=== PATIENT | female | born 1935 | race Caucasian/White ===

== ENCOUNTER 2017-11-27 12:08 | Inpatient (IN) | payer OTHER ==
[2017-11-27 12:41] LABS: Absolute Monocytes 0.9 K/uL (0.1-1.3); Absolute Neutrophil 6.1 K/uL (1.8-8.0); Basophils % 0.9 % (0-1.3); Eosinophils % 2.5 % (0-4.4); Hematocrit 40.1 % (36.0-45.0); Lymphocytes % 21.8 % (15.3-44.8); MCH 29.5 pg (27.0-35.0); MCV 88.3 fL (80-100); MPV 7.7 fL (7.6-11.3); Monocytes % 9.7 % (3.3-12.3); RBC Red Blood Cell Count 4.54 M/uL (3.86-4.86)
[2017-11-27] MEDS ORDERED: ONDANSETRON 4 MG/2 ML VIAL ONE (12:46)
[2017-11-27] MEDS ORDERED: FENTANYL CITR 100 MCG/2 ML ONE (12:46)
[2017-11-27] MEDS ORDERED: NA CHLORIDE 0.9% 1,000 ML ONE (12:46)
[2017-11-27 12:54] LABS: Potassium 5.1 mEq/L (3.6-5.0)
[2017-11-27] MEDS ORDERED: ONDANSETRON 4 MG/2 ML VIAL IV PRN (13:20)
[2017-11-27] MEDS ORDERED: MORPHINE 4 MG/ML SYR IV PRN (13:23)
--- NOTE | 2017-11-27 13:25 | ER ---
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 Reports aj right hip pain with outward deformity to leg. Care prior to arrival: None. Mechanism of Injury: Fall from standing position. Trauma event details: Injury occurred in the [facility], Injury occurred: at home. Injury occurred: November 27, 2017 Injury occurred at: 11:30. 12:08 Acuity: AMOR 3 aj 12:08 Method Of Arrival: EMS: [facility] aj 14:43 Transition of care: patient was not received from another setting of care. Onset of aj symptoms was November 27, 2017. Trauma Activation: Not Applicable Physician: ED Physician; Name: ; Notified At: ; Arrived At: Physician: General Surgeon; Name: ; Notified At: ; Arrived At: Physician: Radiology; Name: ; Notified At: ; Arrived At: Physician: Respiratory; Name: ; Notified At: ; Arrived At: Physician: Lab; Name: ; Notified At: ; Arrived At: Historical: - Allergies: 12:17 No Known Allergies; aj - Home Meds: 12:17 Metoprolol Tartrate Oral [Active]; aj - PMHx: 12:17 Hypertension; aj - PSHx: 12:17 Left Hip; aj - Immunization history: Last tetanus immunization: - up to date. - Social history:: Smoking status: Patient/guardian denies using tobacco. Screenin:08 Abuse screen: Denies threats or abuse. Denies injuries from another. Tuberculosis aj screening: No symptoms or risk factors identified. 14:43 Nutritional screening: No deficits noted. Fall Risk Fall in past 12 months (25 points). aj Primary Survey: 12:08 A: Airway: patent. Breathing/Chest: Respiratory pattern: regular, Respiratory effort: aj spontaneous, unlabored. Circulation: Skin color: pink, Skin temperature: warm, dry. Disability Alert. 13:05 Reassessment Airway Airway Breathing/Chest Respiratory pattern Regular Respiratory aj effort Spontaneous Unlabored Circulation Color [place] Temperature Warm Dry Disability Alert. Assessment: 12:08 General: Appears in no apparent distress. comfortable, Behavior is calm, cooperative, aj appropriate for age. Pain: Complains of pain in right hip. Neuro: Level of Consciousness is awake, alert, obeys commands, Oriented to person, place, time, situation. Respiratory: Airway is patent Respiratory effort is even, unlabored, Respiratory pattern is regular, symmetrical. Derm: Skin is intact, is healthy with good turgor, Skin is pink, warm \T\ dry. normal. Vital Signs: 12:08 BP 190 / 110; Pulse 84; Resp 20; Temp 98.6; Pulse Ox 98% on R/A; Weight 63.5 kg; Height aj 5 ft. 4 in. (162.56 cm); Pain 7/10; 14:10 BP 232 / 74; Pulse 82; Resp 20; Pulse Ox 99% on R/A; aj 12:08 Body Mass Index 24.03 (63.50 kg, 162.56 cm) aj 14:10 Provider notified of vitals aj Louise Coma Score: 12:08 Eye Response: spontaneous(4). Verbal Response: oriented(5). Motor Response: obeys aj commands(6). Total: 15. Trauma Score (Adult): 12:08 Eye Response: spontaneous(1); Verbal Response: oriented(1); Motor Response: obeys aj commands(2); Systolic BP: > 89 mm Hg(4); Respiratory Rate: 10 to 29 per min(4); Louise Score: 15; Trauma Score: 12 ED Course: 12:08 Patient arrived in ED. aj 12:08 [facility] jr8 12:08 Jhony Gutierrez MD is Attending Physician. jr8 12:08 Patient has correct armband on for positive identification. aj 12:08 Patient maintains SpO2 saturation greater than 95% on room air. aj 12:11 Triage completed. aj 12:17 Arm band placed on right wrist. Patient placed in an exam room, on a stretcher. aj 12:23 Leila Wallace, RN is Primary Nurse. aj 12:24 Inserted saline lock: 22 gauge in left antecubital area, using aseptic technique. Blood aj collected. 12:43 X-ray completed. Portable x-ray completed in exam room. Patient tolerated procedure jw2 well. 13:22 Laurie Olivier MD is Hospitalizing Provider. jr8 13:50 Jovel cath inserted, using sterile technique, 16 Fr., by md, balloon inflated, to aj gravity drainage, urine specimen collected. 14:15 EKG done, reviewed by Celio BECERRA. cc2 14:43 No provider procedures requiring assistance completed. Patient admitted, IV remains in aj place. Administered Medications: 12:31 Drug: fentaNYL (PF) 50 mcg Route: IVP; Site: left antecubital; aj 12:31 Drug: Zofran 4 mg Route: IVP; Site: left antecubital; aj 12:31 Drug: NS 0.9% 1000 ml Route: IV; Rate: 75 ml/hr; Site: left antecubital; aj 13:56 Drug: fentaNYL (PF) 25 mcg Route: IVP; Site: left antecubital; aj 15:11 Follow up: Response: Pain is decreased aj 14:19 Drug: Metoprolol 25 mg Route: PO; aj 15:10 Follow up: Response: No adverse reaction aj 14:19 Drug: hydrALAZINE 10 mg Route: PO; aj 15:09 Follow up: Response: Blood pressure is lowered aj Intake: 12:08 PO: 0ml; Total: 0ml. aj Outcome: 13:24 Decision to Hospitalize by Provider. jr8 14:44 Admitted to Med/surg accompanied by [facility], via stretcher, room 212, with chart, Report aj called to Esther IVEY 14:44 Condition: good 14:44 Patient's length of stay was not longer than 2 hours. 15:21 Patient left the ED. aj Signatures: Leila Wallace, RN Celio Chapman PA PA jr8 Lilo Burden jw2 [place], Esteban cc2
--- NOTE | 2017-11-27 13:25 | EDPHYS ---
Physician Documentation [facility] Name: Yadira Contreras Age: 82 yrs Sex: Female : 1935 Arrival Date: 11/27/2017 Time: 12:08 Bed 8 Private MD: ED Physician Jhony Gutierrez HPI: 11/27 13:00 This 82 yrs old Female presents to ER via EMS with complaints of Fall Injury, jr8 Hip Pain. 13:00 Details of fall: The patient fell from an upright position, while standing. Onset: The jr8 symptoms/episode began/occurred acutely, today. Associated injuries: The patient sustained right hip, decreased range of motion, deformity, painful injury. Severity of symptoms: At their worst the symptoms were moderate, in the emergency department the symptoms are unchanged. The patient has experienced a previous episode. The patient has not recently seen a physician. Patient stated that she tripped in grass and fell. Obvious deformity to right hip. Fall accidental per patient. Denies hitting head or neck. No LOC . Historical: - Allergies: 12:17 No Known Allergies; aj - Home Meds: 12:17 Metoprolol Tartrate Oral [Active]; aj - PMHx: 12:17 Hypertension; aj - PSHx: 12:17 Left Hip; aj - Immunization history: Last tetanus immunization: - up to date. - Social history:: Smoking status: Patient/guardian denies using tobacco. ROS: 13:00 Eyes: Negative for injury, pain, redness, and discharge, ENT: Negative for injury, jr8 pain, and discharge, Neck: Negative for injury, pain, and swelling, Cardiovascular: Negative for chest pain, palpitations, and edema, Respiratory: Negative for shortness of breath, cough, wheezing, and pleuritic chest pain, Abdomen/GI: Negative for abdominal pain, nausea, vomiting, diarrhea, and constipation, Back: Negative for injury and pain, Skin: Negative for injury, rash, and discoloration, Neuro: Negative for headache, weakness, numbness, tingling, and seizure. 13:00 MS/extremity: Positive for decreased range of motion, deformity, pain, tenderness, of the right hip. Exam: 13:19 Head/Face: Normocephalic, atraumatic. Eyes: Pupils equal round and reactive to light, jr8 extra-ocular motions intact. Lids and lashes normal. Conjunctiva and sclera are non-icteric and not injected. Cornea within normal limits. Periorbital areas with no swelling, redness, or edema. ENT: Nares patent. No nasal discharge, no septal abnormalities noted. Tympanic membranes are normal and external auditory canals are clear. Oropharynx with no redness, swelling, or masses, exudates, or evidence of obstruction, uvula midline. Mucous membranes moist. Neck: Trachea midline, no thyromegaly or masses palpated, and no cervical lymphadenopathy. Supple, full range of motion without nuchal rigidity, or vertebral point tenderness. No Meningismus. Chest/axilla: Normal chest wall appearance and motion. Nontender with no deformity. No lesions are appreciated. Cardiovascular: Regular rate and rhythm with a normal S1 and S2. No gallops, murmurs, or rubs. Normal PMI, no JVD. No pulse deficits. Respiratory: Lungs have equal breath sounds bilaterally, clear to auscultation and percussion. No rales, rhonchi or wheezes noted. No increased work of breathing, no retractions or nasal flaring. Abdomen/GI: Soft, non-tender, with normal bowel sounds. No distension or tympany. No guarding or rebound. No evidence of tenderness throughout. Back: No spinal tenderness. No costovertebral tenderness. Full range of motion. Skin: Warm, dry with normal turgor. Normal color with no rashes, no lesions, and no evidence of cellulitis. Neuro: Awake and alert, GCS 15, oriented to person, place, time, and situation. Cranial nerves II-XII grossly intact. Motor strength 5/5 in all extremities. Sensory grossly intact. Cerebellar exam normal. Normal gait. 13:19 Musculoskeletal/extremity: Extremities: grossly normal except: noted in the right hip: decreased ROM, deformity, pain, ROM: limited active range of motion, limited passive range of motion, limited active range of motion due to pain, limited passive range of motion due to pain, Circulation is intact in all extremities. Sensation intact. Vital Signs: 12:08 BP 190 / 110; Pulse 84; Resp 20; Temp 98.6; Pulse Ox 98% on R/A; Weight 63.5 kg; Height aj 5 ft. 4 in. (162.56 cm); Pain 7/10; 14:10 BP 232 / 74; Pulse 82; Resp 20; Pulse Ox 99% on R/A; aj 12:08 Body Mass Index 24.03 (63.50 kg, 162.56 cm) aj 14:10 Provider notified of vitals aj [place] Coma Score: 12:08 Eye Response: spontaneous(4). Verbal Response: oriented(5). Motor Response: obeys aj commands(6). Total: 15. Trauma Score (Adult): 12:08 Eye Response: spontaneous(1); Verbal Response: oriented(1); Motor Response: obeys aj commands(2); Systolic BP: > 89 mm Hg(4); Respiratory Rate: 10 to 29 per min(4); Louise Score: 15; Trauma Score: 12 MDM: 12:08 Patient medically screened. [facility] [place] 13:19 Data reviewed: vital signs, nurses notes, lab test result(s), EKG, radiologic studies, [facility] [place] plain films, and as a result, I will discharge patient. Data interpreted: Pulse oximetry: on room air is 98 %. Interpretation: normal. Counseling: I had a detailed discussion with the patient and/or guardian regarding: the historical points, exam findings, and any diagnostic results supporting the discharge/admit diagnosis, lab results, radiology results, the need for further work-up and treatment in the hospital. Physician consultation: Laurie Olivier MD was called at 13:20, was contacted at 13:20, regarding admission, to the medical/surgical unit. consult, patient's condition, and will see patient. 11/27 12:21 Order name: CBC with Diff [facility] [place] 11/27 12:21 Order name: Basic Metabolic Panel [facility] [place] 11/27 12:21 Order name: Protime (+inr) [facility] [place] 11/27 12:21 Order name: Ptt, Activated [facility] [place] 11/27 12:21 Order name: T\T\S [facility] [place] 11/27 12:54 Order name: Basic Metabolic Panel; Complete Time: 13:21 EDMS 11/27 12:21 Order name: XRAY Hip RIGHT 2 view [facility] [place] 11/27 12:57 Order name: Protime (+INR); Complete Time: 13:00 EDMS 11/27 12:57 Order name: PTT, Activated Partial Thromb; Complete Time: 13:00 EDMS 11/27 12:57 Order name: CBC with Automated Diff; Complete Time: 13:00 EDMS 11/27 13:21 Order name: XRAY Chest (1 view) [facility] [place] 11/27 13:22 Order name: CK [facility] [place] 11/27 13:28 Order name: Pelvis XRAY [facility] [place] 11/27 13:28 Order name: XRAY Femur RIGHT [facility] [place] 11/27 12:21 Order name: IV; Complete Time: 12:32 [facility] [place] 11/27 12:21 Order name: Jovel; Complete Time: 13:50 [facility] [place] 11/27 12:53 Order name: Labs - recollect needed 11/27 13:21 Order name: EKG - Nurse/Tech [facility] [place] 11/27 13:21 Order name: EKG; Complete Time: 13:22 [facility] [place] 11/27 13:52 Order name: RAD; Complete Time: 13:59 EDMS 11/27 14:51 Order name: RAD; Complete Time: 14:53 EDMS 11/27 15:02 Order name: RAD; Complete Time: 15:04 EDMS 11/27 15:02 Order name: RAD; Complete Time: 15:04 EDMS Administered Medications: 12:31 Drug: fentaNYL (PF) 50 mcg Route: IVP; Site: left antecubital; aj 12:31 Drug: Zofran 4 mg Route: IVP; Site: left antecubital; aj 12:31 Drug: NS 0.9% 1000 ml Route: IV; Rate: 75 ml/hr; Site: left antecubital; aj 13:56 Drug: fentaNYL (PF) 25 mcg Route: IVP; Site: left antecubital; aj 15:11 Follow up: Response: Pain is decreased aj 14:19 Drug: Metoprolol 25 mg Route: PO; aj 15:10 Follow up: Response: No adverse reaction aj 14:19 Drug: hydrALAZINE 10 mg Route: PO; aj 15:09 Follow up: Response: Blood pressure is lowered aj Disposition: 11/27/17 13:24 Hospitalization ordered by Laurie Olivier for Inpatient Admission. Preliminary diagnosis is Intertrochanteric fracture of femur. - Bed requested for Telemetry/MedSurg (Inpatient). - Status is Inpatient Admission. aj - Condition is Stable. - Problem is new. - Symptoms have improved. UTI on Admission? No Addendum: 11/29/2017 08:13 Co-signature as Attending Physician, Jhony AREVALO I agree with the assessment and c johnson plan of care. Signatures: Dispatcher [employer] Lexus Joseph Amanda, RN Jhony Goetz MD MD cha Roszak, Josh, PA PA jr8 Brittany Winston, UCHE RN df
--- NOTE | 2017-11-27 13:37 | P.HP ---
Certification for Inpatient Patient admitted to: Inpatient With expected LOS: >2 Midnights Patient will require the following post-hospital care: None Practitioner: I am a practitioner with admitting privileges, knowledge of patient current condition, hospital course, and medical plan of care. Services: Services provided to patient in accordance with Admission requirements found in Title 42 Section 412.3 of the Code of Federal Regulations Patient History Date of Service: 11/27/17 Primary Care Provider: Dr Ibarra Reason for admission: Right hip fracture History of Present Illness: 82 y/o F with h/o HTN, left Hip fracture in the past who presented to the ED after a mechanical Fall in the front porch. Pt states she was on the front porch and slipped and fell on the right hip. She felt the pain right away. Her called 911 and she was brought to the ED for further workup. Pt has had left hip fracture in the past (about 3 years ago) had it repaired without any complications. Currently on H/o HTN and takes only Metoprolol for it. No other complains at this time. No associated Symptoms at this time. Denies Chest pain, SOB, N or V at this time. In ED pt was found to have Right Hip Fracture and thus medicine was consulted for further care. Dr Chawla from ortho consulted and will take pt to OR isabel AM. Allergies No Known Allergies Allergy (Unverified 11/03/13 00:38) Home Medications: Multivitamin [Daily Vitamin] 1 tab PO DAILY 11/06/13 Aspirin [Misha Chewable Aspirin] 81 mg PO DAILY 08/03/14 Carbamazepine 100 mg PO DAILY 08/03/14 Lisinopril [Prinivil*] 20 mg PO DAILY 08/03/14 Metoprolol Tartrate [Lopressor*] 50 mg PO DAILY 08/03/14 Gabapentin 300 mg PO BEDTIME 08/06/14 Docusate [Colace Cap] 100 mg PO BID #30 cap 08/17/14 Hydrocodone 5/APAP 325 [[place] 5/325] 1 - 2 tab PO Q6H PRN #40 tab 08/17/14 - Past Medical/Surgical History Diabetic: No -: TRIGEMINAL NEURALGIA -: HTN -: CATARACT SX - BILATERAL -: hysterectomy - Family History Father -: Heart disease, Hypertension, Stroke, Cancer Mother -: Heart disease, Hypertension, Cancer - Social History Alcohol use: Yes CD- Drugs: No Caffeine use: Yes Review of Systems 10-point ROS is otherwise unremarkable General: As per HPI Physical Examination - Physical Exam General: Alert, In no apparent distress, Oriented x3 HEENT: Atraumatic Neck: Supple Respiratory: Clear to auscultation bilaterally, Normal air movement Cardiovascular: Regular rate/rhythm, Normal S1 S2 Gastrointestinal: Normal bowel sounds, Soft and benign, Non-distended, No tenderness Musculoskeletal: Other (Right Leg external rotated. pain on palpation on the right hip. ) Integumentary: No rashes Neurological: Normal speech, Normal tone, Abnormal strength Lymphatics: No axilla or inguinal lymphadenopathy - Studies Laboratory Data (last 24 hrs) 11/27/17 12:21: PT 11.8, INR 1.00, APTT 29.5 11/27/17 12:21: Sodium 134 L, Potassium 5.1 H, BUN 13, Creatinine 0.69, Glucose 118 11/27/17 12:21: WBC 9.4, Hgb 13.4, Hct 40.1, Plt Count 351 Assessment and Plan - Problems (Diagnosis) (1) Closed right hip fracture Current Visit: Yes Status: Acute Plan: S/P mechanical Fall -Ortho consulted. Dr Chawla to take the pt to OR isabel AM -NPO after midnight -Pain mgmt and iv fluids Qualifiers: Encounter type: initial encounter Qualified Code(s): S72.001A - Fracture of unspecified part of neck of right femur, initial encounter for closed fracture (2) Falls Current Visit: No Status: Acute Plan: S/p Mechanical Call -PT/OT consulted -Rehab consulted after surgery for placement. (3) Hypertensive disorder, systemic arterial Current Visit: No Status: Chronic Plan: Will restart home medication Discharge Plan: Other Plan to discharge in: 72 Hours - Advance Directives Does patient have a Living Will: No Does patient have a Durable POA for Healthcare: Yes
[2017-11-27] MEDS ORDERED: D50W 25 GM/50 ML SYRINGE IV PRN (13:46)
[2017-11-27] MEDS ORDERED: CALCIUM GLUC 10% INJ 4.65 MEQ in NA CHLORIDE 0.9% 100 ML IV ONE ×2 (13:46→17:00)
[2017-11-27] MEDS ORDERED: GLUCAGON 1 MG/VIAL IM PRN (13:46)
[2017-11-27] MEDS ORDERED: INSULIN -REGULAR HUMAN 50 UNIT/0.5 ML ML IV ONE (13:47)
--- NOTE | 2017-11-27 13:51 | RAD REPORT ---
EXAM DESCRIPTION: RAD - Hip Right 2 View - 11/27/2017 12:46 pm CLINICAL HISTORY: Right hip pain status post fall FINDINGS: Intertrochanteric fracture involves the right femur. The fracture involves the greater tro chanter. The lesser trochanter is avulsed. Varus angulation is present at the fracture site. Main fra cture fragments are by 8 millimeters No dislocation is seen
[2017-11-27] MEDS ORDERED: METOPROLOL TAR 25 MG TAB ONE (14:34)
[2017-11-27] MEDS ORDERED: HYDRALAZINE HCL 10 MG TABLET ONE (14:34)
--- NOTE | 2017-11-27 14:51 | RAD REPORT ---
EXAM DESCRIPTION: [place] Single View11/27/2017 1:50 pm CLINICAL HISTORY: Chest pain COMPARISON: 2013 FINDINGS: The lungs appear clear of acute infiltrate. The heart is normal size IMPRESSION: No acute abnormalities displayed
--- NOTE | 2017-11-27 15:01 | RAD REPORT ---
EXAM DESCRIPTION: RAD - Pelvis - 11/27/2017 2:49 pm CLINICAL HISTORY: Pelvic pain FINDINGS: Intertrochanteric fracture involves the proximal right femur. The greater trochanter is in volved. The lesser trochanter is avulsed. Varus angulation is present at the fracture site. The main fracture fragments are by 8 millimeters. No dislocation is seen
--- NOTE | 2017-11-27 15:02 | RAD REPORT ---
EXAM DESCRIPTION: RAD - Femur Right - 11/27/2017 2:49 pm CLINICAL HISTORY: Right leg pain FINDINGS: Intertrochanteric fracture involves the proximal right femur. The greater trochanter is in volved. The lesser trochanter is avulsed. Varus angulation is present at the fracture site. The main fracture fragments are by 8 millimeters. No fracture involves the mid and distal right femur No dislocation is seen
[2017-11-27 15:24] VITALS: BMI 24.0
[2017-11-27] MEDS: HYDRALAZINE HCL 20 MG/ML VIAL IV PRN (16:51)
[2017-11-27] MEDS: NA CHLORIDE 0.9% 1,000 ML IV SCH ×2 (16:53→20:45)
[2017-11-27] MEDS ORDERED: PNEUMOCOCCAL VACCINE 0.5 ML IMVAC ONE (17:00)
[2017-11-27 17:25] LABS: Urine Appearance CLEAR; Urine Bilirubin NEGATIVE (NEG); Urine Blood NEGATIVE (NEG); Urine Color YELLOW; Urine Glucose NEGATIVE (NEG); Urine Protein NEGATIVE (NEG); Urine Urobilinogen 0.2 mg/dL (0.2-1.0); Urine pH 7.5 (5.0-7.0)
[2017-11-27 17:33] LABS: Urine Microscopic Reflex NO UMIC
[2017-11-27] MEDS: FENTANYL CITR 100 MCG/2 ML IV PRN (20:39)
[2017-11-28] MEDS: FENTANYL CITR 100 MCG/2 ML IV PRN ×2 (02:40→08:49)
[2017-11-28 05:09] LABS: Absolute Lymphocytes (CBC) 1.2 K/uL (0.7-4.9); Absolute Neutrophil 7.6 K/uL (1.8-8.0); Basophils % 0.7 % (0-1.3); Eosinophils % 0.6 % (0-4.4); Hematocrit 30.9 % (36.0-45.0); Lymphocytes % 12.1 % (15.3-44.8); MCH 29.4 pg (27.0-35.0); MCV 87.5 fL (80-100); MPV 7.7 fL (7.6-11.3); Monocytes % 10.3 % (3.3-12.3); RBC Red Blood Cell Count 3.53 M/uL (3.86-4.86)
--- NOTE | 2017-11-28 05:14 | EKG ---
Test Date: 2017-11-27 Test Time: 14:00:20 Historic Sites Registrar: ZACK MEASUREMENT RESULTS: Intervals: Rate: 71 AL: 166 QRSD: 90 QT: 424 QTc: 460 [place]: P: 81 AL: 166 QRS: 58 T: 39 INTERPRETIVE STATEMENTS: Normal sinus rhythm Normal ECG Compared to ECG 08/11/2014 09:57:36 Sinus tachycardia no longer present Atrial premature complex(es) no longer present Electronically Signed On 11-28-17 05:14:01 CDT by Fam Cooper
[2017-11-28 05:22] LABS: ALT/SGPT 16 IU/L (10-60); AST/SGOT 18 IU/L (10-42); Alkaline Phosphatase 72 IU/L (42-121); BUN Blood Urea Nitrogen 12 mg/dL (6-20); Bicarbonate 26 mEq/L (21-31); Bilirubin Total 0.6 mg/dL (0.3-1.2); Glomerular Filtration Rate > 90 mL/min (=/>90); Glucose Level 101 mg/dL (65-120); Magnesium 1.9 mg/dL (1.8-2.5); Phosphorus 3.7 mg/dL (2.5-4.3); Potassium 4.5 mEq/L (3.6-5.0); Protein, Total 5.3 g/dL (6.0-8.3); Sodium Level 133 mEq/L (135-145)
[2017-11-28] MEDS: NA CHLORIDE 0.9% 1,000 ML IV SCH ×2 (08:55→20:51)
--- NOTE | 2017-11-28 10:25 | CON ---
Date of Consultation: 11/28/2017 Reason For Consultation: Right hip pain. History Of Present Illness: Yadira is an 82-year-old female with history of hypertension and trigemin al neuralgia, who presented to the ER yesterday with right hip pain. The patient reports standing on her front porch and falling after tripping on her feet and landing on her right side with subsequent pain to her right hip and inability to bear weight. The patient was brought to the emergency room a nd had x-rays of her right hip, which demonstrated a right intertrochanteric femur fracture. The pat ient reports history of left femoral neck fracture treated by left hip hemiarthroplasty approximately [address] Carroll. Prior to the fall, the patient denied any use of assistive devices. Review of Systems: As above, otherwise negative. Past Medical History: Includes hypertension, trigeminal neuralgia. Past Surgical History: Left hip hemiarthroplasty, hysterectomy, cataract surgery. Home Medications: Include multivitamin, aspirin, carbamazepine, lisinopril, metoprolol, gabapentin, [place], and Colace. Allergies: NO KNOWN DRUG ALLERGIES. Social History: Denies tobacco use. Reports occasional alcohol use. Lives at home with her . Family History: Reviewed and noncontributory. Physical Examination: General: No apparent distress. HEENT: Normocephalic, atraumatic. Neck: Supple. Cardiovascular: Brisk cap refill to all digits. Chest: Nonlabored breathing. Abdomen: Nondistended. Psychiatric: Response to exam. Musculoskeletal: Bilateral upper extremities functional range of motion without pain. No gross defo rmities. No obvious dislocations. Left lower extremity; no pain with range of motion of the left hi p, knee, or ankle. Neurovascular intact distally. Right lower extremity; pain with range of motion of the right hip, tenderness to palpation over the right hip. No tenderness to palpation of the knee , tibia, ankle or foot. Reports gross sensation intact to the dorsal and plantar surface of her foot . Positive firing of EHL, FHL, gastrocsoleus complex, tibialis anterior. X-rays: X-rays of her right hip demonstrate an intertrochanteric femur fracture, which is displaced with displacement of the lesser trochanter. Laboratory Data: White count is 9.4, hemoglobin 13.4, hematocrit 40.1, platelets 351. Assessment And Plan: Ms. Contreras is an 82-year-old female with a right intertrochanteric femur fractu re. I discussed with the patient at length risks and benefits associated with operative and nonopera tive treatment. Given her displaced fracture, I recommended surgical fixation with cephalomedullary device. Risks and benefits associated with the procedure were discussed with the patient as well as postoperative rehabilitation. The patient and her family expressed understanding. We will proceed w ith the surgical fixation later this morning. Dr. Olivier will continue to manage the patient medicall yClark GUTIERREZ/[email or web address] Voice ID: [id number] Report ID: [id number]
[2017-11-28] MEDS ORDERED: PROPOFOL 200 MG/20 ML VIAL IV ONE (10:34)
[2017-11-28] MEDS ORDERED: ROCURONIUM 50 MG/5 ML VIAL IV ONE (10:34)
[2017-11-28] MEDS ORDERED: LIDOCAINE 2% MPF 5 ML VIAL ONE (10:34)
[2017-11-28] MEDS ORDERED: Phenylephrine HCl 10 MG/ML 1 ML VIAL ONE (10:36)
[2017-11-28] MEDS ORDERED: Ringers Lactate 1,000 ML IV ONE (10:42)
--- NOTE | 2017-11-28 10:48 | EKG ---
Test Date: 2017-11-27 Test Time: 16:58:22 Frothing Machine Operator: ALONSO MEASUREMENT RESULTS: Intervals: Rate: 71 SD: 174 QRSD: 92 QT: 418 QTc: 454 [place]: P: 75 SD: 174 QRS: 57 T: 38 INTERPRETIVE STATEMENTS: Normal sinus rhythm Normal ECG Compared to ECG 11/27/2017 14:00:20 No significant changes Electronically Signed On 11-28-17 10:47:09 CDT by Fam Cooper
[2017-11-28] MEDS ORDERED: CEFAZOLIN/SWI 1gm 1 GM/10 ML SYR ONE (11:06)
[2017-11-28] MEDS ORDERED: FENTANYL CITR 100 MCG/2 ML ONE (11:28)
[2017-11-28] MEDS ORDERED: DEXAMETHASONE 10 MG/ML VIAL ONE (11:45)
[2017-11-28] MEDS ORDERED: ONDANSETRON 4 MG/2 ML VIAL ONE ×2 (11:46→12:42)
[2017-11-28] MEDS ORDERED: KETOROLAC 30 MG/ML INJ ONE (11:46)
[2017-11-28] MEDS ORDERED: HYDRALAZINE HCL 20 MG/ML VIAL ONE (11:57)
[2017-11-28] MEDS ORDERED: GLYCOPYRROLATE 0.2 MG/ML SYR ONE (11:57)
[2017-11-28] MEDS ORDERED: NEOSTIGMINE 1 MG/ML -5 ML SYRINGE ONE (11:57)
[2017-11-28] MEDS: METOPROLOL TAR 50 MG TAB PO SCH ×2 (12:00→20:48)
--- NOTE | 2017-11-28 12:17 | P.BOP ---
Preoperative diagnosis: right intertrochanteric femur fracture Postoperative diagnosis: same Primary procedure: cephallomedullary fixation of right intertrochanteric femur fracture Other procedure(s): none Teaching Young: NONE,NONE Estimated blood loss: 50 cc Specimen: none Findings: see dictation Anesthesia: General Complications: None Drain(s): Urinary catheter Implants: [id number] mm Biomet 125 degree nail; 95 mm lag screw Fluids & blood products: per anesthesia Transferred to: Recovery Room Condition: Good
[2017-11-28] MEDS ORDERED: DOCUSATE NA 100 MG CAP PO PRN (12:25)
[2017-11-28] MEDS ORDERED: FENTANYL CITR 100 MCG/2 ML IV PRN (12:25)
[2017-11-28] MEDS: MEPERIDINE HCL 25 MG/0.5 ML ONE ×2 (12:33→12:58)
--- NOTE | 2017-11-28 12:33 | RAD REPORT ---
EXAM DESCRIPTION: RAD - Hip In Or - 11/28/2017 12:12 pm FINDINGS: Right hip fluoroscopy performed. Multiple portable C-arm views were obtained during fluoroscopic assisted placement of fracture fixati on hardware. No suspicious or unexpected finding.
[2017-11-28 12:56] LABS: Hematocrit 31.7 % (36.0-45.0)
[2017-11-28] MEDS ORDERED: CEFAZOLIN/SWI 1gm 1 GM/10 ML SYR IVP SCH (13:00)
[2017-11-28] MEDS ORDERED: PROMETHAZINE 25 MG/ML VIAL ONE (13:07)
--- NOTE | 2017-11-28 13:09 | RAD REPORT ---
EXAM DESCRIPTION: RAD - Hip Right 2 View - 11/28/2017 1:01 pm CLINICAL HISTORY: Right femur fracture repair COMPARISON: Intraoperative and pre-surgical examination FINDINGS: AP and cross-table lateral views were obtained. Fracture fixation hardware has been placed in good position. Lesser trochanter remains a free fracture displaced superiorly. No suspicious or u nexpected finding.
--- NOTE | 2017-11-28 14:20 | P.PN ---
Subjective Date of Service: 11/28/17 Primary Care Provider: Dr Ibarra Chief Complaint: Right hip fracture Patient seen and examined at bedside with RN. Case discussed with orthopedics. Patient is currently awaiting surgical procedure. Still complains of having pain. Yesterday after 2 mg of morphine patient had respiratory distress and which resolved after 10 mins. Review of Systems General: As per HPI Physical Examination - Vital Signs Temperature: 98.6 F Blood Pressure: 147/65 Pulse: 73 Respirations: 20 Pulse Ox (%): 97 - Physical Exam General: Alert, In no apparent distress, Oriented x3 HEENT: Atraumatic, PERRLA, EOMI Neck: Supple, JVD not distended Respiratory: Clear to auscultation bilaterally, Normal air movement Cardiovascular: Regular rate/rhythm, Normal S1 S2 Gastrointestinal: Normal bowel sounds, No tenderness Musculoskeletal: Tenderness, Other (Externally rotated Right leg ) Integumentary: No rashes Neurological: Normal speech, Normal tone, Normal affect Lymphatics: No axilla or inguinal lymphadenopathy - Studies Medications List Reviewed: Yes Assessment & Plan - Problems (Diagnosis) (1) Closed right hip fracture Current Visit: Yes Status: Acute Plan: S/P mechanical Fall -Ortho consulted. Dr Chawla to take the pt to OR today -NPO now -Pain mgmt and iv fluids Qualifiers: Encounter type: initial encounter Qualified Code(s): S72.001A - Fracture of unspecified part of neck of right femur, initial encounter for closed fracture (2) Falls Current Visit: No Status: Acute Plan: S/p Mechanical Call -PT/OT consulted -Rehab consulted after surgery for placement. (3) Hypertensive disorder, systemic arterial Current Visit: No Status: Chronic Plan: Will restart home medication Discharge Plan: Other Plan to discharge in: 48 Hours - Code Status/Comfort Care Code Status Assessed: Yes Critical Care: No
[2017-11-28] MEDS: CEFAZOLIN/SWI 1gm 1 GM/10 ML SYR IVP SCH ×2 (17:51→23:12)
[2017-11-28] MEDS: HYDROCODONE/APAP 7.5/325 MG TAB PO PRN (17:51)
[2017-11-28] MEDS: GABAPENTIN 300 MG CAP PO SCH (20:48)
[2017-11-28] MEDS ORDERED: CARBAMAZEPINE 200 MG TAB PO SCH (21:00)
[2017-11-28] MEDS ORDERED: CARBAMAZEPINE 100 MG PO SCH (21:00)
--- NOTE | 2017-11-28 21:40 | OP ---
Date of Procedure: 11/28/2017 Surgeon: Chi Chawla MD Preoperative Diagnosis: Right intertrochanteric femur fracture. Postoperative Diagnosis: Right intertrochanteric femur fracture. Procedure Performed: Cephalomedullary fixation of right intertrochanteric femur fracture. Anesthesia: General endotracheal. Fluids: Per Anesthesia record. Estimated Blood Loss: 50 cc. Complication: None. Implants: An 11 x 180 mm Biomet 125-degree nail, 95-mm lag screw, and 34 mm interlocking screw. Indication For Procedure: Yadira is an 82-year-old female, who presented to the ER yesterday after albright staining a fall onto her right hip with pain and inability to bear weight. X-rays demonstrated an in tertrochanteric right femur fracture. I discussed with the patient at length risks and benefits asso ciated with operative and nonoperative treatment. The patient and her family expressed understanding and elected to proceed with operative treatment. Description Of Procedure: After informed consent was obtained, the patient was identified in the pre operative holding area. The right lower extremity was marked. The patient was then taken back to e operating room, placed under general endotracheal anesthesia, then transferred to the operating tab le in supine fashion, she was placed in the fracture table with her extremities well padded. The rig ht lower extremity was then placed with gentle traction, adduction and internal rotation to reduce e hip fracture. Fluoroscopy was used to ensure proper reduction of the hip fracture in both AP and l ateral views. There was adequate reduction of the hip fracture on the fracture table. The right low er extremity was then prepped and draped in usual sterile fashion. A time-out was initiated. The co rrect patient and procedure were confirmed and identified. The patient did receive a preoperative pr ophylactic antibiotics. Approximately, a 5 cm longitudinal incision was made proximal to the greater trochanter. A guide pin was then placed on tip of the greater trochanter and passed down the proxim al femur in an antegrade fashion. Once proper position was confirmed using fluoroscopy and both AP a nd lateral view, an entry reamer was placed over the guide pin powered by hand and the entry reamer w as placed down the proximal femur in antegrade fashion over the guide pin. A ball-tipped guide martha w as then placed down the femoral shaft in an antegrade fashion to the femur. The proximal femur was t hen reamed to a size 12-1/2-mm reamer. There was adequate chatter with the 12-1/2-mm reamer, size 11 x 180 mm nail was then selected with a 125 degree, the nail was then placed over the guide martha into proper position. The guide martha was then pulled. A second incision was made over the lateral thigh a nd a guide pin was then placed over the lateral cortex up into the femoral head into center-center po sition in near subchondral bone, it was then measured and then a size 95-mm lag screw was selected. Again, the proper positioning was confirmed using fluoroscopy with AP and lateral views. The drill w as then placed over the guide pin and drilled to a depth of 95 mm, the lag screw was then placed. Th e lag screw was placed after placement of a second guide pin in the femoral head to be used as an ant irotation device. After placement of the lag screw was completed, the second guide pin was removed a nd the fracture was compressed. The lag screw was then locked into position into the nail. Next, us ing the jig, an interlocking screw was placed in the distal aspect of the martha and size 35 mm interloc jerry screw was placed in bicortical fashion. The jig was then removed and final x-rays were taken. There was overall good alignment of the fracture as well as placement of the hardware and positioning confirmed by fluoroscopy. The wound was then irrigated thoroughly with normal saline. Deep fascia was approximated using 0 Vicryl. The subcutaneous tissue was approximated using a 2-0 Vicryl. Skin was approximated using neal. Sterile dressings were applied. The patient was removed out of the fracture table. The patient was awakened and transferred to the PACU in stable condition. Postoperative Plan: She will be weightbearing as tolerated on her right lower extremity. Physical T herapy will be consulted to aid with mobilization. Dr. Olivier will continue the technical management of the patient medically. CV/MODL Voice ID: [id number] Report ID: [id number]
[2017-11-29] MEDS: HYDRALAZINE HCL 20 MG/ML VIAL IV PRN (04:19)
[2017-11-29 05:28] LABS: Alkaline Phosphatase 67 IU/L (42-121); BUN Blood Urea Nitrogen 12 mg/dL (6-20); Bilirubin Total 0.5 mg/dL (0.3-1.2); Glomerular Filtration Rate > 90 mL/min (=/>90); Glucose Level 92 mg/dL (65-120); Protein, Total 5.7 g/dL (6.0-8.3)
[2017-11-29 05:35] LABS: Absolute Lymphocytes (CBC) 1.8 K/uL (0.7-4.9); Absolute Monocytes 1.6 K/uL (0.1-1.3); Absolute Neutrophil 9.8 K/uL (1.8-8.0); Basophils % 0.3 % (0-1.3); Eosinophils % 0.3 % (0-4.4); Hematocrit 27.6 % (36.0-45.0); Lymphocytes % 13.6 % (15.3-44.8); MCH 28.8 pg (27.0-35.0); MCV 87.6 fL (80-100); MPV 8.4 fL (7.6-11.3); Monocytes % 12.3 % (3.3-12.3); RBC Red Blood Cell Count 3.15 M/uL (3.86-4.86)
[2017-11-29] MEDS: CEFAZOLIN/SWI 1gm 1 GM/10 ML SYR IVP SCH (05:40)
[2017-11-29] MEDS: NA CHLORIDE 0.9% 1,000 ML IV SCH (05:40)
[2017-11-29 05:41] LABS: ALT/SGPT 15 IU/L (10-60); AST/SGOT 22 IU/L (10-42); Bicarbonate 24 mEq/L (21-31); Potassium 4.9 mEq/L (3.6-5.0); Sodium Level 135 mEq/L (135-145)
[2017-11-29] MEDS: HYDROCODONE/APAP 7.5/325 MG TAB PO PRN ×3 (09:03→18:29)
[2017-11-29] MEDS: ENOXAPARIN 40 MG/0.4 ML SQ SCH (09:04)
[2017-11-29] MEDS: METOPROLOL TAR 50 MG TAB PO SCH ×2 (09:04→20:34)
[2017-11-29] MEDS: CARBAMAZEPINE 200 MG TAB PO SCH ×2 (10:58→20:33)
--- NOTE | 2017-11-29 11:55 | P.PN ---
Subjective Date of Service: 11/29/17 Primary Care Provider: Dr Ibarra Chief Complaint: Right hip fracture Subjective: Working w/ PT pain improved Physical Examination - Vital Signs Temperature: 98.9 F Blood Pressure: 147/71 Pulse: 95 Respirations: 16 Pulse Ox (%): 92 - Physical Exam General: Alert, In no apparent distress Musculoskeletal: Other (RLE: dressing c/d/i; thigh swollen and ttp; compartments soft; +EHL/FHL/GSC/TA; sensation grossly intact distally) - Studies Medications List Reviewed: Yes Assessment And Plan - Plan Yadira is an 82 yo female s/p IMN right IT femur fracture POD#1 -acute expected postoperative blood loss anemia; continue to monitor H/H -PT to mobilize; WBAT RLE; -lovenox for DVT prophylaxis
--- NOTE | 2017-11-29 17:05 | PN ---
Date of Progress Note: 11/29/2017 Subjective: The patient seen and examined. Chart reviewed and case discussed with RN. The patient tolerated procedure well. Pain is very much under control. Family at the bedside. Treatment plan e xplained. All questions answered. The patient awaiting PT evaluation. Review of Systems: Negative except as above. Medications: Reviewed. Physical Examination: Vital Signs: Temperature 98.9, heart rate 95, blood pressure 147/71, respirations 16, O2 92% on 1 L via nasal cannula. General: Awake, alert, oriented x3. No acute distress, elderly female. CV: S1, S2. No murmurs. Regular rate and rhythm. Peripheral pulses present. Respiratory: Clear to auscultation bilaterally. No wheezing. Abdomen: Soft, nontender, nondistended. Positive bowel sounds. Extremities: No clubbing, cyanosis, or edema. Musculoskeletal: Right hip incision site clean, dry, and trach bandaged. Neurologic: Nonfocal. Laboratory Data: Sodium 135, potassium 4.9, chloride 105, CO2 24, BUN 12, creatinine 0.6, glucose 92 , calcium 8.2. WBC 13.4, H and H 9.1, 27.6, platelets 246. Assessment: An 82-year-old female with: 1.Status post mechanical fall. 2.Right hip fracture status post mechanical fall, status post intramedullary nail. Postoperative da y #1. Dr. Chawla on the case. Appreciate his input. We will continue with PT, OT. We have referral Lovenox for DVT prophylaxis. 3.Essential hypertension. Resume home medications as appropriate. 4.Anemia, normocytic, normochromic, likely related to procedure. We will continue to monitor. Plan: Rehab consultation. Continue PT. Discharge planning. /ALEXANDRA Voice ID: [id number] Report ID: [id number]
[2017-11-29] MEDS: CYCLOBENZAPRINE 10 MG TAB PO PRN (18:28)
[2017-11-29] MEDS: GABAPENTIN 300 MG CAP PO SCH (20:34)
[2017-11-30] MEDS: CYCLOBENZAPRINE 10 MG TAB PO PRN ×3 (04:08→17:33)
[2017-11-30 05:15] LABS: Absolute Lymphocytes (CBC) 1.1 K/uL (0.7-4.9); Absolute Monocytes 1.2 K/uL (0.1-1.3); Absolute Neutrophil 8.5 K/uL (1.8-8.0); Basophils % 0.9 % (0-1.3); Eosinophils % 2.2 % (0-4.4); Hematocrit 23.5 % (36.0-45.0); Lymphocytes % 10.3 % (15.3-44.8); MCH 28.9 pg (27.0-35.0); MCV 88.2 fL (80-100); MPV 7.9 fL (7.6-11.3); Monocytes % 10.6 % (3.3-12.3); RBC Red Blood Cell Count 2.66 M/uL (3.86-4.86)
[2017-11-30 05:59] LABS: ALT/SGPT 14 IU/L (10-60); AST/SGOT 22 IU/L (10-42); Albumin 2.7 g/dL (3.2-5.5); Alkaline Phosphatase 62 IU/L (42-121); BUN Blood Urea Nitrogen 10 mg/dL (6-20); Bicarbonate 25 mEq/L (21-31); Bilirubin Total 0.5 mg/dL (0.3-1.2); Glomerular Filtration Rate > 90 mL/min (=/>90); Glucose Level 100 mg/dL (65-120); Potassium 3.8 mEq/L (3.6-5.0); Sodium Level 135 mEq/L (135-145)
[2017-11-30] MEDS ORDERED: POTASSIUM 25 MEQ EFFERV TAB PO ONE (06:16)
[2017-11-30] MEDS: METOPROLOL TAR 50 MG TAB PO SCH ×2 (08:53→20:03)
[2017-11-30] MEDS: CARBAMAZEPINE 200 MG TAB PO SCH ×2 (08:53→20:03)
[2017-11-30] MEDS: HYDROCODONE/APAP 7.5/325 MG TAB PO PRN ×3 (08:54→17:32)
[2017-11-30] MEDS: ENOXAPARIN 40 MG/0.4 ML SQ SCH (08:55)
--- NOTE | 2017-11-30 12:00 | P.PN ---
Subjective Date of Service: 11/30/17 Primary Care Provider: Dr Ibarra Chief Complaint: Right hip fracture Subjective: Improving, Working w/ PT pain improved Physical Examination - Vital Signs Temperature: 100.2 F Blood Pressure: 181/76 Pulse: 98 Respirations: 18 Pulse Ox (%): 96 - Physical Exam General: Alert, In no apparent distress Musculoskeletal: Other (RLE: dressing with minimal sanguinous drainage; +EHL/FHL /GSC/TA; sensation grossly intact distally) - Studies Medications List Reviewed: Yes Assessment And Plan - Plan Yadira is an 82 yo female s/p IMN right IT femur fracture POD#2 -acute expected postoperative blood loss anemia; continue to monitor H/H -will hold lovenox secondary to continued drop in H/H -PT to mobilize; WBAT RLE; -mechanical DVT prophylaxis
[2017-11-30 12:06] LABS: Hematocrit 26.1 % (36.0-45.0)
[2017-11-30] MEDS: HYDRALAZINE HCL 20 MG/ML VIAL IV PRN (13:17)
--- NOTE | 2017-11-30 15:33 | PN ---
Date of Progress Note: 11/30/2017 Subjective: The patient seen and examined. Chart reviewed and case discussed with RN. The patient states, her pain is tolerable. She worked with physical therapy yesterday, but feels very weak. Review of Systems: Negative except as above. Medications: Reviewed. Physical Examination: Vital Signs: Temperature 100.2, heart rate 98, blood pressure 181/76, respirations 18, and O2 96% on 1 L via nasal cannula. General: Awake, alert, oriented x3, in some mild distress due to pain. Elderly female. CV: S1, S2. No murmurs. Peripheral pulses present bilaterally. Respiratory: Clear to auscultation bilaterally. No wheezing. Abdomen: Abdomen is soft, nontender, nondistended. Positive bowel sounds. Extremities: No clubbing, cyanosis, or edema. Musculoskeletal: Right hip incision site clean, dry, intact. Bandage in place. Neurologic: Nonfocal. Laboratory Data: Sodium 135, potassium 3.8, chloride 105, CO2 25, BUN 10, creatinine 0.51, glucose 1 00, and calcium 8.1. WBC 11.1, H and H 7.7, 23.5, platelets 237, and neutrophils 76%. Assessment: An 82-year-old female with; 1.Right hip fracture status post mechanical fall, postoperative day #2 with intramedullary nail. Ap preciate Dr. Chawla's input. We will continue with PT and OT, refer to rehab. Continue Lovenox for DV T prophylaxis. 2.Status post mechanical fall. 3.Essential hypertension. Blood pressure is uncontrolled. We will continue home medications. Add p.r.n. medications if continues to be uncontrolled. 4.Normocytic normochromic anemia, likely postprocedure. Hemoglobin has again dropped 2 g. We will likely transfuse and monitor. Plan: 1.Continue PT. Transfuse as needed. 2.Continue incentive spirometer. 3.The patient has low-grade fever, likely postoperative atelectasis. SA/MODL Voice ID: [id number] Report ID: [id number]
[2017-11-30] MEDS: GABAPENTIN 300 MG CAP PO SCH (20:03)
[2017-12-01] MEDS: CYCLOBENZAPRINE 10 MG TAB PO PRN ×3 (05:35→21:44)
[2017-12-01 05:36] LABS: Absolute Lymphocytes (CBC) 1.8 K/uL (0.7-4.9); Absolute Neutrophil 6.7 K/uL (1.8-8.0); Basophils % 0.9 % (0-1.3); Hematocrit 22.7 % (36.0-45.0); Lymphocytes % 18.2 % (15.3-44.8); MCV 88.1 fL (80-100); MPV 8.2 fL (7.6-11.3); Monocytes % 10.2 % (3.3-12.3); RBC Red Blood Cell Count 2.58 M/uL (3.86-4.86)
[2017-12-01] MEDS: HYDROCODONE/APAP 7.5/325 MG TAB PO PRN ×4 (05:36→21:47)
[2017-12-01 05:52] LABS: BUN Blood Urea Nitrogen 13 mg/dL (6-20); Bicarbonate 28 mEq/L (21-31); Glomerular Filtration Rate > 90 mL/min (=/>90); Glucose Level 92 mg/dL (65-120); Sodium Level 136 mEq/L (135-145)
--- NOTE | 2017-12-01 07:38 | P.PN ---
Date of Service: 12/01/17 Reported hemoglobin of 7.7. On admission hemoglobin was 13.4. Patient had an echocardiogram in 2013 which revealed diastolic dysfunction and moderate tricuspid regurgitation. May need to consider transfusing. Will go ahead and recheck H&H later today. If persistently low then will consider a blood transfusion.
[2017-12-01] MEDS: CARBAMAZEPINE 200 MG TAB PO SCH ×2 (09:38→21:39)
[2017-12-01] MEDS: METOPROLOL TAR 50 MG TAB PO SCH ×2 (09:40→21:40)
--- NOTE | 2017-12-01 09:54 | P.PN ---
Subjective Date of Service: 12/01/17 Primary Care Provider: Dr Ibarra Chief Complaint: Right hip fracture Subjective: Working w/ PT pain controlled Physical Examination - Vital Signs Temperature: 99.5 F Blood Pressure: 146/65 Pulse: 88 Respirations: 18 Pulse Ox (%): 98 - Physical Exam General: Alert, In no apparent distress Musculoskeletal: Other (RLE: dressing with mild sanguinous drainage; mild thigh swelling; compartments soft; +EHL/FHL/GSC/TA; sensation grossly intact distally) - Studies Medications List Reviewed: Yes Assessment And Plan - Plan Yadira is an 82 yo female s/p IMN right IT femur fracture POD#3 -acute expected postoperative blood loss anemia; continue to monitor H/H; will discuss transfusion with Dr. Smith -hold lovenox secondary to continued drop in H/H -PT to mobilize; WBAT RLE; -mechanical DVT prophylaxis
[2017-12-01] MEDS ORDERED: FUROSEMIDE 20 MG/ 2ML VIAL IV SCH (10:00)
[2017-12-01 11:08] LABS: Absolute Lymphocytes (CBC) 1.9 K/uL (0.7-4.9); Basophils % 0.9 % (0-1.3); Eosinophils % 3.5 % (0-4.4); Hematocrit 23.2 % (36.0-45.0); Lymphocytes % 18.2 % (15.3-44.8); MCH 29.9 pg (27.0-35.0); MPV 7.9 fL (7.6-11.3); Monocytes % 9.7 % (3.3-12.3); RBC Red Blood Cell Count 2.61 M/uL (3.86-4.86)
[2017-12-01] MEDS ORDERED: NA CHLORIDE 0.9% 250 ML ONE (11:33)
--- NOTE | 2017-12-01 11:38 | RAD REPORT ---
EXAM DESCRIPTION: RAD - Chest Single View - 12/01/2017 11:32 am CLINICAL HISTORY: Chest pain, fever COMPARISON: 11/27/2017 FINDINGS: Portable technique limits examination quality. The lungs are grossly clear. Trace right pleural fluid. The heart is normal in size. No displaced fra ctures. IMPRESSION: No acute intrathoracic process suspected.
[2017-12-01 11:55] LABS: Transferrin 140 mg/dL (192-382)
[2017-12-01 12:02] LABS: Folic Acid, (Folate) > 22.3 ng/ml (>5.21)
[2017-12-01] MEDS ORDERED: cloNIDine HCl 0.1 MG TAB PO ONE (18:00)
--- NOTE | 2017-12-01 18:01 | PN ---
Date of Progress Note: 12/01/2017 Subjective: The patient is seen and examined, chart reviewed, and case discussed with RN and Dr. Kirstie hall. The patient has been working well with Physical Therapy. The patient does not want her Jovel cat heter removed. The patient continues to have drop in her hemoglobin. The patient has not been compl iant with using her incentive spirometer. The patient was again counseled on the use of incentive sp irometer and showed how to use it. Respiratory Therapy to instruct the patient again. Review of Systems: Negative except as above. Medications: Reviewed. Physical Examination: Vital Signs: Temperature 99.5, heart rate 88, blood pressure 146/65, respirations 18, O2 98% on room air. General: Awake, alert, oriented x3. No acute distress. Elderly female. CV: S1, S2. No murmurs. Peripheral pulses present. Regular rate and rhythm. Respiratory: Moving air well bilaterally. No wheezing. Abdomen: Soft, nontender, and nondistended. Positive bowel sounds. Extremities: No clubbing, cyanosis, or edema. Musculoskeletal: Right hip incision clean, dry, and intact, bandaged. Neurologic: Nonfocal. Laboratory Data: Sodium 136, potassium 4, chloride 102, CO2 28, BUN 13, creatinine 0.48, glucose 92, calcium 8.1. Iron 17, total iron binding capacity 196, transferrin 140, vitamin B12 of 715, folate 22. WBC 10.3, H and H 7.7 and 22.7, platelets 267, neutrophils 66%. Assessment And Plan: An 82-year-old female with; 1.Right hip fracture status post mechanical fall, postoperative day #2 status post intramedullary na il. Dr. Chawla on the case. We will continue with PT/OT. Lovenox held due to acute anemia. 2.Status post mechanical fall. 3.Acute blood loss anemia, likely postprocedure. We will transfuse and monitor. Iron studies show iron deficiency. 4.Essential hypertension. Blood pressure better controlled. 5.Low-grade fever, possible atelectasis. Chest x-ray personally reviewed, showed no acute intrathor acic process. The patient again instructed on the use of incentive spirometer. Respiratory Therapy to further instruct the patient. Plan: Continue physical therapy. Monitor H and H. SA/MODL Voice ID: [id number] Report ID: [id number]
[2017-12-01 18:36] LABS: Hematocrit 31.9 % (36.0-45.0)
[2017-12-01 20:52] VITALS: O2SAT 96
[2017-12-01] MEDS: GABAPENTIN 300 MG CAP PO SCH (21:39)
[2017-12-01] MEDS ORDERED: PNEUMOCOCCAL VACCINE 0.5 ML IMVAC ONE (21:56)
[2017-12-02 05:43] LABS: Absolute Lymphocytes (CBC) 1.6 K/uL (0.7-4.9); Absolute Neutrophil 5.2 K/uL (1.8-8.0); Basophils % 1.2 % (0-1.3); Eosinophils % 6.4 % (0-4.4); Hematocrit 29.9 % (36.0-45.0); Lymphocytes % 19.4 % (15.3-44.8); MCH 29.3 pg (27.0-35.0); MPV 8.1 fL (7.6-11.3); Monocytes % 11.5 % (3.3-12.3); RBC Red Blood Cell Count 3.47 M/uL (3.86-4.86)
[2017-12-02] MEDS: CARBAMAZEPINE 200 MG TAB PO SCH (09:56)
[2017-12-02] MEDS: CYCLOBENZAPRINE 10 MG TAB PO PRN (09:56)
[2017-12-02] MEDS: HYDROCODONE/APAP 7.5/325 MG TAB PO PRN ×2 (09:57→15:04)
[2017-12-02] MEDS: METOPROLOL TAR 50 MG TAB PO SCH (09:58)
--- NOTE | 2017-12-02 11:33 | P.PN ---
Subjective Date of Service: 12/02/17 Primary Care Provider: Dr Iabrra Chief Complaint: Right hip fracture Subjective: Ambulating, Improving, Working w/ PT pain controlled Physical Examination - Vital Signs Temperature: 98.9 F Blood Pressure: 198/88 Pulse: 89 Respirations: 16 Pulse Ox (%): 92 - Physical Exam General: Alert, In no apparent distress Musculoskeletal: Other (RLE: dressing with minimal serosanguinous drainage; +EHL /FHL/GSC/TA; sesnation grossly intact distally) - Studies Medications List Reviewed: Yes Assessment And Plan - Plan Yadira is an 82 yo female s/p IMN right IT femur fracture POD#4 -acute expected postoperative blood loss anemia; transfused 1 unit PRBCs yesterday; H/H responded appropriately -hold lovenox today and may resume tomorrow -PT to mobilize; WBAT RLE; -mechanical DVT prophylaxis
--- NOTE | 2017-12-02 17:13 | PN ---
Date of Progress Note: 12/02/2017 Subjective: The patient is seen and examined, chart reviewed, and case discussed with RN and Dr. Kirstie hall. The patient states that she had a rough night as she had to be stuck multiple times for blood tamika w. The patient still hesitant to have her Jovel catheter removed, but she agrees upon insistence. S he understands that she has a risk for developing UTI. Review of Systems: Negative except as above. Medications: Reviewed. Physical Examination: Vital Signs: Temperature 98.9, heart rate 89, blood pressure 198/88, respirations 16, O2 92% on room air. General: Awake, alert, oriented x3. No acute distress. Elderly female. CV: S1, S2. No murmurs. Peripheral pulses present. Respiratory: Clear to auscultation bilaterally. No wheezing. Abdomen: Soft, nontender, and nondistended. Positive bowel sounds. Extremities: No clubbing, cyanosis, or edema. Musculoskeletal: Right hip incision site clean, dry, and intact. Neurologic: Nonfocal. Laboratory Data: WBC 8.5, H and H 10.2 and 29.9, platelets 305, neutrophils 61.5%. Assessment And Plan: This is an 82-year-old female with: 1.Right hip fracture status post mechanical fall postoperative day #3. Appreciate Dr. Chawla's input. Continue physical therapy. We will resume Lovenox as hemoglobin levels have improved. 2.Status post mechanical fall. 3.Acute blood loss anemia, likely postprocedural. H and H are stable post transfusion. 4.Essential hypertension. Blood pressure requiring p.r.n. medications. Plan: Continue PT. Refer to rehab. Transfer once accepted. Discontinue Jovel catheter. SA/MODL Voice ID: [id number] Report ID: [id number]
[2017-12-02 17:39] VITALS: BP 167/72; TEMP 99.4
--- NOTE | 2017-12-03 14:51 | DS ---
Date of Discharge: 12/02/2017 Emergency Operator: Dr. Chawla with Orthopedics. Procedure: On 11/28/2017, right intertrochanteric femur fracture with cephalomedullary fixation of r ight intertrochanteric femur fracture. Admitting Diagnoses: 1.Closed right hip fracture, initial encounter. 2.Status post mechanical fall. 3.Essential hypertension. Discharge Diagnoses: 1.Right hip fracture, status post mechanical fall, status post open reduction internal fixation. Lo venox for DVT prophylaxis. 2.Status post mechanical fall. 3.Acute blood loss anemia, likely postprocedure, status post blood transfusion. 4.Essential hypertension. 5.Low-grade fever, likely atelectasis, improved with incentive spirometer. Hospital Course: The patient is an 82-year-old female who came in with right hip fracture after mech anical fall in the front porch. She was found to have right-sided hip fracture closed. The patient was seen by Dr. Chawla who performed the above-named procedure. The patient did well after hip surgery . She was somewhat reluctant to participate with physical therapy; however, did finally participate. The patient did have some postoperative anemia and was transfused. The patient's hemoglobin remain ed stable afterwards. The patient's iron study showed low iron. The patient otherwise did well. Sh e did have some low-grade fevers, 100.2. She was started on incentive spirometer. Chest x-ray was c lear. The patient was then referred to rehab. The patient was accepted, and was discharged in a sta ble condition. Activity: As per rehab. Medications: As per medication reconciliation list. Followup: Follow up with primary care physician in 1-2 weeks. Follow up with orthopedics surgeon, Devan Chawla in 2 weeks. Return to ER for worsening condition. Diet: Heart healthy. Total time spent discharging the patient was 38 minutes. Please see progress note dictated on day of discharge for physical exam findings. /ALEXANDRA Voice ID: [id number] Report ID: [id number]
== END 2017-12-02 17:17 | DRG 481 ==
LOC: ER 12:08 → ERHOLD 13:26 → 2ND 14:27
PROVIDERS: ADMIT Family Medicine; ATTEND Family Medicine
PROC: 0QS706Z Reposition Left Upper Femur with Intramedullary Internal Fixation Device, Open Approach (ICD-10-PCS; principal; 2017-11-28 11:00)
DX: S72.142A Displaced intertrochanteric fracture of left femur, initial encounter for closed fracture (principal); D62 Acute posthemorrhagic anemia; I10 Essential (primary) hypertension; G50.0 Trigeminal neuralgia; W19.XXXA Unspecified fall, initial encounter; Z23 Encounter for immunization
CPT/HCPCS: 36415; 51702; 71045; 72170; 73530; 80048; 80053; 81003; 82550; 82553; 82607; 82746; 82962; 83540; 83735; 84100; 84466; 85014; 85018; 85025; 85044; 85610; 85730; 86850; 86900; 86901; 90670; 93005; 94760; 96374; 96375; 97163; 99285; G0009; J0360; J0610; J0690; J1100; J1650; J1940; J2175; J2370; J2405; J2550; J2710; J3010; J7030; P9016

== ENCOUNTER 2017-12-02 09:51 | Inpatient (IN) | payer OTHER ==
--- NOTE | 2017-12-02 16:53 | R.PREADM ---
SCREENING DATE AND TIME 12/02/2017 10:09 (CDT) ANTICIPATED REHAB ADMISSION DATE 12/04/2017 REFERRING FACILITY [facility] REFERRAL DATE AND TIME 12/02/2017 10:09 (CDT) ACUTE ADMIT DATE 11/27/2017 Previous Rehabilitation(s): YES. REFERRING PHYSICIAN Laurie Olivier REHAB FACILITY [facility] CLINICAL LIAISON Maikel Burnett PHYSICIAN REVIEWER Dr. Dominick Villareal M.D. MR# [id number] NAME LYNN GERARDO ADDRESS [address] [place] [address] PHONE [facility] [id number] DATE OF 1935 AGE 82 SSN# [id number] GENDER female MARITAL STATUS RACE white PREF. LANGUAGE (IF NON-SENEGALESE) SENEGALESE ADMIT FROM 02 - [facility] PRE-HOSPITAL LIVING SETTING 01 - Home (private home/apt. board/care, assisted living, prison, transitional living) HOME TYPE AND DETAILS Type of home: single family house # of levels in the residence: 1 # of steps to enter the residence: 1 # of steps within the residence: 0 PRE-HOSPITAL LIVING WITH Family/Relatives FAMILY SUPPORT Yes PRIMARY FAMILY CONTACT NAME ARELIS GERARDO PRIMARY FAMILY CONTACT PHONE PRIMARY FAMILY CONTACT RELATIONSHIP Spouse PHONE PRIMARY FAMILY CONTACT ON ADM.? no IS PRIMARY FAMILY CONTACT AUTH. REP.? no 1ST EMERGENCY CONTACT ARELIS GERARDO 1ST CONTACT PHONE 1ST CONTACT RELATIONSHIP Spouse PHONE 1ST CONTACT ON ADM. no IS 1ST CONTACT AUTH. REP.? no PHONE 2ND CONTACT ON ADM.? no PATIENT EMPLOYMENT STATUS Retired (for age) PATIENT EMPLOYER No Employer PAYOR INFORMATION: 1ST PAYOR NAME MEDICARE 1ST PAYOR PHONE 1ST PAYOR INJURY/ILLNESS DUE TO ACCIDENT? No ANOTHER CONSTITUTION PARTY RESPONSIBLE? No PRIMARY REHAB/ACUTE DIAGNOSIS: Right intertrochanteric femur fx ONSET DATE 11/27/2017 REHAB IMPAIRMENT CATEGORY (SENTHIL): 07 Fracture of LE (FracLE) MEETS 60% rule AFFECTED EXTREMITIES: RLE PRIMARY DIAGNOSIS-RELATED SURGERIES: Emergency cephalomedullary fixation of right intertrochanteric femur fracture - performed by Arelis Chawla on 11/28/2017 COMORBID REHAB/ACUTE DIAGNOSES: - Non-Tiered Trigeminal neuralgia [G500] OBSTRUCTIVE BOWEL SYNDROME - N/A HYPERTENSION INTERVENTIONS: - Hypertension Fluid management Medications VS RISK FOR COMPLICATIONS: - Hypertension CVA Hypotension [place] TIA SUMMARY OF ACUTE HOSPITALIZATION: Pt. is a 82 yo Right-handed white female. On 11/27/2017 she was admitted to [facility] and underwent emergency surgery fo r Right intertrochanteric femur fx (cephalomedullary fixation of right intertrochanteric femur fractu re ) by Laurie Olivier. Pre-morbidly, Pt. was independent/mod-I in Communication, Social Cognition, Sphincter Control, Self-C are, Locomotion, and Transfers Control; and she had good Safety Awareness and Sphincter Control. Currently, she has deficits of Balance, Sphincter Control, Locomotion, Endurance, Transfers Control, and Self-Care. Pt. is now referred to [facility] for acute in-patient rehabilitation in order to maximize patient's functional independence in activities of daily living, strength, ROM, and mobi lity. Patient has realistic goal of being discharged at assistance level 6-Alondra to reside at Home with Fam alex/Relatives. PAST MEDICAL HISTORY HYPERTENSION OBSTRUCTIVE BOWEL SYNDROME Trigeminal neuralgia [G500] PAST SURGICAL HISTORY: LEFT HIP HEMIARTHROPLASTY CATARACT SURGERY- BILATERAL HYSTERECTOMY MEDICATION ALLERGIES: morphine ENVIRONMENTAL ALLERGIES: None Known - Substance Allergies None Known - Other Allergies None Known CODE STATUS: Full code WEIGHT/HEIGHT/BMI: WEIGHT 140 lbs HEIGHT 5' 4" BMI 24 DIET: - Diet Type GI SOFT - Diet - Solid Texture Regular - Diet - Liquid Texture Regular - Tube Feed N/A SKIN DIAGRAM: Incision on Right hip; extent - small; stage - NS(Not Stageable). Treatment - Per Physician's Orders. REVIEW OF SYSTEMS: - Gen Alert and awake Lying in bed No apparent distress Oriented to: person, time, and place - Vital Signs Vital signs stable, afebrile - CVS RRR VITAL SIGNS Temperature: 98.9 F SBP/DBP: 198/88 Pulse: 89 Resp: 16 Vital signs stable, afebrile CURRENT SPHINCTER CONTROL: Pre-hospital bladder status: incontinent # of bladder accidents in the last 7 days prior to screenin Pre-hospital bowel status: unspecified # of bowel accidents in the last 7 days prior to screenin Last Bowel Movement Date: DETAILED CURRENT FUNCTIONAL STATUS: - Bladder Bladder control device used: catheter Jovel catheter in place; last changed on - Bowel accident frequency: Ind - No accidents in the past 7 days - Walking assistance level: Dep - Wheelchair score based on distance traveled: 0(N/A) FUNCTIONAL STATUS: - Self-Care A. Eating Ind Ind B. Grooming Ind Ind C. Bathing Ind Ind D. Dressing - Upper Ind Ind E. Dressing - Lower Ind maxA F. Toileting Ind Deedee - Sphincter Control G. Bladder control Ind ADNO H: Bowel control Ind Alondra - Transfers Control I. Bed/Chair/Wheelchair Ind modA - Locomotion L. Walk/Wheelchair (B) Ind Deedee - Communication N. Comprehension (B) Alondra Alondra O. Expression (B) Ind Ind - Social Cognition P. Social Interaction Ind Ind Q. Problem Solving Ind Ind R. Memory Ind Ind - Endurance Fair - Balance Fair - Safety Awareness Good CURRENT FUNC. DEFICITS: Balance, Sphincter Control, Locomotion, Endurance, Transfers Control, and Self-Care THERAPY NOTES FROM ACUTE CARE: Attached. SPECIAL NEEDS: - Safety Concerns Skin breakdown precautions needed due to skin breakdown risk PRECAUTIONS: - Posterior Hip Precaution No adduction across midline No external rotation No hip flexion >90 degrees No internal rotation No wheel chair propulsion - Weight Bearing Precaution WBAT right LE PATIENT NEEDS ACTIVE AND ONGOING THERAPEUTIC INTERVENTION OF MULTIPLE THERAPY DISCIPLINES, INCLUDING: - Occupational Therapy Evaluate and Treat. - Physical Therapy Evaluate and Treat. PATIENT NEEDS CLOSE MEDICAL SUPERVISION BY A REHABILITATION PHYSICIAN FOR: Bowel and Bladder Management Coordination of Treatment Team Medical and Co-Morbidity Management Post-Op Complications Wound Care PATIENT REQUIRES 24X7 REHAB NURSING FOR MEDICAL AND FUNCTIONAL MGT. OF THE FOLLOWING DEFICITS: ADL's Ambulation Bowel and Bladder Management Communication Disease Management Medication Management Patient/Family Education Providing Safe Environment Skin Integrity Transfers PATIENT REQUIRES INTENSIVE, COORDINATED INTERDISCIPLINARY APPROACH TO REHAB: Arranging Home Equipment/Services Discharge Planning Family Intervention/Training Barrel Lathe Operator/Case Management PATIENT REHAB POTENTIAL: Expected level of measurable improvement will be of a practical value to patient's functional capacit y or adaptations to impairments Has a viable Discharge Plan Medically appropriate; condition is sufficiently stable to participate in intensive rehab program Patient is able and expected to receive 3 hours of individualized therapy daily on at least 5 of ever y 7 days Patient's prognosis for significant practical improvement within a reasonable period of time appears Good DISCHARGE PLAN: - Estimated Length of Stay (days) 14. - Consensus on plan Discharge plan has been discussed with primary caregiver. Patient/Family is in agreement with the shannon n. Primary caregiver is in agreement with the plan. - Patient/Family Goals Return home with assistance. RECOMMENDED CARE LEVEL: IRF RECOMMENDATION DETAILS: Recommended Admission to Comprehensive Rehabilitation Program to Increase Functional [place] SCREENER'S COMPLETENESS CONFIRMATION: - Screening Confirmation The patient data collection on this preadmission screening form is finished PHYSICIANS REVIEW AND ADMISSION DETERMINATION Admit - Based on my review of the Pre-Admission Screening results, in my medical judgment and experie nce, I concur with the findings and recommend admission to [facility], as this patient requires an IRF level of care. SIGNATURE PANEL: Clinical Liaison - [electronically] signed by Carmen Foster on 12/02/2017 at 14:53 (CDT) Clinical Liaison - [electronically] signed by Maikel Burnett RN on 12/02/2017 at 15:46 (CDT) Physician Reviewer - [electronically] signed by Dr. Dominick Villareal M.D. on 12/02/2017 at 15:55 (CDT )
[2017-12-02] MEDS ORDERED: DOCUSATE NA 100 MG CAP PO PRN (18:30)
[2017-12-02] MEDS ORDERED: MELATONIN 3 MG TABLET PO PRN (19:58)
[2017-12-02] MEDS ORDERED: MAGNESIUM HYDROXIDE 8% 30 ML PO PRN (19:58)
[2017-12-02] MEDS ORDERED: ENOXAPARIN 40 MG/0.4 ML SQ SCH (20:00)
[2017-12-02] MEDS: DOCUSATE NA/SENNA CONC 1 TAB PO SCH (21:00)
[2017-12-02 21:14] LABS: Urine Appearance CLOUDY; Urine Bilirubin NEGATIVE (NEG); Urine Blood NEGATIVE (NEG); Urine Color YELLOW; Urine Glucose NEGATIVE (NEG); Urine Protein NEGATIVE (NEG); Urine pH 7.5 (5.0-7.0)
[2017-12-02] MEDS: CYCLOBENZAPRINE 10 MG TAB PO PRN (21:22)
[2017-12-02] MEDS: HYDROCODONE/APAP 7.5/325 MG TAB PO PRN (21:23)
[2017-12-02] MEDS: APIXABAN 2.5 MG TABLET PO SCH (21:23)
[2017-12-02] MEDS: GABAPENTIN 300 MG CAP PO SCH (21:25)
[2017-12-02] MEDS: CARBAMAZEPINE 200 MG TAB PO SCH (21:26)
[2017-12-02] MEDS: METOPROLOL TAR 50 MG TAB PO SCH (21:26)
[2017-12-02 21:28] LABS: Urine Bacteria 20-50 /HPF (<20); Urine Culture Reflex Order NOT NEEDED; Urine RBC <5 /HPF (NONE SEEN)
[2017-12-03 06:43] LABS: Absolute Lymphocytes (CBC) 1.7 K/uL (0.7-4.9); Absolute Neutrophil 7.1 K/uL (1.8-8.0); Hematocrit 30.2 % (36.0-45.0); Lymphocytes % 16.3 % (15.3-44.8); MCH 29.1 pg (27.0-35.0); MCV 86.2 fL (80-100); MPV 7.7 fL (7.6-11.3); Monocytes % 9.4 % (3.3-12.3)
[2017-12-03 06:56] LABS: Albumin 2.9 g/dL (3.2-5.5); BUN Blood Urea Nitrogen 13 mg/dL (6-20); Bicarbonate 28 mEq/L (21-31); Glucose Level 97 mg/dL (65-120); Potassium 3.8 mEq/L (3.6-5.0); Prealbumin 12.1 mg/dl (18-38); Sodium Level 134 mEq/L (135-145)
[2017-12-03] MEDS: METOPROLOL TAR 50 MG TAB PO SCH ×2 (07:39→20:17)
[2017-12-03] MEDS: BISACODYL E.C. 5 MG TAB PO PRN (07:40)
[2017-12-03] MEDS: ASPIRIN 81 MG CHEWABLE TABLET PO SCH (07:40)
[2017-12-03] MEDS: MULTIVITAMIN TAB PO SCH (07:40)
[2017-12-03] MEDS: APIXABAN 2.5 MG TABLET PO SCH ×2 (07:40→20:17)
[2017-12-03] MEDS: HYDROCODONE/APAP 7.5/325 MG TAB PO PRN ×4 (07:40→21:45)
--- NOTE | 2017-12-03 09:34 | P.RH.PN ---
Estimated Length of Stay: 14 Expected Discharge Date: 12/15/17 Discharge Disposition Plan: Home Family Support: Yes Custodial Goal: Mobility, Transfers, Self Care Vital Signs: Last Vital Signs Temp 97.4 F 12/03/17 07:35 Pulse 58 12/03/17 07:39 Resp 16 12/03/17 07:35 BP 149/65 H 12/03/17 07:39 Pulse Ox 98 12/03/17 07:35 Laboratory: Laboratory Last Values WBC 10.6 K/uL (4.3-10.9) D 12/03/17 06:11 RBC 3.50 M/uL (3.86-4.86) L 12/03/17 06:11 Hgb 10.2 g/dL (12.0-15.0) L 12/03/17 06:11 Hct 30.2 % (36.0-45.0) L 12/03/17 06:11 MCV 86.2 fL (80-100) 12/03/17 06:11 MCH 29.1 pg (27.0-35.0) 12/03/17 06:11 MCHC 33.8 g/dL (32.0-36.0) 12/03/17 06:11 RDW 14.0 % (12.1-15.2) 12/03/17 06:11 Plt Count 382 K/uL (152-406) D 12/03/17 06:11 MPV 7.7 fL (7.6-11.3) 12/03/17 06:11 Neutrophils % 67.3 % (41.7-73.7) 12/03/17 06:11 Lymphocytes % 16.3 % (15.3-44.8) 12/03/17 06:11 Monocytes % 9.4 % (3.3-12.3) 12/03/17 06:11 Eosinophils % 6.0 % (0-4.4) H 12/03/17 06:11 Basophils % 1.0 % (0-1.3) 12/03/17 06:11 Absolute Neutrophils 7.1 K/uL (1.8-8.0) 12/03/17 06:11 Absolute Lymphocytes 1.7 K/uL (0.7-4.9) 12/03/17 06:11 Absolute Monocytes 1.0 K/uL (0.1-1.3) 12/03/17 06:11 Absolute Eosinophils 0.6 K/uL (0-0.5) H 12/03/17 06:11 Absolute Basophils 0.1 K/uL (0-0.5) 12/03/17 06:11 Sodium 134 mEq/L (135-145) L 12/03/17 06:11 Potassium 3.8 mEq/L (3.6-5.0) 12/03/17 06:11 Chloride 99 mEq/L (101-111) L 12/03/17 06:11 Carbon Dioxide 28 mEq/L (21-31) 12/03/17 06:11 BUN 13 mg/dL (6-20) 12/03/17 06:11 Creatinine 0.51 mg/dL (0.44-1.00) 12/03/17 06:11 Estimated GFR > 90 mL/min (=/>90) 12/03/17 06:11 Glucose 97 mg/dL (65-120) 12/03/17 06:11 Calcium 8.7 mg/dL (8.5-10.5) 12/03/17 06:11 Magnesium 2.0 mg/dL (1.8-2.5) 12/03/17 06:11 Albumin 2.9 g/dL (3.2-5.5) L 12/03/17 06:11 Prealbumin 12.1 mg/dl (18-38) L 12/03/17 06:11 Urine Color Yellow 12/02/17 20:45 Urine Appearance Cloudy 12/02/17 20:45 Urine pH 7.5 (5.0-7.0) H 12/02/17 20:45 Ur Specific [place] 1.010 (1.005-1.030) 12/02/17 20:45 Urine Ketones Negative (NEG) 12/02/17 20:45 Urine Blood Negative (NEG) 12/02/17 20:45 Urine Nitrite Negative (NEG) 12/02/17 20:45 Urine Bilirubin Negative (NEG) 12/02/17 20:45 Urine Urobilinogen 1.0 mg/dL (0.2-1.0) 12/02/17 20:45 Ur Leukocyte Esterase 3+ (NEG) H 12/02/17 20:45 Urine RBC <5 /HPF (NONE SEEN) 12/02/17 20:45 Urine WBC >50 /HPF (<5) H 12/02/17 20:45 Ur Squamous Epith Cells <5 /HPF (NONE SEEN) 12/02/17 20:45 Ur Urothelial Cells <5 /HPF (NONE SEEN) 12/02/17 20:45 Urine Bacteria 20-50 /HPF (<20) H 12/02/17 20:45 Urine Culture Reflexed Not needed 12/02/17 20:45 Urine Glucose Negative (NEG) 12/02/17 20:45 Urine Total Protein Negative (NEG) 12/02/17 20:45 Weight: 145 lb 9.6 oz Physician Update: Blood work is normal. Her urine analysis is normal. Her pain is managed with norco 7.5/325. Done transfers at a stantby assistance level. She ambulated 25' and did well. Summary: Patient's care plan and technician terminal and repeater goals have been reviewed and revised as necessary. Please see the Rehabilitation Signature page for all necessary signatures.
[2017-12-03] MEDS ORDERED: BISACODYL 10 MG RECTAL SUPP PR PRN (15:03)
[2017-12-03] MEDS: CYCLOBENZAPRINE 10 MG TAB PO PRN (15:07)
--- NOTE | 2017-12-03 15:49 | R.HP ---
FACILITY: [facility] ENCOUNTER DATE AND TIME: 12/03/2017 14:46 (CDT) MR#: [id number] NAME LYNN GERARDO ADDRESS: [address] [place] [address] CITY: [place]IP [address] PHONE: DATE OF : 1935 AGE: 82 SSN# [id number] GENDER: Female DEXTERITY Right-handed MARITAL STATUS RACE White PRE-HOSPITAL LIVING SETTING 01 - Home (private home/apt. board/care, assisted living, [facility], transitional living) PRE-HOSPITAL LIVING WITH Family/Relatives ENCOUNTER PHYSICIAN: Dr. Dominick Villareal M.D. REFERRING DOCTOR: laurie Olivier DATE OF ADMISSION: 12/02/2017 17:22 (CDT) REFERRING FACILITY [facility] HOME TYPE AND DETAILS: Type of home: single family house # of levels in the residence: 1 # of steps to enter the residence: 1 # of steps within the residence: 0 ADMISSION DIAGNOSIS: Right intertrochanteric femur fx ONSET DATE: 11/27/2017 PRIMARY DIAGNOSIS-RELATED SURGERIES: Emergency cephalomedullary fixation of right intertrochanteric femur fracture - performed by Chi Chawla on 11/28/2017 SECONDARY/COMORBID DIAGNOSES (TIERED): - Non-Tiered Trigeminal neuralgia [G500] OBSTRUCTIVE BOWEL SYNDROME - N/A HYPERTENSION HISTORY OF PRESENT ILLNESS (HPI): Pt. is a 82 yo Right-handed white female. On 11/27/2017 she was admitted to [facility] and underwent emergency surgery fo r Right intertrochanteric femur fx (cephalomedullary fixation of right intertrochanteric femur fractu re ) by Laurie Olivier. Pre-morbidly, Pt. was independent/mod-I in Communication, Social Cognition, Sphincter Control, Self-C are, Locomotion, and Transfers Control; and she had good Safety Awareness and Sphincter Control. Currently, she has deficits of Balance, Sphincter Control, Locomotion, Endurance, Transfers Control, and Self-Care. Pt. is now referred to [facility] for acute in-patient rehabilitation in order to maximize patient's functional independence in activities of daily living, strength, ROM, and mobi lity. Patient has realistic goal of being discharged at assistance level 6-Alondra to reside at Home with Fam alex/Relatives. MEDICATION ALLERGIES: morphine ENVIRONMENTAL ALLERGIES: None Known - Substance Allergies None Known - Other Allergies None Known PAST MEDICAL HISTORY: HYPERTENSION OBSTRUCTIVE BOWEL SYNDROME Trigeminal neuralgia [G500] PAST SURGICAL HISTORY: LEFT HIP HEMIARTHROPLASTY CATARACT SURGERY- BILATERAL HYSTERECTOMY FAMILY HISTORY: Family history is not contributory. SOCIAL HISTORY: - Home Living Family/Relatives REVIEW OF SYSTEMS: - Gen No Chills No Fatigue No Fever - Eyes No Double Vision No itchiness - ENMT No Difficulty Swallowing - CVS No Chest Discomfort No Chest Pain No Fatigue No Weight Gain - Resp No Cough No Shortness of Breath - GI Continent No Abdominal Pain No Constipation No Diarrhea - Continent No Kidney Pain No Painful Urination No Urinary Urgency - MSK No Joint Pain No Muscle Cramps No Stiffness - Skin No Itching No Rash No Suspicious Lesions - Neuro No Coordination Difficulty No Difficulty with Concentration No Memory Loss No Seizures No Weakness - Psych No Anxiety No Depression No HIV Exposure No Persistent Infections No Seasonal Allergies - Endo No Cold/Heat Intolerance No Excessive Hunger No Excessive Thirst No Excessive Urination PHYSICAL EXAM - Gen Alert and awake Lying in bed No apparent distress Oriented to: person, time, and place - Vital Signs Vital signs stable, afebrile - Skin No skin breakdown. Normacephalic - Eyes No abnormalities - ENMT No abnormalities - Neck No abnormalities - CVS RRR - Chest Clear - Abd Soft - GI Non distended Deferred - No abnormalities - Ext No significant edema - MSK Unremarkable - Neuro No focal deficits - Psych No abnormalities VITAL SIGNS Temperature: 97.4 F SBP/DBP: 149/65 Pulse: 89 Resp: 16 Vital signs stable, afebrile NURSING: - Shower allowing shower - Skin care per protocol PRECAUTIONS: - Posterior Hip Precaution No adduction across midline No external rotation No hip flexion >90 degrees No internal rotation No wheel chair propulsion - Weight Bearing Precaution WBAT right LE ACTIVITIES OOB only with supervision FUNCTIONAL STATUS: - Self-Care A. Eating Ind Ind B. Grooming Ind Ind C. Bathing Ind Ind D. Dressing - Upper Ind Ind E. Dressing - Lower Ind maxA F. Toileting Ind Deedee - Sphincter Control G. Bladder control Ind ADNO H: Bowel control Ind Alondra - Transfers Control I. Bed/Chair/Wheelchair Ind modA - Locomotion L. Walk/Wheelchair (B) Ind Deedee - Communication N. Comprehension (B) Alondra Aolndra O. Expression (B) Ind Ind - Social Cognition P. Social Interaction Ind Ind Q. Problem Solving Ind Ind R. Memory Ind Ind - Endurance Fair - Balance Fair - Safety Awareness Good CURRENT FUNC. DEFICITS: Balance, Sphincter Control, Locomotion, Endurance, Transfers Control, and Self-Care ASSESSMENT: Pt. is a 82 yo Right-handed white female.On 11/27/2017 she was admitted to [facility] and underwent emergency surgery for Right intertrochanteric femur fx (cephalomedullary fixatio n of right intertrochanteric femur fracture ) by Laurie Olivier.Pre-morbidly, Pt. was independent/mod -I in Communication, Social Cognition, Sphincter Control, Self-Care, Locomotion, and Transfers Contro l; and she had good Safety Awareness and Sphincter Control.Currently, she has deficits of Balance, Sp hincter Control, Locomotion, Endurance, Transfers Control, and Self-Care.Pt. is now referred to [facility] for acute in-patient rehabilitation in order to maximize patient's funct ional independence in activities of daily living, strength, ROM, and mobility.- Rehab Goal Patient has realistic goal of being discharged at assistance level 6-Alondra to reside at Home with Fam alex/Relatives. REHAB PLAN: - Physical Therapy Decreased range of motion - to improve, our physical therapists will perform initial evaluation of pt 's status upon admission and devise an individualized program for increasing patient's Range of Motio n. Gait dysfunction - to improve, our physical therapists will perform initial evaluation of pt's status upon admission and devise an individualized program for Gait Training, and Wheel Chair mobility Inability to transfer - to improve, our physical therapists will perform initial evaluation of pt's s tatus upon admission and devise an individualized program for Bed mobility Need for home safety evaluation - to improve, our physical therapists will perform initial evaluation of pt's status upon admission and devise an individualized program for Home Evaluation Need in caregiver upon discharge - to improve, our physical therapists will perform initial evaluatio n of pt's status upon admission and devise an individualized program for Caregiver Training New precaution - to improve, our physical therapists will perform initial evaluation of pt's status u yoni admission and devise an individualized program for Patient precaution education Edema - to improve, our physical therapists will perform initial evaluation of pt's status upon admi ssion and devise an individualized program for Elevation Training, and Lymphedema Therapy Poor balance - to improve, our physical therapists will perform initial evaluation of pt's status upo n admission and devise an individualized program for Balance Training Poor endurance - to improve, our physical therapists will perform initial evaluation of pt's status u yoni admission and devise an individualized program for Endurance Training Weakness - to improve, our physical therapists will perform initial evaluation of pt's status upon ad mission and devise an individualized program for Aquatic Therapy, Neuromuscular Reeducation, and Stre ngthening Achieving independence - to improve, our physical therapists will perform initial evaluation of pt's status upon admission and devise an individualized program for Community Reintegration Activities - Occupational Therapy ADL deficits - to improve, our occupation therapists will perform initial evaluation of pt's status u yoni admission and devise an individualized program for Bathing, Bed mobility, Community Reintegration , Cooking, Dressing, Eating, Fine Motor Skills, Grooming, Homemaking, Kitchen Mobility, Laundry, Amy ent Education, Safety Awareness, Splinting - Positioning, Transfers(Toilet, Tub, Shower), and Wheel C hair Management Need for career development director - to improve, our occupation therapists will perform initial evaluation of pt's s tatus upon admission and devise an individualized program for Caregiver Training Weakness - to improve, our occupation therapists will perform initial evaluation of pt's status upon admission and devise an individualized program for Aquatic Therapy, Balance, Endurance, UE ROM, and U E strengthening MEDICAL PLAN: - Anterior Hip Precaution No abduction No active extension No adduction across midline No external rotation No hip flexion >90 degrees No internal rotation - Diet - Liquid Texture Start Regular - Tube Feed Start N/A - Diet Type Start GI SOFT - Posterior Hip Precaution No adduction across midline No external rotation No hip flexion >90 degrees No internal rotation No wheel chair propulsion - Weight Bearing Precaution WBAT right LE - Skin care per protocol - Diet - Solid Texture Regular - Shower shower DISCHARGE PLAN: - Estimated Length of Stay (days) 14. - Consensus on plan Discharge plan has been discussed with primary caregiver. Patient/Family is in agreement with the shannon n. Primary caregiver is in agreement with the plan. - Patient/Family Goals Return home with assistance. SIGNATURE PANEL: (CDT)
--- NOTE | 2017-12-03 15:50 | PAPE ---
PATIENT: [facility] MR# [id number] REFERRING DOCTOR eli Olivier EVALUATION DATE AND TIME 12/03/2017 14:51 (CDT) NAME LYNN GERARDO DATE OF 1935 AGE 82 PHONE N# [id number] GENDER female EVALUATING PHYSICIAN Dr. Dominick Villareal M.D. ADMISSION DIAGNOSIS: Right intertrochanteric femur fx ONSET DATE 11/27/2017 SECONDARY/COMORBID DIAGNOSES TIERED: - Non-Tiered Trigeminal neuralgia [G500] OBSTRUCTIVE BOWEL SYNDROME - N/A HYPERTENSION POST-ADMISSION FUNCTIONAL/MEDICAL STATUS: - Bladder Same Bladder control device used: catheter Same Jovel catheter in place; last changed on - Bowel Same accident frequency: Ind - No accidents in the past 7 days - Walking Same assistance level: Dep - Wheelchair Same score based on distance traveled: 0(N/A) STATUS CHANGE EVALUATION: No change in Functional or Medical Status is identified compared with Pre-Admission screening. PATIENT NEEDS CLOSE MEDICAL SUPERVISION BY A REHABILITATION PHYSICIAN FOR: Bowel and Bladder Management Coordination of Treatment Team Medical and Co-Morbidity Management Post-Op Complications Wound Care PATIENT REQUIRES 24X7 REHAB NURSING FOR MEDICAL AND FUNCTIONAL MGT. OF THE FOLLOWING DEFICITS: ADL's Ambulation Bowel and Bladder Management Communication Disease Management Medication Management Patient/Family Education Providing Safe Environment Skin Integrity Transfers PATIENT REQUIRES INTENSIVE, COORDINATED INTERDISCIPLINARY APPROACH TO REHAB: Arranging Home Equipment/Services Discharge Planning Family Intervention/Training Regional Sales Consultant/Case Management LIST OF IDENTIFIED AND POTENTIAL PROBLEMS: Alteration in leisure activities Bladder, Incontinence Blood Pressure, Hypertension/hypotension Issues Bowel, Incontinence Infection, Actual or Potential Mobility Impaired Pain, Alteration in Comfort Self Care Deficit Skin Integrity, Actual or Potential Urinary Tract Infection (UTI), Actual or Potential RISK FOR COMPLICATIONS - Hypertension CVA. Hypotension. CA. TIA. INTERVENTIONS - Hypertension PATIENT COULD BE AT RISK FOR COMPLICATIONS FROM ADVERSE MEDICAL CONDITIONS DUE TO HIS/HER COMORBIDITI ES AND THE RIGORS OF THE INTENSIVE REHABILLITATION PROGRAM. METHODS OR INTERVENTIONS TO AVOID COMPLIC ATIONS INCLUDE: - Bleeding Assess lab values and manage abnormalities. Nursing to teach precautions for anti-coagulation therapy . Wound to be assessed every shift. - Infection Clinical staff to assess and manage the signs and symptoms of infection including fever, redness, war mth, etc. - Urinary Tract Infection - Falls Patient will be evaluated for Fall Precautions and will be placed on Fall Precautions as indicated pe r protocol. - Skin Breakdown Nursing will assess skin daily using assessment tool and will place on Skin Breakdown Precautions as indicated per protocol. - Pain Clinical staff may employ non-medication methods such as massage, distraction, decrease stimulus, etc . as needed. Clinical staff will assess patient's pain level every shift per protocol to assess and e nsure pain management effectiveness. Medications will be given and the pain level re-assessed. PRELIMINARY PLAN OF CARE: - Physical Therapy Patient needs Physical Therapy for a daily minimum of 1.5 hours at least 5 out of 7 days, to improve: Mobility, Strengthening, Transfers, Stretching, ROM, Endurance, Ability to manage stairs, Gait, and Balance. - Rehabilitation Nursing Patient requires 24x7 Rehabilitation Nursing for: Pain Issues, Identifying and preventing risk factor s, Monitoring and reporting current medical conditions, Assisting with ambulation and transfer, Adrian ting with all ADL-s, Teaching patients about disease process and medications, Family teaching, Provid ing safe environment, Bowel and Bladder Issues, Skin Integrity, and Medication Management. Patient needs Regional Sales Consultant and/or Case Management for: Discharge Planning, Arranging Home Equipmen t or Services, and Family Interventions. - Dietary and Nutrition Services Patient needs Dietary and Nutrition Services for: Adequate Nutrition, Nutritional Supplements, and Nu tritional Education. - Occupational Therapy Patient needs Occupational Therapy for a daily minimum of 1.5 hours at least 5 out of 7 days, to impr ove Activities of Daily Living, including: Eating, Grooming, Bathing, Dressing, Toileting, Toilet Tra nsfers, Community Reintegration, Higher functional activities, Adaptive Equipment, Splinting, Househo ld Tasks, and Other activities as determined. POTENTIAL FUNCTIONAL GOALS FOR PATIENT TO ACHIEVE BY DISCHARGE: - Safety Precaution Patient will remain free from falls or injury at time of discharge. - Bed Mobility Patient will perform bed mobility at 4-Deedee level of assistance. - Transfers Patient will complete transfers from bed to chair at 4-Deedee level of assistance. - Mobility Patient will ambulate 150 ft with 4-Deedee level of assistance with RW. PATIENT REHAB POTENTIAL Expected level of measurable improvement will be of a practical value to patient's functional capacit y or adaptations to impairments Has a viable Discharge Plan Medically appropriate; condition is sufficiently stable to participate in intensive rehab program Patient is able and expected to receive 3 hours of individualized therapy daily on at least 5 of ever y 7 days Patient's prognosis for significant practical improvement within a reasonable period of time appears Good DISCHARGE PLAN: - Estimated Length of Stay (days) 14. - Consensus on plan Discharge plan has been discussed with primary caregiver. Patient/Family is in agreement with the shannon n. Primary caregiver is in agreement with the plan. - Patient/Family Goals Return home with assistance. CONCLUSION ON REHABILITATION NECESSITY: I have evaluated patient's pre-admission functional status and, comparing it to the patient's post-ad mission functional status now, I conclude that the pre-admission assessment was accurate. Patient's c ondition on admission supports the medical necessity of admission to IR[facility]. It is safe to proceed with patient's therapy program. SIGNATURE PANEL: (CDT)
--- NOTE | 2017-12-03 15:52 | FAST ---
ENCOUNTER DATE AND TIME: 12/03/2017 08:00 (CDT) NAME LYNN GERARDO DATE OF : 1935 DATE OF ADMISSION: 12/02/2017 17:22 (CDT) PHONE: AGE: 82 N# [id number] GENDER: Female ENCOUNTER PHYSICIAN: Dr. Dominick Villareal M.D. ADMISSION DIAGNOSIS: - Orthopaedic Disorders 08 - Unilateral Hip Fracture (08.11) Right intertrochanteric femur fx. EATING: Activity did not occur on this shift EATING - SCORE: 0-UNK GROOMING: Activity did not occur on this shift GROOMING - SCORE: 0-UNK BATHING: Activity did not occur on this shift BATHING - SCORE: 0-UNK DRESSING - UPPER BODY: Activity did not occur on this shift ARTICLES SCORE Total number of steps: 0 DRESSING - UPPER BODY - SCORE: 0-UNK DRESSING - LOWER BODY: Activity did not occur on this shift ARTICLES SCORE Total number of steps: 0 DRESSING - LOWER BODY - SCORE: 0-UNK TOILETING: Activity did not occur on this shift TOILETING - SCORE: 0-UNK BLADDER MANAGEMENT: Activity did not occur on this shift BLADDER MANAGEMENT - SCORE: 7-IND BOWEL MANAGEMENT: Activity did not occur on this shift BOWEL MANAGEMENT - SCORE: 7-IND TRANSFERS: BED, CHAIR, WHEELCHAIR: TRANSFERS: BED, CHAIR, WHEELCHAIR - STEP 1: Does the patient require assistance with bed, chair, or wheelchair transfers? Yes. TRANSFERS: BED, CHAIR, WHEELCHAIR - STEP 2: Does the patient require the assistance of a helper? Yes. TRANSFERS: BED, CHAIR, WHEELCHAIR - STEP 3: How much assistance does the patient require from the helper? Lifting of the patient TRANSFERS: BED, CHAIR, WHEELCHAIR - STEP 4: Does the helper lift the patient ONLY up? ONLY down? Up AND Down? Up AND Down. TRANSFERS: BED, CHAIR, WHEELCHAIR - SCORE: 2-MAX TRANSFERS: TOILET: Activity did not occur on this shift TRANSFERS: TOILET - SCORE: 0-UNK TRANSFERS: SHOWER: Activity did not occur on this shift TRANSFERS: SHOWER - SCORE: 0-UNK TRANSFERS: TUB: Activity did not occur on this shift TRANSFERS: TUB - SCORE: 0-UNK LOCOMOTION: WALK: Patient walks less than 50 feet LOCOMOTION: WALK - SCORE: 1-DEP LOCOMOTION: WHEELCHAIR: LOCOMOTION: WHEELCHAIR - STEP 1: Does the patient need help to go 150 feet in a wheelchair? Yes. LOCOMOTION: WHEELCHAIR - STEP 2: How much assistance does the patient need from the helper? Only supervision, cuing, or coaxing LOCOMOTION: WHEELCHAIR - SCORE: 5-SUP LOCOMOTION: STAIRS: Activity did not occur on this shift LOCOMOTION: STAIRS - SCORE: 0-UNK COMPREHENSION: COMPREHENSION - SCORE: 0-UNK EXPRESSION EXPRESSION - SCORE: 0-UNK SOCIAL INTERACTION: SOCIAL INTERACTION - SCORE: 0-UNK PROBLEM SOLVING: PROBLEM SOLVING - SCORE: 0-UNK MEMORY: MEMORY - SCORE: 0-UNK SIGNATURE PANEL: The following modified sections: Transfers: Bed, Chair, Wheelchair - Score, Transfers: Toilet - Score , Locomotion: Walk - Score, Locomotion: Wheelchair - Score, Locomotion: Stairs - Score were [electron ically] signed by Maynor Daly PT on WedDec 03 2017 14:54:47 T-0500 (Central Daylight Time)
--- NOTE | 2017-12-03 16:15 | FAST ---
SHIFT START DATE/TIME: 12/03/2017 07:00 (CDT) SHIFT END DATE/TIME: 12/03/2017 19:00 (CDT) NAME LYNN GERARDO DATE OF : 1935 DATE OF ADMISSION: 12/02/2017 17:22 (CDT) PHONE: AGE: 82 N# [id number] GENDER: Female ENCOUNTER PHYSICIAN: Dr. Dominick Villareal M.D. ADMISSION DIAGNOSIS: - Orthopaedic Disorders 08 - Unilateral Hip Fracture (08.11) Right intertrochanteric femur fx. EATING: EATING - STEP 1: Does the patient require assistance when eating? Yes. EATING - STEP 2: Does the patient require the assistance of a helper? No, patient only requires an assistive device, O R s/he takes more than reasonable time to eat, OR there is a safety concern, OR s/he requires modifie d food consistency EATING - SCORE: 6-FRANCES GROOMING: Comb/brush hair Oral care Wash, rinse, and dry face Wash, rinse, and dry hands GROOMING - STEP 1: Does the patient require assistance when grooming? Yes. GROOMING - STEP 2: Does the patient require the assistance of a helper? No. The patient only requires an assistive devic e, OR takes more than reasonable time to groom, OR there is a concern for safety as the patient groom s GROOMING - SCORE: 6-FRANCES BATHING: Activity did not occur on this shift BATHING - SCORE: 0-UNK DRESSING - UPPER BODY: Activity did not occur on this shift ARTICLES SCORE Total number of steps: 0 DRESSING - UPPER BODY - SCORE: 0-UNK DRESSING - LOWER BODY: Activity did not occur on this shift ARTICLES SCORE Total number of steps: 0 DRESSING - LOWER BODY - SCORE: 0-UNK TOILETING: TOILETING - STEP 1: Does the patient require assistance with toileting? Yes. TOILETING - STEP 2: Does the patient require the assistance of a helper? Yes. TOILETING - STEP 3: How much assistance does the patient require from the helper? Only supervision TOILETING - SCORE: 5-SUP BLADDER MANAGEMENT: BLADDER MANAGEMENT - STEP 1: Does the patient control the bladder completely and intentionally without equipment or devices or med ications, and is always continent? No. BLADDER MANAGEMENT - STEP 2: Does the patient require the assistance of a helper? Yes. BLADDER MANAGEMENT - STEP 3: How much assistance does the patient require from the helper? Only supervision, stand-by, cuing, or c oaxing BLADDER MANAGEMENT - SCORE: 5-SUP BLADDER MANAGEMENT - FREQUENCY OF ACCIDENTS: BLADDER MANAGEMENT(FA) - STEP 1: How many accidents has the patient had during the current shift? 0 BOWEL MANAGEMENT: Activity did not occur on this shift BOWEL MANAGEMENT - SCORE: 7-IND BOWEL MANAGEMENT - FREQUENCY OF ACCIDENTS: BOWEL MANAGEMENT(FA) - STEP 1: How many accidents has the patient had during the current shift? 0 TRANSFERS: BED, CHAIR, WHEELCHAIR: TRANSFERS: BED, CHAIR, WHEELCHAIR - STEP 1: Does the patient require assistance with bed, chair, or wheelchair transfers? Yes. TRANSFERS: BED, CHAIR, WHEELCHAIR - STEP 2: Does the patient require the assistance of a helper? Yes. TRANSFERS: BED, CHAIR, WHEELCHAIR - STEP 3: How much assistance does the patient require from the helper? Steadying/guiding assistance TRANSFERS: BED, CHAIR, WHEELCHAIR - SCORE: 4-MIN TRANSFERS: TOILET: TRANSFERS: TOILET - STEP 1: Does the patient require assistance with toilet transfers? Yes. TRANSFERS: TOILET - STEP 2: Does the patient require the assistance of a helper? Yes. TRANSFERS: TOILET - STEP 3: How much assistance does the patient require from the helper? Patient performs half or more of the tr ansferring tasks TRANSFERS: TOILET - STEP 4: Does the patient need only incidental help such as contact guard or steadying during toilet transfer? Yes. TRANSFERS: TOILET - SCORE: 4-MIN TRANSFERS: SHOWER: Activity did not occur on this shift TRANSFERS: SHOWER - SCORE: 0-UNK TRANSFERS: TUB: Activity did not occur on this shift TRANSFERS: TUB - SCORE: 0-UNK LOCOMOTION: WALK: Activity did not occur on this shift LOCOMOTION: WALK - SCORE: 0-UNK LOCOMOTION: WHEELCHAIR: LOCOMOTION: WHEELCHAIR - STEP 1: Does the patient need help to go 150 feet in a wheelchair? Yes. LOCOMOTION: WHEELCHAIR - STEP 2: How much assistance does the patient need from the helper? Only incidental help such as around corner s or over thresholds LOCOMOTION: WHEELCHAIR - SCORE: 4-MIN COMPREHENSION: COMPREHENSION: TYPE: Both COMPREHENSION - STEP 1: Does the patient require help to understand complex and abstract ideas (such as current events, finan sherlyn, discharge planning, medical issues, relationships, etc)? Yes. COMPREHENSION - STEP 2: Does the patient require help to understand questions or statements about basic needs or ideas (such as hunger, thirst, sleep, safety, daily schedule, room location, or discomfort) half or more of the t [place]? No. COMPREHENSION - STEP 3: How often does the patient need help to understand directions and conversation about basic needs? Les s than 10% of the time COMPREHENSION - SCORE: 5-SUP EXPRESSION EXPRESSION: TYPE: Both EXPRESSION - STEP 1: Does the patient require help expressing complex and abstract ideas (such as current events, finances , discharge planning, medical issues, relationships, etc)? No. EXPRESSION - STEP 2: Does the patient need extra time, require an assistive device (such as augmentive communication syste m or a communication board), OR does s/he have mild difficulty expressing complex and abstract ideas (including mild dysarthria or mild word-find problems)? Yes. EXPRESSION - SCORE: 6-FRANCES SOCIAL INTERACTION: SOCIAL INTERACTION - STEP 1: Does the patient require a helper to interact with others in social and therapeutic situations? No. SOCIAL INTERACTION - STEP 2: Does the patient need extra time in social situations, OR does s/he interact with staff, other patien ts, and family members ONLY in structured environments, OR does s/he require medication for social in teraction? No. SOCIAL INTERACTION - SCORE: 7-IND PROBLEM SOLVING: PROBLEM SOLVING - STEP 1: Does the patient need help to solve complex problems such as managing a checking account or confronti ng interpersonal problems? Yes. PROBLEM SOLVING - STEP 2: Does the patient solve basic routine problems half or more of the time? Yes. PROBLEM SOLVING - STEP 3: How often does the patient need help to solve basic routine problems? Less than 10% of the time PROBLEM SOLVING - SCORE: 5-SUP MEMORY: MEMORY - STEP 1: Does the patient need help to remember frequently encountered people, daily routines, and executing r equests? No. MEMORY - STEP 2: Does the patient have slight difficulty recognizing frequently encountered people, daily routines, or executing requests without the need for repetition or using self-initiated or environmental cues to remember? Yes. MEMORY - SCORE: 6-FRANCES SIGNATURE PANEL: The following modified sections: Eating - Score, Grooming - Score, Bathing - Score, Dressing - Upper Body - Score, Dressing - Lower Body - Score, Toileting - Score, Bladder Management - Score, Bowel Man agement - Score, Transfers: Bed, Chair, Wheelchair - Score, Transfers: Toilet - Score, Transfers: Chelo wer - Score, Transfers: Tub - Score, Locomotion: Walk - Score, Locomotion: Wheelchair - Score, Compre hension - Score, Expression - Score, Social Interaction - Score, Problem Solving - Score, Memory - Sc ore were [electronically] signed by Nasra [email or web address] on WedDec 03 2017 15:17:05 T-0500 (Centra [place] Daylight Time)
[2017-12-03] MEDS: DOCUSATE NA/SENNA CONC 1 TAB PO SCH (20:17)
[2017-12-03] MEDS: GABAPENTIN 300 MG CAP PO SCH (20:17)
[2017-12-03] MEDS: CARBAMAZEPINE 200 MG TAB PO SCH (20:18)
--- NOTE | 2017-12-04 04:51 | FAST ---
SHIFT START DATE/TIME: 12/03/2017 19:00 (CDT) SHIFT END DATE/TIME: 12/04/2017 07:00 (CDT) NAME LYNN GERARDO DATE OF : 1935 DATE OF ADMISSION: 12/02/2017 17:22 (CDT) PHONE: AGE: 82 [facility]# [id number] GENDER: Female ENCOUNTER PHYSICIAN: Dr. Dominick Villareal M.D. ADMISSION DIAGNOSIS: - Orthopaedic Disorders 08 - Unilateral Hip Fracture (08.11) Right intertrochanteric femur fx. EATING: EATING - STEP 1: Does the patient require assistance when eating? Yes. EATING - STEP 2: Does the patient require the assistance of a helper? Yes. EATING - STEP 3: Does the patient perform half or more of the eating tasks? Yes. EATING - STEP 4: Does the patient need only supervision, cuing, coaxing OR help to apply an orthosis OR help to cut fo od, open containers, pour liquids, or butter bread? Yes. EATING - SCORE: 5-SUP GROOMING: Comb/brush hair Oral care Wash, rinse, and dry face Wash, rinse, and dry hands GROOMING - STEP 1: Does the patient require assistance when grooming? Yes. GROOMING - STEP 2: Does the patient require the assistance of a helper? Yes. GROOMING - STEP 3: How much assistance does the patient require from the helper? Only prior equipment preparation/set up from the helper GROOMING - SCORE: 5-SUP BATHING: Activity did not occur on this shift BATHING - SCORE: 0-UNK DRESSING - UPPER BODY: Activity did not occur on this shift ARTICLES SCORE Total number of steps: 0 DRESSING - UPPER BODY - SCORE: 0-UNK DRESSING - LOWER BODY: Activity did not occur on this shift ARTICLES SCORE Total number of steps: 0 DRESSING - LOWER BODY - SCORE: 0-UNK TOILETING: TOILETING - STEP 1: Does the patient require assistance with toileting? Yes. TOILETING - STEP 2: Does the patient require the assistance of a helper? Yes. TOILETING - STEP 3: How much assistance does the patient require from the helper? Hands-on assistance from the helper TOILETING - STEP 4: Of the 3 tasks: 1) Adjusting clothing prior to use, 2) Cleansing of perineal area, 3) Adjusting clot haley after use; How many tasks does the patient perform WITHOUT assistance of the helper? One task TOILETING - SCORE: 2-MAX BLADDER MANAGEMENT: BLADDER MANAGEMENT - STEP 1: Does the patient control the bladder completely and intentionally without equipment or devices or med ications, and is always continent? No. BLADDER MANAGEMENT - STEP 2: Does the patient require the assistance of a helper? Yes. BLADDER MANAGEMENT - STEP 3: How much assistance does the patient require from the helper? Patient requires contact assistance fro m the helper BLADDER MANAGEMENT - STEP 4: How much contact assistance does the patient require from the helper? Patient requires minimal assist ance to maintain an external device - by positioning, and the patient performs 75% or more of bladder management tasks, while the helper provides less than 25% of the assistance to position patient on / off bedpan BLADDER MANAGEMENT - SCORE: 4-MIN BLADDER MANAGEMENT - FREQUENCY OF ACCIDENTS: BLADDER MANAGEMENT(FA) - STEP 1: How many accidents has the patient had during the current shift? 0 BOWEL MANAGEMENT: Activity did not occur on this shift BOWEL MANAGEMENT - SCORE: 7-IND TRANSFERS: BED, CHAIR, WHEELCHAIR: TRANSFERS: BED, CHAIR, WHEELCHAIR - STEP 1: Does the patient require assistance with bed, chair, or wheelchair transfers? Yes. TRANSFERS: BED, CHAIR, WHEELCHAIR - STEP 2: Does the patient require the assistance of a helper? Yes. TRANSFERS: BED, CHAIR, WHEELCHAIR - STEP 3: How much assistance does the patient require from the helper? Lifting of the legs TRANSFERS: BED, CHAIR, WHEELCHAIR - STEP 4: How many legs does the patient require the helper to lift? both legs TRANSFERS: BED, CHAIR, WHEELCHAIR - SCORE: 3-MOD TRANSFERS: TOILET: TRANSFERS: TOILET - STEP 1: Does the patient require assistance with toilet transfers? Yes. TRANSFERS: TOILET - STEP 2: Does the patient require the assistance of a helper? Yes. TRANSFERS: TOILET - STEP 3: How much assistance does the patient require from the helper? Patient performs half or more of the tr ansferring tasks TRANSFERS: TOILET - STEP 4: Does the patient need only incidental help such as contact guard or steadying during toilet transfer? No. Patient needs more than incidental help TRANSFERS: TOILET - SCORE: 3-MOD TRANSFERS: SHOWER: Activity did not occur on this shift TRANSFERS: SHOWER - SCORE: 0-UNK TRANSFERS: TUB: Activity did not occur on this shift TRANSFERS: TUB - SCORE: 0-UNK LOCOMOTION: WALK: Activity did not occur on this shift LOCOMOTION: WALK - SCORE: 0-UNK LOCOMOTION: WHEELCHAIR: Activity did not occur on this shift LOCOMOTION: WHEELCHAIR - SCORE: 0-UNK COMPREHENSION: COMPREHENSION: TYPE: Both COMPREHENSION - STEP 1: Does the patient require help to understand complex and abstract ideas (such as current events, finan sherlyn, discharge planning, medical issues, relationships, etc)? No. COMPREHENSION - STEP 2: Does the patient need extra time, require an assistive device (such as glasses, hearing aids, or an a ugmentative communication system), OR does s/he have mild difficulty expressing complex and abstract ideas (including mild dysarthria or mild word-finding problems)? Yes. COMPREHENSION - SCORE: 6-FRANCES EXPRESSION EXPRESSION: TYPE: Both EXPRESSION - STEP 1: Does the patient require help expressing complex and abstract ideas (such as current events, finances , discharge planning, medical issues, relationships, etc)? No. EXPRESSION - STEP 2: Does the patient need extra time, require an assistive device (such as augmentive communication syste m or a communication board), OR does s/he have mild difficulty expressing complex and abstract ideas (including mild dysarthria or mild word-find problems)? No. EXPRESSION - SCORE: 7-IND SOCIAL INTERACTION: SOCIAL INTERACTION - STEP 1: Does the patient require a helper to interact with others in social and therapeutic situations? No. SOCIAL INTERACTION - STEP 2: Does the patient need extra time in social situations, OR does s/he interact with staff, other patien ts, and family members ONLY in structured environments, OR does s/he require medication for social in teraction? No. SOCIAL INTERACTION - SCORE: 7-IND PROBLEM SOLVING: PROBLEM SOLVING - STEP 1: Does the patient need help to solve complex problems such as managing a checking account or confronti ng interpersonal problems? No. PROBLEM SOLVING - STEP 2: Does the patient require extra time to make decisions or solve problems, OR does s/he have slight dif ficulty reading, initiating, or self-correcting in unfamiliar situations? Yes, patient needs extra ti me. PROBLEM SOLVING - SCORE: 6-FRANCES MEMORY: MEMORY - STEP 1: Does the patient need help to remember frequently encountered people, daily routines, and executing r equests? No. MEMORY - STEP 2: Does the patient have slight difficulty recognizing frequently encountered people, daily routines, or executing requests without the need for repetition or using self-initiated or environmental cues to remember? No. MEMORY - SCORE: 7-IND SIGNATURE PANEL: The following modified sections: Eating - Score, Grooming - Score, Bathing - Score, Dressing - Upper Body - Score, Dressing - Lower Body - Score, Toileting - Score, Bladder Management - Score, Bowel Man agement - Score, Transfers: Bed, Chair, Wheelchair - Score, Transfers: Toilet - Score, Transfers: Chelo wer - Score, Transfers: Tub - Score, Locomotion: Walk - Score, Locomotion: Wheelchair - Score, Compre hension - Score, Expression - Score, Social Interaction - Score, Problem Solving - Score, Memory - Sc ore were [electronically] signed by Nasra GarzonNSang on Sat Dec 04 2017 03:53:35 T-0500 ( Central Daylight Time)
[2017-12-04] MEDS: HYDROCODONE/APAP 7.5/325 MG TAB PO PRN ×3 (06:24→22:06)
[2017-12-04] MEDS: CYCLOBENZAPRINE 10 MG TAB PO PRN ×2 (06:30→20:15)
[2017-12-04] MEDS: METOPROLOL TAR 50 MG TAB PO SCH ×2 (07:04→20:04)
[2017-12-04] MEDS: CARBAMAZEPINE 200 MG TAB PO SCH ×2 (07:13→20:05)
[2017-12-04] MEDS: APIXABAN 2.5 MG TABLET PO SCH ×2 (07:56→20:12)
[2017-12-04] MEDS: ASPIRIN 81 MG CHEWABLE TABLET PO SCH (07:56)
[2017-12-04] MEDS: MULTIVITAMIN TAB PO SCH (07:56)
[2017-12-04] MEDS: BISACODYL E.C. 5 MG TAB PO PRN (09:43)
--- NOTE | 2017-12-04 12:53 | FAST ---
ENCOUNTER DATE AND TIME: 12/04/2017 08:00 (CDT) NAME LYNN GERARDO DATE OF : 1935 DATE OF ADMISSION: 12/02/2017 17:22 (CDT) PHONE: AGE: 82 N# [id number] GENDER: Female ENCOUNTER PHYSICIAN: Dr. Dominick Villareal M.D. ADMISSION DIAGNOSIS: - Orthopaedic Disorders 08 - Unilateral Hip Fracture (08.11) Right intertrochanteric femur fx. EATING: Activity did not occur on this shift EATING - SCORE: 0-UNK GROOMING: Activity did not occur on this shift GROOMING - SCORE: 0-UNK BATHING: Activity did not occur on this shift BATHING - SCORE: 0-UNK DRESSING - UPPER BODY: Activity did not occur on this shift ARTICLES SCORE Total number of steps: 0 DRESSING - UPPER BODY - SCORE: 0-UNK DRESSING - LOWER BODY: Activity did not occur on this shift ARTICLES SCORE Total number of steps: 0 DRESSING - LOWER BODY - SCORE: 0-UNK TOILETING: Activity did not occur on this shift TOILETING - SCORE: 0-UNK BLADDER MANAGEMENT: Activity did not occur on this shift BLADDER MANAGEMENT - SCORE: 7-IND BOWEL MANAGEMENT: Activity did not occur on this shift BOWEL MANAGEMENT - SCORE: 7-IND TRANSFERS: BED, CHAIR, WHEELCHAIR: TRANSFERS: BED, CHAIR, WHEELCHAIR - STEP 1: Does the patient require assistance with bed, chair, or wheelchair transfers? Yes. TRANSFERS: BED, CHAIR, WHEELCHAIR - STEP 2: Does the patient require the assistance of a helper? Yes. TRANSFERS: BED, CHAIR, WHEELCHAIR - STEP 3: How much assistance does the patient require from the helper? Steadying/guiding assistance TRANSFERS: BED, CHAIR, WHEELCHAIR - SCORE: 4-MIN TRANSFERS: TOILET: Activity did not occur on this shift TRANSFERS: TOILET - SCORE: 0-UNK TRANSFERS: SHOWER: Activity did not occur on this shift TRANSFERS: SHOWER - SCORE: 0-UNK TRANSFERS: TUB: Activity did not occur on this shift TRANSFERS: TUB - SCORE: 0-UNK LOCOMOTION: WALK: LOCOMOTION: WALK - STEP 1: Does the patient need help to walk 150 feet? Yes. LOCOMOTION: WALK - STEP 2: How much assistance does the patient require to walk a minimum of 150 feet? Patient walks less than 1 50 feet - but more than 50 feet - with the assistance of only one helper LOCOMOTION: WALK - SCORE: 2-MAX LOCOMOTION: WHEELCHAIR: LOCOMOTION: WHEELCHAIR - STEP 1: Does the patient need help to go 150 feet in a wheelchair? Yes. LOCOMOTION: WHEELCHAIR - STEP 2: How much assistance does the patient need from the helper? Only incidental help such as around corner s or over thresholds LOCOMOTION: WHEELCHAIR - SCORE: 4-MIN LOCOMOTION: STAIRS: Activity did not occur on this shift LOCOMOTION: STAIRS - SCORE: 0-UNK COMPREHENSION: COMPREHENSION - SCORE: 0-UNK EXPRESSION EXPRESSION - SCORE: 0-UNK SOCIAL INTERACTION: SOCIAL INTERACTION - SCORE: 0-UNK PROBLEM SOLVING: PROBLEM SOLVING - SCORE: 0-UNK MEMORY: MEMORY - SCORE: 0-UNK SIGNATURE PANEL: The following modified sections: Transfers: Bed, Chair, Wheelchair - Score, Transfers: Toilet - Score , Locomotion: Walk - Score, Locomotion: Wheelchair - Score, Locomotion: Stairs - Score were [electron christina] signed by Yamilex Jackson PTA on Sat Dec 04 2017 11:55:24 GMT-0500 (Central Daylight Time)
--- NOTE | 2017-12-04 15:42 | FAST ---
SHIFT START DATE/TIME: 12/04/2017 07:00 (CDT) SHIFT END DATE/TIME: 12/04/2017 19:00 (CDT) NAME LYNN GERARDO DATE OF : 1935 DATE OF ADMISSION: 12/02/2017 17:22 (CDT) PHONE: AGE: 82 N# [id number] GENDER: Female ENCOUNTER PHYSICIAN: Dr. Dominick Villareal M.D. ADMISSION DIAGNOSIS: - Orthopaedic Disorders 08 - Unilateral Hip Fracture (08.11) Right intertrochanteric femur fx. EATING: EATING - STEP 1: Does the patient require assistance when eating? Yes. EATING - STEP 2: Does the patient require the assistance of a helper? No, patient only requires an assistive device, O R s/he takes more than reasonable time to eat, OR there is a safety concern, OR s/he requires modifie d food consistency EATING - SCORE: 6-FRANCES GROOMING: Comb/brush hair Oral care Wash, rinse, and dry face Wash, rinse, and dry hands GROOMING - STEP 1: Does the patient require assistance when grooming? Yes. GROOMING - STEP 2: Does the patient require the assistance of a helper? No. The patient only requires an assistive devic e, OR takes more than reasonable time to groom, OR there is a concern for safety as the patient groom s GROOMING - SCORE: 6-FRANCES BATHING: Activity did not occur on this shift BATHING - SCORE: 0-UNK DRESSING - UPPER BODY: Activity did not occur on this shift ARTICLES SCORE Total number of steps: 0 DRESSING - UPPER BODY - SCORE: 0-UNK DRESSING - LOWER BODY: Activity did not occur on this shift ARTICLES SCORE Total number of steps: 0 DRESSING - LOWER BODY - SCORE: 0-UNK TOILETING: TOILETING - STEP 1: Does the patient require assistance with toileting? Yes. TOILETING - STEP 2: Does the patient require the assistance of a helper? Yes. TOILETING - STEP 3: How much assistance does the patient require from the helper? Only supervision TOILETING - SCORE: 5-SUP BLADDER MANAGEMENT: BLADDER MANAGEMENT - STEP 1: Does the patient control the bladder completely and intentionally without equipment or devices or med ications, and is always continent? No. BLADDER MANAGEMENT - STEP 2: Does the patient require the assistance of a helper? Yes. BLADDER MANAGEMENT - STEP 3: How much assistance does the patient require from the helper? Only supervision, stand-by, cuing, or c oaxing BLADDER MANAGEMENT - SCORE: 5-SUP BLADDER MANAGEMENT - FREQUENCY OF ACCIDENTS: BLADDER MANAGEMENT(FA) - STEP 1: How many accidents has the patient had during the current shift? 0 BOWEL MANAGEMENT: Activity did not occur on this shift BOWEL MANAGEMENT - SCORE: 7-IND BOWEL MANAGEMENT - FREQUENCY OF ACCIDENTS: BOWEL MANAGEMENT(FA) - STEP 1: How many accidents has the patient had during the current shift? 0 TRANSFERS: BED, CHAIR, WHEELCHAIR: TRANSFERS: BED, CHAIR, WHEELCHAIR - STEP 1: Does the patient require assistance with bed, chair, or wheelchair transfers? Yes. TRANSFERS: BED, CHAIR, WHEELCHAIR - STEP 2: Does the patient require the assistance of a helper? Yes. TRANSFERS: BED, CHAIR, WHEELCHAIR - STEP 3: How much assistance does the patient require from the helper? Steadying/guiding assistance TRANSFERS: BED, CHAIR, WHEELCHAIR - SCORE: 4-MIN TRANSFERS: TOILET: TRANSFERS: TOILET - STEP 1: Does the patient require assistance with toilet transfers? Yes. TRANSFERS: TOILET - STEP 2: Does the patient require the assistance of a helper? No. Patient only requires an assistive device albright ch as a grab bar or special seat, OR s/he takes more than reasonable time to perform toilet transfers , OR there is a safety concern when s/he performs toilet transfers. TRANSFERS: TOILET - SCORE: 6-FRANCES TRANSFERS: SHOWER: Activity did not occur on this shift TRANSFERS: SHOWER - SCORE: 0-UNK TRANSFERS: TUB: Activity did not occur on this shift TRANSFERS: TUB - SCORE: 0-UNK LOCOMOTION: WALK: Activity did not occur on this shift LOCOMOTION: WALK - SCORE: 0-UNK LOCOMOTION: WHEELCHAIR: LOCOMOTION: WHEELCHAIR - STEP 1: Does the patient need help to go 150 feet in a wheelchair? Yes. LOCOMOTION: WHEELCHAIR - STEP 2: How much assistance does the patient need from the helper? Only supervision, cuing, or coaxing LOCOMOTION: WHEELCHAIR - SCORE: 5-SUP COMPREHENSION: COMPREHENSION: TYPE: Both COMPREHENSION - STEP 1: Does the patient require help to understand complex and abstract ideas (such as current events, finan sherlyn, discharge planning, medical issues, relationships, etc)? No. COMPREHENSION - STEP 2: Does the patient need extra time, require an assistive device (such as glasses, hearing aids, or an a ugmentative communication system), OR does s/he have mild difficulty expressing complex and abstract ideas (including mild dysarthria or mild word-finding problems)? Yes. COMPREHENSION - SCORE: 6-FRANCES EXPRESSION EXPRESSION: TYPE: Both EXPRESSION - STEP 1: Does the patient require help expressing complex and abstract ideas (such as current events, finances , discharge planning, medical issues, relationships, etc)? No. EXPRESSION - STEP 2: Does the patient need extra time, require an assistive device (such as augmentive communication syste m or a communication board), OR does s/he have mild difficulty expressing complex and abstract ideas (including mild dysarthria or mild word-find problems)? Yes. EXPRESSION - SCORE: 6-FRANCES SOCIAL INTERACTION: SOCIAL INTERACTION - STEP 1: Does the patient require a helper to interact with others in social and therapeutic situations? No. SOCIAL INTERACTION - STEP 2: Does the patient need extra time in social situations, OR does s/he interact with staff, other patien ts, and family members ONLY in structured environments, OR does s/he require medication for social in teraction? No. SOCIAL INTERACTION - SCORE: 7-IND PROBLEM SOLVING: PROBLEM SOLVING - STEP 1: Does the patient need help to solve complex problems such as managing a checking account or confronti ng interpersonal problems? Yes. PROBLEM SOLVING - STEP 2: Does the patient solve basic routine problems half or more of the time? Yes. PROBLEM SOLVING - STEP 3: How often does the patient need help to solve basic routine problems? Less than 10% of the time PROBLEM SOLVING - SCORE: 5-SUP MEMORY: MEMORY - STEP 1: Does the patient need help to remember frequently encountered people, daily routines, and executing r equests? No. MEMORY - STEP 2: Does the patient have slight difficulty recognizing frequently encountered people, daily routines, or executing requests without the need for repetition or using self-initiated or environmental cues to remember? Yes. MEMORY - SCORE: 6-FRANCES SIGNATURE PANEL: The following modified sections: Eating - Score, Grooming - Score, Bathing - Score, Dressing - Upper Body - Score, Dressing - Lower Body - Score, Toileting - Score, Bladder Management - Score, Bowel Man agement - Score, Transfers: Bed, Chair, Wheelchair - Score, Transfers: Toilet - Score, Transfers: Chelo wer - Score, Transfers: Tub - Score, Locomotion: Walk - Score, Locomotion: Wheelchair - Score, Compre hension - Score, Expression - Score, Social Interaction - Score, Problem Solving - Score, Memory - Sc ore were [electronically] signed by Nasra [email or web address] on Sat Dec 04 2017 14:44:00 GMT-0500 (Centra l Daylight Time)
[2017-12-04] MEDS: GABAPENTIN 300 MG CAP PO SCH (20:05)
[2017-12-04] MEDS: DOCUSATE NA/SENNA CONC 1 TAB PO SCH (20:09)
--- NOTE | 2017-12-05 02:56 | FAST ---
SHIFT START DATE/TIME: 12/04/2017 19:00 (CDT) SHIFT END DATE/TIME: 12/05/2017 07:00 (CDT) NAME LYNN GERARDO DATE OF : 1935 DATE OF ADMISSION: 12/02/2017 17:22 (CDT) PHONE: AGE: 82 N# [id number] GENDER: Female ENCOUNTER PHYSICIAN: Dr. Dominick Villareal M.D. ADMISSION DIAGNOSIS: - Orthopaedic Disorders 08 - Unilateral Hip Fracture (08.11) Right intertrochanteric femur fx. EATING: Activity did not occur on this shift EATING - SCORE: 0-UNK GROOMING: Wash, rinse, and dry face Wash, rinse, and dry hands GROOMING - STEP 1: Does the patient require assistance when grooming? Yes. GROOMING - STEP 2: Does the patient require the assistance of a helper? Yes. GROOMING - STEP 3: How much assistance does the patient require from the helper? Only prior equipment preparation/set up from the helper GROOMING - SCORE: 5-SUP BATHING: Activity did not occur on this shift BATHING - SCORE: 0-UNK DRESSING - UPPER BODY: Activity did not occur on this shift ARTICLES SCORE Total number of steps: 0 DRESSING - UPPER BODY - SCORE: 0-UNK DRESSING - LOWER BODY: Activity did not occur on this shift ARTICLES SCORE Total number of steps: 0 DRESSING - LOWER BODY - SCORE: 0-UNK TOILETING: TOILETING - STEP 1: Does the patient require assistance with toileting? Yes. TOILETING - STEP 2: Does the patient require the assistance of a helper? Yes. TOILETING - STEP 3: How much assistance does the patient require from the helper? Hands-on assistance from the helper TOILETING - STEP 4: Of the 3 tasks: 1) Adjusting clothing prior to use, 2) Cleansing of perineal area, 3) Adjusting clot haley after use; How many tasks does the patient perform WITHOUT assistance of the helper? Two tasks TOILETING - SCORE: 3-MOD BLADDER MANAGEMENT: BLADDER MANAGEMENT - STEP 1: Does the patient control the bladder completely and intentionally without equipment or devices or med ications, and is always continent? No. BLADDER MANAGEMENT - STEP 2: Does the patient require the assistance of a helper? Yes. BLADDER MANAGEMENT - STEP 3: How much assistance does the patient require from the helper? Only set-up of equipment - such as plac ing it within reach of the patient or emptying a device - to maintain either satisfactory voiding pat tern or managing an external device, such as an absorbent pad, ileal device, or catheter BLADDER MANAGEMENT - SCORE: 5-SUP BOWEL MANAGEMENT: Activity did not occur on this shift BOWEL MANAGEMENT - SCORE: 7-IND TRANSFERS: BED, CHAIR, WHEELCHAIR: TRANSFERS: BED, CHAIR, WHEELCHAIR - STEP 1: Does the patient require assistance with bed, chair, or wheelchair transfers? Yes. TRANSFERS: BED, CHAIR, WHEELCHAIR - STEP 2: Does the patient require the assistance of a helper? Yes. TRANSFERS: BED, CHAIR, WHEELCHAIR - STEP 3: How much assistance does the patient require from the helper? Lifting of the legs TRANSFERS: BED, CHAIR, WHEELCHAIR - STEP 4: How many legs does the patient require the helper to lift? both legs TRANSFERS: BED, CHAIR, WHEELCHAIR - SCORE: 3-MOD TRANSFERS: TOILET: TRANSFERS: TOILET - STEP 1: Does the patient require assistance with toilet transfers? Yes. TRANSFERS: TOILET - STEP 2: Does the patient require the assistance of a helper? Yes. TRANSFERS: TOILET - STEP 3: How much assistance does the patient require from the helper? Patient performs half or more of the tr ansferring tasks TRANSFERS: TOILET - STEP 4: Does the patient need only incidental help such as contact guard or steadying during toilet transfer? Yes. TRANSFERS: TOILET - SCORE: 4-MIN TRANSFERS: SHOWER: Activity did not occur on this shift TRANSFERS: SHOWER - SCORE: 0-UNK TRANSFERS: TUB: Activity did not occur on this shift TRANSFERS: TUB - SCORE: 0-UNK LOCOMOTION: WALK: Activity did not occur on this shift LOCOMOTION: WALK - SCORE: 0-UNK LOCOMOTION: WHEELCHAIR: Activity did not occur on this shift LOCOMOTION: WHEELCHAIR - SCORE: 0-UNK COMPREHENSION: COMPREHENSION - STEP 1: Does the patient require help to understand complex and abstract ideas (such as current events, finan sherlyn, discharge planning, medical issues, relationships, etc)? No. COMPREHENSION - STEP 2: Does the patient need extra time, require an assistive device (such as glasses, hearing aids, or an a ugmentative communication system), OR does s/he have mild difficulty expressing complex and abstract ideas (including mild dysarthria or mild word-finding problems)? Yes. COMPREHENSION - SCORE: 6-FRANCES EXPRESSION EXPRESSION - STEP 1: Does the patient require help expressing complex and abstract ideas (such as current events, finances , discharge planning, medical issues, relationships, etc)? No. EXPRESSION - STEP 2: Does the patient need extra time, require an assistive device (such as augmentive communication syste m or a communication board), OR does s/he have mild difficulty expressing complex and abstract ideas (including mild dysarthria or mild word-find problems)? No. EXPRESSION - SCORE: 7-IND SOCIAL INTERACTION: SOCIAL INTERACTION - STEP 1: Does the patient require a helper to interact with others in social and therapeutic situations? No. SOCIAL INTERACTION - STEP 2: Does the patient need extra time in social situations, OR does s/he interact with staff, other patien ts, and family members ONLY in structured environments, OR does s/he require medication for social in teraction? No. SOCIAL INTERACTION - SCORE: 7-IND PROBLEM SOLVING: PROBLEM SOLVING - STEP 1: Does the patient need help to solve complex problems such as managing a checking account or confronti ng interpersonal problems? No. PROBLEM SOLVING - STEP 2: Does the patient require extra time to make decisions or solve problems, OR does s/he have slight dif ficulty reading, initiating, or self-correcting in unfamiliar situations? Yes, patient needs extra ti me. PROBLEM SOLVING - SCORE: 6-FRANCES MEMORY: MEMORY - STEP 1: Does the patient need help to remember frequently encountered people, daily routines, and executing r equests? No. MEMORY - STEP 2: Does the patient have slight difficulty recognizing frequently encountered people, daily routines, or executing requests without the need for repetition or using self-initiated or environmental cues to remember? No. MEMORY - SCORE: 7-IND SIGNATURE PANEL: The following modified sections: Eating - Score, Grooming - Score, Dressing - Upper Body - Score, Ben ssing - Lower Body - Score, Toileting - Score, Bladder Management - Score, Bowel Management - Score, Transfers: Bed, Chair, Wheelchair - Score, Transfers: Toilet - Score, Transfers: Shower - Score, Paige sfers: Tub - Score, Locomotion: Walk - Score, Locomotion: Wheelchair - Score, Comprehension - Score, Expression - Score, Social Interaction - Score, Problem Solving - Score, Memory - Score were [electro nically] signed by Denae Arceo CNA on WedDec 05 2017 01:58:43 T-0500 (Central Daylight Time)
[2017-12-05] MEDS: HYDROCODONE/APAP 7.5/325 MG TAB PO PRN ×2 (06:33→20:38)
[2017-12-05] MEDS: METOPROLOL TAR 50 MG TAB PO SCH ×2 (07:14→19:50)
[2017-12-05] MEDS: CYCLOBENZAPRINE 10 MG TAB PO PRN ×2 (07:50→14:07)
[2017-12-05] MEDS: MULTIVITAMIN TAB PO SCH (07:50)
[2017-12-05] MEDS: APIXABAN 2.5 MG TABLET PO SCH ×2 (07:56→19:50)
[2017-12-05] MEDS: DOCUSATE NA 100 MG CAP PO SCH (07:56)
[2017-12-05] MEDS: ASPIRIN 81 MG CHEWABLE TABLET PO SCH (07:56)
[2017-12-05] MEDS: CARBAMAZEPINE 200 MG TAB PO SCH ×2 (07:56→19:50)
[2017-12-05] MEDS ORDERED: ENSURE HIGH PROTEIN 237 ML CAN PO SCH (08:00)
[2017-12-05] MEDS: HYDRALAZINE HCL 10 MG TABLET PO SCH ×2 (13:15→20:37)
[2017-12-05 18:40] LABS: Urine Appearance CLOUDY; Urine Bilirubin NEGATIVE (NEG); Urine Blood NEGATIVE (NEG); Urine Color YELLOW; Urine Glucose NEGATIVE (NEG); Urine Protein NEGATIVE (NEG); Urine Specific Gravity 1.015 (1.005-1.030); Urine pH 6.5 (5.0-7.0)
[2017-12-05 18:45] LABS: Urine Microscopic Reflex ORDER UMIC
[2017-12-05 19:00] LABS: Urine Bacteria 20-50 /HPF (<20); Urine Culture Reflex Order NOT NEEDED
[2017-12-05] MEDS: CRANBERRY FRUIT EXTRACT 200 MG CAP PO SCH (19:50)
[2017-12-05] MEDS: GABAPENTIN 300 MG CAP PO SCH (20:37)
[2017-12-05] MEDS: DOCUSATE NA/SENNA CONC 1 TAB PO SCH (20:37)
[2017-12-06] MEDS: ENSURE HIGH PROTEIN 237 ML CAN PO SCH (08:00)
[2017-12-06] MEDS: APIXABAN 2.5 MG TABLET PO SCH ×2 (08:25→19:49)
[2017-12-06] MEDS: CRANBERRY FRUIT EXTRACT 200 MG CAP PO SCH ×2 (08:25→19:49)
[2017-12-06] MEDS: HYDROCODONE/APAP 7.5/325 MG TAB PO PRN ×3 (08:26→22:10)
[2017-12-06] MEDS: DOCUSATE NA 100 MG CAP PO SCH (08:26)
[2017-12-06] MEDS: ASPIRIN 81 MG CHEWABLE TABLET PO SCH (08:26)
[2017-12-06] MEDS: CARBAMAZEPINE 200 MG TAB PO SCH ×2 (08:26→19:49)
[2017-12-06] MEDS: HYDRALAZINE HCL 10 MG TABLET PO SCH ×4 (08:26→21:00)
[2017-12-06] MEDS: MULTIVITAMIN TAB PO SCH (08:27)
[2017-12-06] MEDS: METOPROLOL TAR 50 MG TAB PO SCH ×2 (08:27→19:49)
--- NOTE | 2017-12-06 09:11 | FAST ---
SHIFT START DATE/TIME: 12/05/2017 19:00 (CDT) SHIFT END DATE/TIME: 12/06/2017 07:00 (CDT) NAME LYNN GERARDO DATE OF : 1935 DATE OF ADMISSION: 12/02/2017 17:22 (CDT) PHONE: AGE: 82 N# [id number] GENDER: Female ENCOUNTER PHYSICIAN: Dr. Dominick Villareal M.D. ADMISSION DIAGNOSIS: - Orthopaedic Disorders 08 - Unilateral Hip Fracture (08.11) Right intertrochanteric femur fx. EATING: Activity did not occur on this shift EATING - SCORE: 0-UNK GROOMING: Wash, rinse, and dry face Wash, rinse, and dry hands GROOMING - STEP 1: Does the patient require assistance when grooming? Yes. GROOMING - STEP 2: Does the patient require the assistance of a helper? Yes. GROOMING - STEP 3: How much assistance does the patient require from the helper? Only prior equipment preparation/set up from the helper GROOMING - SCORE: 5-SUP BATHING: Activity did not occur on this shift BATHING - SCORE: 0-UNK DRESSING - UPPER BODY: Activity did not occur on this shift Patient is not dressing in public clothing ARTICLES SCORE Total number of steps: 0 DRESSING - UPPER BODY - SCORE: 0-UNK DRESSING - LOWER BODY: Activity did not occur on this shift Patient is not dressing in public clothing ARTICLES SCORE Total number of steps: 0 DRESSING - LOWER BODY - SCORE: 0-UNK TOILETING: TOILETING - STEP 1: Does the patient require assistance with toileting? Yes. TOILETING - STEP 2: Does the patient require the assistance of a helper? Yes. TOILETING - STEP 3: How much assistance does the patient require from the helper? Hands-on assistance from the helper TOILETING - STEP 4: Of the 3 tasks: 1) Adjusting clothing prior to use, 2) Cleansing of perineal area, 3) Adjusting clot haley after use; How many tasks does the patient perform WITHOUT assistance of the helper? Three tasks with steadying assistance from the helper TOILETING - SCORE: 4-MIN BLADDER MANAGEMENT: BLADDER MANAGEMENT - STEP 1: Does the patient control the bladder completely and intentionally without equipment or devices or med ications, and is always continent? No. BLADDER MANAGEMENT - STEP 2: Does the patient require the assistance of a helper? Yes. BLADDER MANAGEMENT - STEP 3: How much assistance does the patient require from the helper? Only supervision, stand-by, cuing, or c oaxing BLADDER MANAGEMENT - SCORE: 5-SUP BOWEL MANAGEMENT: Activity did not occur on this shift BOWEL MANAGEMENT - SCORE: 7-IND TRANSFERS: BED, CHAIR, WHEELCHAIR: TRANSFERS: BED, CHAIR, WHEELCHAIR - STEP 1: Does the patient require assistance with bed, chair, or wheelchair transfers? Yes. TRANSFERS: BED, CHAIR, WHEELCHAIR - STEP 2: Does the patient require the assistance of a helper? Yes. TRANSFERS: BED, CHAIR, WHEELCHAIR - STEP 3: How much assistance does the patient require from the helper? Lifting of the legs TRANSFERS: BED, CHAIR, WHEELCHAIR - STEP 4: How many legs does the patient require the helper to lift? both legs TRANSFERS: BED, CHAIR, WHEELCHAIR - SCORE: 3-MOD TRANSFERS: TOILET: TRANSFERS: TOILET - STEP 1: Does the patient require assistance with toilet transfers? Yes. TRANSFERS: TOILET - STEP 2: Does the patient require the assistance of a helper? Yes. TRANSFERS: TOILET - STEP 3: How much assistance does the patient require from the helper? Patient performs half or more of the tr ansferring tasks TRANSFERS: TOILET - STEP 4: Does the patient need only incidental help such as contact guard or steadying during toilet transfer? Yes. TRANSFERS: TOILET - SCORE: 4-MIN TRANSFERS: SHOWER: Activity did not occur on this shift TRANSFERS: SHOWER - SCORE: 0-UNK TRANSFERS: TUB: Activity did not occur on this shift TRANSFERS: TUB - SCORE: 0-UNK LOCOMOTION: WALK: Activity did not occur on this shift LOCOMOTION: WALK - SCORE: 0-UNK LOCOMOTION: WHEELCHAIR: Activity did not occur on this shift LOCOMOTION: WHEELCHAIR - SCORE: 0-UNK COMPREHENSION: COMPREHENSION - STEP 1: Does the patient require help to understand complex and abstract ideas (such as current events, finan sherlyn, discharge planning, medical issues, relationships, etc)? No. COMPREHENSION - STEP 2: Does the patient need extra time, require an assistive device (such as glasses, hearing aids, or an a ugmentative communication system), OR does s/he have mild difficulty expressing complex and abstract ideas (including mild dysarthria or mild word-finding problems)? Yes. COMPREHENSION - SCORE: 6-FRANCES EXPRESSION EXPRESSION - STEP 1: Does the patient require help expressing complex and abstract ideas (such as current events, finances , discharge planning, medical issues, relationships, etc)? No. EXPRESSION - STEP 2: Does the patient need extra time, require an assistive device (such as augmentive communication syste m or a communication board), OR does s/he have mild difficulty expressing complex and abstract ideas (including mild dysarthria or mild word-find problems)? No. EXPRESSION - SCORE: 7-IND SOCIAL INTERACTION: SOCIAL INTERACTION - STEP 1: Does the patient require a helper to interact with others in social and therapeutic situations? No. SOCIAL INTERACTION - STEP 2: Does the patient need extra time in social situations, OR does s/he interact with staff, other patien ts, and family members ONLY in structured environments, OR does s/he require medication for social in teraction? No. SOCIAL INTERACTION - SCORE: 7-IND PROBLEM SOLVING: PROBLEM SOLVING - STEP 1: Does the patient need help to solve complex problems such as managing a checking account or confronti ng interpersonal problems? No. PROBLEM SOLVING - STEP 2: Does the patient require extra time to make decisions or solve problems, OR does s/he have slight dif ficulty reading, initiating, or self-correcting in unfamiliar situations? Yes, patient needs extra ti me. PROBLEM SOLVING - SCORE: 6-FRANCES MEMORY: MEMORY - STEP 1: Does the patient need help to remember frequently encountered people, daily routines, and executing r equests? No. MEMORY - STEP 2: Does the patient have slight difficulty recognizing frequently encountered people, daily routines, or executing requests without the need for repetition or using self-initiated or environmental cues to remember? No. MEMORY - SCORE: 7-IND SIGNATURE PANEL: The following modified sections: Eating - Score, Grooming - Score, Dressing - Upper Body - Score, Ben ssing - Lower Body - Score, Toileting - Score, Bladder Management - Score, Bowel Management - Score, Transfers: Bed, Chair, Wheelchair - Score, Transfers: Toilet - Score, Transfers: Shower - Score, Paige sfers: Tub - Score, Locomotion: Walk - Score, Locomotion: Wheelchair - Score, Comprehension - Score, Expression - Score, Social Interaction - Score, Problem Solving - Score, Memory - Score were [electro nically] signed by Denae Arceo CNA on WedDec 06 2017 02:03:06 GMT-0500 (Central Daylight Time)
--- NOTE | 2017-12-06 12:11 | FAST ---
SHIFT START DATE/TIME: 12/06/2017 07:00 (CDT) SHIFT END DATE/TIME: 12/06/2017 19:00 (CDT) NAME LYNN GERARDO DATE OF : 1935 DATE OF ADMISSION: 12/02/2017 17:22 (CDT) PHONE: AGE: 82 [facility]# [id number] GENDER: Female ENCOUNTER PHYSICIAN: Dr. Dominick Villareal M.D. ADMISSION DIAGNOSIS: - Orthopaedic Disorders 08 - Unilateral Hip Fracture (08.11) Right intertrochanteric femur fx. EATING: EATING - STEP 1: Does the patient require assistance when eating? Yes. EATING - STEP 2: Does the patient require the assistance of a helper? No, patient only requires an assistive device, O R s/he takes more than reasonable time to eat, OR there is a safety concern, OR s/he requires modifie d food consistency EATING - SCORE: 6-FRANCES GROOMING: Comb/brush hair Oral care Wash, rinse, and dry face Wash, rinse, and dry hands GROOMING - STEP 1: Does the patient require assistance when grooming? Yes. GROOMING - STEP 2: Does the patient require the assistance of a helper? Yes. GROOMING - STEP 3: How much assistance does the patient require from the helper? Only prior equipment preparation/set up from the helper GROOMING - SCORE: 5-SUP BATHING: Activity did not occur on this shift BATHING - SCORE: 0-UNK DRESSING - UPPER BODY: Activity did not occur on this shift ARTICLES SCORE Total number of steps: 0 DRESSING - UPPER BODY - SCORE: 0-UNK DRESSING - LOWER BODY: Activity did not occur on this shift ARTICLES SCORE Total number of steps: 0 DRESSING - LOWER BODY - SCORE: 0-UNK TOILETING: TOILETING - STEP 1: Does the patient require assistance with toileting? Yes. TOILETING - STEP 2: Does the patient require the assistance of a helper? Yes. TOILETING - STEP 3: How much assistance does the patient require from the helper? Hands-on assistance from the helper TOILETING - STEP 4: Of the 3 tasks: 1) Adjusting clothing prior to use, 2) Cleansing of perineal area, 3) Adjusting clot haley after use; How many tasks does the patient perform WITHOUT assistance of the helper? Three tasks with steadying assistance from the helper TOILETING - SCORE: 4-MIN BLADDER MANAGEMENT: BLADDER MANAGEMENT - STEP 1: Does the patient control the bladder completely and intentionally without equipment or devices or med ications, and is always continent? No. BLADDER MANAGEMENT - STEP 2: Does the patient require the assistance of a helper? No, patient requires and independently uses an a ssistive device, such as a urinal, bedpan, bedside commode, catheter, absorbent pad, or collecting de vice BLADDER MANAGEMENT - SCORE: 6-FRANCES BOWEL MANAGEMENT: Activity did not occur on this shift BOWEL MANAGEMENT - SCORE: 7-IND TRANSFERS: BED, CHAIR, WHEELCHAIR: TRANSFERS: BED, CHAIR, WHEELCHAIR - STEP 1: Does the patient require assistance with bed, chair, or wheelchair transfers? Yes. TRANSFERS: BED, CHAIR, WHEELCHAIR - STEP 2: Does the patient require the assistance of a helper? Yes. TRANSFERS: BED, CHAIR, WHEELCHAIR - STEP 3: How much assistance does the patient require from the helper? Lifting of the legs TRANSFERS: BED, CHAIR, WHEELCHAIR - STEP 4: How many legs does the patient require the helper to lift? both legs TRANSFERS: BED, CHAIR, WHEELCHAIR - SCORE: 3-MOD TRANSFERS: TOILET: TRANSFERS: TOILET - STEP 1: Does the patient require assistance with toilet transfers? Yes. TRANSFERS: TOILET - STEP 2: Does the patient require the assistance of a helper? Yes. TRANSFERS: TOILET - STEP 3: How much assistance does the patient require from the helper? Patient performs half or more of the tr ansferring tasks TRANSFERS: TOILET - STEP 4: Does the patient need only incidental help such as contact guard or steadying during toilet transfer? Yes. TRANSFERS: TOILET - SCORE: 4-MIN TRANSFERS: SHOWER: Activity did not occur on this shift TRANSFERS: SHOWER - SCORE: 0-UNK TRANSFERS: TUB: Activity did not occur on this shift TRANSFERS: TUB - SCORE: 0-UNK LOCOMOTION: WALK: Activity did not occur on this shift LOCOMOTION: WALK - SCORE: 0-UNK LOCOMOTION: WHEELCHAIR: Activity did not occur on this shift LOCOMOTION: WHEELCHAIR - SCORE: 0-UNK COMPREHENSION: COMPREHENSION - SCORE: 0-UNK EXPRESSION EXPRESSION - SCORE: 0-UNK SOCIAL INTERACTION: SOCIAL INTERACTION - SCORE: 0-UNK PROBLEM SOLVING: PROBLEM SOLVING - SCORE: 0-UNK MEMORY: MEMORY - SCORE: 0-UNK SIGNATURE PANEL: The following modified sections: Eating - Score, Grooming - Score, Bathing - Score, Dressing - Upper Body - Score, Dressing - Lower Body - Score, Toileting - Score, Bladder Management - Score, Bowel Man agement - Score, Transfers: Bed, Chair, Wheelchair - Score, Transfers: Toilet - Score, Transfers: Chelo wer - Score, Transfers: Tub - Score, Locomotion: Walk - Score, Locomotion: Wheelchair - Score, Compre hension - Score, Expression - Score, Social Interaction - Score, Problem Solving - Score, Memory - Sc ore were [electronically] signed by Matti Uribe on WedDec 06 2017 11:13:46 GMT-0500 (Central Daylight Time)
--- NOTE | 2017-12-06 15:14 | FAST ---
ENCOUNTER DATE AND TIME: 12/06/2017 08:00 (CDT) NAME LYNN GERARDO DATE OF : 1935 DATE OF ADMISSION: 12/02/2017 17:22 (CDT) PHONE: AGE: 82 N# [id number] GENDER: Female ENCOUNTER PHYSICIAN: Dr. Dominick Villareal M.D. ADMISSION DIAGNOSIS: - Orthopaedic Disorders 08 - Unilateral Hip Fracture (08.11) Right intertrochanteric femur fx. EATING: Activity did not occur on this shift EATING - SCORE: 0-UNK GROOMING: Activity did not occur on this shift GROOMING - SCORE: 0-UNK BATHING: Activity did not occur on this shift BATHING - SCORE: 0-UNK DRESSING - UPPER BODY: Activity did not occur on this shift Patient is not dressing in public clothing ARTICLES SCORE Total number of steps: 0 DRESSING - UPPER BODY - SCORE: 0-UNK DRESSING - LOWER BODY: Activity did not occur on this shift Patient is not dressing in public clothing ARTICLES SCORE Total number of steps: 0 DRESSING - LOWER BODY - SCORE: 0-UNK TOILETING: Activity did not occur on this shift TOILETING - SCORE: 0-UNK BLADDER MANAGEMENT: Activity did not occur on this shift BLADDER MANAGEMENT - SCORE: 7-IND BOWEL MANAGEMENT: Activity did not occur on this shift BOWEL MANAGEMENT - SCORE: 7-IND TRANSFERS: BED, CHAIR, WHEELCHAIR: TRANSFERS: BED, CHAIR, WHEELCHAIR - STEP 1: Does the patient require assistance with bed, chair, or wheelchair transfers? Yes. TRANSFERS: BED, CHAIR, WHEELCHAIR - STEP 2: Does the patient require the assistance of a helper? Yes. TRANSFERS: BED, CHAIR, WHEELCHAIR - STEP 3: How much assistance does the patient require from the helper? Only supervision TRANSFERS: BED, CHAIR, WHEELCHAIR - SCORE: 5-SUP TRANSFERS: TOILET: Activity did not occur on this shift TRANSFERS: TOILET - SCORE: 0-UNK TRANSFERS: SHOWER: Activity did not occur on this shift TRANSFERS: SHOWER - SCORE: 0-UNK TRANSFERS: TUB: Activity did not occur on this shift TRANSFERS: TUB - SCORE: 0-UNK LOCOMOTION: WALK: LOCOMOTION: WALK - STEP 1: Does the patient need help to walk 150 feet? Yes. LOCOMOTION: WALK - STEP 2: How much assistance does the patient require to walk a minimum of 150 feet? Only supervision, cuing, or coaxing LOCOMOTION: WALK - SCORE: 5-SUP LOCOMOTION: WHEELCHAIR: Activity did not occur on this shift LOCOMOTION: WHEELCHAIR - SCORE: 0-UNK LOCOMOTION: STAIRS: Activity did not occur on this shift LOCOMOTION: STAIRS - SCORE: 0-UNK COMPREHENSION: COMPREHENSION - SCORE: 0-UNK EXPRESSION EXPRESSION - SCORE: 0-UNK SOCIAL INTERACTION: SOCIAL INTERACTION - SCORE: 0-UNK PROBLEM SOLVING: PROBLEM SOLVING - SCORE: 0-UNK MEMORY: MEMORY - SCORE: 0-UNK SIGNATURE PANEL: The following modified sections: Transfers: Bed, Chair, Wheelchair - Score, Transfers: Toilet - Score , Locomotion: Walk - Score, Locomotion: Wheelchair - Score, Locomotion: Stairs - Score were [electron icakd] signed by Maynor Daly PT on WedDec 06 2017 14:16:50 GMT-0500 (Central Daylight Time)
--- NOTE | 2017-12-06 16:18 | FAST ---
ENCOUNTER DATE AND TIME: 12/06/2017 08:00 (CDT) NAME LYNN GERARDO DATE OF : 1935 DATE OF ADMISSION: 12/02/2017 17:22 (CDT) PHONE: AGE: 82 N# [id number] GENDER: Female ENCOUNTER PHYSICIAN: Dr. Dominick Villareal M.D. ADMISSION DIAGNOSIS: - Orthopaedic Disorders 08 - Unilateral Hip Fracture (08.11) Right intertrochanteric femur fx. EATING: Activity did not occur on this shift EATING - SCORE: 0-UNK GROOMING: Comb/brush hair Wash, rinse, and dry face Wash, rinse, and dry hands GROOMING - STEP 1: Does the patient require assistance when grooming? No. GROOMING - SCORE: 7-IND BATHING: Abdomen Buttocks Chest Left arm Left lower leg and foot Left upper leg Perineal area Right arm Right lower leg and foot Right upper leg BATHING - STEP 1: Does the patient require assistance when bathing? Yes. BATHING - STEP 2: Does the patient require the assistance of a helper? Yes. BATHING - STEP 3: How much assistance does the patient require from the helper? Only incidental help such as placement of a wash cloth in his/her hand a few times as s/he bathes OR help to bathe just one or two areas of the body BATHING - SCORE: 4-MIN DRESSING - UPPER BODY: Bra (three steps) T-shirt/pullover shirt (four steps) ARTICLES SCORE Total number of steps: 7 DRESSING - UPPER BODY - STEP 1: Does the patient require help when dressing above the waist? No. DRESSING - UPPER BODY - SCORE: 7-IND DRESSING - LOWER BODY: Elastic waist pants (three steps) Sock - Left foot (one step) Sock - Right foot (one step) Tied or buckled shoe - Left foot (two steps) Tied or buckled shoe - Right foot (two steps) Underwear (three steps) ARTICLES SCORE Total number of steps: 12 DRESSING - LOWER BODY - STEP 1: Does the patient require help when dressing below the waist? Yes. DRESSING - LOWER BODY - STEP 2: Does the patient require the assistance of a helper? Yes. DRESSING - LOWER BODY - STEP 3: Does the helper touch the patient while dressing? Yes. DRESSING - LOWER BODY - STEP 4: How many of the total steps does the patient complete on his/her own? 4 DRESSING - LOWER BODY - STEP 5: Does patient require total assistance for dressing below the waist such as the helper holding clothin g and performing basically all the activities? No. DRESSING - LOWER BODY - SCORE: 2-MAX TOILETING: TOILETING - STEP 1: Does the patient require assistance with toileting? Yes. TOILETING - STEP 2: Does the patient require the assistance of a helper? Yes. TOILETING - STEP 3: How much assistance does the patient require from the helper? Hands-on assistance from the helper TOILETING - STEP 4: Of the 3 tasks: 1) Adjusting clothing prior to use, 2) Cleansing of perineal area, 3) Adjusting clot haley after use; How many tasks does the patient perform WITHOUT assistance of the helper? Three tasks with steadying assistance from the helper TOILETING - SCORE: 4-MIN BLADDER MANAGEMENT: Activity did not occur on this shift BLADDER MANAGEMENT - SCORE: 7-IND BOWEL MANAGEMENT: Activity did not occur on this shift BOWEL MANAGEMENT - SCORE: 7-IND TRANSFERS: BED, CHAIR, WHEELCHAIR: Activity did not occur on this shift TRANSFERS: BED, CHAIR, WHEELCHAIR - SCORE: 0-UNK TRANSFERS: TOILET: TRANSFERS: TOILET - STEP 1: Does the patient require assistance with toilet transfers? Yes. TRANSFERS: TOILET - STEP 2: Does the patient require the assistance of a helper? Yes. TRANSFERS: TOILET - STEP 3: How much assistance does the patient require from the helper? Patient performs half or more of the tr ansferring tasks TRANSFERS: TOILET - STEP 4: Does the patient need only incidental help such as contact guard or steadying during toilet transfer? Yes. TRANSFERS: TOILET - SCORE: 4-MIN TRANSFERS: SHOWER: TRANSFERS: SHOWER - STEP 1: Does the patient require assistance with shower transfers? Yes. TRANSFERS: SHOWER - STEP 2: Does the patient require the assistance of a helper? Yes. TRANSFERS: SHOWER - STEP 3: How much assistance does the patient require from the helper? Only incidental help such as contact gu arding or steadying during shower transfers, or help to lift one leg into the shower TRANSFERS: SHOWER - SCORE: 4-MIN TRANSFERS: TUB: Activity did not occur on this shift TRANSFERS: TUB - SCORE: 0-UNK LOCOMOTION: WALK: Activity did not occur on this shift LOCOMOTION: WALK - SCORE: 0-UNK LOCOMOTION: WHEELCHAIR: Activity did not occur on this shift LOCOMOTION: WHEELCHAIR - SCORE: 0-UNK LOCOMOTION: STAIRS: Activity did not occur on this shift LOCOMOTION: STAIRS - SCORE: 0-UNK COMPREHENSION: COMPREHENSION: TYPE: Visual COMPREHENSION - STEP 1: Does the patient require help to understand complex and abstract ideas (such as current events, finan sherlyn, discharge planning, medical issues, relationships, etc)? No. COMPREHENSION - STEP 2: Does the patient need extra time, require an assistive device (such as glasses, hearing aids, or an a ugmentative communication system), OR does s/he have mild difficulty expressing complex and abstract ideas (including mild dysarthria or mild word-finding problems)? Yes. COMPREHENSION - SCORE: 6-FRANCES EXPRESSION EXPRESSION: TYPE: Non-Vocal EXPRESSION - STEP 1: Does the patient require help expressing complex and abstract ideas (such as current events, finances , discharge planning, medical issues, relationships, etc)? No. EXPRESSION - STEP 2: Does the patient need extra time, require an assistive device (such as augmentive communication syste m or a communication board), OR does s/he have mild difficulty expressing complex and abstract ideas (including mild dysarthria or mild word-find problems)? No. EXPRESSION - SCORE: 7-IND SOCIAL INTERACTION: SOCIAL INTERACTION - STEP 1: Does the patient require a helper to interact with others in social and therapeutic situations? No. SOCIAL INTERACTION - STEP 2: Does the patient need extra time in social situations, OR does s/he interact with staff, other patien ts, and family members ONLY in structured environments, OR does s/he require medication for social in teraction? No. SOCIAL INTERACTION - SCORE: 7-IND PROBLEM SOLVING: PROBLEM SOLVING - STEP 1: Does the patient need help to solve complex problems such as managing a checking account or confronti ng interpersonal problems? No. PROBLEM SOLVING - STEP 2: Does the patient require extra time to make decisions or solve problems, OR does s/he have slight dif ficulty reading, initiating, or self-correcting in unfamiliar situations? No. PROBLEM SOLVING - SCORE: 7-IND MEMORY: MEMORY - STEP 1: Does the patient need help to remember frequently encountered people, daily routines, and executing r equests? No. MEMORY - STEP 2: Does the patient have slight difficulty recognizing frequently encountered people, daily routines, or executing requests without the need for repetition or using self-initiated or environmental cues to remember? No. MEMORY - SCORE: 7-IND SIGNATURE PANEL: The following modified sections: Eating - Score, Grooming - Score, Bathing - Score, Dressing - Upper Body - Score, Dressing - Lower Body - Score, Toileting - Score, Transfers: Bed, Chair, Wheelchair - S core, Transfers: Toilet - Score, Transfers: Shower - Score, Transfers: Tub - Score, Comprehension - S core, Expression - Score, Social Interaction - Score, Problem Solving - Score, Memory - Score were [e lectronically] signed by KANIKA Garcia on WedDec 06 2017 15:20:30 T-0500 ([facility] Time)
--- NOTE | 2017-12-06 18:34 | R.PN ---
ENCOUNTER DATE AND TIME: 12/06/2017 17:29 (CDT) NAME LYNN GERARDO DATE OF : 1935 DATE OF ADMISSION: 12/02/2017 17:22 (CDT) Right intertrochanteric femur fxCHIEF COMPLAINT: Right hip fracture SUBJECTIVE: Pt denied any Shortness of Breath. Pt denied any depression. Blood pressures have been elevated since admission. Will increase Hydralazine to 20 mg tid. Ambulated 500' with standby assistance using a rolling walker. Self-propelled wheelchair 150' with st andby assistance. VITAL SIGNS Temperature: 97.5 F SBP/DBP: 189/76 Pulse: 82 Resp: 16 MEDICATION ALLERGIES: morphine ENVIRONMENTAL ALLERGIES: None Known - Substance Allergies None Known - Other Allergies None Known NURSING: - Shower allowing shower - Skin care per protocol PRECAUTIONS: - Posterior Hip Precaution No adduction across midline No external rotation No hip flexion >90 degrees No internal rotation No wheel chair propulsion - Weight Bearing Precaution WBAT right LE ACTIVITIES OOB only with supervision THERAPIES: - Occupational Therapy Evaluate and Treat. - Physical Therapy Evaluate and Treat. PHYSICAL EXAM - Gen Alert and awake Lying in bed No apparent distress Oriented to: person, time, and place - Vital Signs Elevated blood pressures, afebrile - Skin No skin breakdown. Normacephalic - Eyes No abnormalities - ENMT No abnormalities - Neck No abnormalities - CVS RRR - Chest Clear - Abd Soft - GI Non distended Deferred - No abnormalities - Ext No significant edema - MSK Unremarkable - Neuro No focal deficits - Psych No abnormalities ASSESSMENT: Pt. is a 82 yo Right-handed white female.On 11/27/2017 she was admitted to [facility] and underwent emergency surgery for Right intertrochanteric femur fx (cephalomedullary fixatio n of right intertrochanteric femur fracture ) by Laurie Olivier.Pre-morbidly, Pt. was independent/mod -I in Communication, Social Cognition, Sphincter Control, Self-Care, Locomotion, and Transfers Contro l; and she had good Safety Awareness and Sphincter Control.Currently, she has deficits of Balance, Sp hincter Control, Locomotion, Endurance, Transfers Control, and Self-Care.Pt. is now referred to [facility] for acute in-patient rehabilitation in order to maximize patient's funct ional independence in activities of daily living, strength, ROM, and mobility.- Rehab Goal Patient has realistic goal of being discharged at assistance level 6-Alondra to reside at Home with Fam alex/Relatives. MDM/PLAN: - Anterior Hip Precaution No abduction No active extension No adduction across midline No external rotation No hip flexion >90 degrees No internal rotation - Physical Therapy Decreased range of motion - to improve, our physical therapists will perform initial evaluation of p t's status upon admission and devise an individualized program for increasing patient's Range of Jonathan on. Gait dysfunction - to improve, our physical therapists will perform initial evaluation of pt's statu s upon admission and devise an individualized program for Gait Training, and Wheel Chair mobility Inability to transfer - to improve, our physical therapists will perform initial evaluation of pt's status upon admission and devise an individualized program for Bed mobility Need for home safety evaluation - to improve, our physical therapists will perform initial evaluatio n of pt's status upon admission and devise an individualized program for Home Evaluation Need in caregiver upon discharge - to improve, our physical therapists will perform initial evaluati on of pt's status upon admission and devise an individualized program for Caregiver Training Edema - to improve, our physical therapists will perform initial evaluation of pt's status upon admis nidia and devise an individualized program for Elevation Training, and Lymphedema Therapy New precaution - to improve, our physical therapists will perform initial evaluation of pt's status upon admission and devise an individualized program for Patient precaution education Poor balance - to improve, our physical therapists will perform initial evaluation of pt's status up on admission and devise an individualized program for Balance Training Poor endurance - to improve, our physical therapists will perform initial evaluation of pt's status upon admission and devise an individualized program for Endurance Training Weakness - to improve, our physical therapists will perform initial evaluation of pt's status upon a dmission and devise an individualized program for Aquatic Therapy, Neuromuscular Reeducation, and Str engthening Achieving independence - to improve, our physical therapists will perform initial evaluation of pt's status upon admission and devise an individualized program for Community Reintegration Activities - Diet - Liquid Texture Continue Regular - Tube Feed Continue N/A - Diet Type Continue GI SOFT - Posterior Hip Precaution No adduction across midline No external rotation No hip flexion >90 degrees No internal rotation No wheel chair propulsion - Occupational Therapy ADL deficits - to improve, our occupation therapists will perform initial evaluation of pt's status upon admission and devise an individualized program for Bathing, Bed mobility, Community Reintegratio n, Cooking, Dressing, Eating, Fine Motor Skills, Grooming, Homemaking, Kitchen Mobility, Laundry, Pat ient Education, Safety Awareness, Splinting - Positioning, Transfers(Toilet, Tub, Shower), and Wheel Chair Management Need for rn palliative care - to improve, our occupation therapists will perform initial evaluation of pt's status upon admission and devise an individualized program for Caregiver Training Weakness - to improve, our occupation therapists will perform initial evaluation of pt's status upon admission and devise an individualized program for Aquatic Therapy, Balance, Endurance, UE ROM, and UE strengthening - Weight Bearing Precaution WBAT right LE - Skin care per protocol - Diet - Solid Texture Continue Regular - Shower allowing shower FUNCTIONAL STATUS: UPDATED AT WEEKLY TEAM CONFERENCE - Bladder Same Bladder control device used: catheter Same Jovel catheter in place; last changed on - Bowel Same accident frequency: 7-Ind - No accidents in the past 7 days - Walking Same assistance level: 1-Dep - Wheelchair Same score based on distance traveled: 0(N/A) FUNCTIONAL STATUS: - Self-Care A. Eating Ind B. Grooming Ind C. Bathing Ind D. Dressing - Upper Ind E. Dressing - Lower maxA F. Toileting Deedee - Sphincter Control G. Bladder control ADNO H: Bowel control Alondra - Transfers Control I. Bed/Chair/Wheelchair modA - Locomotion L. Walk/Wheelchair (B) Deedee - Communication N. Comprehension (B) Alondra O. Expression (B) Ind - Social Cognition P. Social Interaction Ind Q. Problem Solving Ind R. Memory Ind - Endurance Fair - Balance Fair - Safety Awareness Good CURRENT FUNC. DEFICITS: Balance, Sphincter Control, Locomotion, Endurance, Transfers Control, and Self-Care SIGNATURE PANEL: (CDT)
[2017-12-06] MEDS: GABAPENTIN 300 MG CAP PO SCH (19:49)
[2017-12-06] MEDS: DOCUSATE NA/SENNA CONC 1 TAB PO SCH (20:08)
--- NOTE | 2017-12-07 03:03 | FAST ---
SHIFT START DATE/TIME: 12/06/2017 19:00 (CDT) SHIFT END DATE/TIME: 12/07/2017 07:00 (CDT) NAME LYNN GERARDO DATE OF : 1935 DATE OF ADMISSION: 12/02/2017 17:22 (CDT) PHONE: AGE: 82 [facility]# [id number] GENDER: Female ENCOUNTER PHYSICIAN: Dr. Dominick Villareal M.D. ADMISSION DIAGNOSIS: - Orthopaedic Disorders 08 - Unilateral Hip Fracture (08.11) Right intertrochanteric femur fx. EATING: Activity did not occur on this shift EATING - SCORE: 0-UNK GROOMING: Wash, rinse, and dry hands GROOMING - STEP 1: Does the patient require assistance when grooming? Yes. GROOMING - STEP 2: Does the patient require the assistance of a helper? Yes. GROOMING - STEP 3: How much assistance does the patient require from the helper? Cuing, coaxing, instructions, or encour agement for completion of grooming GROOMING - SCORE: 5-SUP BATHING: Activity did not occur on this shift BATHING - SCORE: 0-UNK DRESSING - UPPER BODY: Activity did not occur on this shift ARTICLES SCORE Total number of steps: 0 DRESSING - UPPER BODY - SCORE: 0-UNK DRESSING - LOWER BODY: Activity did not occur on this shift ARTICLES SCORE Total number of steps: 0 DRESSING - LOWER BODY - SCORE: 0-UNK TOILETING: TOILETING - STEP 1: Does the patient require assistance with toileting? Yes. TOILETING - STEP 2: Does the patient require the assistance of a helper? Yes. TOILETING - STEP 3: How much assistance does the patient require from the helper? Hands-on assistance from the helper TOILETING - STEP 4: Of the 3 tasks: 1) Adjusting clothing prior to use, 2) Cleansing of perineal area, 3) Adjusting clot haley after use; How many tasks does the patient perform WITHOUT assistance of the helper? Three tasks with steadying assistance from the helper TOILETING - SCORE: 4-MIN BLADDER MANAGEMENT: BLADDER MANAGEMENT - STEP 1: Does the patient control the bladder completely and intentionally without equipment or devices or med ications, and is always continent? No. BLADDER MANAGEMENT - STEP 2: Does the patient require the assistance of a helper? Yes. BLADDER MANAGEMENT - STEP 3: How much assistance does the patient require from the helper? Only supervision, stand-by, cuing, or c oaxing BLADDER MANAGEMENT - SCORE: 5-SUP BOWEL MANAGEMENT: Activity did not occur on this shift BOWEL MANAGEMENT - SCORE: 7-IND TRANSFERS: BED, CHAIR, WHEELCHAIR: TRANSFERS: BED, CHAIR, WHEELCHAIR - STEP 1: Does the patient require assistance with bed, chair, or wheelchair transfers? Yes. TRANSFERS: BED, CHAIR, WHEELCHAIR - STEP 2: Does the patient require the assistance of a helper? Yes. TRANSFERS: BED, CHAIR, WHEELCHAIR - STEP 3: How much assistance does the patient require from the helper? Lifting of the legs TRANSFERS: BED, CHAIR, WHEELCHAIR - STEP 4: How many legs does the patient require the helper to lift? both legs TRANSFERS: BED, CHAIR, WHEELCHAIR - SCORE: 3-MOD TRANSFERS: TOILET: TRANSFERS: TOILET - STEP 1: Does the patient require assistance with toilet transfers? Yes. TRANSFERS: TOILET - STEP 2: Does the patient require the assistance of a helper? Yes. TRANSFERS: TOILET - STEP 3: How much assistance does the patient require from the helper? Only supervision, cuing, coaxing, OR he lp to set out transfer equipment or to lock brakes and/or lift foot rests TRANSFERS: TOILET - SCORE: 5-SUP TRANSFERS: SHOWER: Activity did not occur on this shift TRANSFERS: SHOWER - SCORE: 0-UNK TRANSFERS: TUB: Activity did not occur on this shift TRANSFERS: TUB - SCORE: 0-UNK LOCOMOTION: WALK: Activity did not occur on this shift LOCOMOTION: WALK - SCORE: 0-UNK LOCOMOTION: WHEELCHAIR: Activity did not occur on this shift LOCOMOTION: WHEELCHAIR - SCORE: 0-UNK COMPREHENSION: COMPREHENSION: TYPE: Both COMPREHENSION - STEP 1: Does the patient require help to understand complex and abstract ideas (such as current events, finan sherlyn, discharge planning, medical issues, relationships, etc)? No. COMPREHENSION - STEP 2: Does the patient need extra time, require an assistive device (such as glasses, hearing aids, or an a ugmentative communication system), OR does s/he have mild difficulty expressing complex and abstract ideas (including mild dysarthria or mild word-finding problems)? Yes. COMPREHENSION - SCORE: 6-FRANCES EXPRESSION EXPRESSION: TYPE: Both EXPRESSION - STEP 1: Does the patient require help expressing complex and abstract ideas (such as current events, finances , discharge planning, medical issues, relationships, etc)? No. EXPRESSION - STEP 2: Does the patient need extra time, require an assistive device (such as augmentive communication syste m or a communication board), OR does s/he have mild difficulty expressing complex and abstract ideas (including mild dysarthria or mild word-find problems)? No. EXPRESSION - SCORE: 7-IND SOCIAL INTERACTION: SOCIAL INTERACTION - STEP 1: Does the patient require a helper to interact with others in social and therapeutic situations? No. SOCIAL INTERACTION - STEP 2: Does the patient need extra time in social situations, OR does s/he interact with staff, other patien ts, and family members ONLY in structured environments, OR does s/he require medication for social in teraction? No. SOCIAL INTERACTION - SCORE: 7-IND PROBLEM SOLVING: PROBLEM SOLVING - STEP 1: Does the patient need help to solve complex problems such as managing a checking account or confronti ng interpersonal problems? No. PROBLEM SOLVING - STEP 2: Does the patient require extra time to make decisions or solve problems, OR does s/he have slight dif ficulty reading, initiating, or self-correcting in unfamiliar situations? Yes, patient needs extra ti me. PROBLEM SOLVING - SCORE: 6-FRANCES MEMORY: MEMORY - STEP 1: Does the patient need help to remember frequently encountered people, daily routines, and executing r equests? No. MEMORY - STEP 2: Does the patient have slight difficulty recognizing frequently encountered people, daily routines, or executing requests without the need for repetition or using self-initiated or environmental cues to remember? Yes. MEMORY - SCORE: 6-FRANCES
[2017-12-07] MEDS: BISACODYL E.C. 5 MG TAB PO PRN (07:58)
[2017-12-07] MEDS: APIXABAN 2.5 MG TABLET PO SCH ×2 (07:58→19:24)
[2017-12-07] MEDS: CRANBERRY FRUIT EXTRACT 200 MG CAP PO SCH ×2 (07:58→19:24)
[2017-12-07] MEDS: HYDRALAZINE HCL 10 MG TABLET PO SCH ×3 (07:58→20:38)
[2017-12-07] MEDS: CARBAMAZEPINE 200 MG TAB PO SCH ×2 (07:58→19:25)
[2017-12-07] MEDS: GABAPENTIN 300 MG CAP PO SCH ×2 (07:58→19:24)
[2017-12-07] MEDS: METOPROLOL TAR 50 MG TAB PO SCH ×2 (07:58→19:24)
[2017-12-07] MEDS: DOCUSATE NA 100 MG CAP PO SCH (07:59)
[2017-12-07] MEDS: ASPIRIN 81 MG CHEWABLE TABLET PO SCH (07:59)
[2017-12-07] MEDS: HYDROCODONE/APAP 7.5/325 MG TAB PO PRN ×3 (07:59→22:13)
[2017-12-07] MEDS: MULTIVITAMIN TAB PO SCH (07:59)
[2017-12-07] MEDS: ENSURE HIGH PROTEIN 237 ML CAN PO SCH (08:00)
--- NOTE | 2017-12-07 12:17 | FAST ---
SHIFT START DATE/TIME: 12/07/2017 07:00 (CDT) SHIFT END DATE/TIME: 12/07/2017 19:00 (CDT) NAME LYNN GERARDO DATE OF : 1935 DATE OF ADMISSION: 12/02/2017 17:22 (CDT) PHONE: AGE: 82 N# [id number] GENDER: Female ENCOUNTER PHYSICIAN: Dr. Dominick Villareal M.D. ADMISSION DIAGNOSIS: - Orthopaedic Disorders 08 - Unilateral Hip Fracture (08.11) Right intertrochanteric femur fx. EATING: EATING - STEP 1: Does the patient require assistance when eating? Yes. EATING - STEP 2: Does the patient require the assistance of a helper? No, patient only requires an assistive device, O R s/he takes more than reasonable time to eat, OR there is a safety concern, OR s/he requires modifie d food consistency EATING - SCORE: 6-FRANCES GROOMING: Comb/brush hair Oral care Wash, rinse, and dry face Wash, rinse, and dry hands GROOMING - STEP 1: Does the patient require assistance when grooming? Yes. GROOMING - STEP 2: Does the patient require the assistance of a helper? No. The patient only requires an assistive devic e, OR takes more than reasonable time to groom, OR there is a concern for safety as the patient groom s GROOMING - SCORE: 6-FRANCES BATHING: Activity did not occur on this shift BATHING - SCORE: 0-UNK DRESSING - UPPER BODY: Bra (three steps) T-shirt/pullover shirt (four steps) ARTICLES SCORE Total number of steps: 7 DRESSING - UPPER BODY - STEP 1: Does the patient require help when dressing above the waist? Yes. DRESSING - UPPER BODY - STEP 2: Does the patient require the assistance of a helper? Yes. DRESSING - UPPER BODY - STEP 3: Does the helper touch the patient while dressing? No. DRESSING - UPPER BODY - SCORE: 5-SUP DRESSING - LOWER BODY: Elastic waist pants (three steps) Slip-on shoe - Left foot (one step) Slip-on shoe - Right foot (one step) Sock - Left foot (one step) Sock - Right foot (one step) Underwear (three steps) ARTICLES SCORE Total number of steps: 10 DRESSING - LOWER BODY - STEP 1: Does the patient require help when dressing below the waist? Yes. DRESSING - LOWER BODY - STEP 2: Does the patient require the assistance of a helper? Yes. DRESSING - LOWER BODY - STEP 3: Does the helper touch the patient while dressing? Yes. DRESSING - LOWER BODY - STEP 4: How many of the total steps does the patient complete on his/her own? 7 DRESSING - LOWER BODY - SCORE: 3-MOD TOILETING: TOILETING - STEP 1: Does the patient require assistance with toileting? Yes. TOILETING - STEP 2: Does the patient require the assistance of a helper? Yes. TOILETING - STEP 3: How much assistance does the patient require from the helper? Hands-on assistance from the helper TOILETING - STEP 4: Of the 3 tasks: 1) Adjusting clothing prior to use, 2) Cleansing of perineal area, 3) Adjusting clot haley after use; How many tasks does the patient perform WITHOUT assistance of the helper? Three tasks with steadying assistance from the helper TOILETING - SCORE: 4-MIN BLADDER MANAGEMENT: BLADDER MANAGEMENT - STEP 1: Does the patient control the bladder completely and intentionally without equipment or devices or med ications, and is always continent? Yes. BLADDER MANAGEMENT - SCORE: 7-IND BOWEL MANAGEMENT: Activity did not occur on this shift BOWEL MANAGEMENT - SCORE: 7-IND TRANSFERS: BED, CHAIR, WHEELCHAIR: TRANSFERS: BED, CHAIR, WHEELCHAIR - STEP 1: Does the patient require assistance with bed, chair, or wheelchair transfers? Yes. TRANSFERS: BED, CHAIR, WHEELCHAIR - STEP 2: Does the patient require the assistance of a helper? Yes. TRANSFERS: BED, CHAIR, WHEELCHAIR - STEP 3: How much assistance does the patient require from the helper? Steadying/guiding assistance TRANSFERS: BED, CHAIR, WHEELCHAIR - SCORE: 4-MIN TRANSFERS: TOILET: TRANSFERS: TOILET - STEP 1: Does the patient require assistance with toilet transfers? Yes. TRANSFERS: TOILET - STEP 2: Does the patient require the assistance of a helper? Yes. TRANSFERS: TOILET - STEP 3: How much assistance does the patient require from the helper? Patient performs half or more of the tr ansferring tasks TRANSFERS: TOILET - STEP 4: Does the patient need only incidental help such as contact guard or steadying during toilet transfer? No. Patient needs more than incidental help TRANSFERS: TOILET - SCORE: 3-MOD TRANSFERS: SHOWER: Activity did not occur on this shift TRANSFERS: SHOWER - SCORE: 0-UNK TRANSFERS: TUB: Activity did not occur on this shift TRANSFERS: TUB - SCORE: 0-UNK LOCOMOTION: WALK: Activity did not occur on this shift LOCOMOTION: WALK - SCORE: 0-UNK LOCOMOTION: WHEELCHAIR: Activity did not occur on this shift LOCOMOTION: WHEELCHAIR - SCORE: 0-UNK COMPREHENSION: COMPREHENSION - SCORE: 0-UNK EXPRESSION EXPRESSION - SCORE: 0-UNK SOCIAL INTERACTION: SOCIAL INTERACTION - SCORE: 0-UNK PROBLEM SOLVING: PROBLEM SOLVING - SCORE: 0-UNK MEMORY: MEMORY - SCORE: 0-UNK SIGNATURE PANEL: The following modified sections: Eating - Score, Grooming - Score, Bathing - Score, Dressing - Upper Body - Score, Dressing - Lower Body - Score, Toileting - Score, Bladder Management - Score, Bowel Man agement - Score, Transfers: Bed, Chair, Wheelchair - Score, Transfers: Toilet - Score, Transfers: Chelo wer - Score, Transfers: Tub - Score, Locomotion: Walk - Score, Locomotion: Wheelchair - Score, Compre hension - Score, Expression - Score, Social Interaction - Score, Problem Solving - Score, Memory - Sc ore were [electronically] signed by Matti Uribe on WedDec 07 2017 11:19:27 GMT-0500 (Central Daylight Time)
--- NOTE | 2017-12-07 15:26 | FAST ---
ENCOUNTER DATE AND TIME: 12/07/2017 08:00 (CDT) NAME LYNN GERARDO DATE OF : 1935 DATE OF ADMISSION: 12/02/2017 17:22 (CDT) PHONE: AGE: 82 N# [id number] GENDER: Female ENCOUNTER PHYSICIAN: Dr. Dominick Villareal M.D. ADMISSION DIAGNOSIS: - Orthopaedic Disorders 08 - Unilateral Hip Fracture (08.11) Right intertrochanteric femur fx. EATING: Activity did not occur on this shift EATING - SCORE: 0-UNK GROOMING: Activity did not occur on this shift GROOMING - SCORE: 0-UNK BATHING: Activity did not occur on this shift BATHING - SCORE: 0-UNK DRESSING - UPPER BODY: Activity did not occur on this shift Patient is not dressing in public clothing ARTICLES SCORE Total number of steps: 0 DRESSING - UPPER BODY - SCORE: 0-UNK DRESSING - LOWER BODY: Activity did not occur on this shift Patient is not dressing in public clothing ARTICLES SCORE Total number of steps: 0 DRESSING - LOWER BODY - SCORE: 0-UNK TOILETING: Activity did not occur on this shift TOILETING - SCORE: 0-UNK BLADDER MANAGEMENT: Activity did not occur on this shift BLADDER MANAGEMENT - SCORE: 7-IND BOWEL MANAGEMENT: Activity did not occur on this shift BOWEL MANAGEMENT - SCORE: 7-IND TRANSFERS: BED, CHAIR, WHEELCHAIR: TRANSFERS: BED, CHAIR, WHEELCHAIR - STEP 1: Does the patient require assistance with bed, chair, or wheelchair transfers? Yes. TRANSFERS: BED, CHAIR, WHEELCHAIR - STEP 2: Does the patient require the assistance of a helper? No. Patient only requires an assistive device fo r bed, chair, wheelchair transfers such as a sliding board, grab bar, or brace, OR s/he takes more th an reasonable time, OR there is a safety concern when s/he performs the transfers TRANSFERS: BED, CHAIR, WHEELCHAIR - SCORE: 6-FRANCES TRANSFERS: TOILET: Activity did not occur on this shift TRANSFERS: TOILET - SCORE: 0-UNK TRANSFERS: SHOWER: Activity did not occur on this shift TRANSFERS: SHOWER - SCORE: 0-UNK TRANSFERS: TUB: Activity did not occur on this shift TRANSFERS: TUB - SCORE: 0-UNK LOCOMOTION: WALK: LOCOMOTION: WALK - STEP 1: Does the patient need help to walk 150 feet? No. LOCOMOTION: WALK - STEP 2: Does the patient need an assistive device (such as an orthosis, prosthesis, crutches, or walker) to g o 150 feet, OR does s/he take more than reasonable time, OR is there a concern for safety? Yes, the p atient needs an assistive device LOCOMOTION: WALK - SCORE: 6-FRANCES LOCOMOTION: WHEELCHAIR: LOCOMOTION: WHEELCHAIR - STEP 1: Does the patient need help to go 150 feet in a wheelchair? Yes. LOCOMOTION: WHEELCHAIR - STEP 2: How much assistance does the patient need from the helper? Only supervision, cuing, or coaxing LOCOMOTION: WHEELCHAIR - SCORE: 5-SUP LOCOMOTION: STAIRS: LOCOMOTION: STAIRS - STEP 1: Does the patient need help to go up and down 12 to 14 stairs? Yes. LOCOMOTION: STAIRS - STEP 2: How much assistance does the patient need from the helper to go a minimum of 12 to 14 stairs? Only in cidental help such as contact guarding or steadying LOCOMOTION: STAIRS - SCORE: 4-MIN COMPREHENSION: COMPREHENSION - SCORE: 0-UNK EXPRESSION EXPRESSION - SCORE: 0-UNK SOCIAL INTERACTION: SOCIAL INTERACTION - SCORE: 0-UNK PROBLEM SOLVING: PROBLEM SOLVING - SCORE: 0-UNK MEMORY: MEMORY - SCORE: 0-UNK SIGNATURE PANEL: The following modified sections: Transfers: Bed, Chair, Wheelchair - Score, Transfers: Toilet - Score , Locomotion: Walk - Score, Locomotion: Wheelchair - Score, Locomotion: Stairs - Score were [[email or web address]] signed by Jose Jackson PTA on WedDec 07 2017 14:28:18 GMT-0500 (Central Daylight Time)
--- NOTE | 2017-12-07 16:25 | FAST ---
ENCOUNTER DATE AND TIME: 12/07/2017 08:00 (CDT) NAME LYNN GERARDO DATE OF : 1935 DATE OF ADMISSION: 12/02/2017 17:22 (CDT) PHONE: AGE: 82 N# [id number] GENDER: Female ENCOUNTER PHYSICIAN: Dr. Dominick Villareal M.D. ADMISSION DIAGNOSIS: - Orthopaedic Disorders 08 - Unilateral Hip Fracture (08.11) Right intertrochanteric femur fx. EATING: Activity did not occur on this shift EATING - SCORE: 0-UNK GROOMING: Comb/brush hair Oral care Wash, rinse, and dry face Wash, rinse, and dry hands GROOMING - STEP 1: Does the patient require assistance when grooming? No. GROOMING - SCORE: 7-IND BATHING: Activity did not occur on this shift BATHING - SCORE: 0-UNK DRESSING - UPPER BODY: Activity did not occur on this shift ARTICLES SCORE Total number of steps: 0 DRESSING - UPPER BODY - SCORE: 0-UNK DRESSING - LOWER BODY: Activity did not occur on this shift ARTICLES SCORE Total number of steps: 0 DRESSING - LOWER BODY - SCORE: 0-UNK TOILETING: TOILETING - STEP 1: Does the patient require assistance with toileting? Yes. TOILETING - STEP 2: Does the patient require the assistance of a helper? Yes. TOILETING - STEP 3: How much assistance does the patient require from the helper? Hands-on assistance from the helper TOILETING - STEP 4: Of the 3 tasks: 1) Adjusting clothing prior to use, 2) Cleansing of perineal area, 3) Adjusting clot haley after use; How many tasks does the patient perform WITHOUT assistance of the helper? Three tasks with steadying assistance from the helper TOILETING - SCORE: 4-MIN BLADDER MANAGEMENT: Activity did not occur on this shift BLADDER MANAGEMENT - SCORE: 7-IND BOWEL MANAGEMENT: Activity did not occur on this shift BOWEL MANAGEMENT - SCORE: 7-IND TRANSFERS: BED, CHAIR, WHEELCHAIR: Activity did not occur on this shift TRANSFERS: BED, CHAIR, WHEELCHAIR - SCORE: 0-UNK TRANSFERS: TOILET: TRANSFERS: TOILET - STEP 1: Does the patient require assistance with toilet transfers? Yes. TRANSFERS: TOILET - STEP 2: Does the patient require the assistance of a helper? Yes. TRANSFERS: TOILET - STEP 3: How much assistance does the patient require from the helper? Patient performs half or more of the tr ansferring tasks TRANSFERS: TOILET - STEP 4: Does the patient need only incidental help such as contact guard or steadying during toilet transfer? Yes. TRANSFERS: TOILET - SCORE: 4-MIN TRANSFERS: SHOWER: Activity did not occur on this shift TRANSFERS: SHOWER - SCORE: 0-UNK TRANSFERS: TUB: Activity did not occur on this shift TRANSFERS: TUB - SCORE: 0-UNK LOCOMOTION: WALK: Activity did not occur on this shift LOCOMOTION: WALK - SCORE: 0-UNK LOCOMOTION: WHEELCHAIR: Activity did not occur on this shift LOCOMOTION: WHEELCHAIR - SCORE: 0-UNK LOCOMOTION: STAIRS: Activity did not occur on this shift LOCOMOTION: STAIRS - SCORE: 0-UNK COMPREHENSION: COMPREHENSION - STEP 1: Does the patient require help to understand complex and abstract ideas (such as current events, finan sherlyn, discharge planning, medical issues, relationships, etc)? No. COMPREHENSION - STEP 2: Does the patient need extra time, require an assistive device (such as glasses, hearing aids, or an a ugmentative communication system), OR does s/he have mild difficulty expressing complex and abstract ideas (including mild dysarthria or mild word-finding problems)? No. COMPREHENSION - SCORE: 7-IND EXPRESSION EXPRESSION: TYPE: Non-Vocal EXPRESSION - STEP 1: Does the patient require help expressing complex and abstract ideas (such as current events, finances , discharge planning, medical issues, relationships, etc)? No. EXPRESSION - STEP 2: Does the patient need extra time, require an assistive device (such as augmentive communication syste m or a communication board), OR does s/he have mild difficulty expressing complex and abstract ideas (including mild dysarthria or mild word-find problems)? No. EXPRESSION - SCORE: 7-IND SOCIAL INTERACTION: SOCIAL INTERACTION - STEP 1: Does the patient require a helper to interact with others in social and therapeutic situations? No. SOCIAL INTERACTION - STEP 2: Does the patient need extra time in social situations, OR does s/he interact with staff, other patien ts, and family members ONLY in structured environments, OR does s/he require medication for social in teraction? No. SOCIAL INTERACTION - SCORE: 7-IND PROBLEM SOLVING: PROBLEM SOLVING - STEP 1: Does the patient need help to solve complex problems such as managing a checking account or confronti ng interpersonal problems? No. PROBLEM SOLVING - STEP 2: Does the patient require extra time to make decisions or solve problems, OR does s/he have slight dif ficulty reading, initiating, or self-correcting in unfamiliar situations? No. PROBLEM SOLVING - SCORE: 7-IND MEMORY: MEMORY - STEP 1: Does the patient need help to remember frequently encountered people, daily routines, and executing r equests? No. MEMORY - STEP 2: Does the patient have slight difficulty recognizing frequently encountered people, daily routines, or executing requests without the need for repetition or using self-initiated or environmental cues to remember? No. MEMORY - SCORE: 7-IND SIGNATURE PANEL: The following modified sections: Eating - Score, Grooming - Score, Bathing - Score, Dressing - Upper Body - Score, Dressing - Lower Body - Score, Toileting - Score, Transfers: Bed, Chair, Wheelchair - S core, Transfers: Toilet - Score, Transfers: Shower - Score, Transfers: Tub - Score, Comprehension - S core, Expression - Score, Social Interaction - Score, Problem Solving - Score, Memory - Score were [e lectronically] signed by KANIKA Garcia on WedDec 07 2017 15:27:23 [email or web address] ([facility])
--- NOTE | 2017-12-07 18:46 | R.PN ---
ENCOUNTER DATE AND TIME: 12/07/2017 17:44 (CDT) NAME LYNN GERARDO DATE OF : 1935 DATE OF ADMISSION: 12/02/2017 17:22 (CDT) Right intertrochanteric femur fxCHIEF COMPLAINT: Right hip fracture SUBJECTIVE: Pt denied any Shortness of Breath. Pt denied any depression. Blood pressures continues to be elevated since admission. Will start prinivil 5 mg daily. Ambulated 750' with modified independence using a rolling walker. Self-propelled wheelchair 500' with standby assistance. Up and down 15 steps with contact guard assistance. VITAL SIGNS Temperature: 97.5 F SBP/DBP: 182/70 Pulse: 83 Resp: 16 MEDICATION ALLERGIES: morphine ENVIRONMENTAL ALLERGIES: None Known - Substance Allergies None Known - Other Allergies None Known NURSING: - Shower allowing shower - Skin care per protocol PRECAUTIONS: - Posterior Hip Precaution No adduction across midline No external rotation No hip flexion >90 degrees No internal rotation No wheel chair propulsion - Weight Bearing Precaution WBAT right LE ACTIVITIES OOB only with supervision THERAPIES: - Occupational Therapy Evaluate and Treat. - Physical Therapy Evaluate and Treat. PHYSICAL EXAM - Gen Alert and awake Lying in bed No apparent distress Oriented to: person, time, and place - Vital Signs Elevated blood pressures, afebrile - Skin No skin breakdown. Normacephalic - Eyes No abnormalities - ENMT No abnormalities - Neck No abnormalities - CVS RRR - Chest Clear - Abd Soft - GI Non distended Deferred - No abnormalities - Ext No significant edema - MSK Unremarkable - Neuro No focal deficits - Psych No abnormalities ASSESSMENT: Pt. is a 82 yo Right-handed white female.On 11/27/2017 she was admitted to [facility] and underwent emergency surgery for Right intertrochanteric femur fx (cephalomedullary fixatio n of right intertrochanteric femur fracture ) by Laurie Olivier.Pre-morbidly, Pt. was independent/mod -I in Communication, Social Cognition, Sphincter Control, Self-Care, Locomotion, and Transfers Contro l; and she had good Safety Awareness and Sphincter Control.Currently, she has deficits of Balance, Sp hincter Control, Locomotion, Endurance, Transfers Control, and Self-Care.Pt. is now referred to [facility] for acute in-patient rehabilitation in order to maximize patient's funct ional independence in activities of daily living, strength, ROM, and mobility.- Rehab Goal Patient has realistic goal of being discharged at assistance level 6-Alondra to reside at Home with Fam alex/Relatives. MDM/PLAN: - Anterior Hip Precaution No abduction No active extension No adduction across midline No external rotation No hip flexion >90 degrees No internal rotation - Physical Therapy Decreased range of motion - to improve, our physical therapists will perform initial evaluation of p t's status upon admission and devise an individualized program for increasing patient's Range of Jonathan on. Gait dysfunction - to improve, our physical therapists will perform initial evaluation of pt's statu s upon admission and devise an individualized program for Gait Training, and Wheel Chair mobility Inability to transfer - to improve, our physical therapists will perform initial evaluation of pt's status upon admission and devise an individualized program for Bed mobility Need for home safety evaluation - to improve, our physical therapists will perform initial evaluatio n of pt's status upon admission and devise an individualized program for Home Evaluation Need in caregiver upon discharge - to improve, our physical therapists will perform initial evaluati on of pt's status upon admission and devise an individualized program for Caregiver Training Edema - to improve, our physical therapists will perform initial evaluation of pt's status upon admi ssion and devise an individualized program for Elevation Training, and Lymphedema Therapy New precaution - to improve, our physical therapists will perform initial evaluation of pt's status upon admission and devise an individualized program for Patient precaution education Poor balance - to improve, our physical therapists will perform initial evaluation of pt's status up on admission and devise an individualized program for Balance Training Poor endurance - to improve, our physical therapists will perform initial evaluation of pt's status upon admission and devise an individualized program for Endurance Training Weakness - to improve, our physical therapists will perform initial evaluation of pt's status upon a dmission and devise an individualized program for Aquatic Therapy, Neuromuscular Reeducation, and Str engthening Achieving independence - to improve, our physical therapists will perform initial evaluation of pt's status upon admission and devise an individualized program for Community Reintegration Activities - Diet - Liquid Texture Continue Regular - Tube Feed Continue N/A - Diet Type Continue GI SOFT - Posterior Hip Precaution No adduction across midline No external rotation No hip flexion >90 degrees No internal rotation No wheel chair propulsion - Occupational Therapy ADL deficits - to improve, our occupation therapists will perform initial evaluation of pt's status upon admission and devise an individualized program for Bathing, Bed mobility, Community Reintegratio n, Cooking, Dressing, Eating, Fine Motor Skills, Grooming, Homemaking, Kitchen Mobility, Laundry, Pat ient Education, Safety Awareness, Splinting - Positioning, Transfers(Toilet, Tub, Shower), and Wheel Chair Management Need for career information specialist - to improve, our occupation therapists will perform initial evaluation of pt's status upon admission and devise an individualized program for Caregiver Training Weakness - to improve, our occupation therapists will perform initial evaluation of pt's status upon admission and devise an individualized program for Aquatic Therapy, Balance, Endurance, UE ROM, and UE strengthening - Weight Bearing Precaution WBAT right LE - Skin care per protocol - Diet - Solid Texture Continue Regular - Shower allowing shower FUNCTIONAL STATUS: UPDATED AT WEEKLY TEAM CONFERENCE - Bladder Same Bladder control device used: catheter Same Jovel catheter in place; last changed on - Bowel Same accident frequency: 7-Ind - No accidents in the past 7 days - Walking Same assistance level: 1-Dep - Wheelchair Same score based on distance traveled: 0(N/A) FUNCTIONAL STATUS: - Self-Care A. Eating Ind B. Grooming Ind C. Bathing Ind D. Dressing - Upper Ind E. Dressing - Lower maxA F. Toileting Deedee - Sphincter Control G. Bladder control ADNO H: Bowel control Alondra - Transfers Control I. Bed/Chair/Wheelchair modA - Locomotion L. Walk/Wheelchair (B) Deedee - Communication N. Comprehension (B) Alondra O. Expression (B) Ind - Social Cognition P. Social Interaction Ind Q. Problem Solving Ind R. Memory Ind - Endurance Fair - Balance Fair - Safety Awareness Good CURRENT FUNC. DEFICITS: Balance, Sphincter Control, Locomotion, Endurance, Transfers Control, and Self-Care SIGNATURE PANEL: (CDT)
[2017-12-07] MEDS: DOCUSATE NA/SENNA CONC 1 TAB PO SCH (20:37)
[2017-12-07] MEDS: LISINOPRIL 5 MG TAB PO SCH (20:38)
--- NOTE | 2017-12-08 04:38 | FAST ---
SHIFT START DATE/TIME: 12/07/2017 19:00 (CDT) SHIFT END DATE/TIME: 12/08/2017 07:00 (CDT) NAME LYNN GERARDO DATE OF : 1935 DATE OF ADMISSION: 12/02/2017 17:22 (CDT) PHONE: AGE: 82 [facility]# [id number] GENDER: Female ENCOUNTER PHYSICIAN: Dr. Dominick Villareal M.D. ADMISSION DIAGNOSIS: - Orthopaedic Disorders 08 - Unilateral Hip Fracture (08.11) Right intertrochanteric femur fx. EATING: EATING - STEP 1: Does the patient require assistance when eating? Yes. EATING - STEP 2: Does the patient require the assistance of a helper? Yes. EATING - STEP 3: Does the patient perform half or more of the eating tasks? Yes. EATING - STEP 4: Does the patient need only supervision, cuing, coaxing OR help to apply an orthosis OR help to cut fo od, open containers, pour liquids, or butter bread? Yes. EATING - SCORE: 5-SUP GROOMING: Comb/brush hair Oral care Wash, rinse, and dry face Wash, rinse, and dry hands GROOMING - STEP 1: Does the patient require assistance when grooming? Yes. GROOMING - STEP 2: Does the patient require the assistance of a helper? Yes. GROOMING - STEP 3: How much assistance does the patient require from the helper? Only prior equipment preparation/set up from the helper GROOMING - SCORE: 5-SUP BATHING: Activity did not occur on this shift BATHING - SCORE: 0-UNK DRESSING - UPPER BODY: Patient is not dressing in public clothing ARTICLES SCORE Total number of steps: 0 DRESSING - UPPER BODY - SCORE: 0-UNK DRESSING - LOWER BODY: Patient is not dressing in public clothing ARTICLES SCORE Total number of steps: 0 DRESSING - LOWER BODY - SCORE: 0-UNK TOILETING: TOILETING - STEP 1: Does the patient require assistance with toileting? Yes. TOILETING - STEP 2: Does the patient require the assistance of a helper? Yes. TOILETING - STEP 3: How much assistance does the patient require from the helper? Hands-on assistance from the helper TOILETING - STEP 4: Of the 3 tasks: 1) Adjusting clothing prior to use, 2) Cleansing of perineal area, 3) Adjusting clot haley after use; How many tasks does the patient perform WITHOUT assistance of the helper? Three tasks with steadying assistance from the helper TOILETING - SCORE: 4-MIN BLADDER MANAGEMENT: BLADDER MANAGEMENT - STEP 1: Does the patient control the bladder completely and intentionally without equipment or devices or med ications, and is always continent? No. BLADDER MANAGEMENT - STEP 2: Does the patient require the assistance of a helper? Yes. BLADDER MANAGEMENT - STEP 3: How much assistance does the patient require from the helper? Patient requires contact assistance fro m the helper BLADDER MANAGEMENT - STEP 4: How much contact assistance does the patient require from the helper? Patient requires minimal assist ance to maintain an external device - by positioning, and the patient performs 75% or more of bladder management tasks, while the helper provides less than 25% of the assistance to position patient on / off bedpan BLADDER MANAGEMENT - SCORE: 4-MIN BLADDER MANAGEMENT - FREQUENCY OF ACCIDENTS: BLADDER MANAGEMENT(FA) - STEP 1: How many accidents has the patient had during the current shift? 0 BOWEL MANAGEMENT: Activity did not occur on this shift BOWEL MANAGEMENT - SCORE: 7-IND TRANSFERS: BED, CHAIR, WHEELCHAIR: TRANSFERS: BED, CHAIR, WHEELCHAIR - STEP 1: Does the patient require assistance with bed, chair, or wheelchair transfers? Yes. TRANSFERS: BED, CHAIR, WHEELCHAIR - STEP 2: Does the patient require the assistance of a helper? Yes. TRANSFERS: BED, CHAIR, WHEELCHAIR - STEP 3: How much assistance does the patient require from the helper? Steadying/guiding assistance TRANSFERS: BED, CHAIR, WHEELCHAIR - SCORE: 4-MIN TRANSFERS: TOILET: TRANSFERS: TOILET - STEP 1: Does the patient require assistance with toilet transfers? Yes. TRANSFERS: TOILET - STEP 2: Does the patient require the assistance of a helper? Yes. TRANSFERS: TOILET - STEP 3: How much assistance does the patient require from the helper? Patient performs half or more of the tr ansferring tasks TRANSFERS: TOILET - STEP 4: Does the patient need only incidental help such as contact guard or steadying during toilet transfer? Yes. TRANSFERS: TOILET - SCORE: 4-MIN TRANSFERS: SHOWER: Activity did not occur on this shift TRANSFERS: SHOWER - SCORE: 0-UNK TRANSFERS: TUB: Activity did not occur on this shift TRANSFERS: TUB - SCORE: 0-UNK LOCOMOTION: WALK: Activity did not occur on this shift LOCOMOTION: WALK - SCORE: 0-UNK LOCOMOTION: WHEELCHAIR: Activity did not occur on this shift LOCOMOTION: WHEELCHAIR - SCORE: 0-UNK COMPREHENSION: COMPREHENSION: TYPE: Both COMPREHENSION - STEP 1: Does the patient require help to understand complex and abstract ideas (such as current events, finan sherlyn, discharge planning, medical issues, relationships, etc)? No. COMPREHENSION - STEP 2: Does the patient need extra time, require an assistive device (such as glasses, hearing aids, or an a ugmentative communication system), OR does s/he have mild difficulty expressing complex and abstract ideas (including mild dysarthria or mild word-finding problems)? Yes. COMPREHENSION - SCORE: 6-FRANCES EXPRESSION EXPRESSION: TYPE: Both EXPRESSION - STEP 1: Does the patient require help expressing complex and abstract ideas (such as current events, finances , discharge planning, medical issues, relationships, etc)? No. EXPRESSION - STEP 2: Does the patient need extra time, require an assistive device (such as augmentive communication syste m or a communication board), OR does s/he have mild difficulty expressing complex and abstract ideas (including mild dysarthria or mild word-find problems)? No. EXPRESSION - SCORE: 7-IND SOCIAL INTERACTION: SOCIAL INTERACTION - STEP 1: Does the patient require a helper to interact with others in social and therapeutic situations? No. SOCIAL INTERACTION - STEP 2: Does the patient need extra time in social situations, OR does s/he interact with staff, other patien ts, and family members ONLY in structured environments, OR does s/he require medication for social in teraction? No. SOCIAL INTERACTION - SCORE: 7-IND PROBLEM SOLVING: PROBLEM SOLVING - STEP 1: Does the patient need help to solve complex problems such as managing a checking account or confronti ng interpersonal problems? No. PROBLEM SOLVING - STEP 2: Does the patient require extra time to make decisions or solve problems, OR does s/he have slight dif ficulty reading, initiating, or self-correcting in unfamiliar situations? No. PROBLEM SOLVING - SCORE: 7-IND MEMORY: MEMORY - STEP 1: Does the patient need help to remember frequently encountered people, daily routines, and executing r equests? No. MEMORY - STEP 2: Does the patient have slight difficulty recognizing frequently encountered people, daily routines, or executing requests without the need for repetition or using self-initiated or environmental cues to remember? No. MEMORY - SCORE: 7-IND SIGNATURE PANEL: The following modified sections: Eating - Score, Grooming - Score, Bathing - Score, Dressing - Upper Body - Score, Dressing - Lower Body - Score, Toileting - Score, Bladder Management - Score, Bowel Man agement - Score, Transfers: Bed, Chair, Wheelchair - Score, Transfers: Toilet - Score, Transfers: Chelo wer - Score, Transfers: Tub - Score, Locomotion: Walk - Score, Locomotion: Wheelchair - Score, Compre hension - Score, Expression - Score, Social Interaction - Score, Problem Solving - Score, Memory - Sc ore were [electronically] signed by Leila Nieto C.N.Denise on WedDec 08 2017 03:40:45 T-0500 ( Central Daylight Time)
[2017-12-08] MEDS: ENSURE HIGH PROTEIN 237 ML CAN PO SCH (08:00)
[2017-12-08] MEDS: POLYETHYL GLY 3350 17 GM/DOSE PO PRN (08:08)
[2017-12-08] MEDS: ASPIRIN 81 MG CHEWABLE TABLET PO SCH (08:09)
[2017-12-08] MEDS: GABAPENTIN 300 MG CAP PO SCH ×2 (08:09→20:04)
[2017-12-08] MEDS: METOPROLOL TAR 50 MG TAB PO SCH ×2 (08:09→20:00)
[2017-12-08] MEDS: CARBAMAZEPINE 200 MG TAB PO SCH ×2 (08:09→20:02)
[2017-12-08] MEDS: DOCUSATE NA 100 MG CAP PO SCH (08:09)
[2017-12-08] MEDS: APIXABAN 2.5 MG TABLET PO SCH ×2 (08:09→20:03)
[2017-12-08] MEDS: CRANBERRY FRUIT EXTRACT 200 MG CAP PO SCH ×2 (08:09→20:03)
[2017-12-08] MEDS: MULTIVITAMIN TAB PO SCH (08:09)
[2017-12-08] MEDS: HYDROCODONE/APAP 7.5/325 MG TAB PO PRN ×3 (08:10→21:16)
[2017-12-08] MEDS: BISACODYL E.C. 5 MG TAB PO PRN (08:10)
[2017-12-08] MEDS: HYDRALAZINE HCL 10 MG TABLET PO SCH ×3 (08:51→21:15)
--- NOTE | 2017-12-08 15:33 | FAST ---
ENCOUNTER DATE AND TIME: 12/03/2017 08:00 (CDT) NAME LYNN GERARDO DATE OF : 1935 DATE OF ADMISSION: 12/02/2017 17:22 (CDT) PHONE: AGE: 82 [facility]# [id number] GENDER: Female ENCOUNTER PHYSICIAN: Dr. Dominick Villareal M.D. ADMISSION DIAGNOSIS: - Orthopaedic Disorders 08 - Unilateral Hip Fracture (08.11) Right intertrochanteric femur fx. EATING: EATING - STEP 1: Does the patient require assistance when eating? No. EATING - SCORE: 7-IND GROOMING: Comb/brush hair Oral care Wash, rinse, and dry face Wash, rinse, and dry hands GROOMING - STEP 1: Does the patient require assistance when grooming? No. GROOMING - SCORE: 7-IND BATHING: Abdomen Buttocks Chest Left arm Left lower leg and foot Left upper leg Perineal area Right arm Right lower leg and foot Right upper leg BATHING - STEP 1: Does the patient require assistance when bathing? Yes. BATHING - STEP 2: Does the patient require the assistance of a helper? Yes. BATHING - STEP 3: How much assistance does the patient require from the helper? More than just incidental help BATHING - STEP 4: What percent of the body parts did the patient bathe WITHOUT the helper? Less than half of the body p arts BATHING - SCORE: 2-MAX DRESSING - UPPER BODY: Bra (three steps) T-shirt/pullover shirt (four steps) ARTICLES SCORE Total number of steps: 7 DRESSING - UPPER BODY - STEP 1: Does the patient require help when dressing above the waist? Yes. DRESSING - UPPER BODY - STEP 2: Does the patient require the assistance of a helper? Yes. DRESSING - UPPER BODY - STEP 3: Does the helper touch the patient while dressing? No. DRESSING - UPPER BODY - SCORE: 5-SUP DRESSING - LOWER BODY: Elastic waist pants (three steps) Sock - Left foot (one step) Sock - Right foot (one step) Underwear (three steps) ARTICLES SCORE Total number of steps: 8 DRESSING - LOWER BODY - STEP 1: Does the patient require help when dressing below the waist? Yes. DRESSING - LOWER BODY - STEP 2: Does the patient require the assistance of a helper? Yes. DRESSING - LOWER BODY - STEP 3: Does the helper touch the patient while dressing? Yes. DRESSING - LOWER BODY - STEP 4: How many of the total steps does the patient complete on his/her own? 0 DRESSING - LOWER BODY - STEP 5: Does patient require total assistance for dressing below the waist such as the helper holding clothin g and performing basically all the activities? Yes. DRESSING - LOWER BODY - SCORE: 1-DEP TOILETING: TOILETING - STEP 1: Does the patient require assistance with toileting? Yes. TOILETING - STEP 2: Does the patient require the assistance of a helper? Yes. TOILETING - STEP 3: How much assistance does the patient require from the helper? Hands-on assistance from the helper TOILETING - STEP 4: Of the 3 tasks: 1) Adjusting clothing prior to use, 2) Cleansing of perineal area, 3) Adjusting clot haley after use; How many tasks does the patient perform WITHOUT assistance of the helper? No tasks; h elper performs all three tasks TOILETING - SCORE: 1-DEP BLADDER MANAGEMENT: Activity did not occur on this shift BLADDER MANAGEMENT - SCORE: 7-IND BOWEL MANAGEMENT: Activity did not occur on this shift BOWEL MANAGEMENT - SCORE: 7-IND TRANSFERS: BED, CHAIR, WHEELCHAIR: Activity did not occur on this shift TRANSFERS: BED, CHAIR, WHEELCHAIR - SCORE: 0-UNK TRANSFERS: TOILET: TRANSFERS: TOILET - STEP 1: Does the patient require assistance with toilet transfers? Yes. TRANSFERS: TOILET - STEP 2: Does the patient require the assistance of a helper? Yes. TRANSFERS: TOILET - STEP 3: How much assistance does the patient require from the helper? Patient performs less than half of the transferring tasks TRANSFERS: TOILET - STEP 4: Does the patient require total assistance for the toilet transfer such as the helper doing basically all the lifting? No. TRANSFERS: TOILET - SCORE: 2-MAX TRANSFERS: SHOWER: TRANSFERS: SHOWER - STEP 1: Does the patient require assistance with shower transfers? Yes. TRANSFERS: SHOWER - STEP 2: Does the patient require the assistance of a helper? Yes. TRANSFERS: SHOWER - STEP 3: How much assistance does the patient require from the helper? More than incidental help TRANSFERS: SHOWER - STEP 4: How much more help does the patient require from the helper? Lifting the patient up AND down from the wheelchair onto the shower chair TRANSFERS: SHOWER - SCORE: 2-MAX TRANSFERS: TUB: Activity did not occur on this shift TRANSFERS: TUB - SCORE: 0-UNK LOCOMOTION: WALK: Activity did not occur on this shift LOCOMOTION: WALK - SCORE: 0-UNK LOCOMOTION: WHEELCHAIR: Activity did not occur on this shift LOCOMOTION: WHEELCHAIR - SCORE: 0-UNK LOCOMOTION: STAIRS: Activity did not occur on this shift LOCOMOTION: STAIRS - SCORE: 0-UNK COMPREHENSION: COMPREHENSION - STEP 1: Does the patient require help to understand complex and abstract ideas (such as current events, finan sherlyn, discharge planning, medical issues, relationships, etc)? No. COMPREHENSION - STEP 2: Does the patient need extra time, require an assistive device (such as glasses, hearing aids, or an a ugmentative communication system), OR does s/he have mild difficulty expressing complex and abstract ideas (including mild dysarthria or mild word-finding problems)? No. COMPREHENSION - SCORE: 7-IND EXPRESSION EXPRESSION: TYPE: Both EXPRESSION - STEP 1: Does the patient require help expressing complex and abstract ideas (such as current events, finances , discharge planning, medical issues, relationships, etc)? No. EXPRESSION - STEP 2: Does the patient need extra time, require an assistive device (such as augmentive communication syste m or a communication board), OR does s/he have mild difficulty expressing complex and abstract ideas (including mild dysarthria or mild word-find problems)? No. EXPRESSION - SCORE: 7-IND SOCIAL INTERACTION: SOCIAL INTERACTION - STEP 1: Does the patient require a helper to interact with others in social and therapeutic situations? No. SOCIAL INTERACTION - STEP 2: Does the patient need extra time in social situations, OR does s/he interact with staff, other patien ts, and family members ONLY in structured environments, OR does s/he require medication for social in teraction? No. SOCIAL INTERACTION - SCORE: 7-IND PROBLEM SOLVING: PROBLEM SOLVING - STEP 1: Does the patient need help to solve complex problems such as managing a checking account or confronti ng interpersonal problems? No. PROBLEM SOLVING - STEP 2: Does the patient require extra time to make decisions or solve problems, OR does s/he have slight dif ficulty reading, initiating, or self-correcting in unfamiliar situations? Yes, patient needs extra ti me. PROBLEM SOLVING - SCORE: 6-FRANCES MEMORY: MEMORY - STEP 1: Does the patient need help to remember frequently encountered people, daily routines, and executing r equests? No. MEMORY - STEP 2: Does the patient have slight difficulty recognizing frequently encountered people, daily routines, or executing requests without the need for repetition or using self-initiated or environmental cues to remember? Yes. MEMORY - SCORE: 6-FRANCES SIGNATURE PANEL: The following modified sections: Memory - Score, Problem Solving - Score, Social Interaction - Score, Expression - Score, Comprehension - Score, Transfers: Bed, Chair, Wheelchair - Score, Transfers: Murphy let - Score, Transfers: Tub - Score, Transfers: Shower - Score, Eating - Score, Grooming - Score, Bat haley - Score, Dressing - Upper Body - Score, Dressing - Lower Body - Score, Toileting - Score were [e lectronically] signed by Donna Orr OT on WedDec 08 2017 14:35:12 T-0500 ([place] Daylight T [place])
--- NOTE | 2017-12-08 15:44 | FAST ---
ENCOUNTER DATE AND TIME: 12/08/2017 08:00 (CDT) NAME LYNN GERARDO DATE OF : 1935 DATE OF ADMISSION: 12/02/2017 17:22 (CDT) PHONE: AGE: 82 [facility]# [id number] GENDER: Female ENCOUNTER PHYSICIAN: Dr. Dominick Villareal M.D. ADMISSION DIAGNOSIS: - Orthopaedic Disorders 08 - Unilateral Hip Fracture (08.11) Right intertrochanteric femur fx. EATING: EATING - STEP 1: Does the patient require assistance when eating? No. EATING - SCORE: 7-IND GROOMING: Comb/brush hair Oral care Wash, rinse, and dry face Wash, rinse, and dry hands GROOMING - STEP 1: Does the patient require assistance when grooming? No. GROOMING - SCORE: 7-IND BATHING: Abdomen Buttocks Chest Left arm Left lower leg and foot Left upper leg Perineal area Right arm Right lower leg and foot Right upper leg BATHING - STEP 1: Does the patient require assistance when bathing? Yes. BATHING - STEP 2: Does the patient require the assistance of a helper? Yes. BATHING - STEP 3: How much assistance does the patient require from the helper? Only supervision, cuing, coaxing, instr uctions, encouragement BATHING - SCORE: 5-SUP DRESSING - UPPER BODY: Bra (three steps) T-shirt/pullover shirt (four steps) ARTICLES SCORE Total number of steps: 7 DRESSING - UPPER BODY - STEP 1: Does the patient require help when dressing above the waist? No. DRESSING - UPPER BODY - SCORE: 7-IND DRESSING - LOWER BODY: Elastic waist pants (three steps) Slip-on shoe - Left foot (one step) Slip-on shoe - Right foot (one step) Sock - Left foot (one step) Sock - Right foot (one step) Underwear (three steps) ARTICLES SCORE Total number of steps: 10 DRESSING - LOWER BODY - STEP 1: Does the patient require help when dressing below the waist? Yes. DRESSING - LOWER BODY - STEP 2: Does the patient require the assistance of a helper? Yes. DRESSING - LOWER BODY - STEP 3: Does the helper touch the patient while dressing? Yes. DRESSING - LOWER BODY - STEP 4: How many of the total steps does the patient complete on his/her own? 8 DRESSING - LOWER BODY - SCORE: 4-MIN TOILETING: TOILETING - STEP 1: Does the patient require assistance with toileting? Yes. TOILETING - STEP 2: Does the patient require the assistance of a helper? Yes. TOILETING - STEP 3: How much assistance does the patient require from the helper? Only supervision TOILETING - SCORE: 5-SUP BLADDER MANAGEMENT: Activity did not occur on this shift BLADDER MANAGEMENT - SCORE: 7-IND BOWEL MANAGEMENT: Activity did not occur on this shift BOWEL MANAGEMENT - SCORE: 7-IND TRANSFERS: BED, CHAIR, WHEELCHAIR: Activity did not occur on this shift TRANSFERS: BED, CHAIR, WHEELCHAIR - SCORE: 0-UNK TRANSFERS: TOILET: TRANSFERS: TOILET - STEP 1: Does the patient require assistance with toilet transfers? Yes. TRANSFERS: TOILET - STEP 2: Does the patient require the assistance of a helper? Yes. TRANSFERS: TOILET - STEP 3: How much assistance does the patient require from the helper? Only supervision, cuing, coaxing, OR he lp to set out transfer equipment or to lock brakes and/or lift foot rests TRANSFERS: TOILET - SCORE: 5-SUP TRANSFERS: SHOWER: TRANSFERS: SHOWER - STEP 1: Does the patient require assistance with shower transfers? Yes. TRANSFERS: SHOWER - STEP 2: Does the patient require the assistance of a helper? Yes. TRANSFERS: SHOWER - STEP 3: How much assistance does the patient require from the helper? Only supervision, cuing, coaxing, or he lp to set out transfer equipment or to lock brakes and/or lift foot rests TRANSFERS: SHOWER - SCORE: 5-SUP TRANSFERS: TUB: Activity did not occur on this shift TRANSFERS: TUB - SCORE: 0-UNK LOCOMOTION: WALK: Activity did not occur on this shift LOCOMOTION: WALK - SCORE: 0-UNK LOCOMOTION: WHEELCHAIR: Activity did not occur on this shift LOCOMOTION: WHEELCHAIR - SCORE: 0-UNK LOCOMOTION: STAIRS: Activity did not occur on this shift LOCOMOTION: STAIRS - SCORE: 0-UNK COMPREHENSION: COMPREHENSION: TYPE: Both COMPREHENSION - STEP 1: Does the patient require help to understand complex and abstract ideas (such as current events, finan sherlyn, discharge planning, medical issues, relationships, etc)? No. COMPREHENSION - STEP 2: Does the patient need extra time, require an assistive device (such as glasses, hearing aids, or an a ugmentative communication system), OR does s/he have mild difficulty expressing complex and abstract ideas (including mild dysarthria or mild word-finding problems)? No. COMPREHENSION - SCORE: 7-IND EXPRESSION EXPRESSION: TYPE: Both EXPRESSION - STEP 1: Does the patient require help expressing complex and abstract ideas (such as current events, finances , discharge planning, medical issues, relationships, etc)? No. EXPRESSION - STEP 2: Does the patient need extra time, require an assistive device (such as augmentive communication syste m or a communication board), OR does s/he have mild difficulty expressing complex and abstract ideas (including mild dysarthria or mild word-find problems)? No. EXPRESSION - SCORE: 7-IND SOCIAL INTERACTION: SOCIAL INTERACTION - STEP 1: Does the patient require a helper to interact with others in social and therapeutic situations? No. SOCIAL INTERACTION - STEP 2: Does the patient need extra time in social situations, OR does s/he interact with staff, other patien ts, and family members ONLY in structured environments, OR does s/he require medication for social in teraction? No. SOCIAL INTERACTION - SCORE: 7-IND PROBLEM SOLVING: PROBLEM SOLVING - STEP 1: Does the patient need help to solve complex problems such as managing a checking account or confronti ng interpersonal problems? No. PROBLEM SOLVING - STEP 2: Does the patient require extra time to make decisions or solve problems, OR does s/he have slight dif ficulty reading, initiating, or self-correcting in unfamiliar situations? Yes, patient needs extra ti me. PROBLEM SOLVING - SCORE: 6-FRANCES MEMORY: MEMORY - STEP 1: Does the patient need help to remember frequently encountered people, daily routines, and executing r equests? No. MEMORY - STEP 2: Does the patient have slight difficulty recognizing frequently encountered people, daily routines, or executing requests without the need for repetition or using self-initiated or environmental cues to remember? Yes. MEMORY - SCORE: 6-FRANCES SIGNATURE PANEL: The following modified sections: Eating - Score, Grooming - Score, Bathing - Score, Dressing - Upper Body - Score, Dressing - Lower Body - Score, Toileting - Score, Transfers: Bed, Chair, Wheelchair - S core, Transfers: Toilet - Score, Transfers: Tub - Score, Transfers: Shower - Score, Comprehension - S core, Expression - Score, Social Interaction - Score, Problem Solving - Score, Memory - Score were [e lectronically] signed by Donna Orr OT on WedDec 08 2017 14:46:34 T-0500 ([facility])
--- NOTE | 2017-12-08 19:07 | R.PN ---
ENCOUNTER DATE AND TIME: 12/08/2017 18:00 (CDT) NAME LYNN GERARDO DATE OF : 1935 DATE OF ADMISSION: 12/02/2017 17:22 (CDT) Right intertrochanteric femur fxCHIEF COMPLAINT: Right hip fracture SUBJECTIVE: Pt denied any Shortness of Breath. Pt denied any depression. Blood pressures continues to be elevated since admission. Consider increasing prinivil to 5 mg twice daily. Ambulated 500' with modified independence using a rolling walker. Self-propelled wheelchair 200' with standby assistance. Up and down 15 steps with standby assistance. VITAL SIGNS Temperature: 97.6 F SBP/DBP: 182/85 Pulse: 82 Resp: 16 MEDICATION ALLERGIES: morphine ENVIRONMENTAL ALLERGIES: None Known - Substance Allergies None Known - Other Allergies None Known NURSING: - Shower allowing shower - Skin care per protocol PRECAUTIONS: - Posterior Hip Precaution No adduction across midline No external rotation No hip flexion >90 degrees No internal rotation No wheel chair propulsion - Weight Bearing Precaution WBAT right LE ACTIVITIES OOB only with supervision THERAPIES: - Occupational Therapy Evaluate and Treat. - Physical Therapy Evaluate and Treat. PHYSICAL EXAM - Gen Alert and awake Lying in bed No apparent distress Oriented to: person, time, and place - Vital Signs Elevated blood pressures, afebrile - Skin No skin breakdown. Normacephalic - Eyes No abnormalities - ENMT No abnormalities - Neck No abnormalities - CVS RRR - Chest Clear - Abd Soft - GI Non distended Deferred - No abnormalities - Ext No significant edema - MSK Unremarkable - Neuro No focal deficits - Psych No abnormalities ASSESSMENT: Pt. is a 82 yo Right-handed white female.On 11/27/2017 she was admitted to [facility] and underwent emergency surgery for Right intertrochanteric femur fx (cephalomedullary fixatio n of right intertrochanteric femur fracture ) by Laurie Olivier.Pre-morbidly, Pt. was independent/mod -I in Communication, Social Cognition, Sphincter Control, Self-Care, Locomotion, and Transfers Contro l; and she had good Safety Awareness and Sphincter Control.Currently, she has deficits of Balance, Sp hincter Control, Locomotion, Endurance, Transfers Control, and Self-Care.Pt. is now referred to [facility] for acute in-patient rehabilitation in order to maximize patient's funct ional independence in activities of daily living, strength, ROM, and mobility.- Rehab Goal Patient has realistic goal of being discharged at assistance level 6-Alondra to reside at Home with Fam alex/Relatives. MDM/PLAN: - Anterior Hip Precaution No abduction No active extension No adduction across midline No external rotation No hip flexion >90 degrees No internal rotation - Physical Therapy Decreased range of motion - to improve, our physical therapists will perform initial evaluation of p t's status upon admission and devise an individualized program for increasing patient's Range of Jonathan on. Gait dysfunction - to improve, our physical therapists will perform initial evaluation of pt's statu s upon admission and devise an individualized program for Gait Training, and Wheel Chair mobility Inability to transfer - to improve, our physical therapists will perform initial evaluation of pt's status upon admission and devise an individualized program for Bed mobility Need for home safety evaluation - to improve, our physical therapists will perform initial evaluatio n of pt's status upon admission and devise an individualized program for Home Evaluation Need in caregiver upon discharge - to improve, our physical therapists will perform initial evaluati on of pt's status upon admission and devise an individualized program for Caregiver Training Edema - to improve, our physical therapists will perform initial evaluation of pt's status upon admi ssion and devise an individualized program for Elevation Training, and Lymphedema Therapy New precaution - to improve, our physical therapists will perform initial evaluation of pt's status upon admission and devise an individualized program for Patient precaution education Poor balance - to improve, our physical therapists will perform initial evaluation of pt's status up on admission and devise an individualized program for Balance Training Poor endurance - to improve, our physical therapists will perform initial evaluation of pt's status upon admission and devise an individualized program for Endurance Training Weakness - to improve, our physical therapists will perform initial evaluation of pt's status upon a dmission and devise an individualized program for Aquatic Therapy, Neuromuscular Reeducation, and Str engthening Achieving independence - to improve, our physical therapists will perform initial evaluation of pt's status upon admission and devise an individualized program for Community Reintegration Activities - Diet - Liquid Texture Continue Regular - Tube Feed Continue N/A - Diet Type Continue GI SOFT - Posterior Hip Precaution No adduction across midline No external rotation No hip flexion >90 degrees No internal rotation No wheel chair propulsion - Occupational Therapy ADL deficits - to improve, our occupation therapists will perform initial evaluation of pt's status upon admission and devise an individualized program for Bathing, Bed mobility, Community Reintegratio n, Cooking, Dressing, Eating, Fine Motor Skills, Grooming, Homemaking, Kitchen Mobility, Laundry, Pat ient Education, Safety Awareness, Splinting - Positioning, Transfers(Toilet, Tub, Shower), and Wheel Chair Management Need for special needs child caregiver - to improve, our occupation therapists will perform initial evaluation of pt's status upon admission and devise an individualized program for Caregiver Training Weakness - to improve, our occupation therapists will perform initial evaluation of pt's status upon admission and devise an individualized program for Aquatic Therapy, Balance, Endurance, UE ROM, and UE strengthening - Weight Bearing Precaution WBAT right LE - Skin care per protocol - Diet - Solid Texture Continue Regular - Shower allowing shower FUNCTIONAL STATUS: UPDATED AT WEEKLY TEAM CONFERENCE - Bladder Same Bladder control device used: catheter Same Jovel catheter in place; last changed on - Bowel Same accident frequency: 7-Ind - No accidents in the past 7 days - Walking Same assistance level: 1-Dep - Wheelchair Same score based on distance traveled: 0(N/A) FUNCTIONAL STATUS: - Self-Care A. Eating Ind B. Grooming Ind C. Bathing Ind D. Dressing - Upper Ind E. Dressing - Lower maxA F. Toileting Deedee - Sphincter Control G. Bladder control ADNO H: Bowel control Alondra - Transfers Control I. Bed/Chair/Wheelchair modA - Locomotion L. Walk/Wheelchair (B) Deedee - Communication N. Comprehension (B) Alondra O. Expression (B) Ind - Social Cognition P. Social Interaction Ind Q. Problem Solving Ind R. Memory Ind - Endurance Fair - Balance Fair - Safety Awareness Good CURRENT FUNC. DEFICITS: Balance, Sphincter Control, Locomotion, Endurance, Transfers Control, and Self-Care SIGNATURE PANEL: (CDT)
[2017-12-08] MEDS: DOCUSATE NA/SENNA CONC 1 TAB PO SCH (21:00)
[2017-12-08] MEDS: LISINOPRIL 5 MG TAB PO SCH (21:14)
--- NOTE | 2017-12-09 03:03 | FAST ---
SHIFT START DATE/TIME: 12/08/2017 19:00 (CDT) SHIFT END DATE/TIME: 12/09/2017 07:00 (CDT) NAME LYNN GERARDO DATE OF : 1935 DATE OF ADMISSION: 12/02/2017 17:22 (CDT) PHONE: AGE: 82 [facility]# [id number] GENDER: Female ENCOUNTER PHYSICIAN: Dr. Dominick Villareal M.D. ADMISSION DIAGNOSIS: - Orthopaedic Disorders 08 - Unilateral Hip Fracture (08.11) Right intertrochanteric femur fx. EATING: Activity did not occur on this shift EATING - SCORE: 0-UNK GROOMING: Wash, rinse, and dry hands GROOMING - STEP 1: Does the patient require assistance when grooming? Yes. GROOMING - STEP 2: Does the patient require the assistance of a helper? Yes. GROOMING - STEP 3: How much assistance does the patient require from the helper? Cuing, coaxing, instructions, or encour agement for completion of grooming GROOMING - SCORE: 5-SUP BATHING: Activity did not occur on this shift BATHING - SCORE: 0-UNK DRESSING - UPPER BODY: Activity did not occur on this shift ARTICLES SCORE Total number of steps: 0 DRESSING - UPPER BODY - SCORE: 0-UNK DRESSING - LOWER BODY: Activity did not occur on this shift ARTICLES SCORE Total number of steps: 0 DRESSING - LOWER BODY - SCORE: 0-UNK TOILETING: TOILETING - STEP 1: Does the patient require assistance with toileting? Yes. TOILETING - STEP 2: Does the patient require the assistance of a helper? Yes. TOILETING - STEP 3: How much assistance does the patient require from the helper? Hands-on assistance from the helper TOILETING - STEP 4: Of the 3 tasks: 1) Adjusting clothing prior to use, 2) Cleansing of perineal area, 3) Adjusting clot haley after use; How many tasks does the patient perform WITHOUT assistance of the helper? Three tasks with steadying assistance from the helper TOILETING - SCORE: 4-MIN BLADDER MANAGEMENT: BLADDER MANAGEMENT - STEP 1: Does the patient control the bladder completely and intentionally without equipment or devices or med ications, and is always continent? No. BLADDER MANAGEMENT - STEP 2: Does the patient require the assistance of a helper? Yes. BLADDER MANAGEMENT - STEP 3: How much assistance does the patient require from the helper? Only supervision, stand-by, cuing, or c oaxing BLADDER MANAGEMENT - SCORE: 5-SUP BOWEL MANAGEMENT: BOWEL MANAGEMENT - STEP 1: Does the patient control bowels completely and intentionally without equipment devices or medications AND is always continent? No. BOWEL MANAGEMENT - STEP 2: Does the patient require the assistance of a helper? Yes. BOWEL MANAGEMENT - STEP 3: How much assistance does the patient require from the helper? Patient requires supervision, stand by, cueing, coaxing, or setup of equipment - placing within reach of patient and emptying device / bedpa nd or BSC bucket - to maintain either satisfactory bowel pattern or managing an external device such as an absorbent pad, colostomy bag / ileostomy bag BOWEL MANAGEMENT - SCORE: 5-SUP TRANSFERS: BED, CHAIR, WHEELCHAIR: TRANSFERS: BED, CHAIR, WHEELCHAIR - STEP 1: Does the patient require assistance with bed, chair, or wheelchair transfers? Yes. TRANSFERS: BED, CHAIR, WHEELCHAIR - STEP 2: Does the patient require the assistance of a helper? Yes. TRANSFERS: BED, CHAIR, WHEELCHAIR - STEP 3: How much assistance does the patient require from the helper? Lifting of the legs TRANSFERS: BED, CHAIR, WHEELCHAIR - STEP 4: How many legs does the patient require the helper to lift? one leg TRANSFERS: BED, CHAIR, WHEELCHAIR - SCORE: 4-MIN TRANSFERS: TOILET: TRANSFERS: TOILET - STEP 1: Does the patient require assistance with toilet transfers? Yes. TRANSFERS: TOILET - STEP 2: Does the patient require the assistance of a helper? Yes. TRANSFERS: TOILET - STEP 3: How much assistance does the patient require from the helper? Only supervision, cuing, coaxing, OR he lp to set out transfer equipment or to lock brakes and/or lift foot rests TRANSFERS: TOILET - SCORE: 5-SUP TRANSFERS: SHOWER: Activity did not occur on this shift TRANSFERS: SHOWER - SCORE: 0-UNK TRANSFERS: TUB: Activity did not occur on this shift TRANSFERS: TUB - SCORE: 0-UNK LOCOMOTION: WALK: Activity did not occur on this shift LOCOMOTION: WALK - SCORE: 0-UNK LOCOMOTION: WHEELCHAIR: Activity did not occur on this shift LOCOMOTION: WHEELCHAIR - SCORE: 0-UNK COMPREHENSION: COMPREHENSION: TYPE: Both COMPREHENSION - STEP 1: Does the patient require help to understand complex and abstract ideas (such as current events, finan sherlyn, discharge planning, medical issues, relationships, etc)? No. COMPREHENSION - STEP 2: Does the patient need extra time, require an assistive device (such as glasses, hearing aids, or an a ugmentative communication system), OR does s/he have mild difficulty expressing complex and abstract ideas (including mild dysarthria or mild word-finding problems)? Yes. COMPREHENSION - SCORE: 6-FRANCES EXPRESSION EXPRESSION: TYPE: Both EXPRESSION - STEP 1: Does the patient require help expressing complex and abstract ideas (such as current events, finances , discharge planning, medical issues, relationships, etc)? No. EXPRESSION - STEP 2: Does the patient need extra time, require an assistive device (such as augmentive communication syste m or a communication board), OR does s/he have mild difficulty expressing complex and abstract ideas (including mild dysarthria or mild word-find problems)? No. EXPRESSION - SCORE: 7-IND SOCIAL INTERACTION: SOCIAL INTERACTION - STEP 1: Does the patient require a helper to interact with others in social and therapeutic situations? No. SOCIAL INTERACTION - STEP 2: Does the patient need extra time in social situations, OR does s/he interact with staff, other patien ts, and family members ONLY in structured environments, OR does s/he require medication for social in teraction? Yes, patient needs extra time SOCIAL INTERACTION - SCORE: 6-FRANCES PROBLEM SOLVING: PROBLEM SOLVING - STEP 1: Does the patient need help to solve complex problems such as managing a checking account or confronti ng interpersonal problems? No. PROBLEM SOLVING - STEP 2: Does the patient require extra time to make decisions or solve problems, OR does s/he have slight dif ficulty reading, initiating, or self-correcting in unfamiliar situations? Yes, patient needs extra ti me. PROBLEM SOLVING - SCORE: 6-FRANCES MEMORY: MEMORY - STEP 1: Does the patient need help to remember frequently encountered people, daily routines, and executing r equests? No. MEMORY - STEP 2: Does the patient have slight difficulty recognizing frequently encountered people, daily routines, or executing requests without the need for repetition or using self-initiated or environmental cues to remember? No. MEMORY - SCORE: 7-IND
[2017-12-09 07:48] LABS: Absolute Lymphocytes (CBC) 1.3 K/uL (0.7-4.9); Absolute Neutrophil 5.6 K/uL (1.8-8.0); Eosinophils % 6.1 % (0-4.4); Hematocrit 31.6 % (36.0-45.0); Lymphocytes % 15.5 % (15.3-44.8); MCH 30.6 pg (27.0-35.0); MCV 88.3 fL (80-100); MPV 7.4 fL (7.6-11.3); Monocytes % 11.7 % (3.3-12.3); RBC Red Blood Cell Count 3.58 M/uL (3.86-4.86)
[2017-12-09 07:52] LABS: BUN Blood Urea Nitrogen 14 mg/dL (6-20); Bicarbonate 28 mEq/L (21-31); Glucose Level 106 mg/dL (65-120); Potassium 4.6 mEq/L (3.6-5.0); Sodium Level 134 mEq/L (135-145)
[2017-12-09] MEDS: MULTIVITAMIN TAB PO SCH (07:58)
[2017-12-09] MEDS: HYDROCODONE/APAP 7.5/325 MG TAB PO PRN ×2 (07:59→12:08)
[2017-12-09] MEDS: GABAPENTIN 300 MG CAP PO SCH ×2 (08:00→19:52)
[2017-12-09] MEDS: CARBAMAZEPINE 200 MG TAB PO SCH ×2 (08:01→19:54)
[2017-12-09] MEDS: POLYETHYL GLY 3350 17 GM/DOSE PO PRN (08:02)
[2017-12-09] MEDS: CRANBERRY FRUIT EXTRACT 200 MG CAP PO SCH ×2 (08:02→19:52)
[2017-12-09] MEDS: ASPIRIN 81 MG CHEWABLE TABLET PO SCH (08:02)
[2017-12-09] MEDS: APIXABAN 2.5 MG TABLET PO SCH ×2 (08:02→19:52)
[2017-12-09] MEDS: DOCUSATE NA 100 MG CAP PO SCH (08:03)
[2017-12-09] MEDS: HYDRALAZINE HCL 10 MG TABLET PO SCH ×3 (08:03→21:33)
[2017-12-09] MEDS: METOPROLOL TAR 50 MG TAB PO SCH ×2 (08:06→19:55)
[2017-12-09] MEDS: ENSURE HIGH PROTEIN 237 ML CAN PO SCH (08:06)
--- NOTE | 2017-12-09 15:20 | FAST ---
SHIFT START DATE/TIME: 12/08/2017 07:00 (CDT) SHIFT END DATE/TIME: 12/08/2017 19:00 (CDT) NAME LYNN GERARDO DATE OF : 1935 DATE OF ADMISSION: 12/02/2017 17:22 (CDT) PHONE: AGE: 82 N# [id number] GENDER: Female ENCOUNTER PHYSICIAN: Dr. Dominick Villareal M.D. ADMISSION DIAGNOSIS: - Orthopaedic Disorders 08 - Unilateral Hip Fracture (08.11) Right intertrochanteric femur fx. EATING: EATING - STEP 1: Does the patient require assistance when eating? Yes. EATING - STEP 2: Does the patient require the assistance of a helper? Yes. EATING - STEP 3: Does the patient perform half or more of the eating tasks? Yes. EATING - STEP 4: Does the patient need only supervision, cuing, coaxing OR help to apply an orthosis OR help to cut fo od, open containers, pour liquids, or butter bread? Yes. EATING - SCORE: 5-SUP GROOMING: Comb/brush hair Wash, rinse, and dry face Wash, rinse, and dry hands GROOMING - STEP 1: Does the patient require assistance when grooming? Yes. GROOMING - STEP 2: Does the patient require the assistance of a helper? No. The patient only requires an assistive devic e, OR takes more than reasonable time to groom, OR there is a concern for safety as the patient groom s GROOMING - SCORE: 6-FRANCES BATHING: Activity did not occur on this shift BATHING - SCORE: 0-UNK DRESSING - UPPER BODY: Bra (three steps) T-shirt/pullover shirt (four steps) ARTICLES SCORE Total number of steps: 7 DRESSING - UPPER BODY - STEP 1: Does the patient require help when dressing above the waist? Yes. DRESSING - UPPER BODY - STEP 2: Does the patient require the assistance of a helper? Yes. DRESSING - UPPER BODY - STEP 3: Does the helper touch the patient while dressing? No. DRESSING - UPPER BODY - SCORE: 5-SUP DRESSING - LOWER BODY: Elastic waist pants (three steps) Sock - Left foot (one step) Sock - Right foot (one step) Tied or buckled shoe - Left foot (two steps) Tied or buckled shoe - Right foot (two steps) Underwear (three steps) ARTICLES SCORE Total number of steps: 12 DRESSING - LOWER BODY - STEP 1: Does the patient require help when dressing below the waist? Yes. DRESSING - LOWER BODY - STEP 2: Does the patient require the assistance of a helper? Yes. DRESSING - LOWER BODY - STEP 3: Does the helper touch the patient while dressing? Yes. DRESSING - LOWER BODY - STEP 4: How many of the total steps does the patient complete on his/her own? 6 DRESSING - LOWER BODY - SCORE: 3-MOD TOILETING: TOILETING - STEP 1: Does the patient require assistance with toileting? Yes. TOILETING - STEP 2: Does the patient require the assistance of a helper? Yes. TOILETING - STEP 3: How much assistance does the patient require from the helper? Only supervision TOILETING - SCORE: 5-SUP BLADDER MANAGEMENT: BLADDER MANAGEMENT - STEP 1: Does the patient control the bladder completely and intentionally without equipment or devices or med ications, and is always continent? No. BLADDER MANAGEMENT - STEP 2: Does the patient require the assistance of a helper? Yes. BLADDER MANAGEMENT - STEP 3: How much assistance does the patient require from the helper? Only supervision, stand-by, cuing, or c oaxing BLADDER MANAGEMENT - SCORE: 5-SUP BLADDER MANAGEMENT - FREQUENCY OF ACCIDENTS: BLADDER MANAGEMENT(FA) - STEP 1: How many accidents has the patient had during the current shift? 0 BOWEL MANAGEMENT: BOWEL MANAGEMENT - STEP 1: Does the patient control bowels completely and intentionally without equipment devices or medications AND is always continent? No. BOWEL MANAGEMENT - STEP 2: Does the patient require the assistance of a helper? No, patient requires medication for control such as stool softeners, suppositories, laxatives, enemas, or OTC medications BOWEL MANAGEMENT - SCORE: 6-FRANCES BOWEL MANAGEMENT - FREQUENCY OF ACCIDENTS: BOWEL MANAGEMENT(FA) - STEP 1: How many accidents has the patient had during the current shift? 0 TRANSFERS: BED, CHAIR, WHEELCHAIR: TRANSFERS: BED, CHAIR, WHEELCHAIR - STEP 1: Does the patient require assistance with bed, chair, or wheelchair transfers? Yes. TRANSFERS: BED, CHAIR, WHEELCHAIR - STEP 2: Does the patient require the assistance of a helper? Yes. TRANSFERS: BED, CHAIR, WHEELCHAIR - STEP 3: How much assistance does the patient require from the helper? Only supervision TRANSFERS: BED, CHAIR, WHEELCHAIR - SCORE: 5-SUP TRANSFERS: TOILET: TRANSFERS: TOILET - STEP 1: Does the patient require assistance with toilet transfers? Yes. TRANSFERS: TOILET - STEP 2: Does the patient require the assistance of a helper? Yes. TRANSFERS: TOILET - STEP 3: How much assistance does the patient require from the helper? Patient performs half or more of the tr ansferring tasks TRANSFERS: TOILET - STEP 4: Does the patient need only incidental help such as contact guard or steadying during toilet transfer? Yes. TRANSFERS: TOILET - SCORE: 4-MIN TRANSFERS: SHOWER: Activity did not occur on this shift TRANSFERS: SHOWER - SCORE: 0-UNK TRANSFERS: TUB: Activity did not occur on this shift TRANSFERS: TUB - SCORE: 0-UNK LOCOMOTION: WALK: Activity did not occur on this shift LOCOMOTION: WALK - SCORE: 0-UNK LOCOMOTION: WHEELCHAIR: Activity did not occur on this shift LOCOMOTION: WHEELCHAIR - SCORE: 0-UNK COMPREHENSION: COMPREHENSION: TYPE: Both COMPREHENSION - STEP 1: Does the patient require help to understand complex and abstract ideas (such as current events, finan sherlyn, discharge planning, medical issues, relationships, etc)? Yes. COMPREHENSION - STEP 2: Does the patient require help to understand questions or statements about basic needs or ideas (such as hunger, thirst, sleep, safety, daily schedule, room location, or discomfort) half or more of the t [place]? No. COMPREHENSION - STEP 3: How often does the patient need help to understand directions and conversation about basic needs? Les s than 10% of the time COMPREHENSION - SCORE: 5-SUP EXPRESSION EXPRESSION: TYPE: Both EXPRESSION - STEP 1: Does the patient require help expressing complex and abstract ideas (such as current events, finances , discharge planning, medical issues, relationships, etc)? Yes. EXPRESSION - STEP 2: Does the patient require help to express basic necessities or ideas (such as hunger, thirst, sleep, s afety, daily schedule, room location, or discomfort) half or more of the time? No. EXPRESSION - STEP 3: How often does the patient need help to express directions and conversation about basic needs? Less t vasquez 10% of the time EXPRESSION - SCORE: 5-SUP SOCIAL INTERACTION: SOCIAL INTERACTION - STEP 1: Does the patient require a helper to interact with others in social and therapeutic situations? No. SOCIAL INTERACTION - STEP 2: Does the patient need extra time in social situations, OR does s/he interact with staff, other patien ts, and family members ONLY in structured environments, OR does s/he require medication for social in teraction? Yes, patient needs extra time SOCIAL INTERACTION - SCORE: 6-FRANCES PROBLEM SOLVING: PROBLEM SOLVING - STEP 1: Does the patient need help to solve complex problems such as managing a checking account or confronti ng interpersonal problems? Yes. PROBLEM SOLVING - STEP 2: Does the patient solve basic routine problems half or more of the time? Yes. PROBLEM SOLVING - STEP 3: How often does the patient need help to solve basic routine problems? Less than 10% of the time PROBLEM SOLVING - SCORE: 5-SUP MEMORY: MEMORY - STEP 1: Does the patient need help to remember frequently encountered people, daily routines, and executing r equests? Yes. MEMORY - STEP 2: How often does the patient need help to remember frequently encountered people, daily routines, and e xecuting requests? Less than 10% of the time MEMORY - SCORE: 5-SUP SIGNATURE PANEL: The following modified sections: Eating - Score, Grooming - Score, Bathing - Score, Dressing - Upper Body - Score, Dressing - Lower Body - Score, Bladder Management - Score, Bowel Management - Score, Tr ansfers: Bed, Chair, Wheelchair - Score, Transfers: Toilet - Score, Transfers: Shower - Score, Transf ers: Tub - Score, Locomotion: Walk - Score, Locomotion: Wheelchair - Score, Comprehension - Score, Ex pression - Score, Social Interaction - Score, Problem Solving - Score, Memory - Score, Toileting - Sc ore were [electronically] signed by Nasra [email or web address] on WedDec 09 2017 14:22:38 GMT-0500 (Centra [place] Daylight Time)
--- NOTE | 2017-12-09 16:15 | FAST ---
ENCOUNTER DATE AND TIME: 12/08/2017 08:00 (CDT) NAME LYNN GERARDO DATE OF : 1935 DATE OF ADMISSION: 12/02/2017 17:22 (CDT) PHONE: AGE: 82 N# [id number] GENDER: Female ENCOUNTER PHYSICIAN: Dr. Dominick Villareal M.D. ADMISSION DIAGNOSIS: - Orthopaedic Disorders 08 - Unilateral Hip Fracture (08.11) Right intertrochanteric femur fx. EATING: Activity did not occur on this shift EATING - SCORE: 0-UNK GROOMING: Activity did not occur on this shift GROOMING - SCORE: 0-UNK BATHING: Activity did not occur on this shift BATHING - SCORE: 0-UNK DRESSING - UPPER BODY: Activity did not occur on this shift Patient is not dressing in public clothing ARTICLES SCORE Total number of steps: 0 DRESSING - UPPER BODY - SCORE: 0-UNK DRESSING - LOWER BODY: Activity did not occur on this shift Patient is not dressing in public clothing ARTICLES SCORE Total number of steps: 0 DRESSING - LOWER BODY - SCORE: 0-UNK TOILETING: Activity did not occur on this shift TOILETING - SCORE: 0-UNK BLADDER MANAGEMENT: Activity did not occur on this shift BLADDER MANAGEMENT - SCORE: 7-IND BOWEL MANAGEMENT: Activity did not occur on this shift BOWEL MANAGEMENT - SCORE: 7-IND TRANSFERS: BED, CHAIR, WHEELCHAIR: TRANSFERS: BED, CHAIR, WHEELCHAIR - STEP 1: Does the patient require assistance with bed, chair, or wheelchair transfers? Yes. TRANSFERS: BED, CHAIR, WHEELCHAIR - STEP 2: Does the patient require the assistance of a helper? No. Patient only requires an assistive device fo r bed, chair, wheelchair transfers such as a sliding board, grab bar, or brace, OR s/he takes more th an reasonable time, OR there is a safety concern when s/he performs the transfers TRANSFERS: BED, CHAIR, WHEELCHAIR - SCORE: 6-FRANCES TRANSFERS: TOILET: Activity did not occur on this shift TRANSFERS: TOILET - SCORE: 0-UNK TRANSFERS: SHOWER: Activity did not occur on this shift TRANSFERS: SHOWER - SCORE: 0-UNK TRANSFERS: TUB: Activity did not occur on this shift TRANSFERS: TUB - SCORE: 0-UNK LOCOMOTION: WALK: LOCOMOTION: WALK - STEP 1: Does the patient need help to walk 150 feet? No. LOCOMOTION: WALK - STEP 2: Does the patient need an assistive device (such as an orthosis, prosthesis, crutches, or walker) to g o 150 feet, OR does s/he take more than reasonable time, OR is there a concern for safety? Yes, the p atient needs an assistive device LOCOMOTION: WALK - SCORE: 6-FRANCES LOCOMOTION: WHEELCHAIR: LOCOMOTION: WHEELCHAIR - STEP 1: Does the patient need help to go 150 feet in a wheelchair? Yes. LOCOMOTION: WHEELCHAIR - STEP 2: How much assistance does the patient need from the helper? Only supervision, cuing, or coaxing LOCOMOTION: WHEELCHAIR - SCORE: 5-SUP LOCOMOTION: STAIRS: LOCOMOTION: STAIRS - STEP 1: Does the patient need help to go up and down 12 to 14 stairs? Yes. LOCOMOTION: STAIRS - STEP 2: How much assistance does the patient need from the helper to go a minimum of 12 to 14 stairs? Only albright pervision, cuing, or coaxing LOCOMOTION: STAIRS - SCORE: 5-SUP COMPREHENSION: COMPREHENSION - SCORE: 0-UNK EXPRESSION EXPRESSION - SCORE: 0-UNK SOCIAL INTERACTION: SOCIAL INTERACTION - SCORE: 0-UNK PROBLEM SOLVING: PROBLEM SOLVING - SCORE: 0-UNK MEMORY: MEMORY - SCORE: 0-UNK SIGNATURE PANEL: The following modified sections: Transfers: Bed, Chair, Wheelchair - Score, Transfers: Toilet - Score , Locomotion: Walk - Score, Locomotion: Wheelchair - Score, Locomotion: Stairs - Score were [[email or web address] vasquez] signed by Jose Jackson PTA on WedDec 09 2017 15:17:23 GMT-0500 (Central Daylight Time)
--- NOTE | 2017-12-09 16:16 | FAST ---
ENCOUNTER DATE AND TIME: 12/09/2017 08:00 (CDT) NAME LYNN GERARDO DATE OF : 1935 DATE OF ADMISSION: 12/02/2017 17:22 (CDT) PHONE: AGE: 82 N# [id number] GENDER: Female ENCOUNTER PHYSICIAN: Dr. Dominick Villareal M.D. ADMISSION DIAGNOSIS: - Orthopaedic Disorders 08 - Unilateral Hip Fracture (08.11) Right intertrochanteric femur fx. EATING: Activity did not occur on this shift EATING - SCORE: 0-UNK GROOMING: Activity did not occur on this shift GROOMING - SCORE: 0-UNK BATHING: Activity did not occur on this shift BATHING - SCORE: 0-UNK DRESSING - UPPER BODY: Activity did not occur on this shift Patient is not dressing in public clothing ARTICLES SCORE Total number of steps: 0 DRESSING - UPPER BODY - SCORE: 0-UNK DRESSING - LOWER BODY: Activity did not occur on this shift Patient is not dressing in public clothing ARTICLES SCORE Total number of steps: 0 DRESSING - LOWER BODY - SCORE: 0-UNK TOILETING: Activity did not occur on this shift TOILETING - SCORE: 0-UNK BLADDER MANAGEMENT: Activity did not occur on this shift BLADDER MANAGEMENT - SCORE: 7-IND BOWEL MANAGEMENT: Activity did not occur on this shift BOWEL MANAGEMENT - SCORE: 7-IND TRANSFERS: BED, CHAIR, WHEELCHAIR: TRANSFERS: BED, CHAIR, WHEELCHAIR - STEP 1: Does the patient require assistance with bed, chair, or wheelchair transfers? Yes. TRANSFERS: BED, CHAIR, WHEELCHAIR - STEP 2: Does the patient require the assistance of a helper? No. Patient only requires an assistive device fo r bed, chair, wheelchair transfers such as a sliding board, grab bar, or brace, OR s/he takes more th an reasonable time, OR there is a safety concern when s/he performs the transfers TRANSFERS: BED, CHAIR, WHEELCHAIR - SCORE: 6-FRANCES TRANSFERS: TOILET: Activity did not occur on this shift TRANSFERS: TOILET - SCORE: 0-UNK TRANSFERS: SHOWER: Activity did not occur on this shift TRANSFERS: SHOWER - SCORE: 0-UNK TRANSFERS: TUB: Activity did not occur on this shift TRANSFERS: TUB - SCORE: 0-UNK LOCOMOTION: WALK: LOCOMOTION: WALK - STEP 1: Does the patient need help to walk 150 feet? No. LOCOMOTION: WALK - STEP 2: Does the patient need an assistive device (such as an orthosis, prosthesis, crutches, or walker) to g o 150 feet, OR does s/he take more than reasonable time, OR is there a concern for safety? Yes, the p atient needs an assistive device LOCOMOTION: WALK - SCORE: 6-FRANCES LOCOMOTION: WHEELCHAIR: Activity did not occur on this shift LOCOMOTION: WHEELCHAIR - SCORE: 0-UNK LOCOMOTION: STAIRS: Activity did not occur on this shift LOCOMOTION: STAIRS - SCORE: 0-UNK COMPREHENSION: COMPREHENSION - SCORE: 0-UNK EXPRESSION EXPRESSION - SCORE: 0-UNK SOCIAL INTERACTION: SOCIAL INTERACTION - SCORE: 0-UNK PROBLEM SOLVING: PROBLEM SOLVING - SCORE: 0-UNK MEMORY: MEMORY - SCORE: 0-UNK SIGNATURE PANEL: The following modified sections: Transfers: Bed, Chair, Wheelchair - Score, Transfers: Toilet - Score , Locomotion: Walk - Score, Locomotion: Wheelchair - Score, Locomotion: Stairs - Score were [abdoulaye vasquez] signed by Jose Jackson PTA on WedDec 09 2017 15:18:31 GMT-0500 (Central Daylight Time)
--- NOTE | 2017-12-09 16:19 | FAST ---
SHIFT START DATE/TIME: 12/09/2017 07:00 (CDT) SHIFT END DATE/TIME: 12/09/2017 19:00 (CDT) NAME LYNN GREARDO DATE OF : 1935 DATE OF ADMISSION: 12/02/2017 17:22 (CDT) PHONE: AGE: 82 N# [id number] GENDER: Female ENCOUNTER PHYSICIAN: Dr. Dominick Villareal M.D. ADMISSION DIAGNOSIS: - Orthopaedic Disorders 08 - Unilateral Hip Fracture (08.11) Right intertrochanteric femur fx. EATING: EATING - STEP 1: Does the patient require assistance when eating? Yes. EATING - STEP 2: Does the patient require the assistance of a helper? Yes. EATING - STEP 3: Does the patient perform half or more of the eating tasks? Yes. EATING - STEP 4: Does the patient need only supervision, cuing, coaxing OR help to apply an orthosis OR help to cut fo od, open containers, pour liquids, or butter bread? Yes. EATING - SCORE: 5-SUP GROOMING: Comb/brush hair Oral care Wash, rinse, and dry face Wash, rinse, and dry hands GROOMING - STEP 1: Does the patient require assistance when grooming? Yes. GROOMING - STEP 2: Does the patient require the assistance of a helper? Yes. GROOMING - STEP 3: How much assistance does the patient require from the helper? Only prior equipment preparation/set up from the helper GROOMING - SCORE: 5-SUP BATHING: Activity did not occur on this shift BATHING - SCORE: 0-UNK DRESSING - UPPER BODY: Bra (three steps) T-shirt/pullover shirt (four steps) ARTICLES SCORE Total number of steps: 7 DRESSING - UPPER BODY - STEP 1: Does the patient require help when dressing above the waist? Yes. DRESSING - UPPER BODY - STEP 2: Does the patient require the assistance of a helper? No. Patient only requires an assistive device, s uch as a button hook, velcro, or peanut picker. OR s/he takes more than reasonable time as s/he dresses the upper body. OR there is a concern for safety when s/he dresses the upper body DRESSING - UPPER BODY - SCORE: 6-FRANCES DRESSING - LOWER BODY: Elastic waist pants (three steps) Slip-on shoe - Left foot (one step) Slip-on shoe - Right foot (one step) Sock - Left foot (one step) Sock - Right foot (one step) ARTICLES SCORE Total number of steps: 7 DRESSING - LOWER BODY - STEP 1: Does the patient require help when dressing below the waist? Yes. DRESSING - LOWER BODY - STEP 2: Does the patient require the assistance of a helper? Yes. DRESSING - LOWER BODY - STEP 3: Does the helper touch the patient while dressing? No. DRESSING - LOWER BODY - SCORE: 5-SUP TOILETING: TOILETING - STEP 1: Does the patient require assistance with toileting? Yes. TOILETING - STEP 2: Does the patient require the assistance of a helper? Yes. TOILETING - STEP 3: How much assistance does the patient require from the helper? Only supervision TOILETING - SCORE: 5-SUP BLADDER MANAGEMENT: BLADDER MANAGEMENT - STEP 1: Does the patient control the bladder completely and intentionally without equipment or devices or med ications, and is always continent? No. BLADDER MANAGEMENT - STEP 2: Does the patient require the assistance of a helper? No, patient only requires extra time BLADDER MANAGEMENT - SCORE: 6-FRANCES BLADDER MANAGEMENT - FREQUENCY OF ACCIDENTS: BLADDER MANAGEMENT(FA) - STEP 1: How many accidents has the patient had during the current shift? 0 BOWEL MANAGEMENT: Activity did not occur on this shift BOWEL MANAGEMENT - SCORE: 7-IND BOWEL MANAGEMENT - FREQUENCY OF ACCIDENTS: BOWEL MANAGEMENT(FA) - STEP 1: How many accidents has the patient had during the current shift? 0 TRANSFERS: BED, CHAIR, WHEELCHAIR: TRANSFERS: BED, CHAIR, WHEELCHAIR - STEP 1: Does the patient require assistance with bed, chair, or wheelchair transfers? Yes. TRANSFERS: BED, CHAIR, WHEELCHAIR - STEP 2: Does the patient require the assistance of a helper? No. Patient only requires an assistive device fo r bed, chair, wheelchair transfers such as a sliding board, grab bar, or brace, OR s/he takes more th an reasonable time, OR there is a safety concern when s/he performs the transfers TRANSFERS: BED, CHAIR, WHEELCHAIR - SCORE: 6-FRANCES TRANSFERS: TOILET: TRANSFERS: TOILET - STEP 1: Does the patient require assistance with toilet transfers? Yes. TRANSFERS: TOILET - STEP 2: Does the patient require the assistance of a helper? Yes. TRANSFERS: TOILET - STEP 3: How much assistance does the patient require from the helper? Patient performs half or more of the tr ansferring tasks TRANSFERS: TOILET - STEP 4: Does the patient need only incidental help such as contact guard or steadying during toilet transfer? Yes. TRANSFERS: TOILET - SCORE: 4-MIN TRANSFERS: SHOWER: Activity did not occur on this shift TRANSFERS: SHOWER - SCORE: 0-UNK TRANSFERS: TUB: Activity did not occur on this shift TRANSFERS: TUB - SCORE: 0-UNK LOCOMOTION: WALK: Activity did not occur on this shift LOCOMOTION: WALK - SCORE: 0-UNK LOCOMOTION: WHEELCHAIR: LOCOMOTION: WHEELCHAIR - STEP 1: Does the patient need help to go 150 feet in a wheelchair? Yes. LOCOMOTION: WHEELCHAIR - STEP 2: How much assistance does the patient need from the helper? Only supervision, cuing, or coaxing LOCOMOTION: WHEELCHAIR - SCORE: 5-SUP COMPREHENSION: COMPREHENSION: TYPE: Both COMPREHENSION - STEP 1: Does the patient require help to understand complex and abstract ideas (such as current events, finan sherlyn, discharge planning, medical issues, relationships, etc)? Yes. COMPREHENSION - STEP 2: Does the patient require help to understand questions or statements about basic needs or ideas (such as hunger, thirst, sleep, safety, daily schedule, room location, or discomfort) half or more of the t [place]? No. COMPREHENSION - STEP 3: How often does the patient need help to understand directions and conversation about basic needs? Les s than 10% of the time COMPREHENSION - SCORE: 5-SUP EXPRESSION EXPRESSION: TYPE: Vocal EXPRESSION - STEP 1: Does the patient require help expressing complex and abstract ideas (such as current events, finances , discharge planning, medical issues, relationships, etc)? No. EXPRESSION - STEP 2: Does the patient need extra time, require an assistive device (such as augmentive communication syste m or a communication board), OR does s/he have mild difficulty expressing complex and abstract ideas (including mild dysarthria or mild word-find problems)? No. EXPRESSION - SCORE: 7-IND SOCIAL INTERACTION: SOCIAL INTERACTION - STEP 1: Does the patient require a helper to interact with others in social and therapeutic situations? No. SOCIAL INTERACTION - STEP 2: Does the patient need extra time in social situations, OR does s/he interact with staff, other patien ts, and family members ONLY in structured environments, OR does s/he require medication for social in teraction? Yes, patient needs extra time SOCIAL INTERACTION - SCORE: 6-FRANCES PROBLEM SOLVING: PROBLEM SOLVING - STEP 1: Does the patient need help to solve complex problems such as managing a checking account or confronti ng interpersonal problems? No. PROBLEM SOLVING - STEP 2: Does the patient require extra time to make decisions or solve problems, OR does s/he have slight dif ficulty reading, initiating, or self-correcting in unfamiliar situations? Yes, patient needs extra ti me. PROBLEM SOLVING - SCORE: 6-FRANCES MEMORY: MEMORY - STEP 1: Does the patient need help to remember frequently encountered people, daily routines, and executing r equests? No. MEMORY - STEP 2: Does the patient have slight difficulty recognizing frequently encountered people, daily routines, or executing requests without the need for repetition or using self-initiated or environmental cues to remember? Yes. MEMORY - SCORE: 6-FRANCES SIGNATURE PANEL: The following modified sections: Eating - Score, Grooming - Score, Bathing - Score, Dressing - Upper Body - Score, Dressing - Lower Body - Score, Toileting - Score, Bladder Management - Score, Bowel Man agement - Score, Transfers: Bed, Chair, Wheelchair - Score, Transfers: Toilet - Score, Transfers: Chelo wer - Score, Transfers: Tub - Score, Locomotion: Walk - Score, Locomotion: Wheelchair - Score, Compre hension - Score, Expression - Score, Social Interaction - Score, Problem Solving - Score, Memory - Sc ore were [electronically] signed by Nasra [email or web address] on WedDec 09 2017 15:22:01 T-0500 (Centra [place] Daylight Time)
--- NOTE | 2017-12-09 16:28 | FAST ---
ENCOUNTER DATE AND TIME: 12/09/2017 08:00 (CDT) NAME LYNN GERARDO DATE OF : 1935 DATE OF ADMISSION: 12/02/2017 17:22 (CDT) PHONE: AGE: 82 N# [id number] GENDER: Female ENCOUNTER PHYSICIAN: Dr. Dominick Villareal M.D. ADMISSION DIAGNOSIS: - Orthopaedic Disorders 08 - Unilateral Hip Fracture (08.11) Right intertrochanteric femur fx. EATING: Activity did not occur on this shift EATING - SCORE: 0-UNK GROOMING: Activity did not occur on this shift GROOMING - SCORE: 0-UNK BATHING: Activity did not occur on this shift BATHING - SCORE: 0-UNK DRESSING - UPPER BODY: Activity did not occur on this shift ARTICLES SCORE Total number of steps: 0 DRESSING - UPPER BODY - SCORE: 0-UNK DRESSING - LOWER BODY: Activity did not occur on this shift ARTICLES SCORE Total number of steps: 0 DRESSING - LOWER BODY - SCORE: 0-UNK TOILETING: Activity did not occur on this shift TOILETING - SCORE: 0-UNK BLADDER MANAGEMENT: Activity did not occur on this shift BLADDER MANAGEMENT - SCORE: 7-IND BOWEL MANAGEMENT: Activity did not occur on this shift BOWEL MANAGEMENT - SCORE: 7-IND TRANSFERS: BED, CHAIR, WHEELCHAIR: Activity did not occur on this shift TRANSFERS: BED, CHAIR, WHEELCHAIR - SCORE: 0-UNK TRANSFERS: TOILET: Activity did not occur on this shift TRANSFERS: TOILET - SCORE: 0-UNK TRANSFERS: SHOWER: Activity did not occur on this shift TRANSFERS: SHOWER - SCORE: 0-UNK TRANSFERS: TUB: Activity did not occur on this shift TRANSFERS: TUB - SCORE: 0-UNK LOCOMOTION: WALK: Activity did not occur on this shift LOCOMOTION: WALK - SCORE: 0-UNK LOCOMOTION: WHEELCHAIR: Activity did not occur on this shift LOCOMOTION: WHEELCHAIR - SCORE: 0-UNK LOCOMOTION: STAIRS: Activity did not occur on this shift LOCOMOTION: STAIRS - SCORE: 0-UNK COMPREHENSION: COMPREHENSION - STEP 1: Does the patient require help to understand complex and abstract ideas (such as current events, finan sherlyn, discharge planning, medical issues, relationships, etc)? No. COMPREHENSION - STEP 2: Does the patient need extra time, require an assistive device (such as glasses, hearing aids, or an a ugmentative communication system), OR does s/he have mild difficulty expressing complex and abstract ideas (including mild dysarthria or mild word-finding problems)? Yes. COMPREHENSION - SCORE: 6-FRANCES EXPRESSION EXPRESSION: TYPE: Non-Vocal EXPRESSION - STEP 1: Does the patient require help expressing complex and abstract ideas (such as current events, finances , discharge planning, medical issues, relationships, etc)? No. EXPRESSION - STEP 2: Does the patient need extra time, require an assistive device (such as augmentive communication syste m or a communication board), OR does s/he have mild difficulty expressing complex and abstract ideas (including mild dysarthria or mild word-find problems)? No. EXPRESSION - SCORE: 7-IND SOCIAL INTERACTION: SOCIAL INTERACTION - STEP 1: Does the patient require a helper to interact with others in social and therapeutic situations? No. SOCIAL INTERACTION - STEP 2: Does the patient need extra time in social situations, OR does s/he interact with staff, other patien ts, and family members ONLY in structured environments, OR does s/he require medication for social in teraction? No. SOCIAL INTERACTION - SCORE: 7-IND PROBLEM SOLVING: PROBLEM SOLVING - STEP 1: Does the patient need help to solve complex problems such as managing a checking account or confronti ng interpersonal problems? No. PROBLEM SOLVING - STEP 2: Does the patient require extra time to make decisions or solve problems, OR does s/he have slight dif ficulty reading, initiating, or self-correcting in unfamiliar situations? No. PROBLEM SOLVING - SCORE: 7-IND MEMORY: MEMORY - STEP 1: Does the patient need help to remember frequently encountered people, daily routines, and executing r equests? No. MEMORY - STEP 2: Does the patient have slight difficulty recognizing frequently encountered people, daily routines, or executing requests without the need for repetition or using self-initiated or environmental cues to remember? No. MEMORY - SCORE: 7-IND SIGNATURE PANEL: The following modified sections: Eating - Score, Grooming - Score, Bathing - Score, Dressing - Upper Body - Score, Dressing - Lower Body - Score, Toileting - Score, Transfers: Bed, Chair, Wheelchair - S core, Transfers: Toilet - Score, Transfers: Shower - Score, Transfers: Tub - Score, Comprehension - S core, Expression - Score, Social Interaction - Score, Problem Solving - Score, Memory - Score were [e lectronically] signed by KANIKA Garcia on WedDec 09 2017 15:31:05 T-0500 ([facility] Time)
--- NOTE | 2017-12-09 18:38 | R.PN ---
ENCOUNTER DATE AND TIME: 12/09/2017 17:37 (CDT) NAME LYNN GERARDO DATE OF : 1935 DATE OF ADMISSION: 12/02/2017 17:22 (CDT) Right intertrochanteric femur fxCHIEF COMPLAINT: Right hip fracture SUBJECTIVE: Pt denied any Shortness of Breath. Pt denied any depression. Blood pressures continues to be elevated since admission. Consider increasing prinivil to 5 mg twice daily. Ambulated 250' with modified independence using a rolling walker. Self-propelled wheelchair 200' with modified independence. Up and down 25 steps with standby assistance. VITAL SIGNS Temperature: 97.6 F SBP/DBP: 134/60 Pulse: 76 Resp: 16 MEDICATION ALLERGIES: morphine ENVIRONMENTAL ALLERGIES: None Known - Substance Allergies None Known - Other Allergies None Known NURSING: - Shower allowing shower - Skin care per protocol PRECAUTIONS: - Posterior Hip Precaution No adduction across midline No external rotation No hip flexion >90 degrees No internal rotation No wheel chair propulsion - Weight Bearing Precaution WBAT right LE ACTIVITIES OOB only with supervision THERAPIES: - Occupational Therapy Evaluate and Treat. - Physical Therapy Evaluate and Treat. PHYSICAL EXAM - Gen Alert and awake Lying in bed No apparent distress Oriented to: person, time, and place - Vital Signs Elevated blood pressures, afebrile - Skin No skin breakdown. Normacephalic - Eyes No abnormalities - ENMT No abnormalities - Neck No abnormalities - CVS RRR - Chest Clear - Abd Soft - GI Non distended Deferred - No abnormalities - Ext No significant edema - MSK Unremarkable - Neuro No focal deficits - Psych No abnormalities ASSESSMENT: Pt. is a 82 yo Right-handed white female.On 11/27/2017 she was admitted to [facility] and underwent emergency surgery for Right intertrochanteric femur fx (cephalomedullary fixatio n of right intertrochanteric femur fracture ) by Laurie Olivier.Pre-morbidly, Pt. was independent/mod -I in Communication, Social Cognition, Sphincter Control, Self-Care, Locomotion, and Transfers Contro l; and she had good Safety Awareness and Sphincter Control.Currently, she has deficits of Balance, Sp hincter Control, Locomotion, Endurance, Transfers Control, and Self-Care.Pt. is now referred to [facility] for acute in-patient rehabilitation in order to maximize patient's funct ional independence in activities of daily living, strength, ROM, and mobility.- Rehab Goal Patient has realistic goal of being discharged at assistance level 6-Alondra to reside at Home with Fam alex/Relatives. MDM/PLAN: - Anterior Hip Precaution No abduction No active extension No adduction across midline No external rotation No hip flexion >90 degrees No internal rotation - Physical Therapy Decreased range of motion - to improve, our physical therapists will perform initial evaluation of p t's status upon admission and devise an individualized program for increasing patient's Range of Jonathan on. Gait dysfunction - to improve, our physical therapists will perform initial evaluation of pt's statu s upon admission and devise an individualized program for Gait Training, and Wheel Chair mobility Inability to transfer - to improve, our physical therapists will perform initial evaluation of pt's status upon admission and devise an individualized program for Bed mobility Need for home safety evaluation - to improve, our physical therapists will perform initial evaluatio n of pt's status upon admission and devise an individualized program for Home Evaluation Need in caregiver upon discharge - to improve, our physical therapists will perform initial evaluati on of pt's status upon admission and devise an individualized program for Caregiver Training Edema - to improve, our physical therapists will perform initial evaluation of pt's status upon admi ssion and devise an individualized program for Elevation Training, and Lymphedema Therapy New precaution - to improve, our physical therapists will perform initial evaluation of pt's status upon admission and devise an individualized program for Patient precaution education Poor balance - to improve, our physical therapists will perform initial evaluation of pt's status up on admission and devise an individualized program for Balance Training Poor endurance - to improve, our physical therapists will perform initial evaluation of pt's status upon admission and devise an individualized program for Endurance Training Weakness - to improve, our physical therapists will perform initial evaluation of pt's status upon a dmission and devise an individualized program for Aquatic Therapy, Neuromuscular Reeducation, and Str engthening Achieving independence - to improve, our physical therapists will perform initial evaluation of pt's status upon admission and devise an individualized program for Community Reintegration Activities - Diet - Liquid Texture Continue Regular - Tube Feed Continue N/A - Diet Type Continue GI SOFT - Posterior Hip Precaution No adduction across midline No external rotation No hip flexion >90 degrees No internal rotation No wheel chair propulsion - Occupational Therapy ADL deficits - to improve, our occupation therapists will perform initial evaluation of pt's status upon admission and devise an individualized program for Bathing, Bed mobility, Community Reintegratio n, Cooking, Dressing, Eating, Fine Motor Skills, Grooming, Homemaking, Kitchen Mobility, Laundry, Pat ient Education, Safety Awareness, Splinting - Positioning, Transfers(Toilet, Tub, Shower), and Wheel Chair Management Need for career services coordinator - to improve, our occupation therapists will perform initial evaluation of pt's status upon admission and devise an individualized program for Caregiver Training Weakness - to improve, our occupation therapists will perform initial evaluation of pt's status upon admission and devise an individualized program for Aquatic Therapy, Balance, Endurance, UE ROM, and UE strengthening - Weight Bearing Precaution WBAT right LE - Skin care per protocol - Diet - Solid Texture Continue Regular - Shower allowing shower FUNCTIONAL STATUS: UPDATED AT WEEKLY TEAM CONFERENCE - Bladder Same Bladder control device used: catheter Same Jovel catheter in place; last changed on - Bowel Same accident frequency: 7-Ind - No accidents in the past 7 days - Walking Same assistance level: 1-Dep - Wheelchair Same score based on distance traveled: 0(N/A) FUNCTIONAL STATUS: - Self-Care A. Eating Ind B. Grooming Ind C. Bathing Ind D. Dressing - Upper Ind E. Dressing - Lower maxA F. Toileting Deedee - Sphincter Control G. Bladder control ADNO H: Bowel control Alondra - Transfers Control I. Bed/Chair/Wheelchair modA - Locomotion L. Walk/Wheelchair (B) Deedee - Communication N. Comprehension (B) Alondra O. Expression (B) Ind - Social Cognition P. Social Interaction Ind Q. Problem Solving Ind R. Memory Ind - Endurance Fair - Balance Fair - Safety Awareness Good CURRENT FUNC. DEFICITS: Balance, Sphincter Control, Locomotion, Endurance, Transfers Control, and Self-Care SIGNATURE PANEL: (CDT)
[2017-12-09] MEDS: LISINOPRIL 5 MG TAB PO SCH (21:33)
[2017-12-09] MEDS: DOCUSATE NA/SENNA CONC 1 TAB PO SCH (21:33)
[2017-12-09] MEDS: TRAMADOL HCL 50 MG TAB PO PRN (21:34)
--- NOTE | 2017-12-10 02:35 | FAST ---
SHIFT START DATE/TIME: 12/09/2017 19:00 (CDT) SHIFT END DATE/TIME: 12/10/2017 07:00 (CDT) NAME LYNN GERARDO DATE OF : 1935 DATE OF ADMISSION: 12/02/2017 17:22 (CDT) PHONE: AGE: 82 N# [id number] GENDER: Female ENCOUNTER PHYSICIAN: Dr. Dominick Villareal M.D. ADMISSION DIAGNOSIS: - Orthopaedic Disorders 08 - Unilateral Hip Fracture (08.11) Right intertrochanteric femur fx. EATING: Activity did not occur on this shift EATING - SCORE: 0-UNK GROOMING: Oral care Wash, rinse, and dry face Wash, rinse, and dry hands GROOMING - STEP 1: Does the patient require assistance when grooming? Yes. GROOMING - STEP 2: Does the patient require the assistance of a helper? Yes. GROOMING - STEP 3: How much assistance does the patient require from the helper? Only prior equipment preparation/set up from the helper GROOMING - SCORE: 5-SUP BATHING: Activity did not occur on this shift BATHING - SCORE: 0-UNK DRESSING - UPPER BODY: Patient is not dressing in public clothing ARTICLES SCORE Total number of steps: 0 DRESSING - UPPER BODY - SCORE: 0-UNK DRESSING - LOWER BODY: Patient is not dressing in public clothing ARTICLES SCORE Total number of steps: 0 DRESSING - LOWER BODY - SCORE: 0-UNK TOILETING: TOILETING - STEP 1: Does the patient require assistance with toileting? Yes. TOILETING - STEP 2: Does the patient require the assistance of a helper? Yes. TOILETING - STEP 3: How much assistance does the patient require from the helper? Only supervision TOILETING - SCORE: 5-SUP BLADDER MANAGEMENT: BLADDER MANAGEMENT - STEP 1: Does the patient control the bladder completely and intentionally without equipment or devices or med ications, and is always continent? No. BLADDER MANAGEMENT - STEP 2: Does the patient require the assistance of a helper? No, patient only requires extra time BLADDER MANAGEMENT - SCORE: 6-FRANCES BOWEL MANAGEMENT: Activity did not occur on this shift BOWEL MANAGEMENT - SCORE: 7-IND TRANSFERS: BED, CHAIR, WHEELCHAIR: TRANSFERS: BED, CHAIR, WHEELCHAIR - STEP 1: Does the patient require assistance with bed, chair, or wheelchair transfers? Yes. TRANSFERS: BED, CHAIR, WHEELCHAIR - STEP 2: Does the patient require the assistance of a helper? No. Patient only requires an assistive device fo r bed, chair, wheelchair transfers such as a sliding board, grab bar, or brace, OR s/he takes more th an reasonable time, OR there is a safety concern when s/he performs the transfers TRANSFERS: BED, CHAIR, WHEELCHAIR - SCORE: 6-FRANCES TRANSFERS: TOILET: TRANSFERS: TOILET - STEP 1: Does the patient require assistance with toilet transfers? Yes. TRANSFERS: TOILET - STEP 2: Does the patient require the assistance of a helper? No. Patient only requires an assistive device albright ch as a grab bar or special seat, OR s/he takes more than reasonable time to perform toilet transfers , OR there is a safety concern when s/he performs toilet transfers. TRANSFERS: TOILET - SCORE: 6-FRANCES TRANSFERS: SHOWER: Activity did not occur on this shift TRANSFERS: SHOWER - SCORE: 0-UNK TRANSFERS: TUB: Activity did not occur on this shift TRANSFERS: TUB - SCORE: 0-UNK LOCOMOTION: WALK: Activity did not occur on this shift LOCOMOTION: WALK - SCORE: 0-UNK LOCOMOTION: WHEELCHAIR: Activity did not occur on this shift LOCOMOTION: WHEELCHAIR - SCORE: 0-UNK COMPREHENSION: COMPREHENSION - STEP 1: Does the patient require help to understand complex and abstract ideas (such as current events, finan sherlyn, discharge planning, medical issues, relationships, etc)? No. COMPREHENSION - STEP 2: Does the patient need extra time, require an assistive device (such as glasses, hearing aids, or an a ugmentative communication system), OR does s/he have mild difficulty expressing complex and abstract ideas (including mild dysarthria or mild word-finding problems)? Yes. COMPREHENSION - SCORE: 6-FRANCES EXPRESSION EXPRESSION - STEP 1: Does the patient require help expressing complex and abstract ideas (such as current events, finances , discharge planning, medical issues, relationships, etc)? No. EXPRESSION - STEP 2: Does the patient need extra time, require an assistive device (such as augmentive communication syste m or a communication board), OR does s/he have mild difficulty expressing complex and abstract ideas (including mild dysarthria or mild word-find problems)? No. EXPRESSION - SCORE: 7-IND SOCIAL INTERACTION: SOCIAL INTERACTION - STEP 1: Does the patient require a helper to interact with others in social and therapeutic situations? No. SOCIAL INTERACTION - STEP 2: Does the patient need extra time in social situations, OR does s/he interact with staff, other patien ts, and family members ONLY in structured environments, OR does s/he require medication for social in teraction? No. SOCIAL INTERACTION - SCORE: 7-IND PROBLEM SOLVING: PROBLEM SOLVING - STEP 1: Does the patient need help to solve complex problems such as managing a checking account or confronti ng interpersonal problems? No. PROBLEM SOLVING - STEP 2: Does the patient require extra time to make decisions or solve problems, OR does s/he have slight dif ficulty reading, initiating, or self-correcting in unfamiliar situations? Yes, patient needs extra ti me. PROBLEM SOLVING - SCORE: 6-FRANCES MEMORY: MEMORY - STEP 1: Does the patient need help to remember frequently encountered people, daily routines, and executing r equests? No. MEMORY - STEP 2: Does the patient have slight difficulty recognizing frequently encountered people, daily routines, or executing requests without the need for repetition or using self-initiated or environmental cues to remember? No. MEMORY - SCORE: 7-IND SIGNATURE PANEL: The following modified sections: Eating - Score, Grooming - Score, Dressing - Upper Body - Score, Ben ssing - Lower Body - Score, Toileting - Score, Bladder Management - Score, Bowel Management - Score, Transfers: Bed, Chair, Wheelchair - Score, Transfers: Toilet - Score, Transfers: Shower - Score, Paige sfers: Tub - Score, Locomotion: Walk - Score, Locomotion: Wheelchair - Score, Comprehension - Score, Expression - Score, Social Interaction - Score, Problem Solving - Score, Memory - Score were [electro nically] signed by Denae Arceo CNA on WedDec 10 2017 01:36:56 GMT-0500 (Central Daylight Time)
[2017-12-10] MEDS: TRAMADOL HCL 50 MG TAB PO PRN ×2 (06:30→12:18)
[2017-12-10] MEDS: POLYETHYL GLY 3350 17 GM/DOSE PO PRN (08:32)
[2017-12-10] MEDS: HYDROCODONE/APAP 7.5/325 MG TAB PO PRN (08:32)
[2017-12-10] MEDS: CRANBERRY FRUIT EXTRACT 200 MG CAP PO SCH ×2 (08:33→20:20)
[2017-12-10] MEDS: HYDRALAZINE HCL 10 MG TABLET PO SCH ×3 (08:34→20:22)
[2017-12-10] MEDS: DOCUSATE NA 100 MG CAP PO SCH (08:34)
[2017-12-10] MEDS: CARBAMAZEPINE 200 MG TAB PO SCH ×2 (08:34→20:21)
[2017-12-10] MEDS: GABAPENTIN 300 MG CAP PO SCH ×2 (08:35→20:21)
[2017-12-10] MEDS: METOPROLOL TAR 50 MG TAB PO SCH ×2 (08:35→20:23)
[2017-12-10] MEDS: ENSURE HIGH PROTEIN 237 ML CAN PO SCH (08:35)
[2017-12-10] MEDS: ASPIRIN 81 MG CHEWABLE TABLET PO SCH (08:35)
[2017-12-10] MEDS: MULTIVITAMIN TAB PO SCH (08:36)
[2017-12-10] MEDS: APIXABAN 2.5 MG TABLET PO SCH ×2 (08:36→20:21)
--- NOTE | 2017-12-10 09:37 | P.RH.PN ---
Estimated Length of Stay: 15 Expected Discharge Date: 12/17/17 Discharge Disposition Plan: Home Family Support: Yes [facility] Goal: Mobility, Transfers, Self Care Vital Signs: Last Vital Signs Temp 97.3 F 12/10/17 07:30 Pulse 78 12/10/17 08:35 Resp 16 12/10/17 07:30 BP 184/80 H 12/10/17 08:35 Pulse Ox 97 12/10/17 07:30 Laboratory: Laboratory Last Values WBC 8.5 K/uL (4.3-10.9) D 12/09/17 07:07 RBC 3.58 M/uL (3.86-4.86) L 12/09/17 07:07 Hgb 11.0 g/dL (12.0-15.0) L 12/09/17 07:07 Hct 31.6 % (36.0-45.0) L 12/09/17 07:07 MCV 88.3 fL (80-100) 12/09/17 07:07 MCH 30.6 pg (27.0-35.0) 12/09/17 07:07 MCHC 34.7 g/dL (32.0-36.0) 12/09/17 07:07 RDW 15.2 % (12.1-15.2) 12/09/17 07:07 Plt Count 542 K/uL (152-406) H D 12/09/17 07:07 MPV 7.4 fL (7.6-11.3) L 12/09/17 07:07 Neutrophils % 65.7 % (41.7-73.7) 12/09/17 07:07 Lymphocytes % 15.5 % (15.3-44.8) 12/09/17 07:07 Monocytes % 11.7 % (3.3-12.3) 12/09/17 07:07 Eosinophils % 6.1 % (0-4.4) H 12/09/17 07:07 Basophils % 1.0 % (0-1.3) 12/09/17 07:07 Absolute Neutrophils 5.6 K/uL (1.8-8.0) 12/09/17 07:07 Absolute Lymphocytes 1.3 K/uL (0.7-4.9) 12/09/17 07:07 Absolute Monocytes 1.0 K/uL (0.1-1.3) 12/09/17 07:07 Absolute Eosinophils 0.5 K/uL (0-0.5) 12/09/17 07:07 Absolute Basophils 0.1 K/uL (0-0.5) 12/09/17 07:07 Sodium 134 mEq/L (135-145) L 12/09/17 07:07 Potassium 4.6 mEq/L (3.6-5.0) 12/09/17 07:07 Chloride 101 mEq/L (101-111) 12/09/17 07:07 Carbon Dioxide 28 mEq/L (21-31) 12/09/17 07:07 BUN 14 mg/dL (6-20) 12/09/17 07:07 Creatinine 0.57 mg/dL (0.44-1.00) 12/09/17 07:07 Estimated GFR > 90 mL/min (=/>90) 12/09/17 07:07 Glucose 106 mg/dL (65-120) 12/09/17 07:07 Calcium 9.4 mg/dL (8.5-10.5) 12/09/17 07:07 Magnesium 2.0 mg/dL (1.8-2.5) 12/03/17 06:11 Albumin 2.9 g/dL (3.2-5.5) L 12/03/17 06:11 Prealbumin 12.1 mg/dl (18-38) L 12/03/17 06:11 Urine Color Yellow 12/05/17 18:05 Urine Appearance Cloudy 12/05/17 18:05 Urine pH 6.5 (5.0-7.0) 12/05/17 18:05 Ur Specific Sunray 1.015 (1.005-1.030) 12/05/17 18:05 Urine Ketones Negative (NEG) 12/05/17 18:05 Urine Blood Negative (NEG) 12/05/17 18:05 Urine Nitrite Negative (NEG) 12/05/17 18:05 Urine Bilirubin Negative (NEG) 12/05/17 18:05 Urine Urobilinogen 1.0 mg/dL (0.2-1.0) 12/05/17 18:05 Ur Leukocyte Esterase 3+ (NEG) H 12/05/17 18:05 Urine RBC 5-10 /HPF (NONE SEEN) H 12/05/17 18:05 Urine WBC Tntc /HPF (<5) H 12/05/17 18:05 Ur Squamous Epith Cells <5 /HPF (NONE SEEN) 12/05/17 18:05 Ur Urothelial Cells <5 /HPF (NONE SEEN) 12/02/17 20:45 Urine Bacteria 20-50 /HPF (<20) H 12/05/17 18:05 Urine Culture Reflexed Not needed 12/05/17 18:05 Urine Glucose Negative (NEG) 12/05/17 18:05 Urine Total Protein Negative (NEG) 12/05/17 18:05 Weight: 143 lb 6.4 oz Wound Present: No Closed Surgical Incision Present: Yes Negative Pressure Wound Therapy Present: No Physician Update: Her blood pressures in the morning has been elevated and her blood pressure medications have been adjusted. She is modified independence with her physical and occupational therapy. Functional Improvement: Patient has met all short-term and long-term goals at this time, w/ the exception of a car transfer. Patient was made Mod I on unit w / RW. Functional Improvement Occupational Therapy: pt can benifit with further therapy services to increase pt's UB strength, safety using A/E as needed for adl and Iadl tasks. Cont to strengthening and increase pt's endurance and standing balance for adl and Iadl tasks. Cont with the POC and the goals by the supervising OTR. Summary: Patient's care plan and fpc goals have been reviewed and revised as necessary. Please see the Rehabilitation Signature page for all necessary signatures.
--- NOTE | 2017-12-10 14:58 | FAST ---
ENCOUNTER DATE AND TIME: 12/10/2017 08:00 (CDT) NAME LYNN GERARDO DATE OF : 1935 DATE OF ADMISSION: 12/02/2017 17:22 (CDT) PHONE: AGE: 82 [facility]# [id number] GENDER: Female ENCOUNTER PHYSICIAN: Dr. Dominick Villareal M.D. ADMISSION DIAGNOSIS: - Orthopaedic Disorders 08 - Unilateral Hip Fracture (08.11) Right intertrochanteric femur fx. EATING: Activity did not occur on this shift EATING - SCORE: 0-UNK GROOMING: Comb/brush hair Oral care Wash, rinse, and dry face Wash, rinse, and dry hands GROOMING - STEP 1: Does the patient require assistance when grooming? No. GROOMING - SCORE: 7-IND BATHING: Abdomen Buttocks Chest Left arm Left lower leg and foot Left upper leg Perineal area Right arm Right lower leg and foot Right upper leg BATHING - STEP 1: Does the patient require assistance when bathing? Yes. BATHING - STEP 2: Does the patient require the assistance of a helper? Yes. BATHING - STEP 3: How much assistance does the patient require from the helper? Only supervision, cuing, coaxing, instr uctions, encouragement BATHING - SCORE: 5-SUP DRESSING - UPPER BODY: T-shirt/pullover shirt (four steps) ARTICLES SCORE Total number of steps: 4 DRESSING - UPPER BODY - STEP 1: Does the patient require help when dressing above the waist? No. DRESSING - UPPER BODY - SCORE: 7-IND DRESSING - LOWER BODY: Elastic waist pants (three steps) Slip-on shoe - Left foot (one step) Slip-on shoe - Right foot (one step) Sock - Left foot (one step) Sock - Right foot (one step) Underwear (three steps) ARTICLES SCORE Total number of steps: 10 DRESSING - LOWER BODY - STEP 1: Does the patient require help when dressing below the waist? Yes. DRESSING - LOWER BODY - STEP 2: Does the patient require the assistance of a helper? Yes. DRESSING - LOWER BODY - STEP 3: Does the helper touch the patient while dressing? No. DRESSING - LOWER BODY - SCORE: 5-SUP TOILETING: Activity did not occur on this shift TOILETING - SCORE: 0-UNK BLADDER MANAGEMENT: Activity did not occur on this shift BLADDER MANAGEMENT - SCORE: 7-IND BOWEL MANAGEMENT: Activity did not occur on this shift BOWEL MANAGEMENT - SCORE: 7-IND TRANSFERS: BED, CHAIR, WHEELCHAIR: Activity did not occur on this shift TRANSFERS: BED, CHAIR, WHEELCHAIR - SCORE: 0-UNK TRANSFERS: TOILET: Activity did not occur on this shift TRANSFERS: TOILET - SCORE: 0-UNK TRANSFERS: SHOWER: TRANSFERS: SHOWER - STEP 1: Does the patient require assistance with shower transfers? Yes. TRANSFERS: SHOWER - STEP 2: Does the patient require the assistance of a helper? No. The patient only uses an assistive device, t akes more than reasonable time, OR there is a concern for safety when s/he performs transfers. TRANSFERS: SHOWER - SCORE: 6-FRANCES TRANSFERS: TUB: Activity did not occur on this shift TRANSFERS: TUB - SCORE: 0-UNK LOCOMOTION: WALK: Activity did not occur on this shift LOCOMOTION: WALK - SCORE: 0-UNK LOCOMOTION: WHEELCHAIR: Activity did not occur on this shift LOCOMOTION: WHEELCHAIR - SCORE: 0-UNK LOCOMOTION: STAIRS: Activity did not occur on this shift LOCOMOTION: STAIRS - SCORE: 0-UNK COMPREHENSION: COMPREHENSION - STEP 1: Does the patient require help to understand complex and abstract ideas (such as current events, finan sherlyn, discharge planning, medical issues, relationships, etc)? No. COMPREHENSION - STEP 2: Does the patient need extra time, require an assistive device (such as glasses, hearing aids, or an a ugmentative communication system), OR does s/he have mild difficulty expressing complex and abstract ideas (including mild dysarthria or mild word-finding problems)? No. COMPREHENSION - SCORE: 7-IND EXPRESSION EXPRESSION: TYPE: Non-Vocal EXPRESSION - STEP 1: Does the patient require help expressing complex and abstract ideas (such as current events, finances , discharge planning, medical issues, relationships, etc)? No. EXPRESSION - STEP 2: Does the patient need extra time, require an assistive device (such as augmentive communication syste m or a communication board), OR does s/he have mild difficulty expressing complex and abstract ideas (including mild dysarthria or mild word-find problems)? No. EXPRESSION - SCORE: 7-IND SOCIAL INTERACTION: SOCIAL INTERACTION - STEP 1: Does the patient require a helper to interact with others in social and therapeutic situations? No. SOCIAL INTERACTION - STEP 2: Does the patient need extra time in social situations, OR does s/he interact with staff, other patien ts, and family members ONLY in structured environments, OR does s/he require medication for social in teraction? No. SOCIAL INTERACTION - SCORE: 7-IND PROBLEM SOLVING: PROBLEM SOLVING - STEP 1: Does the patient need help to solve complex problems such as managing a checking account or confronti ng interpersonal problems? No. PROBLEM SOLVING - STEP 2: Does the patient require extra time to make decisions or solve problems, OR does s/he have slight dif ficulty reading, initiating, or self-correcting in unfamiliar situations? No. PROBLEM SOLVING - SCORE: 7-IND MEMORY: MEMORY - STEP 1: Does the patient need help to remember frequently encountered people, daily routines, and executing r equests? No. MEMORY - STEP 2: Does the patient have slight difficulty recognizing frequently encountered people, daily routines, or executing requests without the need for repetition or using self-initiated or environmental cues to remember? No. MEMORY - SCORE: 7-IND SIGNATURE PANEL: The following modified sections: Eating - Score, Grooming - Score, Bathing - Score, Dressing - Upper Body - Score, Dressing - Lower Body - Score, Toileting - Score, Transfers: Bed, Chair, Wheelchair - S core, Transfers: Toilet - Score, Transfers: Shower - Score, Transfers: Tub - Score, Comprehension - S core, Expression - Score, Social Interaction - Score, Problem Solving - Score, Memory - Score were [e lectronically] signed by KANIKA Garcia on WedDec 10 2017 14:00:29 [facility]-0500 ([facility])
[2017-12-10] MEDS: DOCUSATE NA/SENNA CONC 1 TAB PO SCH (20:21)
[2017-12-10] MEDS: LISINOPRIL 5 MG TAB PO SCH (20:27)
[2017-12-10] MEDS: HYDROCODONE/APAP 5/325 MG TAB PO PRN (22:29)
--- NOTE | 2017-12-11 04:38 | FAST ---
SHIFT START DATE/TIME: 12/10/2017 19:00 (CDT) SHIFT END DATE/TIME: 12/11/2017 07:00 (CDT) NAME LYNN GERARDO DATE OF : 1935 DATE OF ADMISSION: 12/02/2017 17:22 (CDT) PHONE: AGE: 82 N# [id number] GENDER: Female ENCOUNTER PHYSICIAN: Dr. Dominick Villareal M.D. ADMISSION DIAGNOSIS: - Orthopaedic Disorders 08 - Unilateral Hip Fracture (08.11) Right intertrochanteric femur fx. EATING: EATING - STEP 1: Does the patient require assistance when eating? Yes. EATING - STEP 2: Does the patient require the assistance of a helper? No, patient only requires an assistive device, O R s/he takes more than reasonable time to eat, OR there is a safety concern, OR s/he requires modifie d food consistency EATING - SCORE: 6-FRANCES GROOMING: Comb/brush hair Oral care Wash, rinse, and dry face Wash, rinse, and dry hands GROOMING - STEP 1: Does the patient require assistance when grooming? Yes. GROOMING - STEP 2: Does the patient require the assistance of a helper? No. The patient only requires an assistive devic e, OR takes more than reasonable time to groom, OR there is a concern for safety as the patient groom s GROOMING - SCORE: 6-FRANCES BATHING: Activity did not occur on this shift BATHING - SCORE: 0-UNK DRESSING - UPPER BODY: Patient is not dressing in public clothing ARTICLES SCORE Total number of steps: 0 DRESSING - UPPER BODY - SCORE: 0-UNK DRESSING - LOWER BODY: Patient is not dressing in public clothing ARTICLES SCORE Total number of steps: 0 DRESSING - LOWER BODY - SCORE: 0-UNK TOILETING: TOILETING - STEP 1: Does the patient require assistance with toileting? Yes. TOILETING - STEP 2: Does the patient require the assistance of a helper? No. TOILETING - SCORE: 6-FRANCES BLADDER MANAGEMENT: BLADDER MANAGEMENT - STEP 1: Does the patient control the bladder completely and intentionally without equipment or devices or med ications, and is always continent? No. BLADDER MANAGEMENT - STEP 2: Does the patient require the assistance of a helper? No, patient requires and independently uses an a ssistive device, such as a urinal, bedpan, bedside commode, catheter, absorbent pad, or collecting de vice BLADDER MANAGEMENT - SCORE: 6-FRANCES BLADDER MANAGEMENT - FREQUENCY OF ACCIDENTS: BLADDER MANAGEMENT(FA) - STEP 1: How many accidents has the patient had during the current shift? 0 BOWEL MANAGEMENT: Activity did not occur on this shift BOWEL MANAGEMENT - SCORE: 7-IND TRANSFERS: BED, CHAIR, WHEELCHAIR: TRANSFERS: BED, CHAIR, WHEELCHAIR - STEP 1: Does the patient require assistance with bed, chair, or wheelchair transfers? Yes. TRANSFERS: BED, CHAIR, WHEELCHAIR - STEP 2: Does the patient require the assistance of a helper? No. Patient only requires an assistive device fo r bed, chair, wheelchair transfers such as a sliding board, grab bar, or brace, OR s/he takes more th an reasonable time, OR there is a safety concern when s/he performs the transfers TRANSFERS: BED, CHAIR, WHEELCHAIR - SCORE: 6-FRANCES TRANSFERS: TOILET: TRANSFERS: TOILET - STEP 1: Does the patient require assistance with toilet transfers? Yes. TRANSFERS: TOILET - STEP 2: Does the patient require the assistance of a helper? No. Patient only requires an assistive device albright ch as a grab bar or special seat, OR s/he takes more than reasonable time to perform toilet transfers , OR there is a safety concern when s/he performs toilet transfers. TRANSFERS: TOILET - SCORE: 6-FRANCES TRANSFERS: SHOWER: Activity did not occur on this shift TRANSFERS: SHOWER - SCORE: 0-UNK TRANSFERS: TUB: Activity did not occur on this shift TRANSFERS: TUB - SCORE: 0-UNK LOCOMOTION: WALK: Activity did not occur on this shift LOCOMOTION: WALK - SCORE: 0-UNK LOCOMOTION: WHEELCHAIR: Activity did not occur on this shift LOCOMOTION: WHEELCHAIR - SCORE: 0-UNK COMPREHENSION: COMPREHENSION: TYPE: Both COMPREHENSION - STEP 1: Does the patient require help to understand complex and abstract ideas (such as current events, finan sherlyn, discharge planning, medical issues, relationships, etc)? No. COMPREHENSION - STEP 2: Does the patient need extra time, require an assistive device (such as glasses, hearing aids, or an a ugmentative communication system), OR does s/he have mild difficulty expressing complex and abstract ideas (including mild dysarthria or mild word-finding problems)? Yes. COMPREHENSION - SCORE: 6-FRANCES EXPRESSION EXPRESSION: TYPE: Both EXPRESSION - STEP 1: Does the patient require help expressing complex and abstract ideas (such as current events, finances , discharge planning, medical issues, relationships, etc)? No. EXPRESSION - STEP 2: Does the patient need extra time, require an assistive device (such as augmentive communication syste m or a communication board), OR does s/he have mild difficulty expressing complex and abstract ideas (including mild dysarthria or mild word-find problems)? No. EXPRESSION - SCORE: 7-IND SOCIAL INTERACTION: SOCIAL INTERACTION - STEP 1: Does the patient require a helper to interact with others in social and therapeutic situations? No. SOCIAL INTERACTION - STEP 2: Does the patient need extra time in social situations, OR does s/he interact with staff, other patien ts, and family members ONLY in structured environments, OR does s/he require medication for social in teraction? No. SOCIAL INTERACTION - SCORE: 7-IND PROBLEM SOLVING: PROBLEM SOLVING - STEP 1: Does the patient need help to solve complex problems such as managing a checking account or confronti ng interpersonal problems? No. PROBLEM SOLVING - STEP 2: Does the patient require extra time to make decisions or solve problems, OR does s/he have slight dif ficulty reading, initiating, or self-correcting in unfamiliar situations? No. PROBLEM SOLVING - SCORE: 7-IND MEMORY: MEMORY - STEP 1: Does the patient need help to remember frequently encountered people, daily routines, and executing r equests? No. MEMORY - STEP 2: Does the patient have slight difficulty recognizing frequently encountered people, daily routines, or executing requests without the need for repetition or using self-initiated or environmental cues to remember? No. MEMORY - SCORE: 7-IND SIGNATURE PANEL: The following modified sections: Eating - Score, Grooming - Score, Bathing - Score, Dressing - Upper Body - Score, Dressing - Lower Body - Score, Toileting - Score, Bladder Management - Score, Bowel Man agement - Score, Transfers: Bed, Chair, Wheelchair - Score, Transfers: Toilet - Score, Transfers: Chelo wer - Score, Transfers: Tub - Score, Locomotion: Walk - Score, Locomotion: Wheelchair - Score, Compre hension - Score, Expression - Score, Social Interaction - Score, Problem Solving - Score, Memory - Sc ore were [electronically] signed by Nasra GarzonNSang on WedDec 11 2017 03:41:09 T-0500 ( Central Daylight Time)
[2017-12-11 05:40] VITALS: BMI 23.9
[2017-12-11] MEDS: POLYETHYL GLY 3350 17 GM/DOSE PO PRN (08:17)
[2017-12-11] MEDS: CRANBERRY FRUIT EXTRACT 200 MG CAP PO SCH ×2 (08:18→19:58)
[2017-12-11] MEDS: MULTIVITAMIN TAB PO SCH (08:18)
[2017-12-11] MEDS: DOCUSATE NA 100 MG CAP PO SCH (08:18)
[2017-12-11] MEDS: CARBAMAZEPINE 200 MG TAB PO SCH ×2 (08:19→19:59)
[2017-12-11] MEDS: ASPIRIN 81 MG CHEWABLE TABLET PO SCH (08:20)
[2017-12-11] MEDS: GABAPENTIN 300 MG CAP PO SCH ×2 (08:20→20:00)
[2017-12-11] MEDS: APIXABAN 2.5 MG TABLET PO SCH ×2 (08:20→19:59)
[2017-12-11] MEDS: METOPROLOL TAR 50 MG TAB PO SCH ×2 (08:21→19:59)
[2017-12-11] MEDS: HYDRALAZINE HCL 10 MG TABLET PO SCH ×3 (08:22→20:57)
[2017-12-11] MEDS: ENSURE HIGH PROTEIN 237 ML CAN PO SCH (08:23)
[2017-12-11] MEDS: HYDROCODONE/APAP 5/325 MG TAB PO PRN ×3 (09:25→22:04)
--- NOTE | 2017-12-11 10:54 | FAST ---
SHIFT START DATE/TIME: 12/11/2017 07:00 (CDT) SHIFT END DATE/TIME: 12/11/2017 19:00 (CDT) NAME LYNN GERARDO DATE OF : 1935 DATE OF ADMISSION: 12/02/2017 17:22 (CDT) PHONE: AGE: 82 N# [id number] GENDER: Female ENCOUNTER PHYSICIAN: Dr. Dmoinick Villareal M.D. ADMISSION DIAGNOSIS: - Orthopaedic Disorders 08 - Unilateral Hip Fracture (08.11) Right intertrochanteric femur fx. EATING: EATING - STEP 1: Does the patient require assistance when eating? Yes. EATING - STEP 2: Does the patient require the assistance of a helper? No, patient only requires an assistive device, O R s/he takes more than reasonable time to eat, OR there is a safety concern, OR s/he requires modifie d food consistency EATING - SCORE: 6-FRANCES GROOMING: Comb/brush hair Oral care Wash, rinse, and dry face Wash, rinse, and dry hands GROOMING - STEP 1: Does the patient require assistance when grooming? Yes. GROOMING - STEP 2: Does the patient require the assistance of a helper? No. The patient only requires an assistive devic e, OR takes more than reasonable time to groom, OR there is a concern for safety as the patient groom s GROOMING - SCORE: 6-FRANCES BATHING: Activity did not occur on this shift BATHING - SCORE: 0-UNK DRESSING - UPPER BODY: Bra (three steps) Sweater (four steps) ARTICLES SCORE Total number of steps: 7 DRESSING - UPPER BODY - STEP 1: Does the patient require help when dressing above the waist? Yes. DRESSING - UPPER BODY - STEP 2: Does the patient require the assistance of a helper? Yes. DRESSING - UPPER BODY - STEP 3: Does the helper touch the patient while dressing? Yes. DRESSING - UPPER BODY - STEP 4: How many of the total steps does the patient complete on his/her own? 7 DRESSING - UPPER BODY - SCORE: 4-MIN DRESSING - LOWER BODY: Elastic waist pants (three steps) Slip-on shoe - Left foot (one step) Slip-on shoe - Right foot (one step) Sock - Left foot (one step) Sock - Right foot (one step) Underwear (three steps) ARTICLES SCORE Total number of steps: 10 DRESSING - LOWER BODY - STEP 1: Does the patient require help when dressing below the waist? Yes. DRESSING - LOWER BODY - STEP 2: Does the patient require the assistance of a helper? Yes. DRESSING - LOWER BODY - STEP 3: Does the helper touch the patient while dressing? No. DRESSING - LOWER BODY - SCORE: 5-SUP TOILETING: TOILETING - STEP 1: Does the patient require assistance with toileting? Yes. TOILETING - STEP 2: Does the patient require the assistance of a helper? Yes. TOILETING - STEP 3: How much assistance does the patient require from the helper? Hands-on assistance from the helper TOILETING - STEP 4: Of the 3 tasks: 1) Adjusting clothing prior to use, 2) Cleansing of perineal area, 3) Adjusting clot haley after use; How many tasks does the patient perform WITHOUT assistance of the helper? Two tasks TOILETING - SCORE: 3-MOD BLADDER MANAGEMENT: BLADDER MANAGEMENT - STEP 1: Does the patient control the bladder completely and intentionally without equipment or devices or med ications, and is always continent? No. BLADDER MANAGEMENT - STEP 2: Does the patient require the assistance of a helper? No, patient requires and independently uses an a ssistive device, such as a urinal, bedpan, bedside commode, catheter, absorbent pad, or collecting de vice BLADDER MANAGEMENT - SCORE: 6-FRANCES BOWEL MANAGEMENT: BOWEL MANAGEMENT - STEP 1: Does the patient control bowels completely and intentionally without equipment devices or medications AND is always continent? No. BOWEL MANAGEMENT - STEP 2: Does the patient require the assistance of a helper? No, patient requires and manages independently a n assistive device such as a bedpan, bedside commode, absorbent pad, incontinent device, or collectin g device BOWEL MANAGEMENT - SCORE: 6-FRANCES TRANSFERS: BED, CHAIR, WHEELCHAIR: TRANSFERS: BED, CHAIR, WHEELCHAIR - STEP 1: Does the patient require assistance with bed, chair, or wheelchair transfers? Yes. TRANSFERS: BED, CHAIR, WHEELCHAIR - STEP 2: Does the patient require the assistance of a helper? No. Patient only requires an assistive device fo r bed, chair, wheelchair transfers such as a sliding board, grab bar, or brace, OR s/he takes more th an reasonable time, OR there is a safety concern when s/he performs the transfers TRANSFERS: BED, CHAIR, WHEELCHAIR - SCORE: 6-FRANCES TRANSFERS: TOILET: TRANSFERS: TOILET - STEP 1: Does the patient require assistance with toilet transfers? Yes. TRANSFERS: TOILET - STEP 2: Does the patient require the assistance of a helper? No. Patient only requires an assistive device albright ch as a grab bar or special seat, OR s/he takes more than reasonable time to perform toilet transfers , OR there is a safety concern when s/he performs toilet transfers. TRANSFERS: TOILET - SCORE: 6-FRANCES TRANSFERS: SHOWER: Activity did not occur on this shift TRANSFERS: SHOWER - SCORE: 0-UNK TRANSFERS: TUB: Activity did not occur on this shift TRANSFERS: TUB - SCORE: 0-UNK LOCOMOTION: WALK: Activity did not occur on this shift LOCOMOTION: WALK - SCORE: 0-UNK LOCOMOTION: WHEELCHAIR: Activity did not occur on this shift LOCOMOTION: WHEELCHAIR - SCORE: 0-UNK COMPREHENSION: COMPREHENSION - SCORE: 0-UNK EXPRESSION EXPRESSION - SCORE: 0-UNK SOCIAL INTERACTION: SOCIAL INTERACTION - SCORE: 0-UNK PROBLEM SOLVING: PROBLEM SOLVING - SCORE: 0-UNK MEMORY: MEMORY - SCORE: 0-UNK SIGNATURE PANEL: The following modified sections: Eating - Score, Grooming - Score, Bathing - Score, Dressing - Upper Body - Score, Dressing - Lower Body - Score, Toileting - Score, Bladder Management - Score, Bowel Man agement - Score, Transfers: Bed, Chair, Wheelchair - Score, Transfers: Toilet - Score, Transfers: Chelo wer - Score, Transfers: Tub - Score, Locomotion: Walk - Score, Locomotion: Wheelchair - Score, Compre hension - Score, Expression - Score, Social Interaction - Score, Problem Solving - Score, Memory - Sc ore were [electronically] signed by Matti Uribe on Sat Dec 11 2017 09:56:35 GMT-0500 (Central Daylight Time)
--- NOTE | 2017-12-11 14:42 | FAST ---
ENCOUNTER DATE AND TIME: 12/10/2017 08:00 (CDT) NAME LYNN GERARDO DATE OF : 1935 DATE OF ADMISSION: 12/02/2017 17:22 (CDT) PHONE: AGE: 82 N# [id number] GENDER: Female ENCOUNTER PHYSICIAN: Dr. Dominick Villareal M.D. ADMISSION DIAGNOSIS: - Orthopaedic Disorders 08 - Unilateral Hip Fracture (08.11) Right intertrochanteric femur fx. EATING: Activity did not occur on this shift EATING - SCORE: 0-UNK GROOMING: Activity did not occur on this shift GROOMING - SCORE: 0-UNK BATHING: Activity did not occur on this shift BATHING - SCORE: 0-UNK DRESSING - UPPER BODY: Activity did not occur on this shift Patient is not dressing in public clothing ARTICLES SCORE Total number of steps: 0 DRESSING - UPPER BODY - SCORE: 0-UNK DRESSING - LOWER BODY: Activity did not occur on this shift Patient is not dressing in public clothing ARTICLES SCORE Total number of steps: 0 DRESSING - LOWER BODY - SCORE: 0-UNK TOILETING: Activity did not occur on this shift TOILETING - SCORE: 0-UNK BLADDER MANAGEMENT: Activity did not occur on this shift BLADDER MANAGEMENT - SCORE: 7-IND BOWEL MANAGEMENT: Activity did not occur on this shift BOWEL MANAGEMENT - SCORE: 7-IND TRANSFERS: BED, CHAIR, WHEELCHAIR: TRANSFERS: BED, CHAIR, WHEELCHAIR - STEP 1: Does the patient require assistance with bed, chair, or wheelchair transfers? Yes. TRANSFERS: BED, CHAIR, WHEELCHAIR - STEP 2: Does the patient require the assistance of a helper? No. Patient only requires an assistive device fo r bed, chair, wheelchair transfers such as a sliding board, grab bar, or brace, OR s/he takes more th an reasonable time, OR there is a safety concern when s/he performs the transfers TRANSFERS: BED, CHAIR, WHEELCHAIR - SCORE: 6-FRANCES TRANSFERS: TOILET: Activity did not occur on this shift TRANSFERS: TOILET - SCORE: 0-UNK TRANSFERS: SHOWER: Activity did not occur on this shift TRANSFERS: SHOWER - SCORE: 0-UNK TRANSFERS: TUB: Activity did not occur on this shift TRANSFERS: TUB - SCORE: 0-UNK LOCOMOTION: WALK: LOCOMOTION: WALK - STEP 1: Does the patient need help to walk 150 feet? No. LOCOMOTION: WALK - STEP 2: Does the patient need an assistive device (such as an orthosis, prosthesis, crutches, or walker) to g o 150 feet, OR does s/he take more than reasonable time, OR is there a concern for safety? Yes, the p atient needs an assistive device LOCOMOTION: WALK - SCORE: 6-FRANCES LOCOMOTION: WHEELCHAIR: LOCOMOTION: WHEELCHAIR - STEP 1: Does the patient need help to go 150 feet in a wheelchair? No. LOCOMOTION: WHEELCHAIR - SCORE: 6-FRANCES LOCOMOTION: STAIRS: LOCOMOTION: STAIRS - STEP 1: Does the patient need help to go up and down 12 to 14 stairs? No. LOCOMOTION: STAIRS - STEP 2: Does the patient require an assistive device - such as handrails or cane - to go up and down one flig ht of stairs, OR does s/he take more than reasonable time, OR is there a concern for safety? Yes, the patient requires an assistive device LOCOMOTION: STAIRS - SCORE: 6-FRANCES COMPREHENSION: COMPREHENSION - SCORE: 0-UNK EXPRESSION EXPRESSION - SCORE: 0-UNK SOCIAL INTERACTION: SOCIAL INTERACTION - SCORE: 0-UNK PROBLEM SOLVING: PROBLEM SOLVING - SCORE: 0-UNK MEMORY: MEMORY - SCORE: 0-UNK SIGNATURE PANEL: The following modified sections: Transfers: Bed, Chair, Wheelchair - Score, Transfers: Toilet - Score , Locomotion: Walk - Score, Locomotion: Wheelchair - Score, Locomotion: Stairs - Score were [electron christina] signed by Jose Jackson PTA on Sat Dec 11 2017 13:44:43 GMT-0500 (Central Daylight Time)
[2017-12-11] MEDS: cloNIDine HCl 0.1 MG TAB PO PRN (15:21)
[2017-12-11] MEDS: DOCUSATE NA/SENNA CONC 1 TAB PO SCH (20:00)
[2017-12-11] MEDS: LISINOPRIL 5 MG TAB PO SCH (20:57)
--- NOTE | 2017-12-12 02:51 | FAST ---
SHIFT START DATE/TIME: 12/11/2017 19:00 (CDT) SHIFT END DATE/TIME: 12/12/2017 07:00 (CDT) NAME LYNN GERARDO DATE OF : 1935 DATE OF ADMISSION: 12/02/2017 17:22 (CDT) PHONE: AGE: 82 N# [id number] GENDER: Female ENCOUNTER PHYSICIAN: Dr. Dominick Villareal M.D. ADMISSION DIAGNOSIS: - Orthopaedic Disorders 08 - Unilateral Hip Fracture (08.11) Right intertrochanteric femur fx. EATING: EATING - STEP 1: Does the patient require assistance when eating? Yes. EATING - STEP 2: Does the patient require the assistance of a helper? No, patient only requires an assistive device, O R s/he takes more than reasonable time to eat, OR there is a safety concern, OR s/he requires modifie d food consistency EATING - SCORE: 6-FRANCES GROOMING: Comb/brush hair Oral care Wash, rinse, and dry face Wash, rinse, and dry hands GROOMING - STEP 1: Does the patient require assistance when grooming? Yes. GROOMING - STEP 2: Does the patient require the assistance of a helper? No. The patient only requires an assistive devic e, OR takes more than reasonable time to groom, OR there is a concern for safety as the patient groom s GROOMING - SCORE: 6-FRANCES BATHING: Activity did not occur on this shift BATHING - SCORE: 0-UNK DRESSING - UPPER BODY: Patient is not dressing in public clothing ARTICLES SCORE Total number of steps: 0 DRESSING - UPPER BODY - SCORE: 0-UNK DRESSING - LOWER BODY: Patient is not dressing in public clothing ARTICLES SCORE Total number of steps: 0 DRESSING - LOWER BODY - SCORE: 0-UNK TOILETING: TOILETING - STEP 1: Does the patient require assistance with toileting? Yes. TOILETING - STEP 2: Does the patient require the assistance of a helper? No. TOILETING - SCORE: 6-FRANCES BLADDER MANAGEMENT: BLADDER MANAGEMENT - STEP 1: Does the patient control the bladder completely and intentionally without equipment or devices or med ications, and is always continent? No. BLADDER MANAGEMENT - STEP 2: Does the patient require the assistance of a helper? No, patient requires and independently uses an a ssistive device, such as a urinal, bedpan, bedside commode, catheter, absorbent pad, or collecting de vice BLADDER MANAGEMENT - SCORE: 6-FRANCES BLADDER MANAGEMENT - FREQUENCY OF ACCIDENTS: BLADDER MANAGEMENT(FA) - STEP 1: How many accidents has the patient had during the current shift? 0 BOWEL MANAGEMENT: BOWEL MANAGEMENT - STEP 1: Does the patient control bowels completely and intentionally without equipment devices or medications AND is always continent? No. BOWEL MANAGEMENT - STEP 2: Does the patient require the assistance of a helper? No, patient requires and manages independently a n assistive device such as a bedpan, bedside commode, absorbent pad, incontinent device, or collectin g device BOWEL MANAGEMENT - SCORE: 6-FRANCES BOWEL MANAGEMENT - FREQUENCY OF ACCIDENTS: BOWEL MANAGEMENT(FA) - STEP 1: How many accidents has the patient had during the current shift? 0 TRANSFERS: BED, CHAIR, WHEELCHAIR: TRANSFERS: BED, CHAIR, WHEELCHAIR - STEP 1: Does the patient require assistance with bed, chair, or wheelchair transfers? Yes. TRANSFERS: BED, CHAIR, WHEELCHAIR - STEP 2: Does the patient require the assistance of a helper? No. Patient only requires an assistive device fo r bed, chair, wheelchair transfers such as a sliding board, grab bar, or brace, OR s/he takes more th an reasonable time, OR there is a safety concern when s/he performs the transfers TRANSFERS: BED, CHAIR, WHEELCHAIR - SCORE: 6-FRANCES TRANSFERS: TOILET: TRANSFERS: TOILET - STEP 1: Does the patient require assistance with toilet transfers? Yes. TRANSFERS: TOILET - STEP 2: Does the patient require the assistance of a helper? No. Patient only requires an assistive device albright ch as a grab bar or special seat, OR s/he takes more than reasonable time to perform toilet transfers , OR there is a safety concern when s/he performs toilet transfers. TRANSFERS: TOILET - SCORE: 6-FRANCES TRANSFERS: SHOWER: Activity did not occur on this shift TRANSFERS: SHOWER - SCORE: 0-UNK TRANSFERS: TUB: Activity did not occur on this shift TRANSFERS: TUB - SCORE: 0-UNK LOCOMOTION: WALK: Activity did not occur on this shift LOCOMOTION: WALK - SCORE: 0-UNK LOCOMOTION: WHEELCHAIR: Activity did not occur on this shift LOCOMOTION: WHEELCHAIR - SCORE: 0-UNK COMPREHENSION: COMPREHENSION: TYPE: Both COMPREHENSION - STEP 1: Does the patient require help to understand complex and abstract ideas (such as current events, finan sherlyn, discharge planning, medical issues, relationships, etc)? No. COMPREHENSION - STEP 2: Does the patient need extra time, require an assistive device (such as glasses, hearing aids, or an a ugmentative communication system), OR does s/he have mild difficulty expressing complex and abstract ideas (including mild dysarthria or mild word-finding problems)? Yes. COMPREHENSION - SCORE: 6-FRANCES EXPRESSION EXPRESSION: TYPE: Both EXPRESSION - STEP 1: Does the patient require help expressing complex and abstract ideas (such as current events, finances , discharge planning, medical issues, relationships, etc)? No. EXPRESSION - STEP 2: Does the patient need extra time, require an assistive device (such as augmentive communication syste m or a communication board), OR does s/he have mild difficulty expressing complex and abstract ideas (including mild dysarthria or mild word-find problems)? No. EXPRESSION - SCORE: 7-IND SOCIAL INTERACTION: SOCIAL INTERACTION - STEP 1: Does the patient require a helper to interact with others in social and therapeutic situations? No. SOCIAL INTERACTION - STEP 2: Does the patient need extra time in social situations, OR does s/he interact with staff, other patien ts, and family members ONLY in structured environments, OR does s/he require medication for social in teraction? No. SOCIAL INTERACTION - SCORE: 7-IND PROBLEM SOLVING: PROBLEM SOLVING - STEP 1: Does the patient need help to solve complex problems such as managing a checking account or confronti ng interpersonal problems? No. PROBLEM SOLVING - STEP 2: Does the patient require extra time to make decisions or solve problems, OR does s/he have slight dif ficulty reading, initiating, or self-correcting in unfamiliar situations? Yes, patient has slight dif ficulty reading, initiating, or self-correcting in unfamiliar situations. PROBLEM SOLVING - SCORE: 6-FRANCES MEMORY: MEMORY - STEP 1: Does the patient need help to remember frequently encountered people, daily routines, and executing r equests? No. MEMORY - STEP 2: Does the patient have slight difficulty recognizing frequently encountered people, daily routines, or executing requests without the need for repetition or using self-initiated or environmental cues to remember? No. MEMORY - SCORE: 7-IND SIGNATURE PANEL: The following modified sections: Eating - Score, Grooming - Score, Bathing - Score, Dressing - Upper Body - Score, Dressing - Lower Body - Score, Toileting - Score, Bladder Management - Score, Bowel Man agement - Score, Transfers: Bed, Chair, Wheelchair - Score, Transfers: Toilet - Score, Transfers: Chelo wer - Score, Transfers: Tub - Score, Locomotion: Walk - Score, Locomotion: Wheelchair - Score, Compre hension - Score, Expression - Score, Social Interaction - Score, Problem Solving - Score, Memory - Sc ore were [electronically] signed by Leila Nieto C.N.Denise on WedDec 12 2017 01:53:41 T-0500 ( Central Daylight Time)
[2017-12-12] MEDS: CRANBERRY FRUIT EXTRACT 200 MG CAP PO SCH ×2 (08:12→19:41)
[2017-12-12] MEDS: HYDRALAZINE HCL 10 MG TABLET PO SCH ×3 (08:12→20:59)
[2017-12-12] MEDS: DOCUSATE NA 100 MG CAP PO SCH (08:12)
[2017-12-12] MEDS: METOPROLOL TAR 50 MG TAB PO SCH ×2 (08:13→19:41)
[2017-12-12] MEDS: GABAPENTIN 300 MG CAP PO SCH ×3 (08:13→20:58)
[2017-12-12] MEDS: APIXABAN 2.5 MG TABLET PO SCH ×2 (08:13→19:41)
[2017-12-12] MEDS: CARBAMAZEPINE 200 MG TAB PO SCH ×2 (08:14→19:41)
[2017-12-12] MEDS: MULTIVITAMIN TAB PO SCH (08:14)
[2017-12-12] MEDS: POLYETHYL GLY 3350 17 GM/DOSE PO PRN (08:14)
[2017-12-12] MEDS: ASPIRIN 81 MG CHEWABLE TABLET PO SCH (08:14)
[2017-12-12] MEDS: HYDROCODONE/APAP 5/325 MG TAB PO PRN ×2 (08:15→22:04)
[2017-12-12] MEDS: ENSURE HIGH PROTEIN 237 ML CAN PO SCH (08:17)
[2017-12-12] MEDS: cloNIDine HCl 0.1 MG TAB PO PRN (09:16)
--- NOTE | 2017-12-12 13:19 | FAST ---
SHIFT START DATE/TIME: 12/12/2017 07:00 (CDT) SHIFT END DATE/TIME: 12/12/2017 19:00 (CDT) NAME LYNN GERARDO DATE OF : 1935 DATE OF ADMISSION: 12/02/2017 17:22 (CDT) PHONE: AGE: 82 N# [id number] GENDER: Female ENCOUNTER PHYSICIAN: Dr. Dominick Villareal M.D. ADMISSION DIAGNOSIS: - Orthopaedic Disorders 08 - Unilateral Hip Fracture (.) Right intertrochanteric femur fx. EATING: EATING - STEP 1: Does the patient require assistance when eating? Yes. EATING - STEP 2: Does the patient require the assistance of a helper? No, patient only requires an assistive device, O R s/he takes more than reasonable time to eat, OR there is a safety concern, OR s/he requires modifie d food consistency EATING - SCORE: 6-FRANCES GROOMING: Comb/brush hair Oral care Wash, rinse, and dry face Wash, rinse, and dry hands GROOMING - STEP 1: Does the patient require assistance when grooming? Yes. GROOMING - STEP 2: Does the patient require the assistance of a helper? No. The patient only requires an assistive devic e, OR takes more than reasonable time to groom, OR there is a concern for safety as the patient groom s GROOMING - SCORE: 6-FRANCES BATHING: Activity did not occur on this shift BATHING - SCORE: 0-UNK DRESSING - UPPER BODY: Bra (three steps) T-shirt/pullover shirt (four steps) ARTICLES SCORE Total number of steps: 7 DRESSING - UPPER BODY - STEP 1: Does the patient require help when dressing above the waist? Yes. DRESSING - UPPER BODY - STEP 2: Does the patient require the assistance of a helper? No. Patient only requires an assistive device, s uch as a button hook, velcro, or commercial or institutional cleaner. OR s/he takes more than reasonable time as s/he dresses the upper body. OR there is a concern for safety when s/he dresses the upper body DRESSING - UPPER BODY - SCORE: 6-FRANCES DRESSING - LOWER BODY: Elastic waist pants (three steps) Underwear (three steps) ARTICLES SCORE Total number of steps: 6 DRESSING - LOWER BODY - STEP 1: Does the patient require help when dressing below the waist? Yes. DRESSING - LOWER BODY - STEP 2: Does the patient require the assistance of a helper? No. Patient requires an assistive device such as a commercial or institutional cleaner. OR s/he takes more than reasonable time as s/he dresses the lower body, OR there is a con cern for safety when s/he dresses the lower body DRESSING - LOWER BODY - SCORE: 6-FRANCES TOILETING: TOILETING - STEP 1: Does the patient require assistance with toileting? Yes. TOILETING - STEP 2: Does the patient require the assistance of a helper? No. TOILETING - SCORE: 6-FRANCES BLADDER MANAGEMENT: BLADDER MANAGEMENT - STEP 1: Does the patient control the bladder completely and intentionally without equipment or devices or med ications, and is always continent? Yes. BLADDER MANAGEMENT - SCORE: 7-IND BOWEL MANAGEMENT: Activity did not occur on this shift BOWEL MANAGEMENT - SCORE: 7-IND TRANSFERS: BED, CHAIR, WHEELCHAIR: TRANSFERS: BED, CHAIR, WHEELCHAIR - STEP 1: Does the patient require assistance with bed, chair, or wheelchair transfers? Yes. TRANSFERS: BED, CHAIR, WHEELCHAIR - STEP 2: Does the patient require the assistance of a helper? No. Patient only requires an assistive device fo r bed, chair, wheelchair transfers such as a sliding board, grab bar, or brace, OR s/he takes more th an reasonable time, OR there is a safety concern when s/he performs the transfers TRANSFERS: BED, CHAIR, WHEELCHAIR - SCORE: 6-FRANCES TRANSFERS: TOILET: TRANSFERS: TOILET - STEP 1: Does the patient require assistance with toilet transfers? Yes. TRANSFERS: TOILET - STEP 2: Does the patient require the assistance of a helper? No. Patient only requires an assistive device albright ch as a grab bar or special seat, OR s/he takes more than reasonable time to perform toilet transfers , OR there is a safety concern when s/he performs toilet transfers. TRANSFERS: TOILET - SCORE: 6-FRANCES TRANSFERS: SHOWER: Activity did not occur on this shift TRANSFERS: SHOWER - SCORE: 0-UNK TRANSFERS: TUB: Activity did not occur on this shift TRANSFERS: TUB - SCORE: 0-UNK LOCOMOTION: WALK: Activity did not occur on this shift LOCOMOTION: WALK - SCORE: 0-UNK LOCOMOTION: WHEELCHAIR: Activity did not occur on this shift LOCOMOTION: WHEELCHAIR - SCORE: 0-UNK COMPREHENSION: COMPREHENSION - STEP 1: Does the patient require help to understand complex and abstract ideas (such as current events, finan sherlyn, discharge planning, medical issues, relationships, etc)? No. COMPREHENSION - STEP 2: Does the patient need extra time, require an assistive device (such as glasses, hearing aids, or an a ugmentative communication system), OR does s/he have mild difficulty expressing complex and abstract ideas (including mild dysarthria or mild word-finding problems)? Yes. COMPREHENSION - SCORE: 6-FRANCES EXPRESSION EXPRESSION - STEP 1: Does the patient require help expressing complex and abstract ideas (such as current events, finances , discharge planning, medical issues, relationships, etc)? No. EXPRESSION - STEP 2: Does the patient need extra time, require an assistive device (such as augmentive communication syste m or a communication board), OR does s/he have mild difficulty expressing complex and abstract ideas (including mild dysarthria or mild word-find problems)? Yes. EXPRESSION - SCORE: 6-FRANCES SOCIAL INTERACTION: SOCIAL INTERACTION - STEP 1: Does the patient require a helper to interact with others in social and therapeutic situations? No. SOCIAL INTERACTION - STEP 2: Does the patient need extra time in social situations, OR does s/he interact with staff, other patien ts, and family members ONLY in structured environments, OR does s/he require medication for social in teraction? No. SOCIAL INTERACTION - SCORE: 7-IND PROBLEM SOLVING: PROBLEM SOLVING - STEP 1: Does the patient need help to solve complex problems such as managing a checking account or confronti ng interpersonal problems? No. PROBLEM SOLVING - STEP 2: Does the patient require extra time to make decisions or solve problems, OR does s/he have slight dif ficulty reading, initiating, or self-correcting in unfamiliar situations? No. PROBLEM SOLVING - SCORE: 7-IND MEMORY: MEMORY - STEP 1: Does the patient need help to remember frequently encountered people, daily routines, and executing r equests? No. MEMORY - STEP 2: Does the patient have slight difficulty recognizing frequently encountered people, daily routines, or executing requests without the need for repetition or using self-initiated or environmental cues to remember? No. MEMORY - SCORE: 7-IND SIGNATURE PANEL: The following modified sections: Eating - Score, Grooming - Score, Bathing - Score, Dressing - Upper Body - Score, Dressing - Lower Body - Score, Toileting - Score, Bladder Management - Score, Bowel Man agement - Score, Transfers: Bed, Chair, Wheelchair - Score, Transfers: Toilet - Score, Transfers: Chelo wer - Score, Transfers: Tub - Score, Locomotion: Walk - Score, Locomotion: Wheelchair - Score, Compre hension - Score, Expression - Score, Social Interaction - Score, Problem Solving - Score, Memory - Sc ore were [electronically] signed by Matti Uribe on WedDec 12 2017 12:21:05 GMT-0500 (Central Daylight Time)
[2017-12-12] MEDS: DOCUSATE NA/SENNA CONC 1 TAB PO SCH (20:58)
[2017-12-12] MEDS: LISINOPRIL 5 MG TAB PO SCH (20:59)
[2017-12-13] MEDS: ENSURE HIGH PROTEIN 237 ML CAN PO SCH (08:00)
[2017-12-13] MEDS: HYDRALAZINE HCL 10 MG TABLET PO SCH ×3 (08:51→20:17)
[2017-12-13] MEDS: CARBAMAZEPINE 200 MG TAB PO SCH ×2 (08:51→20:16)
[2017-12-13] MEDS: CRANBERRY FRUIT EXTRACT 200 MG CAP PO SCH ×2 (08:51→20:15)
[2017-12-13] MEDS: APIXABAN 2.5 MG TABLET PO SCH ×2 (08:51→20:16)
[2017-12-13] MEDS: BISACODYL E.C. 5 MG TAB PO PRN (08:51)
[2017-12-13] MEDS: GABAPENTIN 300 MG CAP PO SCH ×3 (08:51→20:14)
[2017-12-13] MEDS: METOPROLOL TAR 50 MG TAB PO SCH ×2 (08:51→20:15)
[2017-12-13] MEDS: MULTIVITAMIN TAB PO SCH (08:52)
[2017-12-13] MEDS: ASPIRIN 81 MG CHEWABLE TABLET PO SCH (08:52)
[2017-12-13] MEDS: DOCUSATE NA 100 MG CAP PO SCH (08:52)
[2017-12-13] MEDS: HYDROCODONE/APAP 5/325 MG TAB PO PRN ×2 (08:57→14:31)
[2017-12-13] MEDS: POLYETHYL GLY 3350 17 GM/DOSE PO PRN (08:58)
--- NOTE | 2017-12-13 14:36 | FAST ---
SHIFT START DATE/TIME: 12/13/2017 07:00 (CDT) SHIFT END DATE/TIME: 12/13/2017 19:00 (CDT) NAME LYNN GERARDO DATE OF : 1935 DATE OF ADMISSION: 12/02/2017 17:22 (CDT) PHONE: AGE: 82 N# [id number] GENDER: Female ENCOUNTER PHYSICIAN: Dr. Dominick Villareal M.D. ADMISSION DIAGNOSIS: - Orthopaedic Disorders 08 - Unilateral Hip Fracture (08.11) Right intertrochanteric femur fx. EATING: EATING - STEP 1: Does the patient require assistance when eating? Yes. EATING - STEP 2: Does the patient require the assistance of a helper? No, patient only requires an assistive device, O R s/he takes more than reasonable time to eat, OR there is a safety concern, OR s/he requires modifie d food consistency EATING - SCORE: 6-FRANCES GROOMING: Comb/brush hair Oral care Wash, rinse, and dry face Wash, rinse, and dry hands GROOMING - STEP 1: Does the patient require assistance when grooming? Yes. GROOMING - STEP 2: Does the patient require the assistance of a helper? No. The patient only requires an assistive devic e, OR takes more than reasonable time to groom, OR there is a concern for safety as the patient groom s GROOMING - SCORE: 6-FRANCES BATHING: Activity did not occur on this shift BATHING - SCORE: 0-UNK DRESSING - UPPER BODY: Bra (three steps) T-shirt/pullover shirt (four steps) ARTICLES SCORE Total number of steps: 7 DRESSING - UPPER BODY - STEP 1: Does the patient require help when dressing above the waist? Yes. DRESSING - UPPER BODY - STEP 2: Does the patient require the assistance of a helper? No. Patient only requires an assistive device, s uch as a button hook, velcro, or software qa system specialist. OR s/he takes more than reasonable time as s/he dresses the upper body. OR there is a concern for safety when s/he dresses the upper body DRESSING - UPPER BODY - SCORE: 6-FRANCES DRESSING - LOWER BODY: Elastic waist pants (three steps) Slip-on shoe - Left foot (one step) Slip-on shoe - Right foot (one step) Tied or buckled shoe - Left foot (two steps) Tied or buckled shoe - Right foot (two steps) Underwear (three steps) ARTICLES SCORE Total number of steps: 12 DRESSING - LOWER BODY - STEP 1: Does the patient require help when dressing below the waist? Yes. DRESSING - LOWER BODY - STEP 2: Does the patient require the assistance of a helper? No. Patient requires an assistive device such as a software qa system specialist. OR s/he takes more than reasonable time as s/he dresses the lower body, OR there is a con cern for safety when s/he dresses the lower body DRESSING - LOWER BODY - SCORE: 6-FRANCES TOILETING: TOILETING - STEP 1: Does the patient require assistance with toileting? Yes. TOILETING - STEP 2: Does the patient require the assistance of a helper? No. TOILETING - SCORE: 6-FRANCES BLADDER MANAGEMENT: BLADDER MANAGEMENT - STEP 1: Does the patient control the bladder completely and intentionally without equipment or devices or med ications, and is always continent? No. BLADDER MANAGEMENT - STEP 2: Does the patient require the assistance of a helper? No, patient requires and independently uses an a ssistive device, such as a urinal, bedpan, bedside commode, catheter, absorbent pad, or collecting de vice BLADDER MANAGEMENT - SCORE: 6-FRANCES BLADDER MANAGEMENT - FREQUENCY OF ACCIDENTS: BLADDER MANAGEMENT(FA) - STEP 1: How many accidents has the patient had during the current shift? 0 BOWEL MANAGEMENT: BOWEL MANAGEMENT - STEP 1: Does the patient control bowels completely and intentionally without equipment devices or medications AND is always continent? No. BOWEL MANAGEMENT - STEP 2: Does the patient require the assistance of a helper? No, patient requires and manages independently a n assistive device such as a bedpan, bedside commode, absorbent pad, incontinent device, or collectin g device BOWEL MANAGEMENT - SCORE: 6-FRANCES BOWEL MANAGEMENT - FREQUENCY OF ACCIDENTS: BOWEL MANAGEMENT(FA) - STEP 1: How many accidents has the patient had during the current shift? 0 TRANSFERS: BED, CHAIR, WHEELCHAIR: TRANSFERS: BED, CHAIR, WHEELCHAIR - STEP 1: Does the patient require assistance with bed, chair, or wheelchair transfers? Yes. TRANSFERS: BED, CHAIR, WHEELCHAIR - STEP 2: Does the patient require the assistance of a helper? No. Patient only requires an assistive device fo r bed, chair, wheelchair transfers such as a sliding board, grab bar, or brace, OR s/he takes more th an reasonable time, OR there is a safety concern when s/he performs the transfers TRANSFERS: BED, CHAIR, WHEELCHAIR - SCORE: 6-FRANCES TRANSFERS: TOILET: TRANSFERS: TOILET - STEP 1: Does the patient require assistance with toilet transfers? Yes. TRANSFERS: TOILET - STEP 2: Does the patient require the assistance of a helper? No. Patient only requires an assistive device albright ch as a grab bar or special seat, OR s/he takes more than reasonable time to perform toilet transfers , OR there is a safety concern when s/he performs toilet transfers. TRANSFERS: TOILET - SCORE: 6-FRANCES TRANSFERS: SHOWER: Activity did not occur on this shift TRANSFERS: SHOWER - SCORE: 0-UNK TRANSFERS: TUB: Activity did not occur on this shift TRANSFERS: TUB - SCORE: 0-UNK LOCOMOTION: WALK: LOCOMOTION: WALK - STEP 1: Does the patient need help to walk 150 feet? Yes. LOCOMOTION: WALK - STEP 2: How much assistance does the patient require to walk a minimum of 150 feet? Only supervision, cuing, or coaxing LOCOMOTION: WALK - SCORE: 5-SUP LOCOMOTION: WHEELCHAIR: Activity did not occur on this shift LOCOMOTION: WHEELCHAIR - SCORE: 0-UNK COMPREHENSION: COMPREHENSION: TYPE: Both COMPREHENSION - STEP 1: Does the patient require help to understand complex and abstract ideas (such as current events, finan sherlyn, discharge planning, medical issues, relationships, etc)? Yes. COMPREHENSION - STEP 2: Does the patient require help to understand questions or statements about basic needs or ideas (such as hunger, thirst, sleep, safety, daily schedule, room location, or discomfort) half or more of the t [place]? No. COMPREHENSION - STEP 3: How often does the patient need help to understand directions and conversation about basic needs? Les s than 10% of the time COMPREHENSION - SCORE: 5-SUP EXPRESSION EXPRESSION: TYPE: Both EXPRESSION - STEP 1: Does the patient require help expressing complex and abstract ideas (such as current events, finances , discharge planning, medical issues, relationships, etc)? No. EXPRESSION - STEP 2: Does the patient need extra time, require an assistive device (such as augmentive communication syste m or a communication board), OR does s/he have mild difficulty expressing complex and abstract ideas (including mild dysarthria or mild word-find problems)? Yes. EXPRESSION - SCORE: 6-FRANCES SOCIAL INTERACTION: SOCIAL INTERACTION - STEP 1: Does the patient require a helper to interact with others in social and therapeutic situations? No. SOCIAL INTERACTION - STEP 2: Does the patient need extra time in social situations, OR does s/he interact with staff, other patien ts, and family members ONLY in structured environments, OR does s/he require medication for social in teraction? Yes, patient needs extra time SOCIAL INTERACTION - SCORE: 6-FRANCES PROBLEM SOLVING: PROBLEM SOLVING - STEP 1: Does the patient need help to solve complex problems such as managing a checking account or confronti ng interpersonal problems? Yes. PROBLEM SOLVING - STEP 2: Does the patient solve basic routine problems half or more of the time? Yes. PROBLEM SOLVING - STEP 3: How often does the patient need help to solve basic routine problems? Less than 10% of the time PROBLEM SOLVING - SCORE: 5-SUP MEMORY: MEMORY - STEP 1: Does the patient need help to remember frequently encountered people, daily routines, and executing r equests? Yes. MEMORY - STEP 2: How often does the patient need help to remember frequently encountered people, daily routines, and e xecuting requests? Less than 10% of the time MEMORY - SCORE: 5-SUP SIGNATURE PANEL: The following modified sections: Eating - Score, Grooming - Score, Bathing - Score, Dressing - Upper Body - Score, Dressing - Lower Body - Score, Toileting - Score, Bladder Management - Score, Bowel Man agement - Score, Transfers: Bed, Chair, Wheelchair - Score, Transfers: Toilet - Score, Transfers: Chelo wer - Score, Transfers: Tub - Score, Locomotion: Walk - Score, Locomotion: Wheelchair - Score, Compre hension - Score, Expression - Score, Social Interaction - Score, Problem Solving - Score, Memory - Sc ore were [electronically] signed by Evelyn Ryan C.N.A. on WedDec 13 2017 13:38:30 T-0500 (Centra [place] Daylight Time)
--- NOTE | 2017-12-13 16:35 | FAST ---
ENCOUNTER DATE AND TIME: 12/13/2017 08:00 (CDT) NAME LYNN GERARDO DATE OF : 1935 DATE OF ADMISSION: 12/02/2017 17:22 (CDT) PHONE: AGE: 82 [facility]# [id number] GENDER: Female ENCOUNTER PHYSICIAN: Dr. Dominick Villareal M.D. ADMISSION DIAGNOSIS: - Orthopaedic Disorders 08 - Unilateral Hip Fracture (08.11) Right intertrochanteric femur fx. EATING: Activity did not occur on this shift EATING - SCORE: 0-UNK GROOMING: Comb/brush hair Wash, rinse, and dry face Wash, rinse, and dry hands GROOMING - STEP 1: Does the patient require assistance when grooming? No. GROOMING - SCORE: 7-IND BATHING: Abdomen Buttocks Chest Left arm Left lower leg and foot Left upper leg Perineal area Right arm Right lower leg and foot Right upper leg BATHING - STEP 1: Does the patient require assistance when bathing? Yes. BATHING - STEP 2: Does the patient require the assistance of a helper? Yes. BATHING - STEP 3: How much assistance does the patient require from the helper? Only supervision, cuing, coaxing, instr uctions, encouragement BATHING - SCORE: 5-SUP DRESSING - UPPER BODY: T-shirt/pullover shirt (four steps) ARTICLES SCORE Total number of steps: 4 DRESSING - UPPER BODY - STEP 1: Does the patient require help when dressing above the waist? No. DRESSING - UPPER BODY - SCORE: 7-IND DRESSING - LOWER BODY: Elastic waist pants (three steps) Slip-on shoe - Left foot (one step) Slip-on shoe - Right foot (one step) Sock - Left foot (one step) Sock - Right foot (one step) Underwear (three steps) ARTICLES SCORE Total number of steps: 10 DRESSING - LOWER BODY - STEP 1: Does the patient require help when dressing below the waist? Yes. DRESSING - LOWER BODY - STEP 2: Does the patient require the assistance of a helper? Yes. DRESSING - LOWER BODY - STEP 3: Does the helper touch the patient while dressing? No. DRESSING - LOWER BODY - SCORE: 5-SUP TOILETING: Activity did not occur on this shift TOILETING - SCORE: 0-UNK BLADDER MANAGEMENT: Activity did not occur on this shift BLADDER MANAGEMENT - SCORE: 7-IND BOWEL MANAGEMENT: Activity did not occur on this shift BOWEL MANAGEMENT - SCORE: 7-IND TRANSFERS: BED, CHAIR, WHEELCHAIR: Activity did not occur on this shift TRANSFERS: BED, CHAIR, WHEELCHAIR - SCORE: 0-UNK TRANSFERS: TOILET: Activity did not occur on this shift TRANSFERS: TOILET - SCORE: 0-UNK TRANSFERS: SHOWER: TRANSFERS: SHOWER - STEP 1: Does the patient require assistance with shower transfers? Yes. TRANSFERS: SHOWER - STEP 2: Does the patient require the assistance of a helper? Yes. TRANSFERS: SHOWER - STEP 3: How much assistance does the patient require from the helper? Only supervision, cuing, coaxing, or he lp to set out transfer equipment or to lock brakes and/or lift foot rests TRANSFERS: SHOWER - SCORE: 5-SUP TRANSFERS: TUB: Activity did not occur on this shift TRANSFERS: TUB - SCORE: 0-UNK LOCOMOTION: WALK: Activity did not occur on this shift LOCOMOTION: WALK - SCORE: 0-UNK LOCOMOTION: WHEELCHAIR: Activity did not occur on this shift LOCOMOTION: WHEELCHAIR - SCORE: 0-UNK LOCOMOTION: STAIRS: Activity did not occur on this shift LOCOMOTION: STAIRS - SCORE: 0-UNK COMPREHENSION: COMPREHENSION - STEP 1: Does the patient require help to understand complex and abstract ideas (such as current events, finan sherlyn, discharge planning, medical issues, relationships, etc)? No. COMPREHENSION - STEP 2: Does the patient need extra time, require an assistive device (such as glasses, hearing aids, or an a ugmentative communication system), OR does s/he have mild difficulty expressing complex and abstract ideas (including mild dysarthria or mild word-finding problems)? No. COMPREHENSION - SCORE: 7-IND EXPRESSION EXPRESSION: TYPE: Non-Vocal EXPRESSION - STEP 1: Does the patient require help expressing complex and abstract ideas (such as current events, finances , discharge planning, medical issues, relationships, etc)? No. EXPRESSION - STEP 2: Does the patient need extra time, require an assistive device (such as augmentive communication syste m or a communication board), OR does s/he have mild difficulty expressing complex and abstract ideas (including mild dysarthria or mild word-find problems)? No. EXPRESSION - SCORE: 7-IND SOCIAL INTERACTION: SOCIAL INTERACTION - STEP 1: Does the patient require a helper to interact with others in social and therapeutic situations? No. SOCIAL INTERACTION - STEP 2: Does the patient need extra time in social situations, OR does s/he interact with staff, other patien ts, and family members ONLY in structured environments, OR does s/he require medication for social in teraction? No. SOCIAL INTERACTION - SCORE: 7-IND PROBLEM SOLVING: PROBLEM SOLVING - STEP 1: Does the patient need help to solve complex problems such as managing a checking account or confronti ng interpersonal problems? No. PROBLEM SOLVING - STEP 2: Does the patient require extra time to make decisions or solve problems, OR does s/he have slight dif ficulty reading, initiating, or self-correcting in unfamiliar situations? Yes, patient needs extra ti me. PROBLEM SOLVING - SCORE: 6-FRANCES MEMORY: MEMORY - STEP 1: Does the patient need help to remember frequently encountered people, daily routines, and executing r equests? No. MEMORY - STEP 2: Does the patient have slight difficulty recognizing frequently encountered people, daily routines, or executing requests without the need for repetition or using self-initiated or environmental cues to remember? Yes. MEMORY - SCORE: 6-FRANCES SIGNATURE PANEL: The following modified sections: Eating - Score, Grooming - Score, Bathing - Score, Dressing - Upper Body - Score, Dressing - Lower Body - Score, Toileting - Score, Transfers: Bed, Chair, Wheelchair - S core, Transfers: Toilet - Score, Transfers: Shower - Score, Transfers: Tub - Score, Comprehension - S core, Expression - Score, Social Interaction - Score, Problem Solving - Score, Memory - Score were [e lectronically] signed by KANIKA Garcia on WedDec 13 2017 15:37:33 T-0500 ([facility] Time)
--- NOTE | 2017-12-13 17:25 | FAST ---
ENCOUNTER DATE AND TIME: 12/13/2017 08:00 (CDT) NAME LYNN GERARDO DATE OF : 1935 DATE OF ADMISSION: 12/02/2017 17:22 (CDT) PHONE: AGE: 82 N# [id number] GENDER: Female ENCOUNTER PHYSICIAN: Dr. Dominick Villareal M.D. ADMISSION DIAGNOSIS: - Orthopaedic Disorders 08 - Unilateral Hip Fracture (08.11) Right intertrochanteric femur fx. EATING: Activity did not occur on this shift EATING - SCORE: 0-UNK GROOMING: Activity did not occur on this shift GROOMING - SCORE: 0-UNK BATHING: Activity did not occur on this shift BATHING - SCORE: 0-UNK DRESSING - UPPER BODY: Activity did not occur on this shift Patient is not dressing in public clothing ARTICLES SCORE Total number of steps: 0 DRESSING - UPPER BODY - SCORE: 0-UNK DRESSING - LOWER BODY: Activity did not occur on this shift Patient is not dressing in public clothing ARTICLES SCORE Total number of steps: 0 DRESSING - LOWER BODY - SCORE: 0-UNK TOILETING: Activity did not occur on this shift TOILETING - SCORE: 0-UNK BLADDER MANAGEMENT: Activity did not occur on this shift BLADDER MANAGEMENT - SCORE: 7-IND BOWEL MANAGEMENT: Activity did not occur on this shift BOWEL MANAGEMENT - SCORE: 7-IND TRANSFERS: BED, CHAIR, WHEELCHAIR: TRANSFERS: BED, CHAIR, WHEELCHAIR - STEP 1: Does the patient require assistance with bed, chair, or wheelchair transfers? Yes. TRANSFERS: BED, CHAIR, WHEELCHAIR - STEP 2: Does the patient require the assistance of a helper? No. Patient only requires an assistive device fo r bed, chair, wheelchair transfers such as a sliding board, grab bar, or brace, OR s/he takes more th an reasonable time, OR there is a safety concern when s/he performs the transfers TRANSFERS: BED, CHAIR, WHEELCHAIR - SCORE: 6-FRANCES TRANSFERS: TOILET: Activity did not occur on this shift TRANSFERS: TOILET - SCORE: 0-UNK TRANSFERS: SHOWER: Activity did not occur on this shift TRANSFERS: SHOWER - SCORE: 0-UNK TRANSFERS: TUB: Activity did not occur on this shift TRANSFERS: TUB - SCORE: 0-UNK LOCOMOTION: WALK: LOCOMOTION: WALK - STEP 1: Does the patient need help to walk 150 feet? No. LOCOMOTION: WALK - STEP 2: Does the patient need an assistive device (such as an orthosis, prosthesis, crutches, or walker) to g o 150 feet, OR does s/he take more than reasonable time, OR is there a concern for safety? Yes, the p atient needs an assistive device LOCOMOTION: WALK - SCORE: 6-FRANCES LOCOMOTION: WHEELCHAIR: Activity did not occur on this shift LOCOMOTION: WHEELCHAIR - SCORE: 0-UNK LOCOMOTION: STAIRS: LOCOMOTION: STAIRS - STEP 1: Does the patient need help to go up and down 12 to 14 stairs? No. LOCOMOTION: STAIRS - STEP 2: Does the patient require an assistive device - such as handrails or cane - to go up and down one flig ht of stairs, OR does s/he take more than reasonable time, OR is there a concern for safety? Yes, the patient requires an assistive device LOCOMOTION: STAIRS - SCORE: 6-FRANCES COMPREHENSION: COMPREHENSION - SCORE: 0-UNK EXPRESSION EXPRESSION - SCORE: 0-UNK SOCIAL INTERACTION: SOCIAL INTERACTION - SCORE: 0-UNK PROBLEM SOLVING: PROBLEM SOLVING - SCORE: 0-UNK MEMORY: MEMORY - SCORE: 0-UNK SIGNATURE PANEL: The following modified sections: Transfers: Bed, Chair, Wheelchair - Score, Transfers: Toilet - Score , Locomotion: Walk - Score, Locomotion: Wheelchair - Score, Locomotion: Stairs - Score were [electron christina] signed by Maynor Daly PT on WedDec 13 2017 16:27:46 [facility]-0500 (Central Daylight Time)
--- NOTE | 2017-12-13 18:54 | R.PN ---
ENCOUNTER DATE AND TIME: 12/13/2017 17:49 (CDT) NAME LYNN GERARDO DATE OF : 1935 DATE OF ADMISSION: 12/02/2017 17:22 (CDT) Right intertrochanteric femur fxCHIEF COMPLAINT: Right hip fracture SUBJECTIVE: Pt denied any Shortness of Breath. Pt denied any depression. Blood pressures continues to be elevated since admission. Consider increasing prinivil to 5 mg twice daily. Ambulated 750' with modified independence using a rolling walker. Self-propelled wheelchair 200' with modified independence. Up and down 30 steps with modified independence. VITAL SIGNS Temperature: 97.7 F SBP/DBP: 177/77 Pulse: 72 Resp: 20 MEDICATION ALLERGIES: morphine ENVIRONMENTAL ALLERGIES: None Known - Substance Allergies None Known - Other Allergies None Known NURSING: - Shower allowing shower - Skin care per protocol PRECAUTIONS: - Posterior Hip Precaution No adduction across midline No external rotation No hip flexion >90 degrees No internal rotation No wheel chair propulsion - Weight Bearing Precaution WBAT right LE ACTIVITIES OOB only with supervision THERAPIES: - Occupational Therapy Evaluate and Treat. - Physical Therapy Evaluate and Treat. PHYSICAL EXAM - Gen Alert and awake Lying in bed No apparent distress Oriented to: person, time, and place - Vital Signs Elevated blood pressures, afebrile - Skin No skin breakdown. Normacephalic - Eyes No abnormalities - ENMT No abnormalities - Neck No abnormalities - CVS RRR - Chest Clear - Abd Soft - GI Non distended Deferred - No abnormalities - Ext No significant edema - MSK Unremarkable - Neuro No focal deficits - Psych No abnormalities ASSESSMENT: Pt. is a 82 yo Right-handed white female.On 11/27/2017 she was admitted to [facility] and underwent emergency surgery for Right intertrochanteric femur fx (cephalomedullary fixatio n of right intertrochanteric femur fracture ) by Laurie Olivier.Pre-morbidly, Pt. was independent/mod -I in Communication, Social Cognition, Sphincter Control, Self-Care, Locomotion, and Transfers Contro l; and she had good Safety Awareness and Sphincter Control.Currently, she has deficits of Balance, Sp hincter Control, Locomotion, Endurance, Transfers Control, and Self-Care.Pt. is now referred to [facility] for acute in-patient rehabilitation in order to maximize patient's funct ional independence in activities of daily living, strength, ROM, and mobility.- Rehab Goal Patient has realistic goal of being discharged at assistance level 6-Alondra to reside at Home with Fam alex/Relatives. MDM/PLAN: - Anterior Hip Precaution No abduction No active extension No adduction across midline No external rotation No hip flexion >90 degrees No internal rotation - Physical Therapy Decreased range of motion - to improve, our physical therapists will perform initial evaluation of p t's status upon admission and devise an individualized program for increasing patient's Range of Jonathan on. Gait dysfunction - to improve, our physical therapists will perform initial evaluation of pt's statu s upon admission and devise an individualized program for Gait Training, and Wheel Chair mobility Inability to transfer - to improve, our physical therapists will perform initial evaluation of pt's status upon admission and devise an individualized program for Bed mobility Need for home safety evaluation - to improve, our physical therapists will perform initial evaluatio n of pt's status upon admission and devise an individualized program for Home Evaluation Need in caregiver upon discharge - to improve, our physical therapists will perform initial evaluati on of pt's status upon admission and devise an individualized program for Caregiver Training Edema - to improve, our physical therapists will perform initial evaluation of pt's status upon admi ssion and devise an individualized program for Elevation Training, and Lymphedema Therapy New precaution - to improve, our physical therapists will perform initial evaluation of pt's status upon admission and devise an individualized program for Patient precaution education Poor balance - to improve, our physical therapists will perform initial evaluation of pt's status up on admission and devise an individualized program for Balance Training Poor endurance - to improve, our physical therapists will perform initial evaluation of pt's status upon admission and devise an individualized program for Endurance Training Weakness - to improve, our physical therapists will perform initial evaluation of pt's status upon a dmission and devise an individualized program for Aquatic Therapy, Neuromuscular Reeducation, and Str engthening Achieving independence - to improve, our physical therapists will perform initial evaluation of pt's status upon admission and devise an individualized program for Community Reintegration Activities - Diet - Liquid Texture Continue Regular - Tube Feed Continue N/A - Diet Type Continue GI SOFT - Posterior Hip Precaution No adduction across midline No external rotation No hip flexion >90 degrees No internal rotation No wheel chair propulsion - Occupational Therapy ADL deficits - to improve, our occupation therapists will perform initial evaluation of pt's status upon admission and devise an individualized program for Bathing, Bed mobility, Community Reintegratio n, Cooking, Dressing, Eating, Fine Motor Skills, Grooming, Homemaking, Kitchen Mobility, Laundry, Pat ient Education, Safety Awareness, Splinting - Positioning, Transfers(Toilet, Tub, Shower), and Wheel Chair Management Need for special needs caregiver - to improve, our occupation therapists will perform initial evaluation of pt's status upon admission and devise an individualized program for Caregiver Training Weakness - to improve, our occupation therapists will perform initial evaluation of pt's status upon admission and devise an individualized program for Aquatic Therapy, Balance, Endurance, UE ROM, and UE strengthening - Weight Bearing Precaution WBAT right LE - Skin care per protocol - Diet - Solid Texture Continue Regular - Shower allowing shower FUNCTIONAL STATUS: UPDATED AT WEEKLY TEAM CONFERENCE - Bladder Same Bladder control device used: catheter Same Jovel catheter in place; last changed on - Bowel Same accident frequency: 7-Ind - No accidents in the past 7 days - Walking Same assistance level: 1-Dep - Wheelchair Same score based on distance traveled: 0(N/A) FUNCTIONAL STATUS: - Self-Care A. Eating Ind B. Grooming Ind C. Bathing Ind D. Dressing - Upper Ind E. Dressing - Lower maxA F. Toileting Deedee - Sphincter Control G. Bladder control ADNO H: Bowel control Alondra - Transfers Control I. Bed/Chair/Wheelchair modA - Locomotion L. Walk/Wheelchair (B) Deedee - Communication N. Comprehension (B) Alondra O. Expression (B) Ind - Social Cognition P. Social Interaction Ind Q. Problem Solving Ind R. Memory Ind - Endurance Fair - Balance Fair - Safety Awareness Good CURRENT FUNC. DEFICITS: Balance, Sphincter Control, Locomotion, Endurance, Transfers Control, and Self-Care SIGNATURE PANEL: (CDT)
[2017-12-13] MEDS: DOCUSATE NA/SENNA CONC 1 TAB PO SCH (20:16)
[2017-12-13] MEDS: LISINOPRIL 5 MG TAB PO SCH (20:17)
[2017-12-13] MEDS: TRAMADOL HCL 50 MG TAB PO PRN (23:00)
[2017-12-13] MEDS: CYCLOBENZAPRINE 10 MG TAB PO PRN (23:00)
--- NOTE | 2017-12-14 03:21 | FAST ---
SHIFT START DATE/TIME: 12/13/2017 19:00 (CDT) SHIFT END DATE/TIME: 12/14/2017 07:00 (CDT) NAME LYNN GERARDO DATE OF : 1935 DATE OF ADMISSION: 12/02/2017 17:22 (CDT) PHONE: AGE: 82 N# [id number] GENDER: Female ENCOUNTER PHYSICIAN: Dr. Dominick Villareal M.D. ADMISSION DIAGNOSIS: - Orthopaedic Disorders 08 - Unilateral Hip Fracture (08.11) Right intertrochanteric femur fx. EATING: Activity did not occur on this shift EATING - SCORE: 0-UNK GROOMING: Comb/brush hair Oral care Wash, rinse, and dry face Wash, rinse, and dry hands GROOMING - STEP 1: Does the patient require assistance when grooming? Yes. GROOMING - STEP 2: Does the patient require the assistance of a helper? No. The patient only requires an assistive devic e, OR takes more than reasonable time to groom, OR there is a concern for safety as the patient groom s GROOMING - SCORE: 6-FRANCES BATHING: Activity did not occur on this shift BATHING - SCORE: 0-UNK DRESSING - UPPER BODY: Patient is not dressing in public clothing ARTICLES SCORE Total number of steps: 0 DRESSING - UPPER BODY - SCORE: 0-UNK DRESSING - LOWER BODY: Patient is not dressing in public clothing ARTICLES SCORE Total number of steps: 0 DRESSING - LOWER BODY - SCORE: 0-UNK TOILETING: TOILETING - STEP 1: Does the patient require assistance with toileting? Yes. TOILETING - STEP 2: Does the patient require the assistance of a helper? Yes. TOILETING - STEP 3: How much assistance does the patient require from the helper? Only supervision TOILETING - SCORE: 5-SUP BLADDER MANAGEMENT: BLADDER MANAGEMENT - STEP 1: Does the patient control the bladder completely and intentionally without equipment or devices or med ications, and is always continent? No. BLADDER MANAGEMENT - STEP 2: Does the patient require the assistance of a helper? No, patient only requires extra time BLADDER MANAGEMENT - SCORE: 6-FRANCES BOWEL MANAGEMENT: Activity did not occur on this shift BOWEL MANAGEMENT - SCORE: 7-IND TRANSFERS: BED, CHAIR, WHEELCHAIR: TRANSFERS: BED, CHAIR, WHEELCHAIR - STEP 1: Does the patient require assistance with bed, chair, or wheelchair transfers? Yes. TRANSFERS: BED, CHAIR, WHEELCHAIR - STEP 2: Does the patient require the assistance of a helper? No. Patient only requires an assistive device fo r bed, chair, wheelchair transfers such as a sliding board, grab bar, or brace, OR s/he takes more th an reasonable time, OR there is a safety concern when s/he performs the transfers TRANSFERS: BED, CHAIR, WHEELCHAIR - SCORE: 6-FRACNES TRANSFERS: TOILET: TRANSFERS: TOILET - STEP 1: Does the patient require assistance with toilet transfers? Yes. TRANSFERS: TOILET - STEP 2: Does the patient require the assistance of a helper? No. Patient only requires an assistive device albright ch as a grab bar or special seat, OR s/he takes more than reasonable time to perform toilet transfers , OR there is a safety concern when s/he performs toilet transfers. TRANSFERS: TOILET - SCORE: 6-FRANCES TRANSFERS: SHOWER: Activity did not occur on this shift TRANSFERS: SHOWER - SCORE: 0-UNK TRANSFERS: TUB: Activity did not occur on this shift TRANSFERS: TUB - SCORE: 0-UNK LOCOMOTION: WALK: Activity did not occur on this shift LOCOMOTION: WALK - SCORE: 0-UNK LOCOMOTION: WHEELCHAIR: Activity did not occur on this shift LOCOMOTION: WHEELCHAIR - SCORE: 0-UNK COMPREHENSION: COMPREHENSION - STEP 1: Does the patient require help to understand complex and abstract ideas (such as current events, finan sherlyn, discharge planning, medical issues, relationships, etc)? No. COMPREHENSION - STEP 2: Does the patient need extra time, require an assistive device (such as glasses, hearing aids, or an a ugmentative communication system), OR does s/he have mild difficulty expressing complex and abstract ideas (including mild dysarthria or mild word-finding problems)? Yes. COMPREHENSION - SCORE: 6-FRANCES EXPRESSION EXPRESSION - STEP 1: Does the patient require help expressing complex and abstract ideas (such as current events, finances , discharge planning, medical issues, relationships, etc)? No. EXPRESSION - STEP 2: Does the patient need extra time, require an assistive device (such as augmentive communication syste m or a communication board), OR does s/he have mild difficulty expressing complex and abstract ideas (including mild dysarthria or mild word-find problems)? No. EXPRESSION - SCORE: 7-IND SOCIAL INTERACTION: SOCIAL INTERACTION - STEP 1: Does the patient require a helper to interact with others in social and therapeutic situations? No. SOCIAL INTERACTION - STEP 2: Does the patient need extra time in social situations, OR does s/he interact with staff, other patien ts, and family members ONLY in structured environments, OR does s/he require medication for social in teraction? No. SOCIAL INTERACTION - SCORE: 7-IND PROBLEM SOLVING: PROBLEM SOLVING - STEP 1: Does the patient need help to solve complex problems such as managing a checking account or confronti ng interpersonal problems? No. PROBLEM SOLVING - STEP 2: Does the patient require extra time to make decisions or solve problems, OR does s/he have slight dif ficulty reading, initiating, or self-correcting in unfamiliar situations? No. PROBLEM SOLVING - SCORE: 7-IND MEMORY: MEMORY - STEP 1: Does the patient need help to remember frequently encountered people, daily routines, and executing r equests? No. MEMORY - STEP 2: Does the patient have slight difficulty recognizing frequently encountered people, daily routines, or executing requests without the need for repetition or using self-initiated or environmental cues to remember? No. MEMORY - SCORE: 7-IND SIGNATURE PANEL: The following modified sections: Eating - Score, Grooming - Score, Dressing - Upper Body - Score, Ben ssing - Lower Body - Score, Toileting - Score, Bladder Management - Score, Bowel Management - Score, Transfers: Bed, Chair, Wheelchair - Score, Transfers: Toilet - Score, Transfers: Shower - Score, Paige sfers: Tub - Score, Locomotion: Walk - Score, Locomotion: Wheelchair - Score, Comprehension - Score, Expression - Score, Social Interaction - Score, Problem Solving - Score, Memory - Score were [electro nically] signed by Denae Arceo CNA on WedDec 14 2017 02:23:21 GMT-0500 (Central Daylight Time)
[2017-12-14] MEDS: ENSURE HIGH PROTEIN 237 ML CAN PO SCH (08:00)
[2017-12-14] MEDS: DOCUSATE NA 100 MG CAP PO SCH (08:25)
[2017-12-14] MEDS: ASPIRIN 81 MG CHEWABLE TABLET PO SCH (08:25)
[2017-12-14] MEDS: CYCLOBENZAPRINE 10 MG TAB PO PRN ×3 (08:25→22:03)
[2017-12-14] MEDS: POLYETHYL GLY 3350 17 GM/DOSE PO PRN (08:26)
[2017-12-14] MEDS: CARBAMAZEPINE 200 MG TAB PO SCH ×2 (08:26→20:09)
[2017-12-14] MEDS: GABAPENTIN 300 MG CAP PO SCH ×3 (08:26→20:08)
[2017-12-14] MEDS: CRANBERRY FRUIT EXTRACT 200 MG CAP PO SCH ×2 (08:26→20:08)
[2017-12-14] MEDS: MULTIVITAMIN TAB PO SCH (08:26)
[2017-12-14] MEDS: TRAMADOL HCL 50 MG TAB PO PRN ×3 (08:26→22:03)
[2017-12-14] MEDS: METOPROLOL TAR 50 MG TAB PO SCH ×2 (08:26→20:08)
[2017-12-14] MEDS: APIXABAN 2.5 MG TABLET PO SCH ×2 (08:26→20:09)
[2017-12-14] MEDS: HYDRALAZINE HCL 10 MG TABLET PO SCH ×3 (08:27→20:07)
--- NOTE | 2017-12-14 15:07 | FAST ---
SHIFT START DATE/TIME: 12/14/2017 07:00 (CDT) SHIFT END DATE/TIME: 12/14/2017 19:00 (CDT) NAME LYNN GERARDO DATE OF : 1935 DATE OF ADMISSION: 12/02/2017 17:22 (CDT) PHONE: AGE: 82 N# [id number] GENDER: Female ENCOUNTER PHYSICIAN: Dr. Dominick Villareal M.D. ADMISSION DIAGNOSIS: - Orthopaedic Disorders 08 - Unilateral Hip Fracture (08.11) Right intertrochanteric femur fx. EATING: EATING - STEP 1: Does the patient require assistance when eating? Yes. EATING - STEP 2: Does the patient require the assistance of a helper? No, patient only requires an assistive device, O R s/he takes more than reasonable time to eat, OR there is a safety concern, OR s/he requires modifie d food consistency EATING - SCORE: 6-FRANCES GROOMING: Comb/brush hair Oral care Wash, rinse, and dry face Wash, rinse, and dry hands GROOMING - STEP 1: Does the patient require assistance when grooming? Yes. GROOMING - STEP 2: Does the patient require the assistance of a helper? No. The patient only requires an assistive devic e, OR takes more than reasonable time to groom, OR there is a concern for safety as the patient groom s GROOMING - SCORE: 6-FRANCES BATHING: Activity did not occur on this shift BATHING - SCORE: 0-UNK DRESSING - UPPER BODY: Bra (three steps) T-shirt/pullover shirt (four steps) ARTICLES SCORE Total number of steps: 7 DRESSING - UPPER BODY - STEP 1: Does the patient require help when dressing above the waist? Yes. DRESSING - UPPER BODY - STEP 2: Does the patient require the assistance of a helper? No. Patient only requires an assistive device, s uch as a button hook, velcro, or insurance processor. OR s/he takes more than reasonable time as s/he dresses the upper body. OR there is a concern for safety when s/he dresses the upper body DRESSING - UPPER BODY - SCORE: 6-FRANCES DRESSING - LOWER BODY: Elastic waist pants (three steps) Sock - Left foot (one step) Sock - Right foot (one step) Tied or buckled shoe - Left foot (two steps) Tied or buckled shoe - Right foot (two steps) ARTICLES SCORE Total number of steps: 9 DRESSING - LOWER BODY - STEP 1: Does the patient require help when dressing below the waist? Yes. DRESSING - LOWER BODY - STEP 2: Does the patient require the assistance of a helper? No. Patient requires an assistive device such as a insurance processor. OR s/he takes more than reasonable time as s/he dresses the lower body, OR there is a con cern for safety when s/he dresses the lower body DRESSING - LOWER BODY - SCORE: 6-FRANCES TOILETING: TOILETING - STEP 1: Does the patient require assistance with toileting? Yes. TOILETING - STEP 2: Does the patient require the assistance of a helper? No. TOILETING - SCORE: 6-FRANCES BLADDER MANAGEMENT: BLADDER MANAGEMENT - STEP 1: Does the patient control the bladder completely and intentionally without equipment or devices or med ications, and is always continent? No. BLADDER MANAGEMENT - STEP 2: Does the patient require the assistance of a helper? No, patient only requires extra time BLADDER MANAGEMENT - SCORE: 6-FRANCES BLADDER MANAGEMENT - FREQUENCY OF ACCIDENTS: BLADDER MANAGEMENT(FA) - STEP 1: How many accidents has the patient had during the current shift? 0 BOWEL MANAGEMENT: Activity did not occur on this shift BOWEL MANAGEMENT - SCORE: 7-IND BOWEL MANAGEMENT - FREQUENCY OF ACCIDENTS: BOWEL MANAGEMENT(FA) - STEP 1: How many accidents has the patient had during the current shift? 0 TRANSFERS: BED, CHAIR, WHEELCHAIR: TRANSFERS: BED, CHAIR, WHEELCHAIR - STEP 1: Does the patient require assistance with bed, chair, or wheelchair transfers? Yes. TRANSFERS: BED, CHAIR, WHEELCHAIR - STEP 2: Does the patient require the assistance of a helper? No. Patient only requires an assistive device fo r bed, chair, wheelchair transfers such as a sliding board, grab bar, or brace, OR s/he takes more th an reasonable time, OR there is a safety concern when s/he performs the transfers TRANSFERS: BED, CHAIR, WHEELCHAIR - SCORE: 6-FRANCES TRANSFERS: TOILET: TRANSFERS: TOILET - STEP 1: Does the patient require assistance with toilet transfers? Yes. TRANSFERS: TOILET - STEP 2: Does the patient require the assistance of a helper? No. Patient only requires an assistive device albright ch as a grab bar or special seat, OR s/he takes more than reasonable time to perform toilet transfers , OR there is a safety concern when s/he performs toilet transfers. TRANSFERS: TOILET - SCORE: 6-FRANCES TRANSFERS: SHOWER: Activity did not occur on this shift TRANSFERS: SHOWER - SCORE: 0-UNK TRANSFERS: TUB: Activity did not occur on this shift TRANSFERS: TUB - SCORE: 0-UNK LOCOMOTION: WALK: Activity did not occur on this shift LOCOMOTION: WALK - SCORE: 0-UNK LOCOMOTION: WHEELCHAIR: LOCOMOTION: WHEELCHAIR - STEP 1: Does the patient need help to go 150 feet in a wheelchair? Yes. LOCOMOTION: WHEELCHAIR - STEP 2: How much assistance does the patient need from the helper? Only supervision, cuing, or coaxing LOCOMOTION: WHEELCHAIR - SCORE: 5-SUP COMPREHENSION: COMPREHENSION: TYPE: Both COMPREHENSION - STEP 1: Does the patient require help to understand complex and abstract ideas (such as current events, finan sherlyn, discharge planning, medical issues, relationships, etc)? Yes. COMPREHENSION - STEP 2: Does the patient require help to understand questions or statements about basic needs or ideas (such as hunger, thirst, sleep, safety, daily schedule, room location, or discomfort) half or more of the t [place]? No. COMPREHENSION - STEP 3: How often does the patient need help to understand directions and conversation about basic needs? Les s than 10% of the time COMPREHENSION - SCORE: 5-SUP EXPRESSION EXPRESSION: TYPE: Both EXPRESSION - STEP 1: Does the patient require help expressing complex and abstract ideas (such as current events, finances , discharge planning, medical issues, relationships, etc)? No. EXPRESSION - STEP 2: Does the patient need extra time, require an assistive device (such as augmentive communication syste m or a communication board), OR does s/he have mild difficulty expressing complex and abstract ideas (including mild dysarthria or mild word-find problems)? Yes. EXPRESSION - SCORE: 6-FRANCES SOCIAL INTERACTION: SOCIAL INTERACTION - STEP 1: Does the patient require a helper to interact with others in social and therapeutic situations? No. SOCIAL INTERACTION - STEP 2: Does the patient need extra time in social situations, OR does s/he interact with staff, other patien ts, and family members ONLY in structured environments, OR does s/he require medication for social in teraction? Yes, patient needs extra time SOCIAL INTERACTION - SCORE: 6-FRANCES PROBLEM SOLVING: PROBLEM SOLVING - STEP 1: Does the patient need help to solve complex problems such as managing a checking account or confronti ng interpersonal problems? Yes. PROBLEM SOLVING - STEP 2: Does the patient solve basic routine problems half or more of the time? Yes. PROBLEM SOLVING - STEP 3: How often does the patient need help to solve basic routine problems? Less than 10% of the time PROBLEM SOLVING - SCORE: 5-SUP MEMORY: MEMORY - STEP 1: Does the patient need help to remember frequently encountered people, daily routines, and executing r equests? Yes. MEMORY - STEP 2: How often does the patient need help to remember frequently encountered people, daily routines, and e xecuting requests? Less than 10% of the time MEMORY - SCORE: 5-SUP SIGNATURE PANEL: The following modified sections: Eating - Score, Grooming - Score, Bathing - Score, Dressing - Upper Body - Score, Dressing - Lower Body - Score, Toileting - Score, Bladder Management - Score, Bowel Man agement - Score, Transfers: Bed, Chair, Wheelchair - Score, Transfers: Toilet - Score, Transfers: Chelo wer - Score, Transfers: Tub - Score, Locomotion: Walk - Score, Locomotion: Wheelchair - Score, Compre hension - Score, Expression - Score, Social Interaction - Score, Problem Solving - Score, Memory - Sc ore were [electronically] signed by Evelyn Ryan C.N.A. on WedDec 14 2017 14:08:06 T-0500 ([facility] Day[facility] Time)
--- NOTE | 2017-12-14 15:46 | FAST ---
ENCOUNTER DATE AND TIME: 12/14/2017 08:00 (CDT) NAME LYNN GERARDO DATE OF : 1935 DATE OF ADMISSION: 12/02/2017 17:22 (CDT) PHONE: AGE: 82 N# [id number] GENDER: Female ENCOUNTER PHYSICIAN: Dr. Dominick Villareal M.D. ADMISSION DIAGNOSIS: - Orthopaedic Disorders 08 - Unilateral Hip Fracture (08.11) Right intertrochanteric femur fx. EATING: Activity did not occur on this shift EATING - SCORE: 0-UNK GROOMING: Activity did not occur on this shift GROOMING - SCORE: 0-UNK BATHING: Activity did not occur on this shift BATHING - SCORE: 0-UNK DRESSING - UPPER BODY: Activity did not occur on this shift ARTICLES SCORE Total number of steps: 0 DRESSING - UPPER BODY - SCORE: 0-UNK DRESSING - LOWER BODY: Activity did not occur on this shift ARTICLES SCORE Total number of steps: 0 DRESSING - LOWER BODY - SCORE: 0-UNK TOILETING: Activity did not occur on this shift TOILETING - SCORE: 0-UNK BLADDER MANAGEMENT: Activity did not occur on this shift BLADDER MANAGEMENT - SCORE: 7-IND BOWEL MANAGEMENT: Activity did not occur on this shift BOWEL MANAGEMENT - SCORE: 7-IND TRANSFERS: BED, CHAIR, WHEELCHAIR: Activity did not occur on this shift TRANSFERS: BED, CHAIR, WHEELCHAIR - SCORE: 0-UNK TRANSFERS: TOILET: Activity did not occur on this shift TRANSFERS: TOILET - SCORE: 0-UNK TRANSFERS: SHOWER: Activity did not occur on this shift TRANSFERS: SHOWER - SCORE: 0-UNK TRANSFERS: TUB: Activity did not occur on this shift TRANSFERS: TUB - SCORE: 0-UNK LOCOMOTION: WALK: Activity did not occur on this shift LOCOMOTION: WALK - SCORE: 0-UNK LOCOMOTION: WHEELCHAIR: Activity did not occur on this shift LOCOMOTION: WHEELCHAIR - SCORE: 0-UNK LOCOMOTION: STAIRS: Activity did not occur on this shift LOCOMOTION: STAIRS - SCORE: 0-UNK COMPREHENSION: COMPREHENSION: TYPE: Visual COMPREHENSION - STEP 1: Does the patient require help to understand complex and abstract ideas (such as current events, finan sherlyn, discharge planning, medical issues, relationships, etc)? No. COMPREHENSION - STEP 2: Does the patient need extra time, require an assistive device (such as glasses, hearing aids, or an a ugmentative communication system), OR does s/he have mild difficulty expressing complex and abstract ideas (including mild dysarthria or mild word-finding problems)? No. COMPREHENSION - SCORE: 7-IND EXPRESSION EXPRESSION: TYPE: Non-Vocal EXPRESSION - STEP 1: Does the patient require help expressing complex and abstract ideas (such as current events, finances , discharge planning, medical issues, relationships, etc)? No. EXPRESSION - STEP 2: Does the patient need extra time, require an assistive device (such as augmentive communication syste m or a communication board), OR does s/he have mild difficulty expressing complex and abstract ideas (including mild dysarthria or mild word-find problems)? No. EXPRESSION - SCORE: 7-IND SOCIAL INTERACTION: SOCIAL INTERACTION - STEP 1: Does the patient require a helper to interact with others in social and therapeutic situations? No. SOCIAL INTERACTION - STEP 2: Does the patient need extra time in social situations, OR does s/he interact with staff, other patien ts, and family members ONLY in structured environments, OR does s/he require medication for social in teraction? No. SOCIAL INTERACTION - SCORE: 7-IND PROBLEM SOLVING: PROBLEM SOLVING - STEP 1: Does the patient need help to solve complex problems such as managing a checking account or confronti ng interpersonal problems? No. PROBLEM SOLVING - STEP 2: Does the patient require extra time to make decisions or solve problems, OR does s/he have slight dif ficulty reading, initiating, or self-correcting in unfamiliar situations? No. PROBLEM SOLVING - SCORE: 7-IND MEMORY: MEMORY - STEP 1: Does the patient need help to remember frequently encountered people, daily routines, and executing r equests? No. MEMORY - STEP 2: Does the patient have slight difficulty recognizing frequently encountered people, daily routines, or executing requests without the need for repetition or using self-initiated or environmental cues to remember? No. MEMORY - SCORE: 7-IND SIGNATURE PANEL: The following modified sections: Eating - Score, Grooming - Score, Bathing - Score, Dressing - Upper Body - Score, Dressing - Lower Body - Score, Toileting - Score, Transfers: Bed, Chair, Wheelchair - S core, Transfers: Toilet - Score, Transfers: Shower - Score, Transfers: Tub - Score, Comprehension - S core, Expression - Score, Social Interaction - Score, Problem Solving - Score, Memory - Score were [e lectronically] signed by KANIKA Garcia on WedDec 14 2017 14:48:54 [facility]-0500 ([facility] Time)
--- NOTE | 2017-12-14 16:15 | FAST ---
ENCOUNTER DATE AND TIME: 12/14/2017 08:00 (CDT) NAME LYNN GERARDO DATE OF : 1935 DATE OF ADMISSION: 12/02/2017 17:22 (CDT) PHONE: AGE: 82 N# [id number] GENDER: Female ENCOUNTER PHYSICIAN: Dr. Dominick Villareal M.D. ADMISSION DIAGNOSIS: - Orthopaedic Disorders 08 - Unilateral Hip Fracture (08.11) Right intertrochanteric femur fx. EATING: Activity did not occur on this shift EATING - SCORE: 0-UNK GROOMING: Activity did not occur on this shift GROOMING - SCORE: 0-UNK BATHING: Activity did not occur on this shift BATHING - SCORE: 0-UNK DRESSING - UPPER BODY: Activity did not occur on this shift Patient is not dressing in public clothing ARTICLES SCORE Total number of steps: 0 DRESSING - UPPER BODY - SCORE: 0-UNK DRESSING - LOWER BODY: Activity did not occur on this shift Patient is not dressing in public clothing ARTICLES SCORE Total number of steps: 0 DRESSING - LOWER BODY - SCORE: 0-UNK TOILETING: Activity did not occur on this shift TOILETING - SCORE: 0-UNK BLADDER MANAGEMENT: Activity did not occur on this shift BLADDER MANAGEMENT - SCORE: 7-IND BOWEL MANAGEMENT: Activity did not occur on this shift BOWEL MANAGEMENT - SCORE: 7-IND TRANSFERS: BED, CHAIR, WHEELCHAIR: TRANSFERS: BED, CHAIR, WHEELCHAIR - STEP 1: Does the patient require assistance with bed, chair, or wheelchair transfers? Yes. TRANSFERS: BED, CHAIR, WHEELCHAIR - STEP 2: Does the patient require the assistance of a helper? No. Patient only requires an assistive device fo r bed, chair, wheelchair transfers such as a sliding board, grab bar, or brace, OR s/he takes more th an reasonable time, OR there is a safety concern when s/he performs the transfers TRANSFERS: BED, CHAIR, WHEELCHAIR - SCORE: 6-FRANCES TRANSFERS: TOILET: Activity did not occur on this shift TRANSFERS: TOILET - SCORE: 0-UNK TRANSFERS: SHOWER: Activity did not occur on this shift TRANSFERS: SHOWER - SCORE: 0-UNK TRANSFERS: TUB: Activity did not occur on this shift TRANSFERS: TUB - SCORE: 0-UNK LOCOMOTION: WALK: LOCOMOTION: WALK - STEP 1: Does the patient need help to walk 150 feet? No. LOCOMOTION: WALK - STEP 2: Does the patient need an assistive device (such as an orthosis, prosthesis, crutches, or walker) to g o 150 feet, OR does s/he take more than reasonable time, OR is there a concern for safety? Yes, the p atient needs an assistive device LOCOMOTION: WALK - SCORE: 6-FRANCES LOCOMOTION: WHEELCHAIR: LOCOMOTION: WHEELCHAIR - STEP 1: Does the patient need help to go 150 feet in a wheelchair? No. LOCOMOTION: WHEELCHAIR - SCORE: 6-FRANCES LOCOMOTION: STAIRS: LOCOMOTION: STAIRS - STEP 1: Does the patient need help to go up and down 12 to 14 stairs? No. LOCOMOTION: STAIRS - STEP 2: Does the patient require an assistive device - such as handrails or cane - to go up and down one flig ht of stairs, OR does s/he take more than reasonable time, OR is there a concern for safety? Yes, the patient requires an assistive device LOCOMOTION: STAIRS - SCORE: 6-FRANCES COMPREHENSION: COMPREHENSION - SCORE: 0-UNK EXPRESSION EXPRESSION - SCORE: 0-UNK SOCIAL INTERACTION: SOCIAL INTERACTION - SCORE: 0-UNK PROBLEM SOLVING: PROBLEM SOLVING - SCORE: 0-UNK MEMORY: MEMORY - SCORE: 0-UNK SIGNATURE PANEL: The following modified sections: Transfers: Bed, Chair, Wheelchair - Score, Transfers: Toilet - Score , Locomotion: Walk - Score, Locomotion: Wheelchair - Score, Locomotion: Stairs - Score were [electron christina] signed by Jose Jackson PTA on WedDec 14 2017 15:17:28 GMT-0500 (Central Daylight Time)
--- NOTE | 2017-12-14 17:46 | R.PN ---
ENCOUNTER DATE AND TIME: 12/14/2017 16:45 (CDT) NAME LYNN GERARDO DATE OF : 1935 DATE OF ADMISSION: 12/02/2017 17:22 (CDT) Right intertrochanteric femur fxCHIEF COMPLAINT: Right hip fracture SUBJECTIVE: Pt denied any Shortness of Breath. Pt denied any depression. Blood pressures continues to be elevated since admission. Consider increasing prinivil to 5 mg twice daily. Ambulated 1750' with modified independence using a rolling walker. Self-propelled wheelchair 250' wit h modified independence. Up and down 15 steps with modified independence. Ambulated 750 feet and 500 feet with standby assistance and a single prong cane. Ascended 15 steps, b ilateral handrails with modified independence VITAL SIGNS Temperature: 97.7 F SBP/DBP: 164/75 Pulse: 73 Resp: 16 MEDICATION ALLERGIES: morphine ENVIRONMENTAL ALLERGIES: None Known - Substance Allergies None Known - Other Allergies None Known NURSING: - Shower allowing shower - Skin care per protocol PRECAUTIONS: - Posterior Hip Precaution No adduction across midline No external rotation No hip flexion >90 degrees No internal rotation No wheel chair propulsion - Weight Bearing Precaution WBAT right LE ACTIVITIES OOB only with supervision THERAPIES: - Occupational Therapy Evaluate and Treat. - Physical Therapy Evaluate and Treat. PHYSICAL EXAM - Gen Alert and awake Lying in bed No apparent distress Oriented to: person, time, and place - Vital Signs Elevated blood pressures, afebrile - Skin No skin breakdown. Normacephalic - Eyes No abnormalities - ENMT No abnormalities - Neck No abnormalities - CVS RRR - Chest Clear - Abd Soft - GI Non distended Deferred - No abnormalities - Ext No significant edema - MSK Unremarkable - Neuro No focal deficits - Psych No abnormalities ASSESSMENT: Pt. is a 82 yo Right-handed white female.On 11/27/2017 she was admitted to [facility] and underwent emergency surgery for Right intertrochanteric femur fx (cephalomedullary fixatio n of right intertrochanteric femur fracture ) by Laurie Olivier.Pre-morbidly, Pt. was independent/mod -I in Communication, Social Cognition, Sphincter Control, Self-Care, Locomotion, and Transfers Contro l; and she had good Safety Awareness and Sphincter Control.Currently, she has deficits of Balance, Sp hincter Control, Locomotion, Endurance, Transfers Control, and Self-Care.Pt. is now [facility] for acute in-patient rehabilitation in order to maximize patient's funct ional independence in activities of daily living, strength, ROM, and mobility.- Rehab Goal Patient has realistic goal of being discharged at assistance level 6-Alondra to reside at Home with Fam alex/Relatives. MDM/PLAN: - Anterior Hip Precaution No abduction No active extension No adduction across midline No external rotation No hip flexion >90 degrees No internal rotation - Physical Therapy Decreased range of motion - to improve, our physical therapists will perform initial evaluation of p t's status upon admission and devise an individualized program for increasing patient's Range of Jonathan on. Gait dysfunction - to improve, our physical therapists will perform initial evaluation of pt's statu s upon admission and devise an individualized program for Gait Training, and Wheel Chair mobility Inability to transfer - to improve, our physical therapists will perform initial evaluation of pt's status upon admission and devise an individualized program for Bed mobility Need for home safety evaluation - to improve, our physical therapists will perform initial evaluatio n of pt's status upon admission and devise an individualized program for Home Evaluation Need in caregiver upon discharge - to improve, our physical therapists will perform initial evaluati on of pt's status upon admission and devise an individualized program for Caregiver Training Edema - to improve, our physical therapists will perform initial evaluation of pt's status upon admi ssion and devise an individualized program for Elevation Training, and Lymphedema Therapy New precaution - to improve, our physical therapists will perform initial evaluation of pt's status upon admission and devise an individualized program for Patient precaution education Poor balance - to improve, our physical therapists will perform initial evaluation of pt's status up on admission and devise an individualized program for Balance Training Poor endurance - to improve, our physical therapists will perform initial evaluation of pt's status upon admission and devise an individualized program for Endurance Training Weakness - to improve, our physical therapists will perform initial evaluation of pt's status upon a dmission and devise an individualized program for Aquatic Therapy, Neuromuscular Reeducation, and Str engthening Achieving independence - to improve, our physical therapists will perform initial evaluation of pt's status upon admission and devise an individualized program for Community Reintegration Activities - Diet - Liquid Texture Continue Regular - Tube Feed Continue N/A - Diet Type Continue GI SOFT - Posterior Hip Precaution No adduction across midline No external rotation No hip flexion >90 degrees No internal rotation No wheel chair propulsion - Occupational Therapy ADL deficits - to improve, our occupation therapists will perform initial evaluation of pt's status upon admission and devise an individualized program for Bathing, Bed mobility, Community Reintegratio n, Cooking, Dressing, Eating, Fine Motor Skills, Grooming, Homemaking, Kitchen Mobility, Laundry, Pat ient Education, Safety Awareness, Splinting - Positioning, Transfers(Toilet, Tub, Shower), and Wheel Chair Management Need for healthcare applications analyst - to improve, our occupation therapists will perform initial evaluation of pt's status upon admission and devise an individualized program for Caregiver Training Weakness - to improve, our occupation therapists will perform initial evaluation of pt's status upon admission and devise an individualized program for Aquatic Therapy, Balance, Endurance, UE ROM, and UE strengthening - Weight Bearing Precaution WBAT right LE - Skin care per protocol - Diet - Solid Texture Continue Regular - Shower allowing shower FUNCTIONAL STATUS: UPDATED AT WEEKLY TEAM CONFERENCE - Bladder Same Bladder control device used: catheter Same Jovel catheter in place; last changed on - Bowel Same accident frequency: 7-Ind - No accidents in the past 7 days - Walking Same assistance level: 1-Dep - Wheelchair Same score based on distance traveled: 0(N/A) FUNCTIONAL STATUS: - Self-Care A. Eating Ind B. Grooming Ind C. Bathing Ind D. Dressing - Upper Ind E. Dressing - Lower maxA F. Toileting Deedee - Sphincter Control G. Bladder control ADNO H: Bowel control Alondra - Transfers Control I. Bed/Chair/Wheelchair modA - Locomotion L. Walk/Wheelchair (B) Deedee - Communication N. Comprehension (B) Alondra O. Expression (B) Ind - Social Cognition P. Social Interaction Ind Q. Problem Solving Ind R. Memory Ind - Endurance Fair - Balance Fair - Safety Awareness Good CURRENT FUNC. DEFICITS: Balance, Sphincter Control, Locomotion, Endurance, Transfers Control, and Self-Care SIGNATURE PANEL: (CDT)
[2017-12-14] MEDS: LISINOPRIL 5 MG TAB PO SCH (20:06)
[2017-12-14] MEDS: DOCUSATE NA/SENNA CONC 1 TAB PO SCH (20:08)
[2017-12-15] MEDS: MULTIVITAMIN TAB PO SCH (08:06)
[2017-12-15] MEDS: GABAPENTIN 300 MG CAP PO SCH ×3 (08:06→21:17)
[2017-12-15] MEDS: APIXABAN 2.5 MG TABLET PO SCH ×2 (08:07→19:15)
[2017-12-15] MEDS: ASPIRIN 81 MG CHEWABLE TABLET PO SCH (08:07)
[2017-12-15] MEDS: CARBAMAZEPINE 200 MG TAB PO SCH ×2 (08:07→19:16)
[2017-12-15] MEDS: POLYETHYL GLY 3350 17 GM/DOSE PO PRN (08:08)
[2017-12-15] MEDS: METOPROLOL TAR 50 MG TAB PO SCH ×2 (08:09→19:15)
[2017-12-15] MEDS: CRANBERRY FRUIT EXTRACT 200 MG CAP PO SCH ×2 (08:09→19:16)
[2017-12-15] MEDS: HYDRALAZINE HCL 10 MG TABLET PO SCH ×3 (08:10→21:17)
[2017-12-15] MEDS: DOCUSATE NA 100 MG CAP PO SCH (08:10)
[2017-12-15] MEDS: CYCLOBENZAPRINE 10 MG TAB PO PRN ×2 (08:11→22:27)
[2017-12-15] MEDS: ENSURE HIGH PROTEIN 237 ML CAN PO SCH (08:11)
--- NOTE | 2017-12-15 12:11 | FAST ---
SHIFT START DATE/TIME: 12/15/2017 07:00 (CDT) SHIFT END DATE/TIME: 12/15/2017 19:00 (CDT) NAME LYNN GERARDO DATE OF : 1935 DATE OF ADMISSION: 12/02/2017 17:22 (CDT) PHONE: AGE: 82 N# [id number] GENDER: Female ENCOUNTER PHYSICIAN: Dr. Dominick Villareal M.D. ADMISSION DIAGNOSIS: - Orthopaedic Disorders 08 - Unilateral Hip Fracture (08.11) Right intertrochanteric femur fx. EATING: EATING - STEP 1: Does the patient require assistance when eating? No. EATING - SCORE: 7-IND GROOMING: Comb/brush hair Oral care Wash, rinse, and dry face Wash, rinse, and dry hands GROOMING - STEP 1: Does the patient require assistance when grooming? Yes. GROOMING - STEP 2: Does the patient require the assistance of a helper? No. The patient only requires an assistive devic e, OR takes more than reasonable time to groom, OR there is a concern for safety as the patient groom s GROOMING - SCORE: 6-FRANCES BATHING: Activity did not occur on this shift BATHING - SCORE: 0-UNK DRESSING - UPPER BODY: Bra (three steps) T-shirt/pullover shirt (four steps) ARTICLES SCORE Total number of steps: 7 DRESSING - UPPER BODY - STEP 1: Does the patient require help when dressing above the waist? Yes. DRESSING - UPPER BODY - STEP 2: Does the patient require the assistance of a helper? No. Patient only requires an assistive device, s uch as a button hook, velcro, or independent contractor. OR s/he takes more than reasonable time as s/he dresses the upper body. OR there is a concern for safety when s/he dresses the upper body DRESSING - UPPER BODY - SCORE: 6-FRANCES DRESSING - LOWER BODY: Elastic waist pants (three steps) Sock - Left foot (one step) Sock - Right foot (one step) Tied or buckled shoe - Left foot (two steps) Tied or buckled shoe - Right foot (two steps) Underwear (three steps) ARTICLES SCORE Total number of steps: 12 DRESSING - LOWER BODY - STEP 1: Does the patient require help when dressing below the waist? Yes. DRESSING - LOWER BODY - STEP 2: Does the patient require the assistance of a helper? No. Patient requires an assistive device such as a independent contractor. OR s/he takes more than reasonable time as s/he dresses the lower body, OR there is a con cern for safety when s/he dresses the lower body DRESSING - LOWER BODY - SCORE: 6-FRANCES TOILETING: TOILETING - STEP 1: Does the patient require assistance with toileting? Yes. TOILETING - STEP 2: Does the patient require the assistance of a helper? No. TOILETING - SCORE: 6-FRANCES BLADDER MANAGEMENT: BLADDER MANAGEMENT - STEP 1: Does the patient control the bladder completely and intentionally without equipment or devices or med ications, and is always continent? No. BLADDER MANAGEMENT - STEP 2: Does the patient require the assistance of a helper? No, patient requires and independently uses an a ssistive device, such as a urinal, bedpan, bedside commode, catheter, absorbent pad, or collecting de vice BLADDER MANAGEMENT - SCORE: 6-FRANCES BOWEL MANAGEMENT: Activity did not occur on this shift BOWEL MANAGEMENT - SCORE: 7-IND TRANSFERS: BED, CHAIR, WHEELCHAIR: TRANSFERS: BED, CHAIR, WHEELCHAIR - STEP 1: Does the patient require assistance with bed, chair, or wheelchair transfers? Yes. TRANSFERS: BED, CHAIR, WHEELCHAIR - STEP 2: Does the patient require the assistance of a helper? No. Patient only requires an assistive device fo r bed, chair, wheelchair transfers such as a sliding board, grab bar, or brace, OR s/he takes more th an reasonable time, OR there is a safety concern when s/he performs the transfers TRANSFERS: BED, CHAIR, WHEELCHAIR - SCORE: 6-FRANCES TRANSFERS: TOILET: TRANSFERS: TOILET - STEP 1: Does the patient require assistance with toilet transfers? Yes. TRANSFERS: TOILET - STEP 2: Does the patient require the assistance of a helper? No. Patient only requires an assistive device albright ch as a grab bar or special seat, OR s/he takes more than reasonable time to perform toilet transfers , OR there is a safety concern when s/he performs toilet transfers. TRANSFERS: TOILET - SCORE: 6-FRANCES TRANSFERS: SHOWER: Activity did not occur on this shift TRANSFERS: SHOWER - SCORE: 0-UNK TRANSFERS: TUB: Activity did not occur on this shift TRANSFERS: TUB - SCORE: 0-UNK LOCOMOTION: WALK: Activity did not occur on this shift LOCOMOTION: WALK - SCORE: 0-UNK LOCOMOTION: WHEELCHAIR: Activity did not occur on this shift LOCOMOTION: WHEELCHAIR - SCORE: 0-UNK COMPREHENSION: COMPREHENSION - SCORE: 0-UNK EXPRESSION EXPRESSION - SCORE: 0-UNK SOCIAL INTERACTION: SOCIAL INTERACTION - SCORE: 0-UNK PROBLEM SOLVING: PROBLEM SOLVING - SCORE: 0-UNK MEMORY: MEMORY - SCORE: 0-UNK SIGNATURE PANEL: The following modified sections: Eating - Score, Grooming - Score, Bathing - Score, Dressing - Upper Body - Score, Dressing - Lower Body - Score, Toileting - Score, Bladder Management - Score, Bowel Man agement - Score, Transfers: Bed, Chair, Wheelchair - Score, Transfers: Toilet - Score, Transfers: Chelo wer - Score, Transfers: Tub - Score, Locomotion: Walk - Score, Locomotion: Wheelchair - Score, Compre hension - Score, Expression - Score, Social Interaction - Score, Problem Solving - Score, Memory - Sc ore were [electronically] signed by Matti Uribe on WedDec 15 2017 11:13:13 GMT-0500 (Central Daylight Time)
[2017-12-15] MEDS: TRAMADOL HCL 50 MG TAB PO PRN ×2 (14:19→22:26)
--- NOTE | 2017-12-15 15:56 | FAST ---
ENCOUNTER DATE AND TIME: 12/15/2017 08:00 (CDT) NAME LYNN GERARDO DATE OF : 1935 DATE OF ADMISSION: 12/02/2017 17:22 (CDT) PHONE: AGE: 82 N# [id number] GENDER: Female ENCOUNTER PHYSICIAN: Dr. Dominick Villareal M.D. ADMISSION DIAGNOSIS: - Orthopaedic Disorders 08 - Unilateral Hip Fracture (08.11) Right intertrochanteric femur fx. EATING: Activity did not occur on this shift EATING - SCORE: 0-UNK GROOMING: Comb/brush hair Wash, rinse, and dry face Wash, rinse, and dry hands GROOMING - STEP 1: Does the patient require assistance when grooming? No. GROOMING - SCORE: 7-IND BATHING: Abdomen Buttocks Chest Left arm Left lower leg and foot Left upper leg Perineal area Right arm Right lower leg and foot Right upper leg BATHING - STEP 1: Does the patient require assistance when bathing? Yes. BATHING - STEP 2: Does the patient require the assistance of a helper? No. The patient only requires an assistive devic e such as a bath maxx, OR the patient takes more than reasonable time to bathe, OR there is a concern for safety such as regulating water temperature as the patient bathes. BATHING - SCORE: 6-FRANCES DRESSING - UPPER BODY: T-shirt/pullover shirt (four steps) ARTICLES SCORE Total number of steps: 4 DRESSING - UPPER BODY - STEP 1: Does the patient require help when dressing above the waist? No. DRESSING - UPPER BODY - SCORE: 7-IND DRESSING - LOWER BODY: Elastic waist pants (three steps) Slip-on shoe - Left foot (one step) Slip-on shoe - Right foot (one step) Sock - Left foot (one step) Sock - Right foot (one step) Underwear (three steps) ARTICLES SCORE Total number of steps: 10 DRESSING - LOWER BODY - STEP 1: Does the patient require help when dressing below the waist? Yes. DRESSING - LOWER BODY - STEP 2: Does the patient require the assistance of a helper? No. Patient requires an assistive device such as a advisor to command in combat. OR s/he takes more than reasonable time as s/he dresses the lower body, OR there is a con cern for safety when s/he dresses the lower body DRESSING - LOWER BODY - SCORE: 6-FRANCES TOILETING: Activity did not occur on this shift TOILETING - SCORE: 0-UNK BLADDER MANAGEMENT: Activity did not occur on this shift BLADDER MANAGEMENT - SCORE: 7-IND BOWEL MANAGEMENT: Activity did not occur on this shift BOWEL MANAGEMENT - SCORE: 7-IND TRANSFERS: BED, CHAIR, WHEELCHAIR: Activity did not occur on this shift TRANSFERS: BED, CHAIR, WHEELCHAIR - SCORE: 0-UNK TRANSFERS: TOILET: Activity did not occur on this shift TRANSFERS: TOILET - SCORE: 0-UNK TRANSFERS: SHOWER: TRANSFERS: SHOWER - STEP 1: Does the patient require assistance with shower transfers? Yes. TRANSFERS: SHOWER - STEP 2: Does the patient require the assistance of a helper? No. The patient only uses an assistive device, t akes more than reasonable time, OR there is a concern for safety when s/he performs transfers. TRANSFERS: SHOWER - SCORE: 6-FRANCES TRANSFERS: TUB: Activity did not occur on this shift TRANSFERS: TUB - SCORE: 0-UNK LOCOMOTION: WALK: Activity did not occur on this shift LOCOMOTION: WALK - SCORE: 0-UNK LOCOMOTION: WHEELCHAIR: Activity did not occur on this shift LOCOMOTION: WHEELCHAIR - SCORE: 0-UNK LOCOMOTION: STAIRS: Activity did not occur on this shift LOCOMOTION: STAIRS - SCORE: 0-UNK COMPREHENSION: COMPREHENSION - STEP 1: Does the patient require help to understand complex and abstract ideas (such as current events, finan sherlyn, discharge planning, medical issues, relationships, etc)? No. COMPREHENSION - STEP 2: Does the patient need extra time, require an assistive device (such as glasses, hearing aids, or an a ugmentative communication system), OR does s/he have mild difficulty expressing complex and abstract ideas (including mild dysarthria or mild word-finding problems)? No. COMPREHENSION - SCORE: 7-IND EXPRESSION EXPRESSION: TYPE: Non-Vocal EXPRESSION - STEP 1: Does the patient require help expressing complex and abstract ideas (such as current events, finances , discharge planning, medical issues, relationships, etc)? No. EXPRESSION - STEP 2: Does the patient need extra time, require an assistive device (such as augmentive communication syste m or a communication board), OR does s/he have mild difficulty expressing complex and abstract ideas (including mild dysarthria or mild word-find problems)? No. EXPRESSION - SCORE: 7-IND SOCIAL INTERACTION: SOCIAL INTERACTION - STEP 1: Does the patient require a helper to interact with others in social and therapeutic situations? No. SOCIAL INTERACTION - STEP 2: Does the patient need extra time in social situations, OR does s/he interact with staff, other patien ts, and family members ONLY in structured environments, OR does s/he require medication for social in teraction? No. SOCIAL INTERACTION - SCORE: 7-IND PROBLEM SOLVING: PROBLEM SOLVING - STEP 1: Does the patient need help to solve complex problems such as managing a checking account or confronti ng interpersonal problems? No. PROBLEM SOLVING - STEP 2: Does the patient require extra time to make decisions or solve problems, OR does s/he have slight dif ficulty reading, initiating, or self-correcting in unfamiliar situations? No. PROBLEM SOLVING - SCORE: 7-IND MEMORY: MEMORY - STEP 1: Does the patient need help to remember frequently encountered people, daily routines, and executing r equests? No. MEMORY - STEP 2: Does the patient have slight difficulty recognizing frequently encountered people, daily routines, or executing requests without the need for repetition or using self-initiated or environmental cues to remember? No. MEMORY - SCORE: 7-IND SIGNATURE PANEL: The following modified sections: Eating - Score, Grooming - Score, Bathing - Score, Dressing - Upper Body - Score, Dressing - Lower Body - Score, Toileting - Score, Transfers: Bed, Chair, Wheelchair - S core, Transfers: Toilet - Score, Transfers: Shower - Score, Transfers: Tub - Score, Comprehension - S core, Expression - Score, Social Interaction - Score, Problem Solving - Score, Memory - Score were [e lectronically] signed by KANIKA Garcia on WedDec 15 2017 14:57:50 T-0500 ([facility])
--- NOTE | 2017-12-15 16:39 | FAST ---
ENCOUNTER DATE AND TIME: 12/15/2017 08:00 (CDT) NAME LYNN GERARDO DATE OF : 1935 DATE OF ADMISSION: 12/02/2017 17:22 (CDT) PHONE: AGE: 82 N# [id number] GENDER: Female ENCOUNTER PHYSICIAN: Dr. Dominick Villareal M.D. ADMISSION DIAGNOSIS: - Orthopaedic Disorders 08 - Unilateral Hip Fracture (.) Right intertrochanteric femur fx. EATING: Activity did not occur on this shift EATING - SCORE: 0-UNK GROOMING: Activity did not occur on this shift GROOMING - SCORE: 0-UNK BATHING: Activity did not occur on this shift BATHING - SCORE: 0-UNK DRESSING - UPPER BODY: Activity did not occur on this shift Patient is not dressing in public clothing ARTICLES SCORE Total number of steps: 0 DRESSING - UPPER BODY - SCORE: 0-UNK DRESSING - LOWER BODY: Activity did not occur on this shift Patient is not dressing in public clothing ARTICLES SCORE Total number of steps: 0 DRESSING - LOWER BODY - SCORE: 0-UNK TOILETING: Activity did not occur on this shift TOILETING - SCORE: 0-UNK BLADDER MANAGEMENT: Activity did not occur on this shift BLADDER MANAGEMENT - SCORE: 7-IND BOWEL MANAGEMENT: Activity did not occur on this shift BOWEL MANAGEMENT - SCORE: 7-IND TRANSFERS: BED, CHAIR, WHEELCHAIR: TRANSFERS: BED, CHAIR, WHEELCHAIR - STEP 1: Does the patient require assistance with bed, chair, or wheelchair transfers? Yes. TRANSFERS: BED, CHAIR, WHEELCHAIR - STEP 2: Does the patient require the assistance of a helper? No. Patient only requires an assistive device fo r bed, chair, wheelchair transfers such as a sliding board, grab bar, or brace, OR s/he takes more th an reasonable time, OR there is a safety concern when s/he performs the transfers TRANSFERS: BED, CHAIR, WHEELCHAIR - SCORE: 6-FRANCES TRANSFERS: TOILET: Activity did not occur on this shift TRANSFERS: TOILET - SCORE: 0-UNK TRANSFERS: SHOWER: Activity did not occur on this shift TRANSFERS: SHOWER - SCORE: 0-UNK TRANSFERS: TUB: Activity did not occur on this shift TRANSFERS: TUB - SCORE: 0-UNK LOCOMOTION: WALK: LOCOMOTION: WALK - STEP 1: Does the patient need help to walk 150 feet? No. LOCOMOTION: WALK - STEP 2: Does the patient need an assistive device (such as an orthosis, prosthesis, crutches, or walker) to g o 150 feet, OR does s/he take more than reasonable time, OR is there a concern for safety? Yes, the p atient needs an assistive device LOCOMOTION: WALK - SCORE: 6-FRANCES LOCOMOTION: WHEELCHAIR: Activity did not occur on this shift LOCOMOTION: WHEELCHAIR - SCORE: 0-UNK LOCOMOTION: STAIRS: LOCOMOTION: STAIRS - STEP 1: Does the patient need help to go up and down 12 to 14 stairs? No. LOCOMOTION: STAIRS - STEP 2: Does the patient require an assistive device - such as handrails or cane - to go up and down one flig ht of stairs, OR does s/he take more than reasonable time, OR is there a concern for safety? Yes, the patient requires an assistive device LOCOMOTION: STAIRS - SCORE: 6-FRANCES COMPREHENSION: COMPREHENSION - SCORE: 0-UNK EXPRESSION EXPRESSION - SCORE: 0-UNK SOCIAL INTERACTION: SOCIAL INTERACTION - SCORE: 0-UNK PROBLEM SOLVING: PROBLEM SOLVING - SCORE: 0-UNK MEMORY: MEMORY - SCORE: 0-UNK SIGNATURE PANEL: The following modified sections: Transfers: Bed, Chair, Wheelchair - Score, Transfers: Toilet - Score , Locomotion: Walk - Score, Locomotion: Wheelchair - Score, Locomotion: Stairs - Score were [electron christina] signed by Jose Jackson PTA on WedDec 15 2017 15:40:51 T-0500 (Central Daylight Time)
--- NOTE | 2017-12-15 19:27 | R.PN ---
ENCOUNTER DATE AND TIME: 12/15/2017 18:26 (CDT) NAME LYNN GERARDO DATE OF : 1935 DATE OF ADMISSION: 12/02/2017 17:22 (CDT) Right intertrochanteric femur fxCHIEF COMPLAINT: Right hip fracture SUBJECTIVE: Pt denied any Shortness of Breath. Pt denied any depression. Blood pressures continues to be elevated since admission. Consider increasing prinivil to 5 mg twice daily. Ambulated 150' with modified independence using a rolling walker. Self-propelled wheelchair 250' with modified independence. Up and down 15 steps with modified independence. VITAL SIGNS Temperature: 97.1 F SBP/DBP: 137/57 Pulse: 74 Resp: 14 MEDICATION ALLERGIES: morphine ENVIRONMENTAL ALLERGIES: None Known - Substance Allergies None Known - Other Allergies None Known NURSING: - Shower allowing shower - Skin care per protocol PRECAUTIONS: - Posterior Hip Precaution No adduction across midline No external rotation No hip flexion >90 degrees No internal rotation No wheel chair propulsion - Weight Bearing Precaution WBAT right LE ACTIVITIES OOB only with supervision THERAPIES: - Occupational Therapy Evaluate and Treat. - Physical Therapy Evaluate and Treat. PHYSICAL EXAM - Gen Alert and awake Lying in bed No apparent distress Oriented to: person, time, and place - Vital Signs Elevated blood pressures, afebrile - Skin No skin breakdown. Normacephalic - Eyes No abnormalities - ENMT No abnormalities - Neck No abnormalities - CVS RRR - Chest Clear - Abd Soft - GI Non distended Deferred - No abnormalities - Ext No significant edema - MSK Unremarkable - Neuro No focal deficits - Psych No abnormalities ASSESSMENT: Pt. is a 82 yo Right-handed white female.On 11/27/2017 she was admitted to [facility] and underwent emergency surgery for Right intertrochanteric femur fx (cephalomedullary fixatio n of right intertrochanteric femur fracture ) by Laurie Olivier.Pre-morbidly, Pt. was independent/mod -I in Communication, Social Cognition, Sphincter Control, Self-Care, Locomotion, and Transfers Contro l; and she had good Safety Awareness and Sphincter Control.Currently, she has deficits of Balance, Sp hincter Control, Locomotion, Endurance, Transfers Control, and Self-Care.Pt. is now referred to [facility] for acute in-patient rehabilitation in order to maximize patient's funct ional independence in activities of daily living, strength, ROM, and mobility.- Rehab Goal Patient has realistic goal of being discharged at assistance level 6-Alondra to reside at Home with Fam alex/Relatives. MDM/PLAN: - Anterior Hip Precaution No abduction No active extension No adduction across midline No external rotation No hip flexion >90 degrees No internal rotation - Physical Therapy Decreased range of motion - to improve, our physical therapists will perform initial evaluation of p t's status upon admission and devise an individualized program for increasing patient's Range of Jonathan on. Gait dysfunction - to improve, our physical therapists will perform initial evaluation of pt's statu s upon admission and devise an individualized program for Gait Training, and Wheel Chair mobility Inability to transfer - to improve, our physical therapists will perform initial evaluation of pt's status upon admission and devise an individualized program for Bed mobility Need for home safety evaluation - to improve, our physical therapists will perform initial evaluatio n of pt's status upon admission and devise an individualized program for Home Evaluation Need in caregiver upon discharge - to improve, our physical therapists will perform initial evaluati on of pt's status upon admission and devise an individualized program for Caregiver Training Edema - to improve, our physical therapists will perform initial evaluation of pt's status upon admi ssion and devise an individualized program for Elevation Training, and Lymphedema Therapy New precaution - to improve, our physical therapists will perform initial evaluation of pt's status upon admission and devise an individualized program for Patient precaution education Poor balance - to improve, our physical therapists will perform initial evaluation of pt's status up on admission and devise an individualized program for Balance Training Poor endurance - to improve, our physical therapists will perform initial evaluation of pt's status upon admission and devise an individualized program for Endurance Training Weakness - to improve, our physical therapists will perform initial evaluation of pt's status upon a dmission and devise an individualized program for Aquatic Therapy, Neuromuscular Reeducation, and Str engthening Achieving independence - to improve, our physical therapists will perform initial evaluation of pt's status upon admission and devise an individualized program for Community Reintegration Activities - Diet - Liquid Texture Continue Regular - Tube Feed Continue N/A - Diet Type Continue GI SOFT - Posterior Hip Precaution No adduction across midline No external rotation No hip flexion >90 degrees No internal rotation No wheel chair propulsion - Occupational Therapy ADL deficits - to improve, our occupation therapists will perform initial evaluation of pt's status upon admission and devise an individualized program for Bathing, Bed mobility, Community Reintegratio n, Cooking, Dressing, Eating, Fine Motor Skills, Grooming, Homemaking, Kitchen Mobility, Laundry, Pat ient Education, Safety Awareness, Splinting - Positioning, Transfers(Toilet, Tub, Shower), and Wheel Chair Management Need for career specialist - to improve, our occupation therapists will perform initial evaluation of pt's status upon admission and devise an individualized program for Caregiver Training Weakness - to improve, our occupation therapists will perform initial evaluation of pt's status upon admission and devise an individualized program for Aquatic Therapy, Balance, Endurance, UE ROM, and UE strengthening - Weight Bearing Precaution WBAT right LE - Skin care per protocol - Diet - Solid Texture Continue Regular - Shower allowing shower FUNCTIONAL STATUS: UPDATED AT WEEKLY TEAM CONFERENCE - Bladder Same Bladder control device used: catheter Same Jovel catheter in place; last changed on - Bowel Same accident frequency: 7-Ind - No accidents in the past 7 days - Walking Same assistance level: 1-Dep - Wheelchair Same score based on distance traveled: 0(N/A) FUNCTIONAL STATUS: - Self-Care A. Eating Ind B. Grooming Ind C. Bathing Ind D. Dressing - Upper Ind E. Dressing - Lower maxA F. Toileting Deedee - Sphincter Control G. Bladder control ADNO H: Bowel control Alondra - Transfers Control I. Bed/Chair/Wheelchair modA - Locomotion L. Walk/Wheelchair (B) Deedee - Communication N. Comprehension (B) Alondra O. Expression (B) Ind - Social Cognition P. Social Interaction Ind Q. Problem Solving Ind R. Memory Ind - Endurance Fair - Balance Fair - Safety Awareness Good CURRENT FUNC. DEFICITS: Balance, Sphincter Control, Locomotion, Endurance, Transfers Control, and Self-Care SIGNATURE PANEL: (CDT)
[2017-12-15] MEDS: DOCUSATE NA/SENNA CONC 1 TAB PO SCH (21:16)
[2017-12-15] MEDS: LISINOPRIL 5 MG TAB PO SCH (21:17)
--- NOTE | 2017-12-16 03:48 | FAST ---
SHIFT START DATE/TIME: 12/15/2017 19:00 (CDT) SHIFT END DATE/TIME: 12/16/2017 07:00 (CDT) NAME LYNN GERARDO DATE OF : 1935 DATE OF ADMISSION: 12/02/2017 17:22 (CDT) PHONE: AGE: 82 N# [id number] GENDER: Female ENCOUNTER PHYSICIAN: Dr. Dominick Villareal M.D. ADMISSION DIAGNOSIS: - Orthopaedic Disorders 08 - Unilateral Hip Fracture (08.11) Right intertrochanteric femur fx. EATING: Activity did not occur on this shift EATING - SCORE: 0-UNK GROOMING: Wash, rinse, and dry hands GROOMING - STEP 1: Does the patient require assistance when grooming? Yes. GROOMING - STEP 2: Does the patient require the assistance of a helper? No. The patient only requires an assistive devic e, OR takes more than reasonable time to groom, OR there is a concern for safety as the patient groom s GROOMING - SCORE: 6-FRANCES BATHING: Activity did not occur on this shift BATHING - SCORE: 0-UNK DRESSING - UPPER BODY: Activity did not occur on this shift ARTICLES SCORE Total number of steps: 0 DRESSING - UPPER BODY - SCORE: 0-UNK DRESSING - LOWER BODY: Activity did not occur on this shift ARTICLES SCORE Total number of steps: 0 DRESSING - LOWER BODY - SCORE: 0-UNK TOILETING: TOILETING - STEP 1: Does the patient require assistance with toileting? Yes. TOILETING - STEP 2: Does the patient require the assistance of a helper? Yes. TOILETING - STEP 3: How much assistance does the patient require from the helper? Only supervision TOILETING - SCORE: 5-SUP BLADDER MANAGEMENT: BLADDER MANAGEMENT - STEP 1: Does the patient control the bladder completely and intentionally without equipment or devices or med ications, and is always continent? No. BLADDER MANAGEMENT - STEP 2: Does the patient require the assistance of a helper? No, patient only requires extra time BLADDER MANAGEMENT - SCORE: 6-FRANCES BOWEL MANAGEMENT: Activity did not occur on this shift BOWEL MANAGEMENT - SCORE: 7-IND TRANSFERS: BED, CHAIR, WHEELCHAIR: TRANSFERS: BED, CHAIR, WHEELCHAIR - STEP 1: Does the patient require assistance with bed, chair, or wheelchair transfers? Yes. TRANSFERS: BED, CHAIR, WHEELCHAIR - STEP 2: Does the patient require the assistance of a helper? No. Patient only requires an assistive device fo r bed, chair, wheelchair transfers such as a sliding board, grab bar, or brace, OR s/he takes more th an reasonable time, OR there is a safety concern when s/he performs the transfers TRANSFERS: BED, CHAIR, WHEELCHAIR - SCORE: 6-FRANCES TRANSFERS: TOILET: TRANSFERS: TOILET - STEP 1: Does the patient require assistance with toilet transfers? Yes. TRANSFERS: TOILET - STEP 2: Does the patient require the assistance of a helper? No. Patient only requires an assistive device albright ch as a grab bar or special seat, OR s/he takes more than reasonable time to perform toilet transfers , OR there is a safety concern when s/he performs toilet transfers. TRANSFERS: TOILET - SCORE: 6-FRANCES TRANSFERS: SHOWER: Activity did not occur on this shift TRANSFERS: SHOWER - SCORE: 0-UNK TRANSFERS: TUB: Activity did not occur on this shift TRANSFERS: TUB - SCORE: 0-UNK LOCOMOTION: WALK: Activity did not occur on this shift LOCOMOTION: WALK - SCORE: 0-UNK LOCOMOTION: WHEELCHAIR: Activity did not occur on this shift LOCOMOTION: WHEELCHAIR - SCORE: 0-UNK COMPREHENSION: COMPREHENSION: TYPE: Both COMPREHENSION - STEP 1: Does the patient require help to understand complex and abstract ideas (such as current events, finan sherlyn, discharge planning, medical issues, relationships, etc)? No. COMPREHENSION - STEP 2: Does the patient need extra time, require an assistive device (such as glasses, hearing aids, or an a ugmentative communication system), OR does s/he have mild difficulty expressing complex and abstract ideas (including mild dysarthria or mild word-finding problems)? Yes. COMPREHENSION - SCORE: 6-FRANCES EXPRESSION EXPRESSION: TYPE: Both EXPRESSION - STEP 1: Does the patient require help expressing complex and abstract ideas (such as current events, finances , discharge planning, medical issues, relationships, etc)? No. EXPRESSION - STEP 2: Does the patient need extra time, require an assistive device (such as augmentive communication syste m or a communication board), OR does s/he have mild difficulty expressing complex and abstract ideas (including mild dysarthria or mild word-find problems)? No. EXPRESSION - SCORE: 7-IND SOCIAL INTERACTION: SOCIAL INTERACTION - STEP 1: Does the patient require a helper to interact with others in social and therapeutic situations? No. SOCIAL INTERACTION - STEP 2: Does the patient need extra time in social situations, OR does s/he interact with staff, other patien ts, and family members ONLY in structured environments, OR does s/he require medication for social in teraction? No. SOCIAL INTERACTION - SCORE: 7-IND PROBLEM SOLVING: PROBLEM SOLVING - STEP 1: Does the patient need help to solve complex problems such as managing a checking account or confronti ng interpersonal problems? No. PROBLEM SOLVING - STEP 2: Does the patient require extra time to make decisions or solve problems, OR does s/he have slight dif ficulty reading, initiating, or self-correcting in unfamiliar situations? No. PROBLEM SOLVING - SCORE: 7-IND MEMORY: MEMORY - STEP 1: Does the patient need help to remember frequently encountered people, daily routines, and executing r equests? No. MEMORY - STEP 2: Does the patient have slight difficulty recognizing frequently encountered people, daily routines, or executing requests without the need for repetition or using self-initiated or environmental cues to remember? No. MEMORY - SCORE: 7-IND
[2017-12-16 06:30] LABS: Absolute Lymphocytes (CBC) 1.7 K/uL (0.7-4.9); Absolute Monocytes 0.9 K/uL (0.1-1.3); Absolute Neutrophil 3.5 K/uL (1.8-8.0); Basophils % 1.3 % (0-1.3); Eosinophils % 7.6 % (0-4.4); Hematocrit 33.3 % (36.0-45.0); MCH 30.3 pg (27.0-35.0); MCV 89.6 fL (80-100); MPV 7.9 fL (7.6-11.3); Monocytes % 13.7 % (3.3-12.3); RBC Red Blood Cell Count 3.72 M/uL (3.86-4.86)
[2017-12-16 06:59] LABS: Albumin 3.4 g/dL (3.2-5.5); BUN Blood Urea Nitrogen 15 mg/dL (6-20); Bicarbonate 28 mEq/L (21-31); Glucose Level 92 mg/dL (65-120); Potassium 5.2 mEq/L (3.6-5.0); Prealbumin 20.8 mg/dl (18-38); Sodium Level 131 mEq/L (135-145)
[2017-12-16] MEDS: POLYETHYL GLY 3350 17 GM/DOSE PO PRN (08:02)
[2017-12-16] MEDS: GABAPENTIN 300 MG CAP PO SCH ×3 (08:03→21:21)
[2017-12-16] MEDS: DOCUSATE NA 100 MG CAP PO SCH (08:03)
[2017-12-16] MEDS: CRANBERRY FRUIT EXTRACT 200 MG CAP PO SCH ×2 (08:04→19:33)
[2017-12-16] MEDS: ASPIRIN 81 MG CHEWABLE TABLET PO SCH (08:04)
[2017-12-16] MEDS: MULTIVITAMIN TAB PO SCH (08:04)
[2017-12-16] MEDS: HYDRALAZINE HCL 10 MG TABLET PO SCH ×3 (08:05→21:21)
[2017-12-16] MEDS: APIXABAN 2.5 MG TABLET PO SCH ×2 (08:05→19:33)
[2017-12-16] MEDS: METOPROLOL TAR 50 MG TAB PO SCH ×2 (08:06→19:33)
[2017-12-16] MEDS: CARBAMAZEPINE 200 MG TAB PO SCH ×2 (08:06→19:33)
[2017-12-16] MEDS: CYCLOBENZAPRINE 10 MG TAB PO PRN ×2 (08:07→22:25)
[2017-12-16] MEDS: ENSURE HIGH PROTEIN 237 ML CAN PO SCH (08:08)
--- NOTE | 2017-12-16 11:06 | FAST ---
SHIFT START DATE/TIME: 12/16/2017 07:00 (CDT) SHIFT END DATE/TIME: 12/16/2017 19:00 (CDT) NAME LYNN GERARDO DATE OF : 1935 DATE OF ADMISSION: 12/02/2017 17:22 (CDT) PHONE: AGE: 82 N# [id number] GENDER: Female ENCOUNTER PHYSICIAN: Dr. Dominick Villareal M.D. ADMISSION DIAGNOSIS: - Orthopaedic Disorders 08 - Unilateral Hip Fracture (08.11) Right intertrochanteric femur fx. EATING: EATING - STEP 1: Does the patient require assistance when eating? Yes. EATING - STEP 2: Does the patient require the assistance of a helper? No, patient only requires an assistive device, O R s/he takes more than reasonable time to eat, OR there is a safety concern, OR s/he requires modifie d food consistency EATING - SCORE: 6-FRANCES GROOMING: Comb/brush hair Oral care Wash, rinse, and dry face Wash, rinse, and dry hands GROOMING - STEP 1: Does the patient require assistance when grooming? Yes. GROOMING - STEP 2: Does the patient require the assistance of a helper? No. The patient only requires an assistive devic e, OR takes more than reasonable time to groom, OR there is a concern for safety as the patient groom s GROOMING - SCORE: 6-FRANCES BATHING: Activity did not occur on this shift BATHING - SCORE: 0-UNK DRESSING - UPPER BODY: Bra (three steps) T-shirt/pullover shirt (four steps) ARTICLES SCORE Total number of steps: 7 DRESSING - UPPER BODY - STEP 1: Does the patient require help when dressing above the waist? Yes. DRESSING - UPPER BODY - STEP 2: Does the patient require the assistance of a helper? No. Patient only requires an assistive device, s uch as a button hook, velcro, or reinforcer. OR s/he takes more than reasonable time as s/he dresses the upper body. OR there is a concern for safety when s/he dresses the upper body DRESSING - UPPER BODY - SCORE: 6-FRANCES DRESSING - LOWER BODY: Elastic waist pants (three steps) Slip-on shoe - Left foot (one step) Slip-on shoe - Right foot (one step) Sock - Left foot (one step) Sock - Right foot (one step) Underwear (three steps) ARTICLES SCORE Total number of steps: 10 DRESSING - LOWER BODY - STEP 1: Does the patient require help when dressing below the waist? Yes. DRESSING - LOWER BODY - STEP 2: Does the patient require the assistance of a helper? No. Patient requires an assistive device such as a reinforcer. OR s/he takes more than reasonable time as s/he dresses the lower body, OR there is a con cern for safety when s/he dresses the lower body DRESSING - LOWER BODY - SCORE: 6-FRANCES TOILETING: TOILETING - STEP 1: Does the patient require assistance with toileting? Yes. TOILETING - STEP 2: Does the patient require the assistance of a helper? No. TOILETING - SCORE: 6-FRANCES BLADDER MANAGEMENT: BLADDER MANAGEMENT - STEP 1: Does the patient control the bladder completely and intentionally without equipment or devices or med ications, and is always continent? Yes. BLADDER MANAGEMENT - SCORE: 7-IND BOWEL MANAGEMENT: Activity did not occur on this shift BOWEL MANAGEMENT - SCORE: 7-IND TRANSFERS: BED, CHAIR, WHEELCHAIR: TRANSFERS: BED, CHAIR, WHEELCHAIR - STEP 1: Does the patient require assistance with bed, chair, or wheelchair transfers? Yes. TRANSFERS: BED, CHAIR, WHEELCHAIR - STEP 2: Does the patient require the assistance of a helper? No. Patient only requires an assistive device fo r bed, chair, wheelchair transfers such as a sliding board, grab bar, or brace, OR s/he takes more th an reasonable time, OR there is a safety concern when s/he performs the transfers TRANSFERS: BED, CHAIR, WHEELCHAIR - SCORE: 6-FRANCES TRANSFERS: TOILET: TRANSFERS: TOILET - STEP 1: Does the patient require assistance with toilet transfers? Yes. TRANSFERS: TOILET - STEP 2: Does the patient require the assistance of a helper? No. Patient only requires an assistive device albright ch as a grab bar or special seat, OR s/he takes more than reasonable time to perform toilet transfers , OR there is a safety concern when s/he performs toilet transfers. TRANSFERS: TOILET - SCORE: 6-FRANCES TRANSFERS: SHOWER: Activity did not occur on this shift TRANSFERS: SHOWER - SCORE: 0-UNK TRANSFERS: TUB: Activity did not occur on this shift TRANSFERS: TUB - SCORE: 0-UNK LOCOMOTION: WALK: Activity did not occur on this shift LOCOMOTION: WALK - SCORE: 0-UNK LOCOMOTION: WHEELCHAIR: Activity did not occur on this shift LOCOMOTION: WHEELCHAIR - SCORE: 0-UNK COMPREHENSION: COMPREHENSION - SCORE: 0-UNK EXPRESSION EXPRESSION - SCORE: 0-UNK SOCIAL INTERACTION: SOCIAL INTERACTION - SCORE: 0-UNK PROBLEM SOLVING: PROBLEM SOLVING - SCORE: 0-UNK MEMORY: MEMORY - SCORE: 0-UNK SIGNATURE PANEL: The following modified sections: Eating - Score, Grooming - Score, Bathing - Score, Dressing - Upper Body - Score, Dressing - Lower Body - Score, Toileting - Score, Bladder Management - Score, Bowel Man agement - Score, Transfers: Bed, Chair, Wheelchair - Score, Transfers: Toilet - Score, Transfers: Chelo wer - Score, Transfers: Tub - Score, Locomotion: Walk - Score, Locomotion: Wheelchair - Score, Compre hension - Score, Expression - Score, Social Interaction - Score, Problem Solving - Score, Memory - Sc ore were [electronically] signed by Matti Uribe on WedDec 16 2017 10:07:31 GMT-0500 (Central Daylight Time)
--- NOTE | 2017-12-16 16:31 | FAST ---
ENCOUNTER DATE AND TIME: 12/16/2017 08:00 (CDT) NAME LYNN GERARDO DATE OF : 1935 DATE OF ADMISSION: 12/02/2017 17:22 (CDT) PHONE: AGE: 82 N# [id number] GENDER: Female ENCOUNTER PHYSICIAN: Dr. Dominick Villareal M.D. ADMISSION DIAGNOSIS: - Orthopaedic Disorders 08 - Unilateral Hip Fracture (08.11) Right intertrochanteric femur fx. EATING: Activity did not occur on this shift EATING - SCORE: 0-UNK GROOMING: Activity did not occur on this shift GROOMING - SCORE: 0-UNK BATHING: Activity did not occur on this shift BATHING - SCORE: 0-UNK DRESSING - UPPER BODY: Activity did not occur on this shift Patient is not dressing in public clothing ARTICLES SCORE Total number of steps: 0 DRESSING - UPPER BODY - SCORE: 0-UNK DRESSING - LOWER BODY: Activity did not occur on this shift Patient is not dressing in public clothing ARTICLES SCORE Total number of steps: 0 DRESSING - LOWER BODY - SCORE: 0-UNK TOILETING: Activity did not occur on this shift TOILETING - SCORE: 0-UNK BLADDER MANAGEMENT: Activity did not occur on this shift BLADDER MANAGEMENT - SCORE: 7-IND BOWEL MANAGEMENT: Activity did not occur on this shift BOWEL MANAGEMENT - SCORE: 7-IND TRANSFERS: BED, CHAIR, WHEELCHAIR: TRANSFERS: BED, CHAIR, WHEELCHAIR - STEP 1: Does the patient require assistance with bed, chair, or wheelchair transfers? Yes. TRANSFERS: BED, CHAIR, WHEELCHAIR - STEP 2: Does the patient require the assistance of a helper? No. Patient only requires an assistive device fo r bed, chair, wheelchair transfers such as a sliding board, grab bar, or brace, OR s/he takes more th an reasonable time, OR there is a safety concern when s/he performs the transfers TRANSFERS: BED, CHAIR, WHEELCHAIR - SCORE: 6-FRANCES TRANSFERS: TOILET: Activity did not occur on this shift TRANSFERS: TOILET - SCORE: 0-UNK TRANSFERS: SHOWER: Activity did not occur on this shift TRANSFERS: SHOWER - SCORE: 0-UNK TRANSFERS: TUB: Activity did not occur on this shift TRANSFERS: TUB - SCORE: 0-UNK LOCOMOTION: WALK: LOCOMOTION: WALK - STEP 1: Does the patient need help to walk 150 feet? No. LOCOMOTION: WALK - STEP 2: Does the patient need an assistive device (such as an orthosis, prosthesis, crutches, or walker) to g o 150 feet, OR does s/he take more than reasonable time, OR is there a concern for safety? Yes, the p atient needs an assistive device LOCOMOTION: WALK - SCORE: 6-FRANCES LOCOMOTION: WHEELCHAIR: Activity did not occur on this shift LOCOMOTION: WHEELCHAIR - SCORE: 0-UNK LOCOMOTION: STAIRS: LOCOMOTION: STAIRS - STEP 1: Does the patient need help to go up and down 12 to 14 stairs? No. LOCOMOTION: STAIRS - STEP 2: Does the patient require an assistive device - such as handrails or cane - to go up and down one flig ht of stairs, OR does s/he take more than reasonable time, OR is there a concern for safety? Yes, the patient requires an assistive device LOCOMOTION: STAIRS - SCORE: 6-FRANCES COMPREHENSION: COMPREHENSION - SCORE: 0-UNK EXPRESSION EXPRESSION - SCORE: 0-UNK SOCIAL INTERACTION: SOCIAL INTERACTION - SCORE: 0-UNK PROBLEM SOLVING: PROBLEM SOLVING - SCORE: 0-UNK MEMORY: MEMORY - SCORE: 0-UNK SIGNATURE PANEL: The following modified sections: Transfers: Bed, Chair, Wheelchair - Score, Transfers: Toilet - Score , Locomotion: Walk - Score, Locomotion: Wheelchair - Score, Locomotion: Stairs - Score were [electron christina] signed by Jose Jackson PTA on WedDec 16 2017 15:32:42 T-0500 (Central Daylight Time)
--- NOTE | 2017-12-16 18:24 | R.PN ---
ENCOUNTER DATE AND TIME: 12/16/2017 17:22 (CDT) NAME LYNN GERARDO DATE OF : 1935 DATE OF ADMISSION: 12/02/2017 17:22 (CDT) Right intertrochanteric femur fxCHIEF COMPLAINT: Right hip fracture SUBJECTIVE: Pt denied any Shortness of Breath. Pt denied any depression. Blood pressures continues to be elevated since admission. Consider increasing prinivil to 5 mg twice daily. Ambulated 1000' with modified independence using a rolling walker. Self-propelled wheelchair 250' wit h modified independence. Up and down 15 steps with modified independence. VITAL SIGNS Temperature: 97.7 F SBP/DBP: 148/56 Pulse: 71 Resp: 16 MEDICATION ALLERGIES: morphine ENVIRONMENTAL ALLERGIES: None Known - Substance Allergies None Known - Other Allergies None Known NURSING: - Shower allowing shower - Skin care per protocol PRECAUTIONS: - Posterior Hip Precaution No adduction across midline No external rotation No hip flexion >90 degrees No internal rotation No wheel chair propulsion - Weight Bearing Precaution WBAT right LE ACTIVITIES OOB only with supervision THERAPIES: - Occupational Therapy Evaluate and Treat. - Physical Therapy Evaluate and Treat. PHYSICAL EXAM - Gen Alert and awake Lying in bed No apparent distress Oriented to: person, time, and place - Vital Signs Improved blood pressure control. - Skin No skin breakdown. Normacephalic - Eyes No abnormalities - ENMT No abnormalities - Neck No abnormalities - CVS RRR - Chest Clear - Abd Soft - GI Non distended Deferred - No abnormalities - Ext No significant edema - MSK Unremarkable - Neuro No focal deficits - Psych No abnormalities ASSESSMENT: Pt. is a 82 yo Right-handed white female.On 11/27/2017 she was admitted to [facility] and underwent emergency surgery for Right intertrochanteric femur fx (cephalomedullary fixatio n of right intertrochanteric femur fracture ) by Laurie Olivier.Pre-morbidly, Pt. was independent/mod -I in Communication, Social Cognition, Sphincter Control, Self-Care, Locomotion, and Transfers Contro l; and she had good Safety Awareness and Sphincter Control.Currently, she has deficits of Balance, Sp hincter Control, Locomotion, Endurance, Transfers Control, and Self-Care.Pt. is now referred to [facility] for acute in-patient rehabilitation in order to maximize patient's funct ional independence in activities of daily living, strength, ROM, and mobility.- Rehab Goal Patient has realistic goal of being discharged at assistance level 6-Alondra to reside at Home with Fam alex/Relatives. MDM/PLAN: - Anterior Hip Precaution No abduction No active extension No adduction across midline No external rotation No hip flexion >90 degrees No internal rotation - Physical Therapy Decreased range of motion - to improve, our physical therapists will perform initial evaluation of p t's status upon admission and devise an individualized program for increasing patient's Range of Jonathan on. Gait dysfunction - to improve, our physical therapists will perform initial evaluation of pt's statu s upon admission and devise an individualized program for Gait Training, and Wheel Chair mobility Inability to transfer - to improve, our physical therapists will perform initial evaluation of pt's status upon admission and devise an individualized program for Bed mobility Need for home safety evaluation - to improve, our physical therapists will perform initial evaluatio n of pt's status upon admission and devise an individualized program for Home Evaluation Need in caregiver upon discharge - to improve, our physical therapists will perform initial evaluati on of pt's status upon admission and devise an individualized program for Caregiver Training Edema - to improve, our physical therapists will perform initial evaluation of pt's status upon admi ssion and devise an individualized program for Elevation Training, and Lymphedema Therapy New precaution - to improve, our physical therapists will perform initial evaluation of pt's status upon admission and devise an individualized program for Patient precaution education Poor balance - to improve, our physical therapists will perform initial evaluation of pt's status up on admission and devise an individualized program for Balance Training Poor endurance - to improve, our physical therapists will perform initial evaluation of pt's status upon admission and devise an individualized program for Endurance Training Weakness - to improve, our physical therapists will perform initial evaluation of pt's status upon a dmission and devise an individualized program for Aquatic Therapy, Neuromuscular Reeducation, and Str engthening Achieving independence - to improve, our physical therapists will perform initial evaluation of pt's status upon admission and devise an individualized program for Community Reintegration Activities - Diet - Liquid Texture Continue Regular - Tube Feed Continue N/A - Diet Type Continue GI SOFT - Posterior Hip Precaution No adduction across midline No external rotation No hip flexion >90 degrees No internal rotation No wheel chair propulsion - Occupational Therapy ADL deficits - to improve, our occupation therapists will perform initial evaluation of pt's status upon admission and devise an individualized program for Bathing, Bed mobility, Community Reintegratio n, Cooking, Dressing, Eating, Fine Motor Skills, Grooming, Homemaking, Kitchen Mobility, Laundry, Pat ient Education, Safety Awareness, Splinting - Positioning, Transfers(Toilet, Tub, Shower), and Wheel Chair Management Need for medicare contact specialist - to improve, our occupation therapists will perform initial evaluation of pt's status upon admission and devise an individualized program for Caregiver Training Weakness - to improve, our occupation therapists will perform initial evaluation of pt's status upon admission and devise an individualized program for Aquatic Therapy, Balance, Endurance, UE ROM, and UE strengthening - Weight Bearing Precaution WBAT right LE - Skin care per protocol - Diet - Solid Texture Continue Regular - Shower allowing shower FUNCTIONAL STATUS: UPDATED AT WEEKLY TEAM CONFERENCE - Bladder Same Bladder control device used: catheter Same Jovel catheter in place; last changed on - Bowel Same accident frequency: 7-Ind - No accidents in the past 7 days - Walking Same assistance level: 1-Dep - Wheelchair Same score based on distance traveled: 0(N/A) FUNCTIONAL STATUS: - Self-Care A. Eating Ind B. Grooming Ind C. Bathing Ind D. Dressing - Upper Ind E. Dressing - Lower maxA F. Toileting Deedee - Sphincter Control G. Bladder control ADNO H: Bowel control Alondra - Transfers Control I. Bed/Chair/Wheelchair modA - Locomotion L. Walk/Wheelchair (B) Deedee - Communication N. Comprehension (B) Alondra O. Expression (B) Ind - Social Cognition P. Social Interaction Ind Q. Problem Solving Ind R. Memory Ind - Endurance Fair - Balance Fair - Safety Awareness Good CURRENT FUNC. DEFICITS: Balance, Sphincter Control, Locomotion, Endurance, Transfers Control, and Self-Care SIGNATURE PANEL: (CDT)
[2017-12-16] MEDS: DOCUSATE NA/SENNA CONC 1 TAB PO SCH (21:21)
[2017-12-16] MEDS: LISINOPRIL 5 MG TAB PO SCH (21:21)
[2017-12-16] MEDS: TRAMADOL HCL 50 MG TAB PO PRN (22:25)
--- NOTE | 2017-12-17 02:18 | FAST ---
SHIFT START DATE/TIME: 12/16/2017 19:00 (CDT) SHIFT END DATE/TIME: 12/17/2017 07:00 (CDT) NAME LYNN GERARDO DATE OF : 1935 DATE OF ADMISSION: 12/02/2017 17:22 (CDT) PHONE: AGE: 82 N# [id number] GENDER: Female ENCOUNTER PHYSICIAN: Dr. Dominick Villareal M.D. ADMISSION DIAGNOSIS: - Orthopaedic Disorders 08 - Unilateral Hip Fracture (08.11) Right intertrochanteric femur fx. EATING: EATING - STEP 1: Does the patient require assistance when eating? Yes. EATING - STEP 2: Does the patient require the assistance of a helper? No, patient only requires an assistive device, O R s/he takes more than reasonable time to eat, OR there is a safety concern, OR s/he requires modifie d food consistency EATING - SCORE: 6-FRANCES GROOMING: Comb/brush hair Oral care Wash, rinse, and dry face Wash, rinse, and dry hands GROOMING - STEP 1: Does the patient require assistance when grooming? Yes. GROOMING - STEP 2: Does the patient require the assistance of a helper? No. The patient only requires an assistive devic e, OR takes more than reasonable time to groom, OR there is a concern for safety as the patient groom s GROOMING - SCORE: 6-FRANCES BATHING: Activity did not occur on this shift BATHING - SCORE: 0-UNK DRESSING - UPPER BODY: Patient is not dressing in public clothing ARTICLES SCORE Total number of steps: 0 DRESSING - UPPER BODY - SCORE: 0-UNK DRESSING - LOWER BODY: Patient is not dressing in public clothing ARTICLES SCORE Total number of steps: 0 DRESSING - LOWER BODY - SCORE: 0-UNK TOILETING: TOILETING - STEP 1: Does the patient require assistance with toileting? Yes. TOILETING - STEP 2: Does the patient require the assistance of a helper? No. TOILETING - SCORE: 6-FRANCES BLADDER MANAGEMENT: BLADDER MANAGEMENT - STEP 1: Does the patient control the bladder completely and intentionally without equipment or devices or med ications, and is always continent? No. BLADDER MANAGEMENT - STEP 2: Does the patient require the assistance of a helper? No, patient requires and independently uses an a ssistive device, such as a urinal, bedpan, bedside commode, catheter, absorbent pad, or collecting de vice BLADDER MANAGEMENT - SCORE: 6-FRANCES BLADDER MANAGEMENT - FREQUENCY OF ACCIDENTS: BLADDER MANAGEMENT(FA) - STEP 1: How many accidents has the patient had during the current shift? 0 BOWEL MANAGEMENT: BOWEL MANAGEMENT - STEP 1: Does the patient control bowels completely and intentionally without equipment devices or medications AND is always continent? No. BOWEL MANAGEMENT - STEP 2: Does the patient require the assistance of a helper? No, patient requires and manages independently a n assistive device such as a bedpan, bedside commode, absorbent pad, incontinent device, or collectin g device BOWEL MANAGEMENT - SCORE: 6-FRANCES BOWEL MANAGEMENT - FREQUENCY OF ACCIDENTS: BOWEL MANAGEMENT(FA) - STEP 1: How many accidents has the patient had during the current shift? 0 TRANSFERS: BED, CHAIR, WHEELCHAIR: TRANSFERS: BED, CHAIR, WHEELCHAIR - STEP 1: Does the patient require assistance with bed, chair, or wheelchair transfers? Yes. TRANSFERS: BED, CHAIR, WHEELCHAIR - STEP 2: Does the patient require the assistance of a helper? No. Patient only requires an assistive device fo r bed, chair, wheelchair transfers such as a sliding board, grab bar, or brace, OR s/he takes more th an reasonable time, OR there is a safety concern when s/he performs the transfers TRANSFERS: BED, CHAIR, WHEELCHAIR - SCORE: 6-FRANCES TRANSFERS: TOILET: TRANSFERS: TOILET - STEP 1: Does the patient require assistance with toilet transfers? Yes. TRANSFERS: TOILET - STEP 2: Does the patient require the assistance of a helper? No. Patient only requires an assistive device albright ch as a grab bar or special seat, OR s/he takes more than reasonable time to perform toilet transfers , OR there is a safety concern when s/he performs toilet transfers. TRANSFERS: TOILET - SCORE: 6-FRANCES TRANSFERS: SHOWER: Activity did not occur on this shift TRANSFERS: SHOWER - SCORE: 0-UNK TRANSFERS: TUB: Activity did not occur on this shift TRANSFERS: TUB - SCORE: 0-UNK LOCOMOTION: WALK: Activity did not occur on this shift LOCOMOTION: WALK - SCORE: 0-UNK LOCOMOTION: WHEELCHAIR: Activity did not occur on this shift LOCOMOTION: WHEELCHAIR - SCORE: 0-UNK COMPREHENSION: COMPREHENSION: TYPE: Both COMPREHENSION - STEP 1: Does the patient require help to understand complex and abstract ideas (such as current events, finan sherlyn, discharge planning, medical issues, relationships, etc)? No. COMPREHENSION - STEP 2: Does the patient need extra time, require an assistive device (such as glasses, hearing aids, or an a ugmentative communication system), OR does s/he have mild difficulty expressing complex and abstract ideas (including mild dysarthria or mild word-finding problems)? Yes. COMPREHENSION - SCORE: 6-FRANCES EXPRESSION EXPRESSION: TYPE: Both EXPRESSION - STEP 1: Does the patient require help expressing complex and abstract ideas (such as current events, finances , discharge planning, medical issues, relationships, etc)? No. EXPRESSION - STEP 2: Does the patient need extra time, require an assistive device (such as augmentive communication syste m or a communication board), OR does s/he have mild difficulty expressing complex and abstract ideas (including mild dysarthria or mild word-find problems)? No. EXPRESSION - SCORE: 7-IND SOCIAL INTERACTION: SOCIAL INTERACTION - STEP 1: Does the patient require a helper to interact with others in social and therapeutic situations? No. SOCIAL INTERACTION - STEP 2: Does the patient need extra time in social situations, OR does s/he interact with staff, other patien ts, and family members ONLY in structured environments, OR does s/he require medication for social in teraction? No. SOCIAL INTERACTION - SCORE: 7-IND PROBLEM SOLVING: PROBLEM SOLVING - STEP 1: Does the patient need help to solve complex problems such as managing a checking account or confronti ng interpersonal problems? No. PROBLEM SOLVING - STEP 2: Does the patient require extra time to make decisions or solve problems, OR does s/he have slight dif ficulty reading, initiating, or self-correcting in unfamiliar situations? No. PROBLEM SOLVING - SCORE: 7-IND MEMORY: MEMORY - STEP 1: Does the patient need help to remember frequently encountered people, daily routines, and executing r equests? No. MEMORY - STEP 2: Does the patient have slight difficulty recognizing frequently encountered people, daily routines, or executing requests without the need for repetition or using self-initiated or environmental cues to remember? No. MEMORY - SCORE: 7-IND SIGNATURE PANEL: The following modified sections: Eating - Score, Grooming - Score, Bathing - Score, Dressing - Upper Body - Score, Dressing - Lower Body - Score, Toileting - Score, Bladder Management - Score, Bowel Man agement - Score, Transfers: Bed, Chair, Wheelchair - Score, Transfers: Toilet - Score, Transfers: Chelo wer - Score, Transfers: Tub - Score, Locomotion: Walk - Score, Locomotion: Wheelchair - Score, Compre hension - Score, Expression - Score, Social Interaction - Score, Problem Solving - Score, Memory - Sc ore were [electronically] signed by Leila Nieto C.N.[email or web address] on WedDec 17 2017 01:19:50 GMT-0500 ( Central Daylight Time)
[2017-12-17] MEDS: TRAMADOL HCL 50 MG TAB PO PRN (06:35)
[2017-12-17 07:44] VITALS: BP 184/77; TEMP 97.2
[2017-12-17] MEDS: CARBAMAZEPINE 200 MG TAB PO SCH (08:25)
[2017-12-17] MEDS: ASPIRIN 81 MG CHEWABLE TABLET PO SCH (08:25)
[2017-12-17] MEDS: POLYETHYL GLY 3350 17 GM/DOSE PO PRN (08:25)
[2017-12-17] MEDS: DOCUSATE NA 100 MG CAP PO SCH (08:25)
[2017-12-17] MEDS: CRANBERRY FRUIT EXTRACT 200 MG CAP PO SCH (08:25)
[2017-12-17] MEDS: MULTIVITAMIN TAB PO SCH (08:26)
[2017-12-17] MEDS: APIXABAN 2.5 MG TABLET PO SCH (08:26)
[2017-12-17] MEDS: METOPROLOL TAR 50 MG TAB PO SCH (08:26)
[2017-12-17] MEDS: GABAPENTIN 300 MG CAP PO SCH ×2 (08:26→13:15)
[2017-12-17] MEDS: HYDRALAZINE HCL 10 MG TABLET PO SCH ×2 (08:28→13:15)
[2017-12-17] MEDS: ENSURE HIGH PROTEIN 237 ML CAN PO SCH (08:29)
--- NOTE | 2017-12-17 09:09 | FAST ---
ENCOUNTER DATE AND TIME: 12/17/2017 08:00 (CDT) NAME LYNN GERARDO DATE OF : 1935 DATE OF ADMISSION: 12/02/2017 17:22 (CDT) PHONE: AGE: 82 N# [id number] GENDER: Female ENCOUNTER PHYSICIAN: Dr. Dominick Villareal M.D. ADMISSION DIAGNOSIS: - Orthopaedic Disorders 08 - Unilateral Hip Fracture (08.11) Right intertrochanteric femur fx. EATING: Activity did not occur on this shift EATING - SCORE: 0-UNK GROOMING: Activity did not occur on this shift GROOMING - SCORE: 0-UNK BATHING: Activity did not occur on this shift BATHING - SCORE: 0-UNK DRESSING - UPPER BODY: Activity did not occur on this shift Patient is not dressing in public clothing ARTICLES SCORE Total number of steps: 0 DRESSING - UPPER BODY - SCORE: 0-UNK DRESSING - LOWER BODY: Activity did not occur on this shift Patient is not dressing in public clothing ARTICLES SCORE Total number of steps: 0 DRESSING - LOWER BODY - SCORE: 0-UNK TOILETING: Activity did not occur on this shift TOILETING - SCORE: 0-UNK BLADDER MANAGEMENT: Activity did not occur on this shift BLADDER MANAGEMENT - SCORE: 7-IND BOWEL MANAGEMENT: Activity did not occur on this shift BOWEL MANAGEMENT - SCORE: 7-IND TRANSFERS: BED, CHAIR, WHEELCHAIR: TRANSFERS: BED, CHAIR, WHEELCHAIR - STEP 1: Does the patient require assistance with bed, chair, or wheelchair transfers? Yes. TRANSFERS: BED, CHAIR, WHEELCHAIR - STEP 2: Does the patient require the assistance of a helper? No. Patient only requires an assistive device fo r bed, chair, wheelchair transfers such as a sliding board, grab bar, or brace, OR s/he takes more th an reasonable time, OR there is a safety concern when s/he performs the transfers TRANSFERS: BED, CHAIR, WHEELCHAIR - SCORE: 6-FRANCES TRANSFERS: TOILET: Activity did not occur on this shift TRANSFERS: TOILET - SCORE: 0-UNK TRANSFERS: SHOWER: Activity did not occur on this shift TRANSFERS: SHOWER - SCORE: 0-UNK TRANSFERS: TUB: Activity did not occur on this shift TRANSFERS: TUB - SCORE: 0-UNK LOCOMOTION: WALK: LOCOMOTION: WALK - STEP 1: Does the patient need help to walk 150 feet? No. LOCOMOTION: WALK - STEP 2: Does the patient need an assistive device (such as an orthosis, prosthesis, crutches, or walker) to g o 150 feet, OR does s/he take more than reasonable time, OR is there a concern for safety? Yes, the p atient needs an assistive device LOCOMOTION: WALK - SCORE: 6-FRANCES LOCOMOTION: WALK - COMMENTS: 500' + LOCOMOTION: WHEELCHAIR: Activity did not occur on this shift LOCOMOTION: WHEELCHAIR - SCORE: 0-UNK LOCOMOTION: STAIRS: LOCOMOTION: STAIRS - STEP 1: Does the patient need help to go up and down 12 to 14 stairs? No. LOCOMOTION: STAIRS - STEP 2: Does the patient require an assistive device - such as handrails or cane - to go up and down one flig ht of stairs, OR does s/he take more than reasonable time, OR is there a concern for safety? Yes, the patient requires an assistive device LOCOMOTION: STAIRS - SCORE: 6-FRANCES LOCOMOTION: STAIRS - COMMENTS: Hand rails COMPREHENSION: COMPREHENSION - SCORE: 0-UNK EXPRESSION EXPRESSION - SCORE: 0-UNK SOCIAL INTERACTION: SOCIAL INTERACTION - SCORE: 0-UNK PROBLEM SOLVING: PROBLEM SOLVING - SCORE: 0-UNK MEMORY: MEMORY - SCORE: 0-UNK SIGNATURE PANEL: The following modified sections: Transfers: Bed, Chair, Wheelchair - Score, Transfers: Toilet - Score , Locomotion: Walk - Score, Locomotion: Wheelchair - Score, Locomotion: Walk - Comments:, Locomotion: Stairs - Score, Locomotion: Stairs - Comments: were [electronically] signed by Nancy Landry PTA on Fr i Dec 17 2017 08:10:27 T-0500 (Central Daylight Time)
--- NOTE | 2017-12-17 09:32 | P.RH.PN ---
Estimated Length of Stay: 14 Expected Discharge Date: 12/17/17 Discharge Disposition Plan: Home Family Support: Yes Detention Goal: Mobility, Transfers, Self Care Vital Signs: Last Vital Signs Temp 97.2 F 12/17/17 07:44 Pulse 79 12/17/17 08:26 Resp 16 12/17/17 07:44 BP 184/77 H 12/17/17 08:26 Pulse Ox 95 12/17/17 07:44 Laboratory: Laboratory Last Values WBC 6.7 K/uL (4.3-10.9) D 12/16/17 05:39 RBC 3.72 M/uL (3.86-4.86) L 12/16/17 05:39 Hgb 11.3 g/dL (12.0-15.0) L 12/16/17 05:39 Hct 33.3 % (36.0-45.0) L 12/16/17 05:39 MCV 89.6 fL (80-100) 12/16/17 05:39 MCH 30.3 pg (27.0-35.0) 12/16/17 05:39 MCHC 33.8 g/dL (32.0-36.0) 12/16/17 05:39 RDW 16.1 % (12.1-15.2) H 12/16/17 05:39 Plt Count 440 K/uL (152-406) H 12/16/17 05:39 MPV 7.9 fL (7.6-11.3) 12/16/17 05:39 Neutrophils % 51.4 % (41.7-73.7) 12/16/17 05:39 Lymphocytes % 26.0 % (15.3-44.8) 12/16/17 05:39 Monocytes % 13.7 % (3.3-12.3) H 12/16/17 05:39 Eosinophils % 7.6 % (0-4.4) H 12/16/17 05:39 Basophils % 1.3 % (0-1.3) 12/16/17 05:39 Absolute Neutrophils 3.5 K/uL (1.8-8.0) 12/16/17 05:39 Absolute Lymphocytes 1.7 K/uL (0.7-4.9) 12/16/17 05:39 Absolute Monocytes 0.9 K/uL (0.1-1.3) 12/16/17 05:39 Absolute Eosinophils 0.5 K/uL (0-0.5) 12/16/17 05:39 Absolute Basophils 0.1 K/uL (0-0.5) 12/16/17 05:39 Sodium 131 mEq/L (135-145) L 12/16/17 05:39 Potassium 5.2 mEq/L (3.6-5.0) H 12/16/17 05:39 Chloride 99 mEq/L (101-111) L 12/16/17 05:39 Carbon Dioxide 28 mEq/L (21-31) 12/16/17 05:39 BUN 15 mg/dL (6-20) 12/16/17 05:39 Creatinine 0.63 mg/dL (0.44-1.00) 12/16/17 05:39 Estimated GFR > 90 mL/min (=/>90) 12/16/17 05:39 Glucose 92 mg/dL (65-120) 12/16/17 05:39 Calcium 9.3 mg/dL (8.5-10.5) 12/16/17 05:39 Magnesium 2.0 mg/dL (1.8-2.5) 12/03/17 06:11 Albumin 3.4 g/dL (3.2-5.5) 12/16/17 05:39 Prealbumin 20.8 mg/dl (18-38) 12/16/17 05:39 Urine Color Yellow 12/05/17 18:05 Urine Appearance Cloudy 12/05/17 18:05 Urine pH 6.5 (5.0-7.0) 12/05/17 18:05 Ur Specific Driver 1.015 (1.005-1.030) 12/05/17 18:05 Urine Ketones Negative (NEG) 12/05/17 18:05 Urine Blood Negative (NEG) 12/05/17 18:05 Urine Nitrite Negative (NEG) 12/05/17 18:05 Urine Bilirubin Negative (NEG) 12/05/17 18:05 Urine Urobilinogen 1.0 mg/dL (0.2-1.0) 12/05/17 18:05 Ur Leukocyte Esterase 3+ (NEG) H 12/05/17 18:05 Urine RBC 5-10 /HPF (NONE SEEN) H 12/05/17 18:05 Urine WBC Tntc /HPF (<5) H 12/05/17 18:05 Ur Squamous Epith Cells <5 /HPF (NONE SEEN) 12/05/17 18:05 Ur Urothelial Cells <5 /HPF (NONE SEEN) 12/02/17 20:45 Urine Bacteria 20-50 /HPF (<20) H 12/05/17 18:05 Urine Culture Reflexed Not needed 12/05/17 18:05 Urine Glucose Negative (NEG) 12/05/17 18:05 Urine Total Protein Negative (NEG) 12/05/17 18:05 Weight: 139 lb 8 oz Wound Present: Yes Closed Surgical Incision Present: Yes Negative Pressure Wound Therapy Present: No Physician Update: She is doing very well with physical and occupational therpay. She will be discharged today and have outpatient physical therapy. Her potassium is mildly evelated to 5.2. Will repeat stat potassium. Functional Improvement: Patient has met all short-term and long-term goals at this time, w/ the exception of a car transfer due to not having access. Functional Improvement Occupational Therapy: pt can benifit with further therapy services to increase pt's UB strength, safety using A/E as needed for adl and Iadl tasks. Cont to strengthening and increase pt's endurance and standing balance for adl and Iadl tasks. Cont with the POC and the goals by the supervising OTR. Summary: Patient's care plan and meterman goals have been reviewed and revised as necessary. Please see the Rehabilitation Signature page for all necessary signatures.
--- NOTE | 2017-12-17 09:56 | FAST ---
SHIFT START DATE/TIME: 12/17/2017 07:00 (CDT) SHIFT END DATE/TIME: 12/17/2017 19:00 (CDT) NAME LYNN GERARDO DATE OF : 1935 DATE OF ADMISSION: 12/02/2017 17:22 (CDT) PHONE: AGE: 82 N# [id number] GENDER: Female ENCOUNTER PHYSICIAN: Dr. Dominick Villareal M.D. ADMISSION DIAGNOSIS: - Orthopaedic Disorders 08 - Unilateral Hip Fracture (08.11) Right intertrochanteric femur fx. EATING: EATING - STEP 1: Does the patient require assistance when eating? Yes. EATING - STEP 2: Does the patient require the assistance of a helper? No, patient only requires an assistive device, O R s/he takes more than reasonable time to eat, OR there is a safety concern, OR s/he requires modifie d food consistency EATING - SCORE: 6-FRANCES GROOMING: Comb/brush hair Oral care Wash, rinse, and dry face Wash, rinse, and dry hands GROOMING - STEP 1: Does the patient require assistance when grooming? Yes. GROOMING - STEP 2: Does the patient require the assistance of a helper? No. The patient only requires an assistive devic e, OR takes more than reasonable time to groom, OR there is a concern for safety as the patient groom s GROOMING - SCORE: 6-FRANCES BATHING: Activity did not occur on this shift BATHING - SCORE: 0-UNK DRESSING - UPPER BODY: Activity did not occur on this shift ARTICLES SCORE Total number of steps: 0 DRESSING - UPPER BODY - SCORE: 0-UNK DRESSING - UPPER BODY - COMMENTS: DRESSED WITH OT DRESSING - LOWER BODY: Activity did not occur on this shift ARTICLES SCORE Total number of steps: 0 DRESSING - LOWER BODY - SCORE: 0-UNK DRESSING - LOWER BODY - COMMENTS: Dressed with OT TOILETING: TOILETING - STEP 1: Does the patient require assistance with toileting? Yes. TOILETING - STEP 2: Does the patient require the assistance of a helper? No. TOILETING - SCORE: 6-FRANCES BLADDER MANAGEMENT: BLADDER MANAGEMENT - STEP 1: Does the patient control the bladder completely and intentionally without equipment or devices or med ications, and is always continent? Yes. BLADDER MANAGEMENT - SCORE: 7-IND BOWEL MANAGEMENT: Activity did not occur on this shift BOWEL MANAGEMENT - SCORE: 7-IND TRANSFERS: BED, CHAIR, WHEELCHAIR: TRANSFERS: BED, CHAIR, WHEELCHAIR - STEP 1: Does the patient require assistance with bed, chair, or wheelchair transfers? Yes. TRANSFERS: BED, CHAIR, WHEELCHAIR - STEP 2: Does the patient require the assistance of a helper? No. Patient only requires an assistive device fo r bed, chair, wheelchair transfers such as a sliding board, grab bar, or brace, OR s/he takes more th an reasonable time, OR there is a safety concern when s/he performs the transfers TRANSFERS: BED, CHAIR, WHEELCHAIR - SCORE: 6-FRANCES TRANSFERS: TOILET: TRANSFERS: TOILET - STEP 1: Does the patient require assistance with toilet transfers? Yes. TRANSFERS: TOILET - STEP 2: Does the patient require the assistance of a helper? No. Patient only requires an assistive device albright ch as a grab bar or special seat, OR s/he takes more than reasonable time to perform toilet transfers , OR there is a safety concern when s/he performs toilet transfers. TRANSFERS: TOILET - SCORE: 6-FRANCES TRANSFERS: SHOWER: Activity did not occur on this shift TRANSFERS: SHOWER - SCORE: 0-UNK TRANSFERS: TUB: Activity did not occur on this shift TRANSFERS: TUB - SCORE: 0-UNK LOCOMOTION: WALK: Activity did not occur on this shift LOCOMOTION: WALK - SCORE: 0-UNK LOCOMOTION: WHEELCHAIR: Activity did not occur on this shift LOCOMOTION: WHEELCHAIR - SCORE: 0-UNK COMPREHENSION: COMPREHENSION - SCORE: 0-UNK EXPRESSION EXPRESSION - SCORE: 0-UNK SOCIAL INTERACTION: SOCIAL INTERACTION - SCORE: 0-UNK PROBLEM SOLVING: PROBLEM SOLVING - SCORE: 0-UNK MEMORY: MEMORY - SCORE: 0-UNK SIGNATURE PANEL: The following modified sections: Eating - Score, Grooming - Score, Bathing - Score, Dressing - Upper Body - Score, Dressing - Upper Body - Comments:, Dressing - Lower Body - Score, Dressing - Lower Body - Comments:, Toileting - Score, Bladder Management - Score, Bowel Management - Score, Transfers: Bed , Chair, Wheelchair - Score, Transfers: Toilet - Score, Transfers: Shower - Score, Transfers: Tub - S core, Locomotion: Walk - Score, Locomotion: Wheelchair - Score, Comprehension - Score, Expression - S core, Social Interaction - Score, Problem Solving - Score, Memory - Score were [electronically] gumaro d by Matti Uribe on WedDec 17 2017 08:58:18 GMT-0500 (Central Daylight Time)
[2017-12-17 10:37] LABS: Potassium 5.3 mEq/L (3.6-5.0)
--- NOTE | 2017-12-17 16:59 | FAST ---
ENCOUNTER DATE AND TIME: 12/17/2017 08:00 (CDT) NAME LYNN GERARDO DATE OF : 1935 DATE OF ADMISSION: 12/02/2017 17:22 (CDT) PHONE: AGE: 82 N# [id number] GENDER: Female ENCOUNTER PHYSICIAN: Dr. Dominick Villareal M.D. ADMISSION DIAGNOSIS: - Orthopaedic Disorders 08 - Unilateral Hip Fracture (08.11) Right intertrochanteric femur fx. EATING: Activity did not occur on this shift EATING - SCORE: 0-UNK GROOMING: Wash, rinse, and dry face Wash, rinse, and dry hands GROOMING - STEP 1: Does the patient require assistance when grooming? No. GROOMING - SCORE: 7-IND BATHING: Abdomen Buttocks Chest Left arm Left lower leg and foot Left upper leg Perineal area Right arm Right lower leg and foot Right upper leg BATHING - STEP 1: Does the patient require assistance when bathing? Yes. BATHING - STEP 2: Does the patient require the assistance of a helper? No. The patient only requires an assistive devic e such as a bath maxx, OR the patient takes more than reasonable time to bathe, OR there is a concern for safety such as regulating water temperature as the patient bathes. BATHING - SCORE: 6-FRANCES DRESSING - UPPER BODY: T-shirt/pullover shirt (four steps) ARTICLES SCORE Total number of steps: 4 DRESSING - UPPER BODY - STEP 1: Does the patient require help when dressing above the waist? No. DRESSING - UPPER BODY - SCORE: 7-IND DRESSING - LOWER BODY: Elastic waist pants (three steps) Slip-on shoe - Left foot (one step) Slip-on shoe - Right foot (one step) Sock - Left foot (one step) Sock - Right foot (one step) Underwear (three steps) ARTICLES SCORE Total number of steps: 10 DRESSING - LOWER BODY - STEP 1: Does the patient require help when dressing below the waist? Yes. DRESSING - LOWER BODY - STEP 2: Does the patient require the assistance of a helper? No. Patient requires an assistive device such as a manager of international. OR s/he takes more than reasonable time as s/he dresses the lower body, OR there is a con cern for safety when s/he dresses the lower body DRESSING - LOWER BODY - SCORE: 6-FRANCES TOILETING: Activity did not occur on this shift TOILETING - SCORE: 0-UNK BLADDER MANAGEMENT: Activity did not occur on this shift BLADDER MANAGEMENT - SCORE: 7-IND BOWEL MANAGEMENT: Activity did not occur on this shift BOWEL MANAGEMENT - SCORE: 7-IND TRANSFERS: BED, CHAIR, WHEELCHAIR: Activity did not occur on this shift TRANSFERS: BED, CHAIR, WHEELCHAIR - SCORE: 0-UNK TRANSFERS: TOILET: Activity did not occur on this shift TRANSFERS: TOILET - SCORE: 0-UNK TRANSFERS: SHOWER: TRANSFERS: SHOWER - STEP 1: Does the patient require assistance with shower transfers? Yes. TRANSFERS: SHOWER - STEP 2: Does the patient require the assistance of a helper? No. The patient only uses an assistive device, t akes more than reasonable time, OR there is a concern for safety when s/he performs transfers. TRANSFERS: SHOWER - SCORE: 6-FRANCES TRANSFERS: TUB: Activity did not occur on this shift TRANSFERS: TUB - SCORE: 0-UNK LOCOMOTION: WALK: Activity did not occur on this shift LOCOMOTION: WALK - SCORE: 0-UNK LOCOMOTION: WHEELCHAIR: Activity did not occur on this shift LOCOMOTION: WHEELCHAIR - SCORE: 0-UNK LOCOMOTION: STAIRS: Activity did not occur on this shift LOCOMOTION: STAIRS - SCORE: 0-UNK COMPREHENSION: COMPREHENSION - STEP 1: Does the patient require help to understand complex and abstract ideas (such as current events, finan sherlyn, discharge planning, medical issues, relationships, etc)? No. COMPREHENSION - STEP 2: Does the patient need extra time, require an assistive device (such as glasses, hearing aids, or an a ugmentative communication system), OR does s/he have mild difficulty expressing complex and abstract ideas (including mild dysarthria or mild word-finding problems)? No. COMPREHENSION - SCORE: 7-IND EXPRESSION EXPRESSION: TYPE: Non-Vocal EXPRESSION - STEP 1: Does the patient require help expressing complex and abstract ideas (such as current events, finances , discharge planning, medical issues, relationships, etc)? No. EXPRESSION - STEP 2: Does the patient need extra time, require an assistive device (such as augmentive communication syste m or a communication board), OR does s/he have mild difficulty expressing complex and abstract ideas (including mild dysarthria or mild word-find problems)? No. EXPRESSION - SCORE: 7-IND SOCIAL INTERACTION: SOCIAL INTERACTION - STEP 1: Does the patient require a helper to interact with others in social and therapeutic situations? No. SOCIAL INTERACTION - STEP 2: Does the patient need extra time in social situations, OR does s/he interact with staff, other patien ts, and family members ONLY in structured environments, OR does s/he require medication for social in teraction? No. SOCIAL INTERACTION - SCORE: 7-IND PROBLEM SOLVING: PROBLEM SOLVING - STEP 1: Does the patient need help to solve complex problems such as managing a checking account or confronti ng interpersonal problems? No. PROBLEM SOLVING - STEP 2: Does the patient require extra time to make decisions or solve problems, OR does s/he have slight dif ficulty reading, initiating, or self-correcting in unfamiliar situations? No. PROBLEM SOLVING - SCORE: 7-IND MEMORY: MEMORY - STEP 1: Does the patient need help to remember frequently encountered people, daily routines, and executing r equests? No. MEMORY - STEP 2: Does the patient have slight difficulty recognizing frequently encountered people, daily routines, or executing requests without the need for repetition or using self-initiated or environmental cues to remember? No. MEMORY - SCORE: 7-IND SIGNATURE PANEL: The following modified sections: Eating - Score, Grooming - Score, Bathing - Score, Dressing - Upper Body - Score, Dressing - Lower Body - Score, Toileting - Score, Transfers: Bed, Chair, Wheelchair - S core, Transfers: Toilet - Score, Transfers: Shower - Score, Transfers: Tub - Score, Comprehension - S core, Expression - Score, Social Interaction - Score, Problem Solving - Score, Memory - Score were [e lectronically] signed by KANIKA Garcia on WedDec 17 2017 16:01:01 T-0500 ([facility] Time)
--- NOTE | 2017-12-22 17:29 | R.DS ---
FACILITY [facility] MR# [id number] NAME LYNN GERARDO ADDRESS [address] [place] [address] [address] [id number] PHONE DATE OF 1935 AGE 82 SSN# [id number] GENDER Female DEXTERITY Right-handed MARITAL STATUS RACE White ENCOUNTER PHYSICIAN Dr. Dominick Villareal M.D. REFERRING DOCTOR Laurie Olivier REFERRING FACILITY [facility] DISCHARGE DIAGNOSIS: - Orthopaedic Disorders 08 - Unilateral Hip Fracture (08.11) Right intertrochanteric femur fx. DISCHARGE COMORBIDITIES: - Non-Tiered Trigeminal neuralgia [G500] OBSTRUCTIVE BOWEL SYNDROME - N/A HYPERTENSION DATE OF ADMISSION 12/02/2017 17:22 (CDT) MEDICATION ALLERGIES: morphine ENVIRONMENTAL ALLERGIES: None Known - Substance Allergies None Known - Other Allergies None Known NURSING: - Shower allowing shower - Skin care per protocol PRECAUTIONS: - Posterior Hip Precaution No adduction across midline No external rotation No hip flexion >90 degrees No internal rotation No wheel chair propulsion - Weight Bearing Precaution WBAT right LE ACTIVITIES OOB only with supervision THERAPIES: - Occupational Therapy Evaluate and Treat - Physical Therapy Evaluate and Treat HISTORY OF PRESENT ILLNESS: Pt. is a 82 yo Right-handed white female.On 11/27/2017 she was admitted to [facility] and underwent emergency surgery for Right intertrochanteric femur fx (cephalomedullary fixatio n of right intertrochanteric femur fracture ) by Laurie Olivier.Pre-morbidly, Pt. was independent/mod -I in Self-Care, Sphincter Control, Communication, and Social Cognition; and she had good Sphincter C ontrol, Communication, and Safety Awareness.Currently, she has deficits of Balance, Sphincter Control , Locomotion, Endurance, Transfers Control, and Self-Care.Pt. is now referred to [facility] for acute in-patient rehabilitation in order to maximize patient's functional independe nce in activities of daily living, strength, ROM, and mobility.- Rehab Goal Patient has realistic goal of being discharged at assistance level 6-Alondra to reside at Home with Fam alex/Relatives. HOSPITAL COURSE: DIET TYPE: On 12/02/2017 Pt was changed to GI SOFT Diet Type. ANTERIOR HIP PRECAUTION: On 12/06/2017 the following precautions were removed for the patient: Anterior Hip Precaution - No h ip flexion >90 degrees, Anterior Hip Precaution - No external rotation, Anterior Hip Precaution - N o adduction across midline, Anterior Hip Precaution - No active extension, Anterior Hip Precaution - No abduction, and Anterior Hip Precaution - No internal rotation. The following precautions were added for the patient: Anterior Hip Precaution - No active extension, Anterior Hip Precaution - No internal rotation, Anterior Hip Precaution - No hip flexion >90 degrees, Anterior Hip Precaution - No abduction, Anterior Hip Precaution - No adduction across midline, and A nterior Hip Precaution - No external rotation. On 12/07/2017 the following precautions were removed for the patient: Anterior Hip Precaution - No ac tive extension, Anterior Hip Precaution - No internal rotation, Anterior Hip Precaution - No hip flex ion >90 degrees, Anterior Hip Precaution - No abduction, Anterior Hip Precaution - No adduction acros s midline, and Anterior Hip Precaution - No external rotation. The following precautions were added for the patient: Anterior Hip Precaution - No internal rotation , Anterior Hip Precaution - No abduction, Anterior Hip Precaution - No active extension, Anterior H ip Precaution - No adduction across midline, Anterior Hip Precaution - No external rotation, and An terior Hip Precaution - No hip flexion >90 degrees. The following precautions were removed for the patient: Anterior Hip Precaution - No abduction, Ante rior Hip Precaution - No active extension, Anterior Hip Precaution - No internal rotation, Anterior Hip Precaution - No hip flexion >90 degrees, Anterior Hip Precaution - No external rotation, and A nterior Hip Precaution - No adduction across midline. On 12/03/2017 the following precautions were added for the patient: Anterior Hip Precaution - No hip flexion >90 degrees, Anterior Hip Precaution - No external rotation, Anterior Hip Precaution - No adduction across midline, Anterior Hip Precaution - No active extension, Anterior Hip Precaution - No abduction, and Anterior Hip Precaution - No internal rotation. On 12/02/2017 the following precautions were added for the patient: Posterior Hip Precaution - No hip flexion >90 degrees, Posterior Hip Precaution - No internal rotation, Posterior Hip Precaution - No adduction across midline, Posterior Hip Precaution - No wheel chair propulsion, and Posterior Hip Pre caution - No external rotation. On 12/06/2017 the following precautions were added for the patient: Posterior Hip Precaution - No ad duction across midline, Posterior Hip Precaution - No external rotation, Posterior Hip Precaution - No hip flexion >90 degrees, Posterior Hip Precaution - No wheel chair propulsion, and Posterior Hip Precaution - No internal rotation. The following precautions were removed for the patient: Posterior Hip Precaution - No external rotat ion, Posterior Hip Precaution - No adduction across midline, Posterior Hip Precaution - No hip flexio n >90 degrees, Posterior Hip Precaution - No internal rotation, Posterior Hip Precaution - No hip f lexion >90 degrees, Posterior Hip Precaution - No external rotation, Posterior Hip Precaution - No in ternal rotation, Posterior Hip Precaution - No adduction across midline, Posterior Hip Precaution - No wheel chair propulsion, and Posterior Hip Precaution - No wheel chair propulsion. On 12/02/2017 the following precautions were added for the patient: Weight Bearing Precaution - WBAT right LE. On 12/03/2017 the following precautions were added for the patient: Weight Bearing Precaution - WBAT right LE. On 12/06/2017 the following precautions were removed for the patient: Weight Bearing Precaution - WB AT right LE. On 12/07/2017 the following precautions were added for the patient: Weight Bearing Precaution - WBAT right LE. DIET - LIQUID TEXTURE: On 12/02/2017 Pt was upgraded to Regular Diet - Liquid Texture. DIET - SOLID TEXTURE: On 12/02/2017 Pt was upgraded to Regular Diet - Solid Texture. POSTERIOR HIP PRECAUTION: TUBE FEED: On 12/02/2017 Pt was changed to N/A Tube Feed. WEIGHT BEARING PRECAUTION: DISCHARGE PHYSICAL EXAM - Gen Alert and awake Lying in bed No apparent distress Oriented to: person, time, and place - Vital Signs Improved blood pressure control. - Skin No skin breakdown. Normacephalic - Eyes No abnormalities - ENMT No abnormalities - Neck No abnormalities - CVS RRR - Chest Clear - Abd Soft - GI Non distended Deferred - No abnormalities - Ext No significant edema - MSK Unremarkable - Neuro No focal deficits - Psych No abnormalities FUNCTIONAL STATUS: - Self-Care A. Eating 7-Ind 7-Ind B. Grooming 7-Ind 7-Ind C. Bathing 7-Ind 7-Ind D. Dressing - Upper 7-Ind 7-Ind E. Dressing - Lower 2-maxA 6-Alondra F. Toileting 4-Deedee 6-Alondra - Sphincter Control G. Bladder control 0-ADNO 6-Alondra H: Bowel control 6-Alondra 6-Alondra - Transfers Control I. Bed/Chair/Wheelchair 3-modA 6-Alondra J. Toilet 2-maxA 6-Alondra - Locomotion L. Walk/Wheelchair (B) 4-Deedee 6-Alondra M. Stairs 2-maxA 6-Alondra - Communication Comprehension (B) 6-Alondra 6-Alondra O. Expression (B) 7-Ind 7-Ind - Social Cognition P. Social Interaction 7-Ind 7-Ind Q. Problem Solving 7-Ind 7-Ind R. Memory 7-Ind 7-Ind - Endurance Fair - Balance Fair - Safety Awareness Good DISCHARGE INSTRUCTIONS: - N/A Eliquis 2.5 mg twice daily for DVT prophylaxis. DISCHARGE PLAN, FOLLOW UP CARE PROVISIONS: - Estimated Length of Stay (days) 14. - Consensus on plan Discharge plan has been discussed with primary caregiver. Patient/Family is in agreement with the shannon n. Primary caregiver is in agreement with the plan. - Patient/Family Goals Return home with assistance. SIGNATURE PANEL: (CDT)
== END 2017-12-17 13:30 | disposition home health service (06) | DRG 561 ==
LOC: 5TH 17:22
PROVIDERS: ADMIT Psychiatry & Neurology Neurology with Special Qualifications in Child Neurology; ATTEND Psychiatry & Neurology Neurology with Special Qualifications in Child Neurology
DX: S72.141D Displaced intertrochanteric fracture of right femur, subsequent encounter for closed fracture with routine healing (principal); G50.0 Trigeminal neuralgia; I10 Essential (primary) hypertension
CPT/HCPCS: 36415; 80048; 81001; 81003; 81015; 82040; 83735; 84134; 85025; 87077; 87086; 87088; 87186; 97542

== ENCOUNTER → 2019-06-07 | Day surgery (SDC) | payer OTHER ==
--- NOTE | 2019-06-07 11:23 | RAD REPORT ---
EXAM DESCRIPTION: US - Breast Core BX w/US Guidance - 06/07/2019 11:03 am CLINICAL HISTORY: ICD N63.11 COMPARISON: June 02, 2019 ultrasound TECHNIQUE: The risks, benefits alternatives to the procedure were explained to the patient and infor med consent obtained. Skin and subcutaneous tissues anesthetized with lidocaine. Under sonographic guidance, three 14 gauge vacuum assisted core biopsies of the dominant mass within the upper-outer quadrant of the right breast performed . 2 centimeter core specimens taken. Specimens were given to pathology. Subsequently a localizing clip was placed into the mass. Patient experienced no immediate complication IMPRESSION: Vacuum assisted core biopsies of the right breast mass
== END ==
LOC: DS 09:20
PROVIDERS: ATTEND Obstetrics & Gynecology
DX: C50.911 Malignant neoplasm of unspecified site of right female breast (principal); Z17.0 Estrogen receptor positive status [ER+]
CPT/HCPCS: 19083; 88305

== ENCOUNTER 2019-07-24 06:27 | Day surgery (SDC) | payer OTHER ==
--- NOTE | 2019-07-18 08:45 | EKG ---
Test Date: 2019-07-18 Test Time: 08:29:08 Signal Wirer: JUAN MEASUREMENT RESULTS: Intervals: Rate: 56 LA: 196 QRSD: 100 QT: 430 QTc: 414 Marshall: P: 79 LA: 196 QRS: 68 T: 66 INTERPRETIVE STATEMENTS: Sinus bradycardia RSR' or QR pattern in V1 suggests right ventricular conduction delay Septal infarct, age undetermined Abnormal ECG Compared to ECG 11/27/2017 16:58:22 RSR' in V1 or V2 now present Myocardial infarct finding now present Sinus rhythm no longer present Electronically Signed On 07-18-19 08:45:00 ROD BUSTER HELPER by Bharath Manning
[2019-07-18 09:10] LABS: Absolute Lymphocytes (CBC) 1.4 K/uL (0.7-4.9); Basophils % 0.8 % (0-1.3); Hematocrit 40.1 % (36.0-45.0); Lymphocytes % 22.6 % (15.3-44.8); MPV 7.6 fL (7.6-11.3); RBC Red Blood Cell Count 4.54 M/uL (3.86-4.86)
--- NOTE | 2019-07-18 09:20 | RAD REPORT ---
EXAM DESCRIPTION: RAD - Chest Pa And Lat (2 Views) - 07/18/2019 9:07 am CLINICAL HISTORY: preop, pending right breast surgery COMPARISON: November 2017 TECHNIQUE: PA and lateral views of the chest were obtained. FINDINGS: The lungs are fibrotic as a baseline. No focal mass or consolidation identified. No acute failure or volume overload. Interstitial pattern is not clearly different from comparison. Heart si ze is normal and central vasculature is within normal limits. No pleural effusion or pneumothorax se en. No acute bony finding noted. No aortic abnormality. IMPRESSION: Fibrotic lung pattern is present. No acute cardiopulmonary process noted.
[2019-07-18 09:28] LABS: Potassium 4.8 mmol/L (3.5-5.1)
--- OUTSIDE RECORDS SUMMARY | 2019-07-24 06:28 | XMS REPORT ---
:1935 Author Organization eClinicalWorks Care Team Providers Name Role Phone Chi Chawla Provider Role Unavailable Allergies, Adverse Reactions, Alerts Substance Reaction Event Type MORPHINE Info Not Available Drug Allergy Problems Problem Type Condition Code Onset Dates Condition Status Assessment Pain in joint of right hip M25.551 Active Assessment Closed displaced intertrochanteric S72.141D Active fracture of right femur with routine healing, subsequent encounter Medications Medication Code Code Instructions Start End Status Dosage System Date Date Aspirin [facility] 02337431203 81 MG Orally Apr 21, Active 1 tablet Once a day 2017 Losartan ND 93396952533 100 MG Oral Active not Potassium defined Tegretol XR NDC 0 Active not defined Gabapentin ND 97688444392 300 MG Orally Active 1 capsule Once a day Metoprolol ND 38948661604 50 MG Oral Active not Tartrate defined Results No Known Results Summary Purpose eClinicalWorks Submission
[2019-07-24] MEDS ORDERED: Ringers Lactate 1,000 ML IV ONE (06:59)
[2019-07-24] MEDS ORDERED: CEFAZOLIN/SWI 1gm 1 GM/10 ML SYR ONE (07:00)
[2019-07-24] MEDS ORDERED: FENTANYL CITR 100 MCG/2 ML ONE ×2 (08:14→10:51)
[2019-07-24] MEDS ORDERED: PROPOFOL 200 MG/20 ML VIAL IV ONE (08:14)
[2019-07-24] MEDS ORDERED: LIDOCAINE 1% MPF 5 ML VIAL ONE (08:14)
--- NOTE | 2019-07-24 08:39 | RAD REPORT ---
EXAM DESCRIPTION: NM - Lymphoscintigraphy - 07/24/2019 7:54 am CLINICAL HISTORY: Right breast carcinoma pending a lumpectomy and sentinel node dissection COMPARISON: Prior ultrasound and mammogram studies June and July FINDINGS: Injection time was 0735 hours. Four periareolar injections were made utilizing 0.1 millicuries technetium 99 M sulfur colloid in eac h injection. Single image shows the 4 periareolar injections. No additional abnormal activity. IMPRESSION: Right breast lymphoscintigraphy procedure as detailed.
--- NOTE | 2019-07-24 08:50 | RAD REPORT ---
EXAM DESCRIPTION: US - Brst,Preop NL Wire Init w/Guid - 07/24/2019 8:11 am CLINICAL HISTORY: Patient presents for preoperative needle localization of a previously diagnosed ma lignancy in the upper outer quadrant of the right breast. COMPARISON: Multiple prior mammogram, ultrasound and MRI studies TECHNIQUE: The upper-outer quadrant right breast mass was again identified. Patient had no contraind icated allergy or medication history. Patient had or a GB and consented for the procedure as part of the surgical consent. This procedure was discussed with the patient in detail. Preliminary imaging again identified an approximately 2.5 centimeter lobulated mass approximately 11 o'clock right breast. The skin was prepped and draped in the usual sterile fashion. From a lateral and slightly inferior ap proach the skin and deeper tissues were anesthetized with 1% lidocaine. A [place] mammo jacki needle was advanced. . The tip could not be advanced through the entirety of the mass lesion. The tip was placed at the lateral margin of the mass in the hookwire set. After deployment of the hook wire, the tip of the needle was displaced to the lateral inferior margin of the mass. The patient tolerated procedure well without complications and was transferred to the surgical [facility] area pending surgery. IMPRESSION: Ultrasound-guided needle localization of the right breast mass as detailed.
[2019-07-24] MEDS ORDERED: EPHEDRINE SULF 50 MG/ML VIAL ONE (09:31)
[2019-07-24] MEDS ORDERED: NS 0.9% VIAL 10 ML ONE (09:32)
[2019-07-24] MEDS: METHYLENE BLUE 0.5% 10 ML AMP ONE ×2 (09:35→09:36)
--- NOTE | 2019-07-24 10:49 | RAD REPORT ---
EXAM DESCRIPTION: US - Surgical Specimen - 07/24/2019 10:36 am CLINICAL HISTORY: Specimen sonogram, right breast mass COMPARISON: Pre-surgical and prior ultrasound, mammogram and MRI studies FINDINGS: Sonographic evaluation was performed of the surgical specimen. The dominant 2.5 centimeter lobulated mass was contained within the specimen. On prior imaging, knee localization and on this post surgical specimen sonogram small adjacent hypoec hoic masses are present. The number of adjacent or satellite hypoechoic masses appears to match the n umber seen on the needle localization procedure. IMPRESSION: Specimen sonogram findings as detailed.
[2019-07-24] MEDS: MEPERIDINE HCL 25 MG/0.5 ML ONE ×2 (11:42→11:47)
[2019-07-24 11:54] VITALS: TEMP 97.2
[2019-07-24] MEDS ORDERED: PROMETHAZINE 25 MG/ML VIAL ONE (12:18)
[2019-07-24 12:39] VITALS: O2SAT 100
[2019-07-24] MEDS ORDERED: ONDANSETRON 4 MG/2 ML VIAL ONE (13:23)
[2019-07-24 14:53] VITALS: BP 168/78
--- NOTE | 2019-07-24 21:59 | OP ---
Date of Procedure: 07/24/2019 Surgeon: Berry Tinoco MD Shearing Shed Hand: TABITHA Mcallister. Preoperative Diagnosis: Right breast cancer. Postoperative Diagnosis: Right breast cancer. Procedure: Needle localization right breast lumpectomy, sentinel node biopsy, and axillary dissectio n. Estimated Blood Loss: Minimal. Specimen: Right breast lumpectomy, margins free. [place] node positive and axillary dissection. Findings: As above. Anesthesia: General. Complications: None. Drains: GAVIN #10 flat in the axilla. Disposition: Patient tolerated the procedure in stable condition taken to Recovery in good general c ondition. Procedure In Detail: Patient was brought to the OR and placed in supine position. General anesthesi a was begun. The patient was injected with methylene blue around the nipple areolar complex, the marsha ast was massaged for 5 minutes. Then, the patient was prepped and draped in the usual sterile fashio n and Marcaine 0.5% was infiltrated after sentinel node location was localized with the device to juan ntify. All counts were recorded in the medical record. A 3 cm incision was made deep to subcutaneou s tissue. A lymph node identified and fatty tissue identified and sent to pathology and frozen secti on revealed 1 of 3 lymph nodes to be positive and while this was happening a lumpectomy was made with an ellipse of skin around the needle, was placed and down through the subcutaneous tissue and dissec bryan to the pre-pectoralis fascia and also some was sent to Radiology. Confirmation was obtained, the mass was in there. There were 2 adjacent stellate masses that were in there as well and then the sp ecimen was checked for margin check. The closest margin was 3 mm and it was to the deep margin where the muscle was, so no further surgery was required at that point. Then the axillary dissection was performed after the sentinel node was positive and axillary vein, thoracodorsal, and long thoracic ne urovascular bundle was identified. All lymph nodes in that region taken down. Vascular clips were u sed as needed as well as cautery. Jenni's node was sampled as well and then after complete dissecti on was performed, a Ishaan-Camilo drain #10 flat, placed and secured with 3-0 nylon. Entire wound ir rigated. Bleeding controlled with cautery. Then 3-0 chromic was used to approximate the subcutaneou s tissue and close the skin. Sterile dressing was applied. The patient was awakened and taken to Re covery in good general condition. Discharge Note: The patient will go to day surgery and home when stable. Disposition: Home. Condition: Stable. Discharge Instructions: Resume home medications and diet. Activity as tolerated. No heavy lifting. Keep dressing clean and dry, sponge bathe only. Record GAVIN q.12, bring record to office. Teach the patient and family. Tylenol No. 3 one tablet p.o. q.4 p.r.n. pain, Keflex 500 mg p.o. q.8. /MODL Voice ID: [id number] Report ID: [id number]
== END 2019-07-24 14:45 | disposition home or self-care (01) ==
LOC: OR 06:27
PROVIDERS: ATTEND Surgery
PROC: 0HBT0ZZ Excision of Right Breast, Open Approach (ICD-10-PCS; principal; 2019-07-24 09:15)
DX: C50.911 Malignant neoplasm of unspecified site of right female breast (principal); C77.3 Secondary and unspecified malignant neoplasm of axilla and upper limb lymph nodes; Z17.0 Estrogen receptor positive status [ER+]; I10 Essential (primary) hypertension; G50.0 Trigeminal neuralgia; Z88.6 Allergy status to analgesic agent; Z90.710 Acquired absence of both cervix and uterus; Z80.3 Family history of malignant neoplasm of breast; Z82.3 Family history of stroke
CPT/HCPCS: 93005; 85025; 80048; 36415; 88331; 88307 ×2; 88333; 88334; 71046; 76098; 19285; 78195; 19302; 38900; J2704; J2550; J3010 ×2; J2175; J0690; J7120; J2405; A9541; 88305

== ENCOUNTER 2019-12-02 11:31 | Emergency (ER) | payer OTHER ==
--- OUTSIDE RECORDS SUMMARY | 2019-12-02 11:32 | XMS REPORT ---
[...] End Status Dosage System Date Date Aspirin [facility] 59985174564 81 MG Orally Apr 21, Active 1 tablet Once a day 2017 Losartan ND 37068195684 100 MG Oral Active not Potassium defined Tegretol XR NDC 0 Active not defined Gabapentin ND 10443377534 300 MG Orally Active 1 capsule Once a day Metoprolol ND 93436402095 50 MG Oral Active not Tartrate defined Results No Known Results Summary Purpose eClinicalWorks Submission
[2019-12-02] MEDS ORDERED: HYDROCODONE/APAP 5/325 MG TAB ONE (12:21)
[2019-12-02] MEDS ORDERED: ONDANSETRON 4 MG (ODT) TAB ONE (12:21)
--- NOTE | 2019-12-02 12:52 | RAD REPORT ---
EXAM DESCRIPTION: RAD - Humerus Left - 12/02/2019 12:41 pm CLINICAL HISTORY: fall COMPARISON: No comparisons FINDINGS: Proximal left humerus fracture is seen with moderate soft tissue swelling. Dislocation is not evident.
--- NOTE | 2019-12-02 12:53 | RAD REPORT ---
EXAM DESCRIPTION: RAD - Elbow Left 3 View - 12/02/2019 12:41 pm CLINICAL HISTORY: fall Fall, pain COMPARISON: No comparisons FINDINGS: Deformity of the lateral aspect of the radial head has a more chronic appearance, however correlation with point tenderness in this region is advised. No evidence of significant elbow joint e ffusion. No definitive fracture or dislocation seen.
--- NOTE | 2019-12-02 13:25 | ER ---
Nurse's Notes [facility] Name: Yadira Contreras Age: 84 yrs Sex: Female : 1935 Arrival Date: 12/02/2019 Time: 11:32 Bed 14 Private MD: Ralph Ibarra E Diagnosis: Left Humerus Proximal Fracture Presentation: 12/01 11:33 Chief complaint: EMS states: Slipped while sweeping the floor, landed on left side, c/o hb left upper arm and shoulder pain 06/15. Denies other injuries. Negative LOC. Care prior to arrival: None. Mechanism of Injury: Fall from standing position. Trauma event details: Injury occurred in the [facility], Injury occurred: at home. Injury occurred: December 02, 2019. 11:33 Acuity: AMOR 3 hb 11:33 Method Of Arrival: EMS: [facility] hb 11:35 Coronavirus screen: Patient denies fever greater than 100.4F, cough, shortness of bp breath, or difficulty breathing. Ebola Screen: No symptoms or risks identified at this time. Initial Sepsis Screen: Does the patient meet any 2 criteria? No. Patient's initial sepsis screen is negative. Does the patient have a suspected source of infection? No. Patient's initial sepsis screen is negative. Risk Assessment: Do you want to hurt yourself or someone else? Patient reports no desire to harm self or others. Triage Assessment: 11:38 General: Appears in no apparent distress. uncomfortable, Behavior is cooperative, bp appropriate for age, anxious. Pain: Complains of pain in left arm. EENT: No deficits noted. Neuro: No deficits noted. Cardiovascular: No deficits noted. Respiratory: No deficits noted. GI: No signs and/or symptoms were reported involving the gastrointestinal system. : No signs and/or symptoms were reported regarding the genitourinary system. Derm: No deficits noted. Musculoskeletal: No deficits noted. Historical: - Allergies: 11:36 Morphine; hb - Home Meds: 11:36 Metoprolol Tartrate Oral [Active]; hb - PMHx: 11:36 Hypertension; hb - PSHx: 11:36 Left Hip; hb - Immunization history:: Adult Immunizations up to date. - Social history:: Smoking status: Patient denies any tobacco usage or history of. Screenin:40 Abuse screen: Denies threats or abuse. Denies injuries from another. Nutritional bp screening: No deficits noted. Tuberculosis screening: No symptoms or risk factors identified. Fall Risk Fall in past 12 months (25 points). No secondary diagnosis (0 pts). No IV (0 pts). Ambulatory Aid- None/Bed Rest/Nurse Assist (0 pts). Gait- Normal/Bed Rest/Wheelchair (0 pts) Mental Status- Oriented to own ability (0 pts). Total Bishop Fall Scale indicates Low Risk Score (25-44 pts). Fall prevention measures have been instituted. Side Rails Up X 2 Placed close to Nursing Station Frequent Obs/Assesments occuring As available Patient and Family Educated on Fall Prevention Program and strategies. Assessment: 11:39 General: SEE TRIAGE NOTE. bp 12:22 Reassessment: XRAY COMPLETED, RESULTS PENDING. PT MEDICATED FOR PAIN. bp 13:52 Reassessment: D/C ON HOLD FOR PT TRANSPORT. bp 13:59 Reassessment: PT D/C HOME VIA W/C WITH FRIEND. DX WITH LEFT PROXIMAL HUMERUS FX. bp Vital Signs: 11:35 BP 181 / 80; Pulse 88; Resp 16; Temp 97.9; Pulse Ox 100% ; Weight 61.23 kg; Height 5 hb ft. 3 in. (160.02 cm); Pain 10/10; 12:22 BP 171 / 75; Pulse 73; Resp 17; Pulse Ox 100% ; bp 13:53 BP 173 / 63; Pulse 65; Resp 16; Temp 98.1; Pulse Ox 100% ; bp 11:35 Body Mass Index 23.91 (61.23 kg, 160.02 cm) hb Louise Coma Score: 11:35 Eye Response: spontaneous(4). Verbal Response: oriented(5). Motor Response: obeys hb commands(6). Total: 15. Trauma Score (Adult): 11:35 Eye Response: spontaneous(1); Verbal Response: oriented(1); Motor Response: obeys hb commands(2); Systolic BP: > 89 mm Hg(4); Respiratory Rate: 10 to 29 per min(4); Louise Score: 15; Trauma Score: 12 ED Course: 11:32 Patient arrived in ED. am2 11:32 Ralph Ibarra MD is Private Physician. am2 11:35 Triage completed. hb 11:36 Shrewin Razo PA is PHCP. [facility] 11:36 Jhony Gutierrez MD is Attending Physician. m 11:36 Arm band placed on. hb 11:38 Law Hoffman, RN is Primary Nurse. bp 11:40 Patient has correct armband on for positive identification. Bed in low position. Call bp light in reach. Side rails up X2. 12:41 Humerus Left XRAY In Process Unspecified. EDMS 12:41 Elbow Left 3 View XRAY In Process Unspecified. EDMS 13:30 Sling applied to left arm. bp 13:52 No provider procedures requiring assistance completed. Patient did not have IV access bp during this emergency room visit. Administered Medications: 12:24 Drug: [place] 5 mg-325 mg 1 tabs Route: PO; bp 13:20 Follow up: Response: Pain is decreased bp 12:24 Drug: Ondansetron (Zofran) 4 mg Route: PO; bp 13:21 Follow up: Response: No adverse reaction bp Outcome: 13:25 Discharge ordered by MD. [facility] 14:00 Discharged to home via wheelchair, with friend. bp 14:00 Condition: stable 14:00 Discharge instructions given to patient, Instructed on discharge instructions, follow up and referral plans. medication usage, Demonstrated understanding of instructions, follow-up care, medications, Prescriptions given X 1. 14:03 Patient left the ED. bp Signatures: Dispatcher [employer] EDND Sherwin Razo PA PA jmm Baxter, Heather, RN RN Leila am Law Hoffman, RN RN bp
--- NOTE | 2019-12-02 13:25 | EDPHYS ---
Physician Documentation [facility] Name: Yadira Contreras Age: 84 yrs Sex: Female : 1935 Arrival Date: 12/02/2019 Time: 11:32 Bed 14 Private MD: Ralph Ibarra E ED Physician Jhony Gutierrez HPI: 12/01 11:43 This 84 yrs old Female presents to ER via EMS with complaints of Fall Injury, jmm Arm Pain. 11:43 Details of fall: The patient fell from an upright position, sweeping. Onset: The jmm symptoms/episode began/occurred acutely, just prior to arrival. The patient has not experienced similar symptoms in the past. This is an 84 year old female with a history of htn that presents to the ED with complaints of left arm pain beginning after a fall which occurred just prior to arrival. Patient states she was swelling and slipped while in her garage, landing on her left side. Patient denies head injury or neck pain. . Historical: - Allergies: 11:36 Morphine; hb - Home Meds: 11:36 Metoprolol Tartrate Oral [Active]; hb - PMHx: 11:36 Hypertension; hb - PSHx: 11:36 Left Hip; hb - Immunization history:: Adult Immunizations up to date. - Social history:: Smoking status: Patient denies any tobacco usage or history of. ROS: 11:43 Constitutional: Negative for fever, chills, and weight loss, Cardiovascular: Negative jmm for chest pain, palpitations, and edema, Respiratory: Negative for shortness of breath, cough, wheezing, and pleuritic chest pain. 11:43 MS/extremity: Positive for injury or acute deformity, pain. 11:43 Neuro: Negative for headache. 11:43 All other systems are negative. Exam: 11:43 Constitutional: This is a well developed, well nourished patient who is awake, alert, jmm and in no acute distress. Head/Face: atraumatic. Eyes: EOMI, no conjunctival erythema appreciated ENT: Moist Mucus Membranes Neck: Trachea midline, Supple Chest/axilla: Normal chest wall appearance and motion. Cardiovascular: Regular rate and rhythm. No edema appreciated Respiratory: Normal respirations, no respiratory distress appreciated Abdomen/GI: Non distended, soft Back: Normal ROM 11:43 Musculoskeletal/extremity: left proximal humerus tender to palpation, full radiales pulse, full piercer strength, compartments are soft, NVI. 11:43 Skin: Appearance: Color: normal in color. 11:43 Neuro: Orientation: is normal, Mentation: is normal, Memory: is normal. 11:43 Psych: Behavior/mood is pleasant, cooperative. Vital Signs: 11:35 BP 181 / 80; Pulse 88; Resp 16; Temp 97.9; Pulse Ox 100% ; Weight 61.23 kg; Height 5 hb ft. 3 in. (160.02 cm); Pain 10/10; 12:22 BP 171 / 75; Pulse 73; Resp 17; Pulse Ox 100% ; bp 13:53 BP 173 / 63; Pulse 65; Resp 16; Temp 98.1; Pulse Ox 100% ; bp 11:35 Body Mass Index 23.91 (61.23 kg, 160.02 cm) hb Ohlman Coma Score: 11:35 Eye Response: spontaneous(4). Verbal Response: oriented(5). Motor Response: obeys hb commands(6). Total: 15. Trauma Score (Adult): 11:35 Eye Response: spontaneous(1); Verbal Response: oriented(1); Motor Response: obeys hb commands(2); Systolic BP: > 89 mm Hg(4); Respiratory Rate: 10 to 29 per min(4); Ohlman Score: 15; Trauma Score: 12 MDM: 11:36 Patient medically screened. [facility] 13:18 Data reviewed: vital signs, nurses notes. Counseling: I had a detailed discussion with [facility] the patient and/or guardian regarding: the historical points, exam findings, and any diagnostic results supporting the discharge/admit diagnosis, the need for outpatient follow up, to return to the emergency department if symptoms worsen or persist or if there are any questions or concerns that arise at home. 12/01 11:37 Order name: Humerus Left XRAY; Complete Time: 13:07 [facility] 12/01 11:39 Order name: Elbow Left 3 View XRAY; Complete Time: 13:07 [facility] 12/01 13:18 Order name: Sling; Complete Time: 13:51 [facility] Administered Medications: 12:24 Drug: [place] 5 mg-325 mg 1 tabs Route: PO; bp 13:20 Follow up: Response: Pain is decreased bp 12:24 Drug: Ondansetron (Zofran) 4 mg Route: PO; bp 13:21 Follow up: Response: No adverse reaction bp Disposition: 12/02 13:48 Co-signature as Attending Physician, Jhony Gutierrez MD I agree with the assessment and [facility] plan of care. Disposition: 12/02/19 13:25 Discharged to Home. Impression: Left Humerus Proximal Fracture. - Condition is Stable. - Discharge Instructions: Humerus Fracture Treated With Immobilization. - Prescriptions for Tylenol- Codeine #3 300-30 mg Oral Tablet - take 1 tablet by ORAL route every 6 hours As needed; 20 tablet. - Medication Reconciliation Form, Thank You Letter, Antibiotic Education, Prescription Opioid Use form. - Follow up: Private Physician; When: 2 - 3 days; Reason: Recheck today's complaints, Continuance of care, Re-evaluation by your physician. Signatures: Dispatcher [employer] EDJhony Leyva MD MD cha Mickail, Joel, PA PA Flaca Delacruz, UCHE RN Law Castro RN RN bp Corrections: (The following items were deleted from the chart) 12/01 14:03 13:25 12/02/2019 13:25 Discharged to Home. Impression: Left Humerus Proximal Fracture. bp Condition is Stable. Forms are Medication Reconciliation Form, Thank You Letter, Antibiotic Education, Prescription Opioid Use. Follow up: Private Physician; When: 2 - 3 days; Reason: Recheck today's complaints, Continuance of care, Re-evaluation by your physician. corazon
[2019-12-02 14:18] VITALS: O2SAT 100
[2019-12-02 14:21] VITALS: BP 173/63; TEMP 98.1
== END 2019-12-02 14:03 | disposition home or self-care (01) ==
LOC: ER 11:31
DX: S42.202A Unspecified fracture of upper end of left humerus, initial encounter for closed fracture (principal); W01.0XXA Fall on same level from slipping, tripping and stumbling without subsequent striking against object, initial encounter; Y93.E9 Activity, other interior property and clothing maintenance; Y92.008 Other place in unspecified non-institutional (private) residence as the place of occurrence of the external cause; I10 Essential (primary) hypertension; Z88.5 Allergy status to narcotic agent
CPT/HCPCS: 99284

== ENCOUNTER 2021-06-11 09:37 | Emergency (ER) | payer OTHER ==
[2021-06-11 10:39] LABS: Absolute Lymphocytes (CBC) 0.9 K/uL (0.7-4.9); Basophils % 0.8 % (0-1.3); Hematocrit 38.3 % (36.0-45.0); Lymphocytes % 11.7 % (15.3-44.8); MPV 7.2 fL (7.6-11.3)
[2021-06-11 10:56] LABS: Bilirubin Direct 0.1 mg/dL (0-0.2); Bilirubin Total 0.4 mg/dL (0.2-1.0); Protein, Total 7.6 g/dL (6.4-8.2)
--- NOTE | 2021-06-11 11:57 | RAD REPORT ---
EXAM DESCRIPTION: CT - Abdomen Pelvis W Contrast - 06/11/2021 11:44 am CLINICAL HISTORY: abdominal pain, constipation, flank pain COMPARISON: No comparisons TECHNIQUE: Biphasic, helical CT imaging of the abdomen and pelvis was performed following 100 ml non -ionic IV contrast. No oral contrast administered. All CT scans are performed using dose optimization technique as appropriate and may include automated exposure control or mA/KV adjustment according to patient size. FINDINGS: No suspicious findings in the lung bases. Small hiatal hernia is present with approximatel y 20% of the stomach intrathoracic. The liver, spleen, and pancreas show no suspicious findings. A 12 millimeter gallstone is present. No acute gallbladder findings. No abnormal biliary tree dilatation. Symmetric renal function is seen with no hydronephrosis or suspicious renal mass. No pyelonephritis o r acute parenchymal process. Well filled urinary bladder shows no suspicious finding. Uterus is not c learly defined and is probably surgically absent. No adnexal or ovarian mass suspected. Pelvic floor assessment is limited due to spray artifact from the prosthesis of the left hip. No adrenal abnormali ties. No acute stomach or small bowel finding identified. The patient has a pronounced constipation pattern with a large amount of stool dilating the entirety of the colon. Colon is quite tortuous and redunda nt. An obstructing mass as a source for the colon dilatation in retained stool is not identifiable. N o diverticulitis or acute colon process identified. No free air, free fluid or inflammatory stranding. No hernia, mass or bulky lymphadenopathy. Prominent disc and bone degenerative changes are present. Slight concavity to the T11 body is noted w ithout overall loss in body height. IMPRESSION: Pronounced constipation pattern with very large amount of stool filling and dilating a t ortuous and redundant colon from cecum to rectum. Nonobstructing colon mass is not identifiable. No pyelonephritis findings are seen. No cystitis of the bladder identified.
[2021-06-11] MEDS ORDERED: MAGNESIUM CITRATE 300 ML BOT ONE (12:44)
[2021-06-11 12:58] LABS: Urine Blood Negative (Negative); Urine Glucose Negative (Negative); Urine Protein Negative (Negative)
[2021-06-11] MEDS ORDERED: FLEET ENEMA ADULT PR ONE (13:36)
--- NOTE | 2021-06-11 17:00 | EDPHYS ---
Physician Documentation [facility] Name: Yadira Contreras Age: 85 yrs Sex: Female : 1935 Arrival Date: 06/11/2021 Time: 09:41 Bed 30 Private MD: Ralph Ibarra E ED Physician Jhony Gutierrez HPI: 06/11 09:54 This 85 yrs old Female presents to ER via Ambulatory with complaints of jmm Constipation, Back Pain, Urinary Problem. 09:54 The patient presents with abdominal pain. Onset: The symptoms/episode began/occurred jmm gradually, 1 week(s) ago. The symptoms radiate to the left flank. Associated signs and symptoms: Pertinent positives: constipation, Pertinent negatives: nausea and vomiting, chest pain, shortness of breath, vomiting. The symptoms are described as achy. 85-year-old female with history of hypertension that presents emerged part with complaints of left flank pain abdominal pain worsening over the past week. Patient is currently taking oral antibiotic for a urinary tract infection. Denies fever. Denies diarrhea. Patient does state having constipation with some abdominal distention. Patient states she has had bowel obstructions in the past.. Historical: - Allergies: 09:58 Morphine; iw - Home Meds: 09:58 losartan 25 mg oral tab 1 tab once daily [Active]; amlodipine 5 mg tab 1 tab once daily iw [Active]; anastrozole 1 mg oral tab 1 tab once daily [Active]; gabapentin 300 mg oral cap daily [Active]; Fosamax 70 mg Oral tab 1 tab once wkly [Active]; aspirin 81 mg Oral TbEC 1 tab once daily [Active]; metoprolol tartrate 50 mg Oral tab 1 tab 2 times per day [Active]; calcium 500 mg daily [Active]; Vitamin D Oral daily [Active]; Centrum Silver oral tab daily [Active]; - PMHx: 09:58 Hypertension; iw - PSHx: 09:58 hysterectomy; cataract; left hip; right hip; iw 10:02 Lumpectomy of breast; bowel resection; iw - Immunization history:: Client reports receiving the 2nd dose of the Covid vaccine. - Social history:: Smoking status: Patient denies any tobacco usage or history of. ROS: 09:54 Constitutional: Negative for fever, chills, and weight loss, Cardiovascular: Negative jmm for chest pain, palpitations, and edema, Respiratory: Negative for shortness of breath, cough, wheezing, and pleuritic chest pain. 09:54 Abdomen/GI: Positive for abdominal pain, constipation. 09:54 All other systems are negative. Exam: 09:54 Constitutional: This is a well developed, well nourished patient who is awake, alert, jmm and in no acute distress. Head/Face: atraumatic. Eyes: EOMI, no conjunctival erythema appreciated ENT: Moist Mucus Membranes Neck: Trachea midline, Supple Chest/axilla: Normal chest wall appearance and motion. Cardiovascular: Regular rate and rhythm. No edema appreciated Respiratory: Normal respirations, no respiratory distress appreciated 09:54 Back: Normal ROM Skin: General appearance color normal MS/ Extremity: Moves all extremities, no obvious deformities appreciated, no edema noted to the lower extremities Neuro: Awake and alert, normal gait Psych: Behavior is normal, Mood is normal, Patient is cooperative and pleasant 09:54 Abdomen/GI: Inspection: abdomen appears normal, Bowel sounds: normal, Palpation: soft, mild abdominal tenderness, in all quadrants. Vital Signs: 09:55 BP 178 / 69; Pulse 72; Resp 16 S; Pulse Ox 100% on R/A; Weight 53.52 kg; Height 5 ft. 3 iw in. (160.02 cm); Pain 6/10; 10:08 BP 173 / 71; Pulse 74; Resp 18; Temp 98.6; Pulse Ox 100% ; aj2 13:02 BP 158 / 75; Pulse 77; Resp 18; Temp 98.6; Pulse Ox 100% ; aj2 14:47 BP 136 / 68; Pulse 73; Resp 18; Temp 98.6; Pulse Ox 100% ; aj2 16:20 BP 131 / 76; Pulse 73; Resp 18; Temp 98.6; Pulse Ox 100% ; aj2 09:55 Body Mass Index 20.90 (53.52 kg, 160.02 cm) iw MDM: 09:54 Patient medically screened. [facility] 16:57 Data reviewed: vital signs, nurses notes. Counseling: I had a detailed discussion with corazon the patient and/or guardian regarding: the historical points, exam findings, and any diagnostic results supporting the discharge/admit diagnosis, lab results, radiology results, the need for outpatient follow up, to return to the emergency department if symptoms worsen or persist or if there are any questions or concerns that arise at home. 06/11 10:04 Order name: Basic Metabolic Panel; Complete Time: 11:02 [facility] 06/11 10:04 Order name: CBC with Diff; Complete Time: 10:45 [facility] 06/11 10:04 Order name: Hepatic Function; Complete Time: 11:02 [facility] 06/11 10:04 Order name: Lipase; Complete Time: 11:02 [facility] 06/11 10:06 Order name: Urine Culture [facility] 06/11 12:58 Order name: Urine Dipstick-Ancillary; Complete Time: 13:09 [facility] 06/11 10:04 Order name: IV Saline Lock; Complete Time: 10:32 [facility] 06/11 10:04 Order name: Labs collected and sent; Complete Time: 10:32 [facility] 06/11 10:05 Order name: CT Abd/Pelvis - IV Contrast Only; Complete Time: 11:59 [facility] 06/11 10:06 Order name: Urine Dipstick-Ancillary (obtain specimen); Complete Time: 13:01 [facility] 06/11 15:40 Order name: Misc. Order: Disimpaction setup; Complete Time: 15:50 [facility] Administered Medications: 12:19 Drug: Magnesium Citrate Liquid 300 ml Route: PO; oh 13:35 Drug: Fleet Enema (sodium phosphate) 133 ml Route: MO; aj2 Disposition: 06/12 07:53 Co-signature as Attending Physician, Jhony Gutierrez MD I agree with the assessment and [facility] plan of care. Disposition Summary: 06/11/21 16:59 Discharge Ordered Location: Home [facility] Condition: Stable [facility] Diagnosis - Constipation, unspecified [facility] Followup: [facility] - With: Ralph Johnson MD - When: 2 - 3 days - Reason: Recheck today's complaints, Continuance of care, Re-evaluation by your physician Discharge Instructions: - Discharge Summary Sheet [facility] - Constipation, Adult [facility] Forms: - Medication Reconciliation Form [facility] - Thank You Letter [facility] - Antibiotic Education [facility] - Prescription Opioid Use [facility] Signatures: Dispatcher [employer] Jhony Thomas MD MD cha Mickail, Joel, PA PA jm Gini French RN RN iw Jenkins, Angelea aj2 Chato Bryan RN RN oh
--- NOTE | 2021-06-11 17:00 | ER ---
Nurse's Notes [facility] Name: Yadira Contreras Age: 85 yrs Sex: Female : 1935 Arrival Date: 06/11/2021 Time: 09:41 Bed 30 Private MD: Ralph Ibarra E Diagnosis: Constipation, unspecified Presentation: 06/11 09:55 Chief complaint: Patient states: back pain X 1 week , is on abx for a kidney infection, iw has also been constipated X 1 week, was prescribed lactulose by Nell BECERRA, also has abd distention and discomfort X 2 days , hx of bowel obstruction in 2013. Coronavirus screen: At this time, the client does not indicate any symptoms associated with coronavirus-19. Ebola Screen: Patient negative for fever greater than or equal to 101.5 degrees Fahrenheit, and additional compatible Ebola Virus Disease symptoms Patient denies exposure to infectious person. Patient denies travel to an Ebola-affected area in the 21 days before illness onset. No symptoms or risks identified at this time. Initial Sepsis Screen: Does the patient meet any 2 criteria? No. Patient's initial sepsis screen is negative. Does the patient have a suspected source of infection? No. Patient's initial sepsis screen is negative. Risk Assessment: Do you want to hurt yourself or someone else? Patient reports no desire to harm self or others. Onset of symptoms was June 04, 2021. 09:55 Method Of Arrival: Ambulatory iw 09:55 Acuity: AMOR 3 iw Historical: - Allergies: 09:58 Morphine; iw - Home Meds: 09:58 losartan 25 mg oral tab 1 tab once daily [Active]; amlodipine 5 mg tab 1 tab once daily iw [Active]; anastrozole 1 mg oral tab 1 tab once daily [Active]; gabapentin 300 mg oral cap daily [Active]; Fosamax 70 mg Oral tab 1 tab once wkly [Active]; aspirin 81 mg Oral TbEC 1 tab once daily [Active]; metoprolol tartrate 50 mg Oral tab 1 tab 2 times per day [Active]; calcium 500 mg daily [Active]; Vitamin D Oral daily [Active]; Centrum Silver oral tab daily [Active]; - PMHx: 09:58 Hypertension; iw - PSHx: 09:58 hysterectomy; cataract; left hip; right hip; iw 10:02 Lumpectomy of breast; bowel resection; iw - Immunization history:: Client reports receiving the 2nd dose of the Covid vaccine. - Social history:: Smoking status: Patient denies any tobacco usage or history of. Screenin:08 Abuse screen: Denies threats or abuse. Denies injuries from another. Nutritional aj2 screening: No deficits noted. Tuberculosis screening: No symptoms or risk factors identified. Fall Risk None identified. Assessment: 10:08 Pain: Denies pain. GI: Abdomen is distended. aj2 13:02 Reassessment: Patient appears in no apparent distress at this time. Patient and/or aj2 family updated on plan of care and expected duration. Pain level reassessed. Patient is alert, oriented x 3, equal unlabored respirations, skin warm/dry/pink. 14:47 Reassessment: Patient appears in no apparent distress at this time. Patient and/or aj2 family updated on plan of care and expected duration. Pain level reassessed. Patient is alert, oriented x 3, equal unlabored respirations, skin warm/dry/pink. 16:20 Reassessment: Patient appears in no apparent distress at this time. Patient and/or aj2 family updated on plan of care and expected duration. Pain level reassessed. Patient is alert, oriented x 3, equal unlabored respirations, skin warm/dry/pink. Vital Signs: 09:55 BP 178 / 69; Pulse 72; Resp 16 S; Pulse Ox 100% on R/A; Weight 53.52 kg; Height 5 ft. 3 iw in. (160.02 cm); Pain 6/10; 10:08 BP 173 / 71; Pulse 74; Resp 18; Temp 98.6; Pulse Ox 100% ; aj2 13:02 BP 158 / 75; Pulse 77; Resp 18; Temp 98.6; Pulse Ox 100% ; aj2 14:47 BP 136 / 68; Pulse 73; Resp 18; Temp 98.6; Pulse Ox 100% ; aj2 16:20 BP 131 / 76; Pulse 73; Resp 18; Temp 98.6; Pulse Ox 100% ; aj2 09:55 Body Mass Index 20.90 (53.52 kg, 160.02 cm) ED Course: 09:41 Patient arrived in ED. as 09:41 Ralph Ibarra MD is Private Physician. as 09:44 Sherwin Razo PA is PHCP. jmm 09:44 Jhony Gutierrez MD is Attending Physician. [facility] 09:58 Triage completed. iw 10:02 Arm band placed on. iw 10:08 No apparent distress. Resting quietly. aj2 10:08 Patient has correct armband on for positive identification. aj2 10:08 No provider procedures requiring assistance completed. aj2 10:32 Basic Metabolic Panel Sent. aj2 10:32 CBC with Diff Sent. aj2 10:32 Hepatic Function Sent. aj2 10:32 Lipase Sent. aj2 10:32 Inserted saline lock: 20 gauge in left antecubital area, using aseptic technique. aj2 11:44 CT Abd/Pelvis - IV Contrast Only In Process Unspecified. EDMS 13:00 Olamide Jaeger is Primary Nurse. aj2 13:01 Urine Culture Sent. aj2 13:02 No apparent distress. Resting quietly. aj2 13:02 Inserted saline lock: 22 gauge in left antecubital area, using aseptic technique. aj2 14:47 No apparent distress. Resting quietly. aj2 14:47 IV is patent, is intact. aj2 16:20 No apparent distress. Resting quietly. Awaiting bedside procedure by provider. aj2 16:20 IV is patent, is intact. aj2 16:59 Ralph Johnson MD is Referral Physician. [facility] Administered Medications: 12:19 Drug: Magnesium Citrate Liquid 300 ml Route: PO; oh 13:35 Drug: Fleet Enema (sodium phosphate) 133 ml Route: CA; aj2 Outcome: 16:59 Discharge ordered by . [facility] 17:52 Patient left the ED. bd Signatures: Dispatcher [employer] EDMS Lexus Ravi bd Sherwin Razo PA PA jmm Martinez, Amelia as Williams, Irene, RN RN Olamide Cruz aj2 Chato Bryan, RN RN oh
[2021-06-11 17:59] VITALS: O2SAT 100
[2021-06-11 18:01] VITALS: TEMP 98.6
[2021-06-11 18:06] VITALS: BP 131/76
== END 2021-06-11 17:52 | disposition home or self-care (01) ==
LOC: ER 09:37
DX: K59.00 Constipation, unspecified (principal); I10 Essential (primary) hypertension; Z88.5 Allergy status to narcotic agent; Z79.82 Long term (current) use of aspirin
CPT/HCPCS: 87088; 85025; 87086; 80048; 36415; 80076; 81003; 83690; 74177; 99284; Q9967

== ENCOUNTER 2024-11-16 10:50 | Emergency (ER) | payer OTHER ==
--- OUTSIDE RECORDS SUMMARY | 2024-11-16 10:53 | XMS REPORT | Continuity of Care Document ---
Author Name Unknown Address [address] [facility] [facility] [address] [place] [address] Organization [facility] [place] Address [address] [facility] [facility] [address] [place] [address] Care Team Providers Care Basket Mender Name Role Phone Jaky Pratt Attending Clinician Unavailable Ralph Ibarra Attending Clinician Unavailable [email or web address] Attending Clinician Unavaila ble [email or web address] Admitting Clinician Unavaila ble Payers Payer Name Policy Type Policy Number Effective Date Expirati on Date Source [employer] MED[employer]ARE PPO 53 [id number] 2023 00:00:00 [facility] Problems Condition Name Condition Details Condition Category Status Onset Date Resolution Date Last Treatment Date Treating Clinician Comments Source Right trigeminal neuralgia Right trigeminal neuralgia Problem [facility] Essential hypertensi on Essential (primary) hypertensi on Problem [facility] 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 Problem [facility] 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 Problem [facility] [id number] Postmenopa usal osteoporos is Problem [facility] [id number] History of breast cancer Problem [facility] 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, unspecifie d estrogen receptor status Problem [facility] [id number] Pain in joint of left shoulder Problem [facility] 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 fracture Problem [facility] Allergies, Adverse Reactions, Alerts Allergy Name Allergy Type Status Severity Reaction(s) Onset Date Inactive Date Treating Clinician Comments Source morphine morphine Active Unknown Commo n [facility] Social History Social Habit Start Date Stop Date Quantity Comments Source Sex Assigned At [facility] History of Tobacco Use [facility] Smoking Status Start Date Stop Date Source Never Smoker [facility] Medications Ordered Medication Name Filled Medication Name Start Date Stop Date Current Medication? Ordering Clinician Indication Dosage Frequency Signature (SIG) Comments Components Source Aspirin 81 MG Aspirin 81 MG 16 00:00: 00 No 1{table t} QD Aspirin 81 MG Magnesium 250 MG Magnesium 250 MG No 1{table t_with_ a_meal} QD Magnesium 250 MG Metoprolol Tartrate 50 MG Metoprolol Tartrate 50 MG No 1{table t_with_ food} BID Metoprolol Tartrate 50 MG Anastrozole 1 MG Anastrozole 1 MG No 1{table t} QD Anastrozol e 1 MG Vitamin D3 Vitamin D3 No Vitamin D3 Calcium 500 MG Calcium 500 MG No 1{table t_with_ meals} BID Calcium 500 MG Centrum Silver - Centrum Silver - No Centrum Silver - Gabapentin 300 MG Gabapentin 300 MG No 1{capsu le} QD Gabapentin 300 MG carBAMazepi ne 100 MG carBAMazepi ne 100 MG No carBAMazep ine 100 MG Losartan Potassium 50 MG Losartan Potassium 50 MG No 1{table t} BID Losartan Potassium 50 MG Vital Signs Vital Name Observation Time Observation Value Comments S ource respiratory rate 2024-10-25 08:00:00 16 /min [facility] blood pressure systolic 2024-10-25 08:00:00 152 mm[Hg] [facility] blood pressure diastolic 2024-10-25 08:00:00 82 mm[Hg] [facility] height 2024-10-25 08:00:00 61 [in_i] Commo n [facility] weight 2024-10-25 08:00:00 111.8 [lb_av] Co [facility] temperature 2024-10-25 08:00:00 97.2 [degF] Com [facility] bmi 2024-10-25 08:00:00 21.12 kg/m2 Comm on [facility] oximetry 2024-10-25 08:00:00 96 % Commo n [facility] height 2024-10-25 08:00:00 61 [in_i] Commo n [facility] weight 2024-10-25 08:00:00 111.8 [lb_av] Co [facility] temperature 2024-10-25 08:00:00 97.2 [degF] Com [facility] bmi 2024-10-25 08:00:00 21.12 kg/m2 Comm on [facility] oximetry 2024-10-25 08:00:00 96 % Commo n [facility] respiratory rate 2024-10-25 08:00:00 16 /min [facility] blood pressure systolic 2024-10-25 08:00:00 152 mm[Hg] [facility] blood pressure diastolic 2024-10-25 08:00:00 82 mm[Hg] [facility] height 2024-06-22 08:20:00 61 [in_i] Commo n [facility] weight 2024-06-22 08:20:00 113 [lb_av] Comm on [facility] temperature 2024-06-22 08:20:00 97.6 [degF] Com [facility] bmi 2024-06-22 08:20:00 21.35 kg/m2 Comm on [facility] oximetry 2024-06-22 08:20:00 98 % Commo n [facility] respiratory rate 2024-06-22 08:20:00 16 /min Common [facility] blood pressure systolic 2024-06-22 08:20:00 154 mm[Hg] Common [facility] blood pressure diastolic 2024-06-22 08:20:00 72 mm[Hg] [facility] height 2024-06-22 08:20:00 61 [in_i] Commo n [facility] weight 2024-06-22 08:20:00 113 [lb_av] Comm on [facility] temperature 2024-06-22 08:20:00 97.6 [degF] Com [facility] bmi 2024-06-22 08:20:00 21.35 kg/m2 Comm on [facility] oximetry 2024-06-22 08:20:00 98 % Commo n [facility] respiratory rate 2024-06-22 08:20:00 16 /min Common [facility] blood pressure systolic 2024-06-22 08:20:00 154 mm[Hg] Common Spiri t [facility] blood pressure diastolic 2024-06-22 08:20:00 72 mm[Hg] [facility] height 2024-06-01 08:00:00 61 [in_i] Commo n [facility] weight 2024-06-01 08:00:00 113 [lb_av] Comm on [facility] temperature 2024-06-01 08:00:00 97.6 [degF] Com [facility] bmi 2024-06-01 08:00:00 21.35 kg/m2 Comm on [facility] oximetry 2024-06-01 08:00:00 99 % Commo n [facility] respiratory rate 2024-06-01 08:00:00 16 /min Common [facility] blood pressure systolic 2024-06-01 08:00:00 140 mm[Hg] [facility] blood pressure diastolic 2024-06-01 08:00:00 72 mm[Hg] Common [facility] height 2024-05-04 08:00:00 61 [in_i] Commo n [facility] weight 2024-05-04 08:00:00 112 [lb_av] Comm on [facility] temperature 2024-05-04 08:00:00 97.4 [degF] Com mon [facility] bmi 2024-05-04 08:00:00 21.16 kg/m2 Comm on [facility] oximetry 2024-05-04 08:00:00 97 % Commo n [facility] respiratory rate 2024-05-04 08:00:00 16 /min [facility] blood pressure systolic 2024-05-04 08:00:00 160 mm[Hg] Common [facility] blood pressure diastolic 2024-05-04 08:00:00 82 mm[Hg] Common [facility] height 2024-04-13 08:00:00 61 [in_i] Commo n [facility] weight 2024-04-13 08:00:00 111.4 [lb_av] Co mmon [facility] temperature 2024-04-13 08:00:00 97.4 [degF] Com mon [facility] bmi 2024-04-13 08:00:00 21.05 kg/m2 Comm on [facility] oximetry 2024-04-13 08:00:00 98 % Commo n [facility] respiratory rate 2024-04-13 08:00:00 16 /min Common [facility] blood pressure systolic 2024-04-13 08:00:00 162 mm[Hg] Common [facility] blood pressure diastolic 2024-04-13 08:00:00 84 mm[Hg] Common [facility] height 2024-04-13 08:00:00 61 [in_i] Commo n [facility] weight 2024-04-13 08:00:00 111.4 [lb_av] Co on [facility] temperature 2024-04-13 08:00:00 97.4 [degF] Com [facility] bmi 2024-04-13 08:00:00 21.05 kg/m2 Comm on [facility] oximetry 2024-04-13 08:00:00 98 % Commo n [facility] respiratory rate 2024-04-13 08:00:00 16 /min Common [facility] blood pressure systolic 2024-04-13 08:00:00 162 mm[Hg] Common [facility] blood pressure diastolic 2024-04-13 08:00:00 84 mm[Hg] Common [facility] height 2024-02-16 09:20:00 61 [in_i] Commo n [facility] weight 2024-02-16 09:20:00 115.8 [lb_av] Co on [facility] temperature 2024-02-16 09:20:00 97.6 [degF] Com [facility] bmi 2024-02-16 09:20:00 21.88 kg/m2 Comm on [facility] oximetry 2024-02-16 09:20:00 95 % Commo n [facility] respiratory rate 2024-02-16 09:20:00 16 /min Common [facility] blood pressure systolic 2024-02-16 09:20:00 168 mm[Hg] Common [facility] blood pressure diastolic 2024-02-16 09:20:00 82 mm[Hg] [facility] Encounters Start Date/Time End Date/Time Encounter Type Admission Type Attending [facility] Care Facility Care Department Encounter ID Source 2024-10-23 11:07:00 Outpatient Jaky Pratt [facility] [id number] [facility] 2024-06-20 07:30:00 [facility] [id number] [facility] 2024-06-01 08:15:00 [facility] [id number] [facility] 2024-02-16 08:56:00 [facility] [id number] [facility] 2024-01-06 14:21:00 Out[facility] [id number] [facility] 2023-04-27 16:36:00 Outpatient Ibarra, [facility] [id number] [facility] 2021-10-01 11:52:58 Out[facility], [facility] [id number] [facility] 2021-10-01 11:16:42 Outpatient [facility], [facility] [id number] [facility] 2021-10-01 11:16:13 Out[facility] [id number] [facility] 2024-10-31 00:00:00 2024-10-31 00:00:00 [facility]EL[facility] [id number] [facility] 2024-10-25 00:00:00 2024-10-25 00:00:00 OFFICE VISIT ESTAB PT LEVEL 4 [facility] [id number] [facility] 2024-10-25 00:00:00 2024-10-25 00:00:00 SUB ANNUAL [facility] [id number] [facility] 2024-10-24 00:00:00 2024-10-24 00:00:00 (TEL) [facility] [id number] [facility] 2024-10-12 00:00:00 2024-10-12 00:00:00 (TEL) [facility] [id number] [facility] 2024-06-22 00:00:00 2024-06-22 00:00:00 OFFICE VISIT ESTAB PT LEVEL 4 [facility] [id number] [facility] 2024-06-01 00:00:00 2024-06-01 00:00:00 OFFICE VISIT ESTAB PT LEVEL 4 [facility] [id number] [facility] 2024-05-04 00:00:00 2024-05-04 00:00:00 OFFICE VISIT ESTAB PT LEVEL 4 [facility] [id number] [facility] 2024-04-13 00:00:00 2024-04-13 00:00:00 OFFICE VISIT ESTAB PT LEVEL 4 [facility] [id number] [facility] 2024-04-13 00:00:00 2024-04-13 00:00:00 SUB ANNUAL [facility] WELLNESS VISIT [facility] [id number] [facility] 2024-02-16 00:00:00 2024-02-16 00:00:00 OFFICE VISIT NEW PT LEVEL 4 [facility] [id number] [facility] 2023-07-04 00:00:00 2023-07-04 00:00:00 Outpatient [email or web address] [facility] [id number] [facility] 2020-02-12 11:00:00 2020-02-12 11:00:00 Outpatient [facility] [id number] [facility] 2020-01-11 11:00:00 2020-01-11 11:00:00 Outpatient [facility] [id number] [facility] 2019-12-11 13:30:00 2019-12-11 13:30:00 Outpatient [facility] [id number] [facility] 2018-04-21 08:00:00 2018-04-21 08:00:00 Outpatient [facility] [id number] [facility] Results Test Description Test Time Test Comments Results Result Co mments Source
[2024-11-16] MEDS ORDERED: NA CHLORIDE 0.9% 1,000 ML ONE (11:18)
[2024-11-16 11:32] LABS: Absolute Basophils 0.1 K/uL (0-0.5); Absolute Eosinophils 0.2 K/uL (0-0.5); Absolute Monocytes 0.7 K/uL (0.1-1.3); Absolute Neutrophil 5.3 K/uL (1.8-8.0); Basophils % 1.1 % (0-1.3); Eosinophils % 2.2 % (0-4.4); Hematocrit 37.2 % (36.0-45.0); Hemoglobin 12.8 g/dL (12.0-15.0); Lymphocytes % 14.1 % (15.3-44.8); MCH 31.2 pg (27.0-35.0); MCHC 34.5 g/dL (32.0-36.0); MCV 90.4 fL (80-100); MPV 7.2 fL (7.6-11.3); Monocytes % 9.9 % (3.3-12.3); Neutrophils % 72.7 % (41.7-73.7); Nucleated Red Blood Cells % 0.1 % (0-0); Platelets 248 thou/uL (152-406); RBC Red Blood Cell Count 4.12 M/uL (3.86-4.86); Red Cell Distribution Width 14.9 % (12.1-15.2)
[2024-11-16 11:50] LABS: Anion Gap 8.2 mEq/L (5.0-15.0); Potassium 4.2 mEq/L (3.5-5.1)
[2024-11-16 11:59] LABS: Troponin High Sensitivity 1735.4 pg/mL (<58.9)
[2024-11-16] MEDS ORDERED: NITROGLYCERIN 0.4 MG/TAB SL ONE (12:12)
--- NOTE | 2024-11-16 12:20 | RAD REPORT ---
EXAMINATION: ONE VIEW CHEST XR CLINICAL INDICATION: Female, 89 years old.,COUGH TECHNIQUE: Frontal chest projection is submitted. Examination is limited by patient positioning and t echnique. COMPARISON: 07/18/2019 FINDINGS: The lungs are well inflated and clear. No pneumothorax or sizable effusion. The heart is normal in s ize. Mediastinal contours are unremarkable. IMPRESSION: No acute intrathoracic abnormalities.
--- NOTE | 2024-11-16 12:44 | RAD REPORT ---
EXAM: CT Head Brain Wo Cont HISTORY: CONFUSED COMPARISON: None TECHNIQUE: Multiple contiguous axial images were obtained for a CT of the brain without contrast. Sag ittal and coronal reformats were performed. One or more of the following dose reduction techniques were used: Automated exposure control, adjus tment of the mA and kV according to patient size, and iterative reconstruction. Unless otherwise specified, incidental findings do not require dedicated imaging follow-up. FINDINGS: No evidence of hydrocephalus, intracranial hemorrhage, or extra-axial fluid collection. Left bilaterally focus of hypoattenuation, may represent a small lacunar infarct of indeterminate age . Mild brain atrophy. Otherwise mild nonspecific periventricular and deep white matter, suggesting chronic microvascular ischemic changes present. The calvarium is intact. The visualized paranasal sinuses and mastoid air cells are essentially clear . IMPRESSION: Left thalamic focus of hypoattenuation, may represent a small lacunar infarct of indeterminate age. N o intracranial hemorrhage or abnormal fluid collections. THIS REPORT CONTAINS FINDINGS THAT MAY BE CRITICAL TO PATIENT CARE. The findings were verbally commun icated via telephone to Carlos Dupont on 11/16/2024 12:41 PM.
--- NOTE | 2024-11-16 12:47 | RAD REPORT ---
EXAMINATION: CTA HEAD CLINICAL INDICATION: Female, 89 years old. CONFUSED TECHNIQUE: Axial CT images were obtained through the head after intravenous contrast utilizing angiog raphic protocol with 3D post-processing (maximum intensity projection images, volume rendered images and/or shaded surface rendered images). One or more of the following dose reduction technique s were used: Automated exposure control, adjustment of the mA and/or kV according to patient size, and/or iterative reconstruction. Unless otherwise specified, incidental findings do not require dedic ated imaging follow-up. COMPARISON: No prior exam. FINDINGS: ICA: The petrous, cavernous, and supraclinoid segments of the bilateral internal carotid arteries are normal. PHIL: Anterior cerebral arteries are normal bilaterally. The anterior communicating artery is patent. MCA: Middle cerebral arteries are normal bilaterally. BACK HAND: Multifocal mild to moderate narrowing along the proximal BACK HAND branches. Vertebrobasilar: The vertebral arteries are patent, although with diminutive caliber of the right latonya tebral artery following the right PICA takeoff, likely of developmental nature. The basilar artery is normal in appearance. 3D images confirm these findings. IMPRESSION: Multifocal mild to moderate narrowing along the proximal bilateral BACK HAND branches. No evidence of large vessel occlusion.
--- NOTE | 2024-11-16 12:49 | RAD REPORT ---
EXAMINATION: CT Neck Angio CLINICAL INDICATION: Female, 89 years old. confusion TECHNIQUE: Axial CT images were obtained from the aortic arch to the skull base after intravenous con trast utilizing angiographic protocol. Multiplanar reformats, as well as 3D post-processing (maximum intensity projection images, volume rendered images and/or shaded surface rendered images) w ere generated and reviewed. One or more of the following dose reduction techniques were used: Automated exposure control, adjustment of the mA and/or kV according to patient size, and/or iterativ e reconstruction. Unless otherwise specified, incidental findings do not require dedicated imaging follow-up. COMPARISON: No prior exam. FINDINGS: AORTA: The imaged aortic arch is normal. Normal three-vessel configuration of the arch. CCA: No artifact The common carotid arteries are patent and normal in caliber. ICA/ECA: Mild to moderate atherosclerotic calcific plaque at the carotid bulbs. Bilateral internal an d external carotid arteries are patent. There is no significant internal carotid artery stenosis. VERTEBRAL: The cervical vertebral arteries are patent to the skull base. Vertebral arteries are codom inant. SOFT TISSUE: No significant neck soft tissue abnormalities. Right more than left apical lung scarring and emphysematous changes 3D images confirm these findings. IMPRESSION: No significant flow abnormality of the neck vessels is identified. NASCET criteria used to quantify ICA stenosis, with the following grading scheme: Mild 0-49% stenosis Moderate 50-69% stenosis Severe 70-99% stenosis Reference: [place] Symptomatic Carotid Endarterectomy Trial Collaborators; Ming MARTINEZ, Renate OVIEDO, Aimee RB, et al. Beneficial effect of carotid endarterectomy in symptomatic patients with high-grade carotid stenosis. N Engl J Med. 1990Apr 20;325(7):445-53.
[2024-11-16] MEDS ORDERED: ASPIRIN 81 MG CHEWABLE TABLET ONE (13:09)
[2024-11-16] MEDS ORDERED: HEPARIN/D5W 25,000 UNIT/500 ML BAG IV ONE (13:09)
--- NOTE | 2024-11-16 13:10 | ER ---
Nurse's Notes [facility] Name: Yadira Contreras Age: 89 yrs Sex: Female : 1935 Arrival Date: 11/16/2024 Time: 10:50 Bed 5 Private MD: Diagnosis: NSTEMI;Hypertensive emergency;Confusion Presentation: 11/16 11:00 Chief complaint: Patient states: "my kids think I am dehydrated". Pt's son states aa5 "she's been having trouble finding her words and has been more tired and withdrawn, not her usual, it's been a few days now". 11:00 Coronavirus screen: At this time, the client does not indicate any symptoms associated aa5 with coronavirus-19. Ebola Screen: Patient denies travel to an Ebola-affected area in the 21 days before illness onset. Initial Sepsis Screen: Does the patient meet any 2 criteria? No. Patient's initial sepsis screen is negative. Does the patient have a suspected source of infection? No. Patient's initial sepsis screen is negative. Risk Assessment: Do you want to hurt yourself or someone else? Patient reports no desire to harm self or others. Onset of symptoms was November 2024. 11:00 Method Of Arrival: Ambulatory aa5 11:00 Acuity: AMOR 2 aa5 Triage Assessment: 11:15 General: Appears in no apparent distress. comfortable, Behavior is calm, cooperative, bp appropriate for age. Pain: Denies pain. EENT: No deficits noted. Neuro: Reports weakness GENERALIZED. Cardiovascular: Rhythm is sinus rhythm. Respiratory: No deficits noted. GI: No signs and/or symptoms were reported involving the gastrointestinal system. : No signs and/or symptoms were reported regarding the genitourinary system. Derm: No deficits noted. Musculoskeletal: No deficits noted. Historical: - Allergies: 11:14 Morphine; aa5 - PMHx: 11:14 Hypertension; trigenimal neuralgia (Unknown); aa5 - PSHx: 11:14 bowel resection; cataract; hysterectomy; Left hip; Lumpectomy of breast; Right hip; aa5 - Immunization history:: Adult Immunizations unknown. - Infectious Disease History:: Denies. - Social history:: Smoking status: Smoking status: Patient denies any tobacco usage or history of. Screenin:06 [facility] ED Fall Risk Assessment (Adult) History of falling in the last 3 months, bp including since admission No falls in past 3 months (0 pts) Confusion or Disorientation No (0 pts) Intoxicated or Sedated No (0 pts) Impaired Gait No (0 pts) Mobility Assist Device Used No (0 pt) Altered Elimination No (0 pt) Score/Fall Risk Level 0 - 2 = Low Risk Oriented to surroundings. Abuse screen: Denies threats or abuse. Denies injuries from another. Nutritional screening: No deficits noted. Tuberculosis screening: No symptoms or risk factors identified. Assessment: 11:15 General: Appears in no apparent distress. comfortable, Behavior is calm, cooperative, bp appropriate for age. 12:12 General: HOLDING HEPARIN UNTIL PTT RESULTS PER DR. DUPONT. cm10 15:06 Reassessment: REPORT CALLED TO [facility] ICU 212. bp 15:55 Reassessment: EMS AT B/S FOR TRANSPORT. bp Vital Signs: 11:00 BP 212 / 82; Pulse 64; Resp 18 S; Temp 97.8(TE); Pulse Ox 98% on R/A; Weight 50.5 kg aa5 (M); Height 5 ft. 2 in. (R); 12:45 BP 180 / 86; Pulse 62; Resp 15; Pulse Ox 96% ; cm10 13:00 BP 192 / 79; Pulse 59; Resp 15; Pulse Ox 96% ; cm10 13:10 BP 192 / 79; ec2 13:15 BP 210 / 79; Pulse 63; Resp 15; Pulse Ox 98% ; cm10 14:00 BP 217 / 82; Pulse 61; Resp 15; Pulse Ox 96% ; cm10 14:15 BP 211 / 80; Pulse 63; Resp 17; Pulse Ox 98% ; cm10 14:30 BP 169 / 90; Pulse 73; Resp 15; Pulse Ox 95% ; cm10 15:07 BP 196 / 83; Pulse 67; Resp 15; Pulse Ox 98% ; bp 11:00 Body Mass Index 20.36 (50.50 kg, 157.48 cm) aa5 ED Course: 10:52 Patient arrived in ED. im 10:55 Carlos Dupont MD is Attending Physician. ec2 11:00 Arm band placed on Patient placed in an exam room, on a stretcher. aa5 11:06 Law Hoffman, RN is Primary Nurse. bp 11:19 Triage completed. aa5 11:26 Inserted saline lock: 22 gauge in left forearm, using aseptic technique. Blood am7 collected. Flushed with 10 mL NS. 11:38 EKG done, by ED staff, reviewed by Carlos Dupont MD. am7 11:56 XRAY Chest (1 view) In Process Unspecified. EDMS 12:10 CT Head Brain wo Cont In Process Unspecified. EDMS 12:10 CT Head Angio In Process Unspecified. EDMS 12:10 CT Neck Angio In Process Unspecified. EDMS 12:19 Ptt, Activated Sent. cm10 13:35 Alanas with [facility] transfer center denied due to capacity. bc6 13:47 initiated transfer with Reji at [facility] transfer brady. bc6 14:12 doc to doc with [facility]. bc6 14:45 acceptance received with reji for [facility] Rm 212. bc6 15:06 Patient has correct armband on for positive identification. bp 15:06 No provider procedures requiring assistance completed. Patient transferred, IV remains bp in place. 15:17 Leah with [facility] accepted transfer. bc6 15:56 Provided Education on: NA. bp Administered Medications: 11:37 Drug: NS 0.9% IV 1000 ml IV at 1 bolus Per protocol; to be given as a bolus over 60 cm10 minutes Route: IV; Rate: 1 bolus; Site: left forearm; 14:56 Follow up: IV Status: Completed infusion bp 12:20 Drug: Nitroglycerin Sublingual 0.4 mg Sublingual once; every five minute if needed x3 cm10 Route: Sublingual; 13:27 Drug: Heparin ([place] Drip) 12 units/kg/[place] - ([place] [address] units, D5W IV 500 ml) IV at bp calculated rate Per protocol; Max initial rate 1000 units/hr {Co-Signature: cm10 (Radha Logan RN).} Route: IV; Rate: calculated rate; Site: right forearm; 15:08 Follow up: IV Status: Infusion continued upon transfer bp 13:27 Drug: Aspirin PO Chewable Tablet 324 mg PO once; 81 mg tablets x 4 Route: PO; bp 14:55 Follow up: Response: No adverse reaction bp 14:25 Drug: Nitroglycerin Sublingual 0.4 mg Sublingual once; every five minute if needed x3 cm10 Route: Sublingual; 14:56 Follow up: Response: No adverse reaction bp 14:27 CANCELLED (Physician Discretion): nitroprusside0.5 mcg/kg/min IV at calculated rate See ec2 Administration Instructions; Shield from light (standard concentration 50 mg/250 mL D5W); Recommended max rate 10 mcg/kg/min; Titrate 0.1 mcg/kg/min as often as every 5 minutes to achieve goal (see titration policy); Goal parameter SBP less than 160 mmHg. 14:48 Not Given (Other Intervention Used): [id number] mg IV at bolus once bp 14:55 Drug: Nitroglycerin IV 5 mcg/min IV at calculated rate See Administration Instructions; bp Standard concentration 50mg/250mL; Recommended max rate 200 mcg/min; max rate for Angina 400mcg/min; Titrate 5 mcg/min q5min to achieve goal (see titration policy); Goal parameter SBP less than 160 bpm or resolution of chest pain; low-sorbing IV tubing. Route: IV; Rate: calculated rate; Site: left forearm; 15:08 Follow up: IV Status: Infusion continued upon transfer bp Medication: 15:06 VIS not applicable for this client. bp Outcome: 13:10 ER care complete, transfer ordered by . ec2 15:55 Transferred by ground EMS to [facility], [facility] [place], bp 15:55 Condition: stable 15:55 Instructed on the need for transfer, 16:06 Patient left the ED. ll1 Signatures: Dispatcher [employer] Sneha Isbell RN RN aa5 Law Hoffman RN RN bp Lewis, Lynsay, RN RN 1 Peri Hill [facility] Leonor Overton Clarissa, UCHE RN cm10 Carlos Dupont MD MD ec2 Stephanie Garrett 7 Radha Logan RN cm10 Corrections: (The following items were deleted from the chart) 14:49 13:47 initiated transfer with wagner at [facility] transfer [place] [id number]
--- NOTE | 2024-11-16 13:10 | EDPHYS ---
Physician Documentation [facility] Name: Yadira Contreras Age: 89 yrs Sex: Female : 1935 Arrival Date: 11/16/2024 Time: 10:50 Bed 5 Private MD: ED Physician Carlos Dupont HPI: 11/16 11:05 This 89 yrs old Female presents to ER via Unassigned with complaints of ec2 General Weakness, confusion. 11:05 Patient arrives today d/t concern for family for weakness and confusion. ec2 11:05 Patient has been having confusion as well as word finding difficulties over the past ec2 week. No falls injuries or trauma. No fevers or chills. Family is also concerned that she has been having some decreased p.o. intake secondary to her trigeminal neuralgia.. Historical: - Allergies: 11:14 Morphine; aa5 - PMHx: 11:14 Hypertension; trigenimal neuralgia (Unknown); aa5 - PSHx: 11:14 bowel resection; cataract; hysterectomy; Left hip; Lumpectomy of breast; Right hip; aa5 - Immunization history:: Adult Immunizations unknown. - Infectious Disease History:: Denies. - Social history:: Smoking status: Smoking status: Patient denies any tobacco usage or history of. ROS: 11:06 Constitutional: as per hpi ec2 Exam: 11:06 Constitutional: GEN: NAD Head: atraumatic Eyes: EOMI Ears: External ears are ec2 normal. CV: regular rate LUNGS: no respiratory distress ABD: non-distended SKIN: no evidence of rashes MSK: no evidence of trauma. Neuro: Cranial nerves II through XII intact, strength intact all 4 extremities. Vital Signs: 11:00 BP 212 / 82; Pulse 64; Resp 18 S; Temp 97.8(TE); Pulse Ox 98% on R/A; Weight 50.5 kg aa5 (M); Height 5 ft. 2 in. (R); 12:45 BP 180 / 86; Pulse 62; Resp 15; Pulse Ox 96% ; cm10 13:00 BP 192 / 79; Pulse 59; Resp 15; Pulse Ox 96% ; cm10 13:10 BP 192 / 79; ec2 13:15 BP 210 / 79; Pulse 63; Resp 15; Pulse Ox 98% ; cm10 14:00 BP 217 / 82; Pulse 61; Resp 15; Pulse Ox 96% ; cm10 14:15 BP 211 / 80; Pulse 63; Resp 17; Pulse Ox 98% ; cm10 14:30 BP 169 / 90; Pulse 73; Resp 15; Pulse Ox 95% ; cm10 15:07 BP 196 / 83; Pulse 67; Resp 15; Pulse Ox 98% ; bp 11:00 Body Mass Index 20.36 (50.50 kg, 157.48 cm) aa5 MDM: 10:57 Medical Screening Exam initiated ec2 11:07 Data reviewed: vital signs, nurses notes. ED course: Patient arrives today for ec2 confusion and word finding difficulties. Examination is revealing for intact neuroexam. Will obtain lab work, CT imaging. DDx include processes such as UTI, electrolyte disturbances, ACS, intracranial process. 11:38 ED course: EKG independently reviewed and interpreted by me, shows normal sinus rhythm, ec2 rate of 59, no acute ST segment elevations, intervals are nonactionable.. 12:02 ED course: Patient with marked troponin elevation, given the significant hypertension, ec2 will give the patient nitroglycerin, start the patient on heparin drip, concern for possible hypertensive emergency, possible demand ischemia, possible ACS.. 13:08 ED course: CT of the head shows possible age-indeterminate left thalamic ec2 hypoattenuation. CT angio of the head and neck shows no acute process. PTT within normal ranges, without the patient on heparin. Will transfer for cardiac capable facility, no Cloth Washer present in the ED, patient possibly with hypertensive emergency, possible ACS.. 13:10 ED course: Repeat blood pressure with some improvement after sublingual nitro.. ec2 11/16 11:04 Order name: Basic Metabolic Panel; Complete Time: 12:00 ec2 11/16 11:04 Order name: CBC with Diff; Complete Time: 11:59 ec2 11/16 11:04 Order name: Troponin HS; Complete Time: 12:00 ec2 11/16 11:04 Order name: UAM; Complete Time: 14:12 ec2 11/16 12:10 Order name: Ptt, Activated; Complete Time: 13:07 cm10 11/16 11:04 Order name: XRAY Chest (1 view); Complete Time: 12:20 ec2 11/16 11:04 Order name: CT Head Brain wo Cont; Complete Time: 13:07 11/16 11:07 Order name: CT Head Angio; Complete Time: 13:11/16 11:07 Order name: CT Neck Angio; Complete Time: 13:07 11/16 11:04 Order name: EKG; Complete Time: 11:04 11/16 11:04 Order name: Cardiac monitoring; Complete Time: 11:11/16 11:04 Order name: EKG - Nurse/Tech; Complete Time: 11:39 11/16 11:04 Order name: IV Saline Lock; Complete Time: 11:11/16 11:04 Order name: Labs collected and sent; Complete Time: 11:11/16 11:04 Order name: O2 Per Protocol; Complete Time: :11/16 11:04 Order name: O2 Sat Monitoring; Complete Time: 11:11/16 12:30 Order name: Labs - recollect needed: blue; Complete Time: 13:05 bc6 Administered Medications: 11:37 Drug: NS 0.9% IV 1000 ml IV at 1 bolus Per protocol; to be given as a bolus over 60 cm10 minutes Route: IV; Rate: 1 bolus; Site: left forearm; 14:56 Follow up: IV Status: Completed infusion bp 12:20 Drug: Nitroglycerin Sublingual 0.4 mg Sublingual once; every five minute if needed x3 cm10 Route: Sublingual; 13:27 Drug: Heparin ([place] Drip) 12 units/kg/[place] - ([place] [address] units, D5W IV 500 ml) IV at bp calculated rate Per protocol; Max initial rate 1000 units/hr {Co-Signature: cm10 (Radha Logan RN).} Route: IV; Rate: calculated rate; Site: right forearm; 15:08 Follow up: IV Status: Infusion continued upon transfer bp 13:27 Drug: Aspirin PO Chewable Tablet 324 mg PO once; 81 mg tablets x 4 Route: PO; bp 14:55 Follow up: Response: No adverse reaction bp 14:25 Drug: Nitroglycerin Sublingual 0.4 mg Sublingual once; every five minute if needed x3 cm10 Route: Sublingual; 14:56 Follow up: Response: No adverse reaction bp 14:27 CANCELLED (Physician Discretion): nitroprusside0.5 mcg/kg/min IV at calculated rate See ec2 Administration Instructions; Shield from light (standard concentration 50 mg/250 mL D5W); Recommended max rate 10 mcg/kg/min; Titrate 0.1 mcg/kg/min as often as every 5 minutes to achieve goal (see titration policy); Goal parameter SBP less than 160 mmHg. 14:48 Not Given (Other Intervention Used): [id number] mg IV at bolus once bp 14:55 Drug: Nitroglycerin IV 5 mcg/min IV at calculated rate See Administration Instructions; bp Standard concentration 50mg/250mL; Recommended max rate 200 mcg/min; max rate for Angina 400mcg/min; Titrate 5 mcg/min q5min to achieve goal (see titration policy); Goal parameter SBP less than 160 bpm or resolution of chest pain; low-sorbing IV tubing. Route: IV; Rate: calculated rate; Site: left forearm; 15:08 Follow up: IV Status: Infusion continued upon transfer bp Disposition Summary: 11/16/24 13:10 Transfer Ordered Notes: Transfer Location: Other Acute Care Facility ec2 Reason: Higher level of care ec2 Condition: Fair ec2 Problem: new ec2 Symptoms: have improved ec2 Accepting Physician: transferring doc(11/16/24 16:06) ll1 Diagnosis - NSTEMI ec2 - Confusion ec2 - Hypertensive emergency ec2 - Confusion ec2 Forms: - Medication Reconciliation Form ec2 - SBAR form ec2 Critical care time excluding procedures: 13:08 Critical care time: Bedside Care: 30 minutes, Consultation: 5 minutes. Total time: 35 ec2 minutes Signatures: Dispatcher [employer] EDSneha Matos RN RN aa5 Law Hoffman RN RN Claude Nixon RN RN ll1 Peri Hill 6 Radha Logan, RN RN cm10 Carlos Dupont MD MD ec2 Radha Logan RN cm10 Corrections: (The following items were deleted from the chart) 11:04 11:04 Head Brain Wo Cont+CT.RAD.BRZ ordered. EDMS EDMS 11:07 11:07 Head Angio+CT.RAD.BRZ ordered. EDMS EDMS 11:07 11:07 Neck Angio+CT.RAD.BRZ ordered. EDMS EDMS 13:30 13:10 transferring doc ec2 ec2 14:27 14:27 Nitroprusside IV 0.5 mcg/kg/min IV at calculated rate See Administration ec2 Instructions; Shield from light (standard concentration 50 mg/250 mL D5W); Recommended max rate 10 mcg/kg/min; Titrate 0.1 mcg/kg/min as often as every 5 minutes to achieve goal (see titration policy); Goal parameter SBP less than 160 mmHg. ordered. ec2 16:06 13:30 transferring doc ec2 ll1
[2024-11-16 14:10] LABS: Specific Gravity 1.016 (1.005-1.030); Sqamous Epithelial None Seen /HPF (None Seen); Urine Bacteria None Seen /HPF (<20); Urine Bilirubin NEGATIVE (Negative); Urine Blood Negative (Negative); Urine Clarity Clear (Clear); Urine Color Colorless (Yellow); Urine Culture Reflex Order NOT NEEDED; Urine Glucose NEGATIVE (Negative); Urine Ketones NEGATIVE (Negative); Urine Micro Reflex YN NO BILL MICROSCOPIC; Urine Nitrite NEGATIVE (Negative); Urine Protein NEGATIVE (Negative); Urine RBC <5 /HPF (None Seen); Urine Urobilinogen Normal (Normal); Urine WBC <5 /HPF (<5)
[2024-11-16] MEDS ORDERED: LABETALOL 20 MG/4ML SYRINGE IV ONE (14:21)
[2024-11-16] MEDS ORDERED: NITROGLYCERIN/D5W 50 MG/250 ML BTL IV ONE (14:42)
[2024-11-16 16:11] VITALS: TEMP 97.8
[2024-11-16 16:20] VITALS: BP 196/83; O2SAT 98
== END 2024-11-16 16:06 ==
LOC: ER 10:50
DX: I21.4 Non-ST elevation (NSTEMI) myocardial infarction (principal); I16.1 Hypertensive emergency; I10 Essential (primary) hypertension
CPT/HCPCS: 96365; 96361; 85025; 81001; 80048; 36415; 85730; 84484; 70450; 70496; 70498; 71045; 96375; 99285; 96366; Q9967; J7030; 93005